=== PATIENT | male | born 1975 | race Caucasian/White ===

== ENCOUNTER 2024-09-27 09:32 | Outpatient (CLI) | payer OTHER, SELFPAY ==
--- NOTE | ~2024-09-27 | CT_ITS ---
EXAMINATION:CT diagnostic chest wo con DATE: 09/27/2024 10:06 INDICATION: Exposure to asbestos. TECHNIQUE: Computed tomography (CT) of the chest was performed without intravenous contrast. Automate d exposure control and iterative reconstruction technique were employed. The dose-length product (DLP ) was 219.64 mGy-cm. COMPARISON: None. FINDINGS: There is mild elevation of left hemidiaphragm. There is mild emphysema. There is minimal at electasis in right lower lobe. There are groundglass opacities in the inferior lingula and basilar le ft lower lobe, likely atelectasis. No bronchiectasis or honeycombing. No pleural effusion. The heart size is normal. There are coronary artery calcifications. No pericardial effusion. There is mild bila teral gynecomastia. There is mild chronic anterior wedging of multiple vertebral bodies. IMPRESSION: 1. Mild emphysema. Reviewed, dictated and finalized at location A. ENT RELATIONS REPRESENTATIVE IMPRESSION: 1. Mild emphysema.
--- OUTSIDE RECORDS SUMMARY | 2024-10-04 12:43 | XMS_ITS | Clinical Summary ---
Author Organization [facility] Address [address] [place] [address] Care Team Providers Care Human Service Worker Name Role Phone Carlos Pacheco MD Primary Care Provider [phone] Allergies No known active allergies Medications amLODIPine (NORVASC) 5 mg tablet Take 1 tablet (5 mg total) by mouth nightly Active metoprolol XL (TOPROL-XL) 100 mg 24 hr tablet Take 1 tablet (100 mg total) by mouth nightly Active fenofibrate (TRIGLIDE) 160 mg tablet Take 1 tablet (160 mg total) by mouth nightly Active atorvastatin (LIPITOR) 10 mg tablet Take 1 tablet (10 mg total) by mouth nightly Active zolpidem (AMBIEN) 10 mg tabletIndicatio ns:Sleep-Onset Insomnia Take 1 tablet (10 mg total) by mouth nightly Active famotidine (PEPCID) 40 mg tablet Take 1 tablet (40 mg total) by mouth daily 30 tablet 11 05/05/20 025 Active hydrocortisone (ANUSOL-HC) 25 mg suppository Insert 1 suppository (25 mg total) into the rectum daily Take prior to procedure as directed 20 suppository 08/26/20 24 025 Active Active Problems Problem Noted Date Diagnosed Date Personal history of colonic polyps 05/08/2024 Encounter for screening colonoscopy 05/08/2024 Diverticulitis 04/27/2024 Rectal bleeding 04/26/2024 Encounters Date Type Department Care Team Description 09/19/2024 1:12 PM LABELING ASSOCIATE Anesthesia Event [facility] Center [address] [place] [address] Luke Vivar MD 09/19/2024 12:00 PM LABELING ASSOCIATE - 09/19/2024 12:30 PM LABELING ASSOCIATE Surgery [facility] [address] [place] [address] Celestino Moctezuma MD SIGMOID REMOVAL SNARE 09/19/2024 10:26 AM LABELING ASSOCIATE - 09/19/2024 2:26 PM LABELING ASSOCIATE Hospital Encounter [facility] [address] [place] [address] Celestino Moctezuma MD Rectal bleeding Discharge Disposition: Discharge to home or self care 08/27/2024 Telephone [facility] Gastroenterology at [address] [address] Jeanne Lugo MA 08/26/2024 Orders Only [facility] Gastroenterology at [address] [place] [phone] Celestino Moctezuma MD 08/25/2024 Telephone [facility] Gastroenterology at [address], [place] [address] Jeanne Lugo MA 08/15/2024 Telephone [facility] Gastroenterology at [address], [place] [address] Lori Pruett Medical Records Request 08/04/2024 8:30 AM CDT Lab [facility] [address] [place] [address] Gastrointestinal hemorrhage, unspecified gastrointestinal hemorrhage type 08/04/2024 8:15 AM CDT Lab [facility] [address] [place] [address] from Last 3 Months Surgical History Surgery Date Site/Laterality Comments BRAIN SURGERY Medical History Medical History Date Comments Hypertension Social History Tobacco Use Types Packs/Day Years Used Date Smoking Tobacco: Every Day Cigarettes Tobacco Cessation:Ready to Q uit: Not Asked; Counseling Given: Not Answered [facility] Utilities Answer Date Recorded In the past 12 months has [employer], gas, oil, or water company threatened to shut off services in your home? No 04/30/2024 Social Connection and Isolation Panel [NHANES] A nswer Date Recorded In a typical week, how many times do you talk on the phone with family, friends, or neighbors? Twice a week 04/30/2024 How often do you get together with friends or re latives? Twice a week 04/30/2024 Attends Sabianism Services Not on file 04/30 Active Member of Clubs or Organizations Not on f ile 04/30/2024 Attends Club or Organization Meetings Not on gary e 04/30/2024 Are you , , di vorced, , never , or living with a partner? 04/30/2024 AUDIT-C Answer Date Recorded Q1: How often do you have a drink containing alcohol? Monthly or less 09/19/2024 Q2: How many drinks containi ng alcohol do you have on a typical day when you are drinking? 5 or 6 Q3: How often do you have si x or more drinks on one occasion? Daily or almost daily 09/19/2024 Overall Financial Resource Strain (CARDIA) Answe r Date Recorded How hard is it for you to pa y for the very basics like food, housing, medical care, and heating? Not hard at all 04/30/2024 Hunger Vital Sign Answer Date Recorded Within the past 12 months, y ou worried that your food would run out before you got the money to buy more. Never true 04/30/20 24 Within the past 12 months, t he food you bought just didn't last and you didn't have money to get more. Never true 04/30/2024 PRAPARE - Transportation Answer Date Re corded In the past 12 months, has l ack of transportation kept you from medical appointments or from getting medications? No 04/08 In the past 12 months, has l ack of transportation kept you from meetings, work, or from getting things needed for daily living? No 04/30/2024 Housing Stability Vital Sign Answer Mauricio e Recorded In the last 12 months, was t here a time when you were not able to pay the mortgage or rent on time? No 04/30/2024 In the past 12 months, how m any times have you moved where you were living? 0 04/30/2024 At any time in the past 12 m [place], were you homeless or living in a mcc (including now)? No 04/30/2024 Personal Safety Answer Date Recorded Have you ever been in or are you currently in a harmful physical or emotional relationship or is someone making you feel afraid or unsafe? 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 Not on file Not on file Not on fi le Obstetrics History Last Filed Vital Signs Vital Sign Reading Time Taken Comments Blood Pressure 152/82 09/19/2024 2:07 PM LABELING ASSOCIATE Pulse 55 09/19/2024 2:07 PM LABELING ASSOCIATE Temperature 36.9 ??C (98.5 ??F) 09/19/2024 2:07 PM CS T Respiratory Rate 18 09/19/2024 2:07 PM LABELING ASSOCIATE Oxygen Saturation 99% 09/19/2024 2:07 PM LABELING ASSOCIATE Inhaled Oxygen Concentration - - Weight 81.6 kg (180 lb) 09/19/2024 10:45 AM LABELING ASSOCIATE Height 180.3 cm (5' 11 ) 09/19/2024 10:45 AM LABELING ASSOCIATE Body Mass Index 25.1 09/19/2024 10:45 AM LABELING ASSOCIATE Plan of Treatment Upcoming Encounters Date Type Department Care Team (Late st Contact Info) Description 05/04/2025 8:00 AM CDT Hospital Encounter [address] [address] Celestino Moctezuma MD [address] [place] [address] 05/04/2025 8:00 AM CDT - 05/04/2025 8:30 AM CDT Surgery [address] [address] Celestino Moctezuma MD [address] [place] [address] COLONOSCOPY Scheduled Procedures Name Priority Associated Diagnoses Date/Ti me COLONOSCOPY Personal history of colonic polyps Encounter for screening colonoscopy 05/04/2025 8:00 AM CDT Health Maintenance Due Date Last Done Comments Depression Screening 1975 Hepatitis C Screening 1975 Pneumococcal vaccine <65 (1 of 2 - PCV) 1980 DTaP/Tdap/Td Vaccine (1 - Tdap) 1985 Hepatitis B Screening 1992 Regular Well Visit/Exam 18-64 1992 Zoster Vaccine (1 of 2) 2024 Influenza Vaccine (#1) 2024 Prostate Cancer Screening-PSA 08/04/2026 08/04/2024 Colon Cancer Screening-Colonoscopy 04/29/20342023, 04/28/2024 Procedures Procedure Name Priority Date/Time Associated Diagnosis Comments SURGICAL PATHOLOGY STAT 09/19/2024 2: 58 PM LABELING ASSOCIATE Rectal bleeding INFRARED COAGULATION OF HEMORRHOIDS 09/19/2024 1:08 PM LABELING ASSOCIATE Rectal bleeding SIGMOID REMOVAL SNARE 09/19/2024 1:08 PM LABELING ASSOCIATE Rectal bleeding FLEXIBLE SIGMOIDOSCOPY 09/19/2024 10:29 AM LABELING ASSOCIATE EGFR Routine 08/04/2024 8:21 AM CDT LIPID PANEL Routine 08/04/2024 8:21 AM CDT HEMOGLOBIN A1C Routine 08/04/2024 8:21 AM CDT TOTAL TESTOSTERONE Routine 08/04/2024 8: 21 AM CDT VITAMIN D 25 HYDROXY Routine 08/04/2024 8:21 AM CDT COMPREHENSIVE METABOLIC PANEL Routine 08/04/2024 8:21 AM CDT TSH Routine 08/04/2024 8:21 AM CDT PSA SCREEN Routine 08/04/2024 8:21 AM CDT DIFFERENTIAL AUTO Routine 08/04/2024 8:2 0 AM CDT Gastrointestinal hemorrhage, unspecified gastrointestinal hemorrhage type FOLATE Routine 08/04/2024 8:20 AM CDT Gastrointestinal hemorrhage, unspecified gastrointestinal hemorrhage type VITAMIN B12 Routine 08/04/2024 8:20 AM CDT Gastrointestinal hemorrhage, unspecified gastrointestinal hemorrhage type IRON PROFILE W/ IBC Routine 08/04/2024 8 :20 AM CDT Gastrointestinal hemorrhage, unspecified gastrointestinal hemorrhage type CBC WITH AUTO DIFFERENTIAL Routine 08/04/2024 8:20 AM CDT Gastrointestinal hemorrhage, unspecified gastrointestinal hemorrhage type COLONOSCOPY 04/29/2024 11:02 AM CDT from Last 3 Months or Most Recently Relevant to Health Maintenance Results * Surgical pathology (09/19/2024 2:58 PM LABELING ASSOCIATE) Tissue (Polyp(s), colon/colorectal, esophageal, gastric) 09/19/2024 1:43 PM LABELING ASSOCIATE Tissue (Polyp(s), colon/colorectal, esophageal, gastric) 09/19/2024 1:43 PM LABELING ASSOCIATE Narrative PATHOLOGY [facility] ([place]) - 09/23/2024 12:42 PM LABELING ASSOCIATE EPIC results best viewed via link to PDF [facility] Department of Pathology [address] [place] [address] Note to Patients: This report may contain a detailed description of human tissue sent by a health care provider to the laboratory for pathologic evaluation. The content of this report is essential for diagnosis and may provide important critical findings. This information may be unfamiliar to patients to review without a medical professional present. It is advised that the patient review this report in the presence of a health care provider who can answer questions and explain the details. Final Report Patient Name: ??ANGELIQUE LAW Address: ??[address] [place] [address], ??[place], [place] [address] Gender: ??M : ??1975 (Age: 49) Service: ??Gastro Location: ??[facility] Hospital #: ??[id number] Patient Type: ??[facility] Accession # ?[id number] Taken: ??09/19/2024 Received: ??09/19/2024 Accessioned: ??09/19/2024 Reported: ??09/23/2024 Physician(s):Dr. Celestino Moctezuma M.D. Diagnosis: A. ??Rectum, biopsy: ? - Tubular adenoma. ? - No evidence of high-grade dysplasia or malignancy. B. ??Colon, sigmoid, biopsies: ? - Hyperplastic polyps. ? - No evidence of dysplasia or malignancy. Jesse Noyola MD Report Electronically Reviewed and Signed Out By ??Jesse Noyola MD ??09/23/2024 12:42:06 Specimen(s) Received: A: Rectal polyp x 1 B: Sigmoid polyp x 2 Microscopic Description: A. Microscopic examination of the bisected specimen shows polypoid fragments of rectal mucosa with adenomatous mucosal changes consistent with a tubular adenoma. ??There is no evidence of high-grade dysplasia or malignancy. B. Microscopic examination shows fecal material and two polypoid fragments of cauterized colonic mucosa with hyperplastic glandular changes. ??There is no evidence of marked crypt dilation, lateral branching, or flattening of the crypt bases. ??The findings are consistent with hyperplastic polyps. ??There is no evidence of dysplasia or malignancy. Clinical History: Rectal bleeding. ??Sigmoid removal snare, infrared coagulation of hemorrhoids. ?? Gross Description: The specimen is submitted in two formalin containers labeled ANGELIQUE NULL . A. ??Received in the first container labeled rectal polyp x1 . ??It is 1 red- guo polypoid tissue fragment measuring 1 cm. ??Inked and bisected. ??All in A B. ?? Received in the second container labeled sigmoid polyp x2 . ??It is 2 pieces of guo tissue, 1 and 3 mm. ??All in B T.A. Yodit Cornejo, P.A./Angy Quiros M.D. REPORT IMAGES AND SCANNED DOCUMENTS, IF INCLUDED, ONLY VIEWABLE IN PDF VERSION OF REPORT The performance characteristics of some immunohistochemical stains, fluorescence in-situ hybridization tests and immunophenotyping by flow cytometry cited in this report (if any) were determined by the Surgical Pathology Department at [facility] as part of an ongoing quality director program and in compliance with federally mandated regulations drawn from the Clinical Laboratory Improvement Act of 1988 (CLIA '88). ??Some of these tests rely on the use of analyte specific reagents and are subject to specific labeling requirements by the US Food and Drug Administration. ??Such diagnostic tests may only be performed in a facility that is certified by the Department of Health and Human Services as a high complexity laboratory under CLIA '88. The FDA has determined that such clearance or approval is not necessary. ??This test is used for clinical purposes. ??It should not be regarded as investigational or for research. ??Nevertheless, federal rules concerning the medical use of analyte specific reagents require that the following disclaimer be attached to the report: This test was developed and its performance characteristics determined by the Surgical Pathology Department [facility]. ??It has not been cleared or approved by the U. S. Food and Drug Administration. Note for decalcified specimens: This assay has not been validated on decalcified tissues. Results should be interpreted with caution given the possibility of false negativity on decalcified specimens Celestino Moctezuma MD LAB PATHOLOGY ORDERABLES [place] [address] * Flexible Sigmoidoscopy (09/19/2024 10:29 AM LABELING ASSOCIATE) Anatomical Region Laterality Modality Other Narrative Procedure Note Celestino Moctezuma MD - 09/19/2024 10:29 AM CST [facility] Patient Name: Angelique Law Procedure Date: 09/19/2024 10:29AM Date of : 1975 Admit Type: Outpatient Age: 49 Gender: Male Attending MD: Celestino Moctezuma M.D. Room: [facility] ENDOSCOPY ROOM 1 Note Status: Finalized Patient Profile: This is a 49 year old male. 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 Noted extensive diverticulosis and sharp angulation with polyp formation in the distal sigmoid colonand colorectal angle. Procedure: Flexible Sigmoidoscopy Indications: Rectal hemorrhage Referring MD: Carlos Pacheco M.D. Providers: Celestino Moctezuma M.D. Impression: - Diverticulosis in the sigmoid colon. Sharp angulation and spasm in the distal sigmoid area and rectosigmoid areas - Two 8 to 14 mm polyps in the distal sigmoidcolon, removed with a hot snare. Resected and retrieved. - One 15 mm polyp in the proximal rectum, removedwith a hot snare. Resected and retrieved. Clip (MR conditional) was placed. Clip credit control clerk: Telekenex. - Internal hemorrhoids. Treated with thermaltherapy. Recommendation: - Await pathology results. - Fiber supplements daily - Colonoscopy in 1 year Medicines: Monitored Anesthesia Care Complications: No immediate complications. Estimated Blood Loss: Estimated blood loss: none. Procedure: Pre-Anesthesia Assessment: - Prior to the procedure, a History and Physicalwas performed, and patient medications and allergieswere reviewed. The patient's tolerance of previous anesthesia was also reviewed. The risks andbenefits of the procedure and the sedation options and risks were discussed with the patient. All questions were answered, and informed consent was obtained. Prior Anticoagulants: The patient has taken noanticoagulant or antiplatelet agents. ASA Grade Assessment: Per anesthesia note and evaluation. After reviewing the risks and benefits, the patient was deemed in satisfactory condition to undergo the procedure. The benefits, risks, and alternatives to theprocedure and sedation were discussed and informed consentwas obtained. The Endoscope [id number] was introduced through the anus and advanced to the the descending colon. The flexible sigmoidoscopy was accomplished without difficulty. The patienttolerated the procedure well. The quality of the bowel preparation was adequate. Findings: The perianal and digital rectal examinations were normal. Multiple small and large-mouthed diverticula were found in thesigmoid colon. Sharp angulation with the extensive spasm noted in the distal sigmoid colon and in the rectal sigmoid area with mucosal congestion. Overall visualization in this area is somewhat difficult. Two sessile polyps were found in the distal sigmoid colon with anareas of spasm close to the rectal sigmoid curve. The polyps were 8 to 14mm in size. These polyps were removed with a hot snare. Resection and retrieval were complete. A 15 mm polyp was found in the proximal rectum. The polyp wassessile. The polyp was removed with a hot snare. Resection and retrieval were complete. To prevent bleeding after the polypectomy, one hemostaticclip was successfully placed (MR conditional). Clip credit control clerk: Telekenex. There was no bleeding at the end of the procedure. Internal hemorrhoids were found during retroflexion. The hemorrhoids were medium-sized. Coagulation to prevent future bleeding of internal hemorrhoids using IRC (Infrared Coagulation) was successful. Electronically signed by Celestino Moctezuma M.D. Celestino Moctezuma M.D. 09/19/2024 2:12:13 PM Number of Addenda: 0 Note Initiated On: 09/19/2024 10:29 AM Procedure Code(s): --- Professional --- 61327, Destruction of internal hemorrhoid(s) by thermal energy (eg, infrared coagulation, cautery, radiofrequency) 44403, Sigmoidoscopy, flexible; with removal of tumor(s), polyp(s),or other lesion(s) by snare technique Diagnosis Code(s): --- Professional --- K64.8, Other hemorrhoids D12.5, Benign neoplasm of sigmoid colon D12.8, Benign neoplasm of rectum K62.5, Hemorrhage of anus and rectum K57.30, Diverticulosis of large intestine without perforation orabscess without bleeding CPT copyright 2020 [place] [employer]. All rights reserved. The codes documented in this report are preliminary and upon furniture refinisher reviewmay be revised to meet current compliance requirements. Recognized by the [place] [employer] for promoting quality in endoscopy Celestino Moctezuma MD ENDOSCOPY PROCEDURES Final Result * eGFR (08/04/2024 8:21 AM CDT) eGFR 88 >=60 mL/min/1. 73 m2 Comment: Interpretive Data Reference Interval Normal ?>/= 90 mL/min/1.73m2 Mildly decreased* ? 60 - 89 mL/min/1.73m2 Mildly to moderately decreased ?45 - 59 mL/min/1.73m2 Moderately to severely decreased ??30 - 44 mL/min/1.73m2 Severely decreased ?15 - 29 mL/min/1.73m2 Kidney Failure ?< 15 ??mL/min/1.73m2 *Relative to young adult level Estimated glomerular filtration rate is determined by the 2020 CKD-EPI equation recommended by the National Kidney Foundation (A Unifying Approach to GFR Estimation: Recommendations of the NKF-ASK Task Force on Reassessing the Inclusion of Race in Diagnosing Kidney Disease, JASN 2020). The CKD-EPI equation should not be used for patients with unstable renal function and has not been validated in children and those over 70. Current interpretive data was last reviewed 2021. Testing performed by: [facility], [address] [place] [address], [place]., [id number] Blood 08/04/2024 8:21 AM CDT 08/04/2024 1:17 PM CDT us Kaylyn Gorman CONCRETE PUDDLER LAB BLOOD ORDERABLES Final Result [facility] ([place]) 1 [facility] [place] [address] * PSA screen (08/04/2024 8:21 AM CDT) [facility] PSA-Total 0.72 <=3.90 ng/mL Comment: Interpretive Data ?AGE ? SEX ?REFERENCE INTERVAL 0 minutes-150 years ?Female ?None 0 minutes-49 years ? Male ?None ? 50-59 years ? Male ?0-3.90 ? 60-69 years ? Male ?0-5.40 ? 70-79 years ? Male ?0-6.20 ? 80-150 years ?Male ?0-6.20 The Genaro PSA Total assay procedure was used. Results from different manufacturers or methods may not be comparable. Serial testing should be performed using the same method. Current interpretive data last revised 22. Testing performed by: [facility], [address] [place] [address]., [id number] Blood 08/04/2024 8:21 AM CDT 08/04/2024 8:21 AM CDT Kaylyn Gorman CONCRETE PUDDLER LAB BLOOD ORDERABLES Final Result [facility] ([place]) 1 [facility] Department [place] [address] * Vitamin D 25 hydroxy (08/04/2024 8:21 AM CDT) Vitamin D 25-OH 35 30 - 80 ng/mL Comment:Testing performed by : [facility], [address] [place] [address]., [id number] Blood 08/04/2024 8:21 AM CDT 08/04/2024 8:22 AM CDT Kaylyn Gorman CONCRETE PUDDLER LAB BLOOD ORDERABLES Final Result [facility] ([place]) 1 [facility] [place] [address] * TSH (08/04/2024 8:21 AM CDT) Thyroid Stimulating Hormone 1.23 0.30 - 4.20 mcIUnit/mL Comment:Testing performed by : [facility], [address] [place] [address], [id number] Blood 08/04/2024 8:21 AM CDT 08/04/2024 8:21 AM CDT Kaylyn Gorman CONCRETE PUDDLER LAB BLOOD ORDERABLES Final Result Performing Organization Address City/[facility]/ZIP Co de Phone Number [facility] ([place]) 1 [facility] [place] [address] * Total testosterone (08/04/2024 8:21 AM CDT) Testosterone 557 193 - 740 ng/dL Comment:Testing performed by : [facility], [address] [place] [address]., [id number] Blood 08/04/2024 8:21 AM CDT 08/04/2024 8:21 AM CDT Kaylyn Gorman CONCRETE PUDDLER LAB BLOOD ORDERABLES Final Result [facility] ([place]) 1 [facility] [place] [address] * (ABNORMAL) Hemoglobin A1c (08/04/2024 8:21 AM CDT) [facility] Hgb A1C 5.9(H) 4.0 - 5.6 % Comment:Testing performed by : [facility], [address] [place] [address]., [id number] Estimated Average Glucose 123 mg/dL [facility] ([place]) Comment: The ADA recommends reporting an estimated Average Glucose (eAG) with all Hemoglobin A1c results using the equation derived from a study of 507 normal and diabetic adults. ??Minority populations were underrepresented and children were not included. ?? (Diabetes Care 31:1979-2575, 2008). ??The eAG is not equivalent to a fasting glucose. Testing performed by: [facility], [address] [place] [address]., [id number] Blood 08/04/2024 8:21 AM CDT 08/04/2024 8:23 AM CDT Kaylyn Gorman CONCRETE PUDDLER LAB BLOOD ORDERABLES Final Result [facility] ([place]) 1 [facility] Department [place] [address] * (ABNORMAL) Lipid panel (08/04/2024 8:21 AM CDT) [facility] Cholesterol 138 30 - 199 mg/dL Comment: Interpretive Data Ages < or = 19 years ??Acceptable: ? <170 mg/dL ??Borderline high: ??170-199 mg/dL ??High: ? >or= 200 mg/dL Ages > or = 20 years ??Desirable: ?<200 mg/dL ??Borderline high: ??200-239 mg/dL ??High: ? >or= 240 mg/dL Literature References: 1. Expert Panel on Integrated Guidelines for Cardiovascular Health and Risk Reduction in Children and Adolescents. Pediatrics 2011;128:S213 2. NCEP Expert Panel. Circulation 2004;110:227 Current Interpretive Data was last revised on 2018. Testing performed by: [facility], [address] [place] [address], [place]., [address] Triglycerides 104 <=149 mg/dL [facility] ([place]) Comment: Interpretive Data Ages < or = 9 years ??Acceptable: ? <75 mg/dL ??Borderline high: ??75-99 mg/dL ??High: ? >or= 100 mg/dL Ages 10 to 20 years ??Acceptable: ? <90 mg/dL ??Borderline high: ??90-129 mg/dL ??High: ? >or= 130 mg/dL Ages > or = 20 years ??Desirable: ?<150 mg/dL ??Borderline high: ??150-199 mg/dL ??High: ? 200-499 mg/dL ?Very high: ?? >or= 499 mg/dL Literature References: 1. Expert Panel on Integrated Guidelines for Cardiovascular Health and Risk Reduction in Children and Adolescents. Pediatrics 2011;128:S213 2. NCEP Expert Panel. Circulation 2004;110:227 Current Interpretive Data was last revised on 2018. Testing performed by: [facility], [address] [place] [address]., [id number] HDL 29(L) >=40 mg/dL [facility] ([place]) Comment: Interpretive Data Ages < or = 19 years ??Acceptable: ? >45 mg/dL ??Borderline low: ?? 40-45 mg/dL ??Low: ? <40 mg/dL Ages > or = 20 years ??Desirable: ?>or= 60 mg/dL ??Low: ? <40 mg/dL Literature References: 1. Expert Panel on Integrated Guidelines for Cardiovascular Health and Risk Reduction in Children and Adolescents. Pediatrics 2011;128:S213 2. NCEP Expert Panel. Circulation 2004;110:227 Current Interpretive Data was last revised on 2018. Testing performed by: [facility], [address] [place] [address]., [address] LDL, calculated 89 <=129 mg/dL [facility] ([place]) Comment: Interpretive Data Ages < or = 19 years ??Acceptable: ? <110 mg/dL ??Borderline high: ??110-129 mg/dL ??High: ?>or= 130 mg/dL Ages > or = 20 years ??Optimal: ? <100 mg/dL ??Near optimal: ?100-129 mg/dL ??Borderline high: ?? 130-159 mg/dL ??High: ?>160 mg/dL Calculated using the Hollis LDL-C estimating equation. This equation was implemented on 2024. Prior to this date LDL-C was estimated using the Friedewald equation. Literature References: 1. Expert Panel on Integrated Guidelines for Cardiovascular Health and Risk Reduction in Children and Adolescents. Pediatrics 2011;128:S213 2. NCEP Expert Panel. Circulation 2004;110:227 3. Hollis Mckeon et al. CARLOS Cardiol. 2020 February 05;5(5):540-548. doi: 10.1001/jamacardio.2020.0013 Current Interpretive Data was last revised on 2024. Testing performed by: [facility], [address] [place] [address]., [id number] Non-HDL Cholesterol 109 mg/dL [facility] ([place]) Comment: Interpretive Data Ages < or = 19 years ??Acceptable: ?<120 mg/dL ??Borderline high: ??120-144 mg/dL ??High: ?>145 mg/dL Ages > or = 20 years ??When triglycerides are >200 mg/dL, Non-HDL cholesterol is a secondary target of ? therapy with treatment goals that are 30 mg/dL greater than the LDL cholesterol target. ? Literature References: 1. Expert Panel on Integrated Guidelines for Cardiovascular Health and Risk Reduction in Children and Adolescents. Pediatrics 2011;128:S213 2. NCEP Expert Panel. Circulation 2004;110:227 Current Interpretive Data was last revised on 2018. Testing performed by: [facility], [address] [place] [address], [place]., [address] Chol/HDL ratio 5 [facility] ([place]) Comment:Testing performed by : [facility], [address] [place] [address]., [id number] Blood 08/04/2024 8:21 AM CDT 08/04/2024 8:21 AM CDT Kaylyn Gorman CONCRETE PUDDLER LAB BLOOD ORDERABLES Final Result [facility] ([place]) 1 [facility] Department [place] [address] * Comprehensive metabolic panel (08/04/2024 8:21 AM CDT) Sodium 140 135 - 145 mmol/L Comment:Testing performed by : [address], [address] Potassium, pl 4.2 3.3 - 4.9 mmol/L [facility] ([place]) Comment:Testing performed by : [address], [address] Chloride 104 97 - 110 mmol/L [facility] ([place]) Comment:Testing performed by : [address], [address] CO2 24 22 - 32 mmol/L [facility] ([place]) Comment:Testing performed by : [address], [address] Anion gap 12 2 - 15 mmol/L [facility] ([place]) Comment:Testing performed by : [address], [address] BUN 9 6 - 25 mg/dL [facility] ([place]) Comment:Testing performed by : [address], [address] Creatinine 1.03 0.80 - 1.30 mg/dL [facility] ([place]) Comment:Testing performed by : [address], [address] Glucose 94 70 - 199 mg/dL [facility] ([place]) Comment: Interpretive Data Fasting glucose >/= 126 mg/dl is diagnostic for diabetes. ?? Fasting is defined as no caloric intake for at least 8 hours. Fasting glucose between 100 mg/dl to 125 mg/dl is diagnostic of prediabetes. In a patient with classic symptoms of hyperglycemia or hyperglycemic crisis, a random glucose >/= 200 mg/dl is diagnostic for diabetes. In the absence of unequivocal hyperglycemia, results should be confirmed by repeat testing. The classification and Diagnosis of Diabetes Diabetes Care 2021; 46: S19-S40. Current interpretive data was last revised 2022. Testing performed by: [facility], [address] [place] [address]., [address] Calcium 9.6 8.5 - 10.3 mg/dL [facility] ([place]) Comment:Testing performed by : [address], [address] Bilirubin, total 0.2 0.1 - 1.2 mg/dL [facility] ([place]) Comment:Testing performed by : [address], [address] Protein, pl 6.9 6.5 - 8.5 g/dL [facility] ([place]) Comment:Testing performed by : [facility], [address] [place] [address], [address] Albumin 4.3 3.5 - 5.0 g/dL [facility] ([place]) Comment:Testing performed by : [address], [address] Alk phos 90 40 - 130 Units/L [facility] ([place]) Comment:Testing performed by : [address], [address] ALT 13 7 - 55 Units/L [facility] ([place]) Comment:Testing performed by : [address] [address] AST 30 10 - 50 Units/L [facility] ([place]) Comment:Testing performed by : [address], [address] Blood 08/04/2024 8:21 AM CDT 08/04/2024 8:21 AM CDT Kaylyn Gorman NP LAB BLOOD ORDERABLES Final Result [facility] ([place]) [address] Department [place] [address] * Differential, auto (08/04/2024 8:20 AM CDT) Neutrophil abs 4.0 1.5 - 6.5 K/cumm Comment:Testing performed by : [facility], [address] [place] [address]., [address] Imm gran abs 0.0 0.0 - 0.1 K/cumm [facility] ([place]) Comment:Testing performed by : [facility], [address] [place] [address]., [address] Lymphocyte abs 1.7 0.8 - 3.3 K/cumm [facility] ([place]) Comment:Testing performed by : [facility], [address] [place] [address]., [address] Monocyte abs 0.6 0.2 - 0.8 K/cumm [facility] ([place]) Comment:Testing performed by : [address] [address] Eosinophil abs 0.1 0.0 - 0.5 K/cumm [facility] ([place]) Comment:Testing performed by : [facility], [address] [place] [address]., [address] Basophil abs 0.1 0.0 - 0.1 K/cumm [facility] ([place]) Comment:Testing performed by : [address] [address] Neutrophil pct 61.3 % [facility] ([place]) Comment: Interpretive Data Percent cell count reference ranges are not reported, since discordance with absolute values may lead to misinterpretation of CBC data. Current Interpretive Data was last revised on 2018. Testing performed by: [facility], [address] [place] [address]., [address] Imm gran pct 0.3 % [facility] ([place]) Comment: Interpretive Data Percent cell count reference ranges are not reported, since discordance with absolute values may lead to misinterpretation of CBC data. Current Interpretive Data was last revised on 2018. Testing performed by: [address] [address] Lymphocyte pct 26.2 % [facility] ([place]) Comment: Interpretive Data Percent cell count reference ranges are not reported, since discordance with absolute values may lead to misinterpretation of CBC data. Current Interpretive Data was last revised on 2018. Testing performed by: [address] [address] Monocyte pct 9.7 % [facility] ([place]) Comment: Interpretive Data Percent cell count reference ranges are not reported, since discordance with absolute values may lead to misinterpretation of CBC data. Current Interpretive Data was last revised on 2018. Testing performed by: [facility], [address] [place] [address]., [address] Eosinophil pct 1.7 % [facility] ([place]) Comment: Interpretive Data Percent cell count reference ranges are not reported, since discordance with absolute values may lead to misinterpretation of CBC data. Current Interpretive Data was last revised on 2018. Testing performed by: [address], [address] Basophil pct 0.8 % [facility] ([place]) Comment: Interpretive Data Percent cell count reference ranges are not reported, since discordance with absolute values may lead to misinterpretation of CBC data. Current Interpretive Data was last revised on 2018. Testing performed by: [address], [address] Blood 08/04/2024 8:20 AM CDT 08/04/2024 1:00 PM CDT Celestino Moctezuma MD LAB BLOOD ORDERABLES Final Result [facility] ([place]) 1 [facility] Department [place] [address] * (ABNORMAL) Iron profile w/ IBC (08/04/2024 8:20 AM CDT) Iron 69 50 - 150 mcg/dl Comment:Testing performed by : [address], [address] TIBC 396 250 - 400 mcg/dL [facility] ([place]) Comment:Testing performed by : [facility], [address] Transferrin saturation 17(L) 20 - 50 % [facility] ([place]) Comment:Testing performed by : [address], [address] Blood 08/04/2024 8:20 AM CDT 08/04/2024 1:00 PM CDT Celestino Moctezuma MD LAB BLOOD ORDERABLES Final Result [facility] ([place]) 1 [facility] Department [place] [address] * (ABNORMAL) CBC with auto differential (08/04/2024 8:20 AM CDT) WBC 6.5 3.8 - 9.9 K/cumm Comment:Testing performed by : [address], [address] Hgb 15.3 13.0 - 17.5 g/dL [facility] ([place]) Comment:Testing performed by : [address], [address] Hct 48.6 38.9 - 50.3 % [facility] ([place]) Comment:Testing performed by : [address], [address] Plt 419(H) 150 - 400 K/cumm [facility] ([place]) Comment:Testing performed by : [address], [address] MPV 10.0 9.1 - 12.3 fL [facility] ([place]) Comment:Testing performed by : [address], [address] RBC 5.05 4.30 - 5.80 M/cumm [facility] ([place]) Comment:Testing performed by : [address], [address] MCV 96.2 81.3 - 96.4 fL [facility] ([place]) Comment:Testing performed by : [address], [address] MCH 30.3 27.1 - 33.3 pg [facility] ([place]) Comment:Testing performed by : [facility], [address] [place] [address], [address] MCHC 31.5(L) 32.3 - 35.7 g/dL [facility] ([place]) Comment:Testing performed by : [facility], [address] [place] [address], [address] RDW CV 13.2 11.1 - 14.9 % [facility] ([place]) Comment:Testing performed by : [facility], [address] [place] [address], [address] RDW SD 46.7 35.7 - 48.1 fL [facility] ([place]) Comment:Testing performed by : [facility], [address] [place] [address], [address] NRBC abs 0.00 0.00 - 0.01 K/cumm [facility] ([place]) Comment:Testing performed by : [facility], [address] [place] [address], [address] Blood 08/04/2024 8:20 AM CDT 08/04/2024 1:00 PM CDT us Celestino Moctezuma MD LAB BLOOD ORDERABLES Final Result [facility] ([place]) 1 [facility] [place] [address] * Folate (08/04/2024 8:20 AM CDT) Folic acid 10.3 >=5.0 ng/mL Comment:Testing performed by : [facility], [address] [place] [address], [address] Blood 08/04/2024 8:20 AM CDT 08/04/2024 1:00 PM CDT Celestino Moctezuma MD LAB BLOOD ORDERABLES Final Result [facility] ([place]) 1 [facility] [place] [address] * Vitamin B12 (08/04/2024 8:20 AM CDT) Vitamin B12 253 230 - 1,250 pg/mL Comment:Testing performed by : [facility], [address] [place] [address], [place]., [address] Blood 08/04/2024 8:20 AM CDT 08/04/2024 1:00 PM CDT Celestino Moctezuma MD LAB BLOOD ORDERABLES Final Result [facility] ([place]) 1 [facility] [place] [address] * Colonoscopy (04/29/2024 11:02 AM CDT) Anatomical Region Laterality Modality Other Narrative Procedure Note Celestino Moctezuma MD - 04/29/2024 11:02 AM CDT [facility] Patient Name: Angelique Law Procedure Date: 04/29/2024 11:02 AM Date of : 1975 Admit Type: Inpatient Age: 49 Gender: Male Attending MD: Celestino Moctezuma M.D. Room: [facility] ENDOSCOPY ROOM 1 Note Status: Finalized Patient Profile: This is a 49 year old male. Patient admitted with hematochezia. Patient has been persistent lower GI bleeding requiring blood transfusion. CT angiogram showed no active bleeding but the mild changes of diverticulitis. Colonoscopy yesterday showed blood throughout the colon. Because of the persistent bleeding repeat colonoscopy today. Procedure: Colonoscopy Indications: Last colonoscopy one week ago, Hematochezia, Acute post hemorrhagic anemia Referring MD: Carlos Pacheco MD Providers: Celestino Moctezuma M.D. Impression: - Two recently bleeding colonic angioectasias.Treated with argon plasma coagulation (APC). Clips (MR conditional) were placed. Clip credit control clerk: Telekenex. - Diverticulosis in the entire examined colon. - One 12 mm polyp at the recto-sigmoid colon,removed with a hot snare. Resected and retrieved. Clips (MR conditional) were placed. Clip credit control clerk: Telekenex. - Spasm and angulation at the rectal sigmoidarea. - Localized congested mucosa in the rectosigmoidarea, biopsied to rule out polyp formation - Internal hemorrhoids. Recommendation: - Await pathology results. - Repeat colonoscopy in 1 year for surveillance. - Advance diet - Discontinue IV antibiotics and maintain oralCipro and Flagyl for 7 days for resolvingdiverticulitis Medicines: Monitored Anesthesia Care Complications: No immediate complications. Estimated Blood Loss: Estimated blood loss: none. Procedure: Pre-Anesthesia Assessment: - Prior to the procedure, a History and Physicalwas performed, and patient medications and allergieswere reviewed. The patient's tolerance of previous anesthesia was also reviewed. The risks andbenefits of the procedure and the sedation options and risks were discussed with the patient. All questions were answered, and informed consent was obtained. Prior Anticoagulants: The patient has taken noanticoagulant or antiplatelet agents. ASA Grade Assessment: III -A patient with severe systemic disease. Afterreviewing the risks and benefits, the patient was deemed in satisfactory condition to undergo the procedure. The benefits, risks and alternatives of theprocedure and sedation were discussed and informed consentwas obtained. All questions were answered. Please referto the signed informed consent document in the medical record. The bowel preparation used was GoLYTELY via single dose instruction. The scope was passed under direct vision. The Pediatric Colonoscope PCF-H190L [id number] was introduced through the anus andadvanced to the the cecum, identified by appendiceal orifice and ileocecal valve. The quality of the bowel preparation was good. Bowel prep was administered using a split dose. Findings: The perianal and digital rectal examinations were normal. The cecum appeared normal. The terminal ileum was normal. There wasno blood in the colon at this time Two small localized angioectasias with stigmata of recent bleedingwere found in the proximal ascending colon. Coagulation for hemostasisusing argon plasma at 0.8 liters/minute and 20 silva was successful. To prevent bleeding post-intervention, two hemostatic clips were successfully placed (MR conditional). Clip credit control clerk: Telekenex. There was no bleeding at the end of the procedure. Multiple medium-mouthed diverticula were found in the entire colon. A 12 mm polyp was found in the recto-sigmoid colon. The polyp was pedunculated. The polyp was removed with a hot snare. Resection and retrieval were complete. To prevent bleeding after the polypectomy, three hemostatic clips were successfully placed (MR conditional).Clip credit control clerk: Telekenex. There was no bleeding at the end ofthe procedure. The rectum sigmoid area was noted with significant spasm. Small area noted with moderate congestion and biopsy performed to rule out associated polyp formation. Internal hemorrhoids were found during retroflexion. The hemorrhoids were medium-sized. Electronically signed by Celestino Moctezuma M.D. Celestino Moctezuma M.D. 04/29/2024 12:25:13 PM Number of Addenda: 0 Note Initiated On: 04/29/2024 11:02 AM Procedure Code(s): --- Professional --- 83767, 59, Colonoscopy, flexible; with control of bleeding, anymethod 63855, Colonoscopy, flexible; with removal of tumor(s), polyp(s), or other lesion(s) by snare technique 06814, 59, Colonoscopy, flexible; with biopsy, single or multiple Diagnosis Code(s): --- Professional --- K64.8, Other hemorrhoids K55.21, Angiodysplasia of colon with hemorrhage D12.7, Benign neoplasm of rectosigmoid junction K63.89, Other specified diseases of intestine K92.1, Melena (includes Hematochezia) D62, Acute posthemorrhagic anemia K57.30, Diverticulosis of large intestine without perforation orabscess without bleeding CPT copyright 2020 [employer] [employer]. All rights reserved. The codes documented in this report are preliminary and upon furniture refinisher reviewmay be revised to meet current compliance requirements. Recognized by the [place] [employer] for promoting quality in endoscopy Celestino Moctezuma MD ENDOSCOPY PROCEDURES Final Result from Last 3 Months or Most Recently Relevant to Health Maintenance Insurance [address] HMO/POS [facility] HMO Advance Directives For more information, please contact: [phone] * Full Code (Latest Code Status on File) Date Activated Date Inactivated Comments 09/19/2024 10:41 AM 09/19/2024 6:26 PM * Full Code Date Activated Date Inactivated Comments 09/19/2024 10:41 AM 09/19/2024 10:41 AM * Full Code Date Activated Date Inactivated Comments 04/29/2024 11:05 AM 04/30/2024 6:45 PM * Full Code Date Activated Date Inactivated Comments 04/28/2024 11:11 AM 04/29/2024 11:05 AM * Full Code Date Activated Date Inactivated Comments 04/26/2024 5:21 PM 04/28/2024 11:11 AM Care Teams Human Service Worker Relationship Specialty Start Date End Date Carlos Pacheco MD [address] [place] [id number] PCP - General Internal Medicine 04/26/24
--- OUTSIDE RECORDS SUMMARY | 2024-10-04 12:44 | XMS_ITS | Encounter Summary ---
Author Organization [facility] Healthcare Address [address] [place] [id number] Care Team Providers Care Stock Car Driver Name Role Phone Carlos Pacheco MD Primary Care Provider [phone] Reason for Visit * Auth/Cert (Routine) Specialty Diagnoses / Procedures Referred By Deirdre her Referred To Contact Diagnoses Rectal bleeding Rectal bleeding [K62.5] Procedures NE SIGMOIDOSCOPY FLX DX W/COLLJ SPEC BR/WA IF PFRMD SIGMOIDOSCOPY Referral ID Status Reason Start Date Expiration Date Visits Re quested Visits Authorized [id number] 1 1 Encounter Details Date Type Department Care Team (Late st Contact Info) Description 09/19/2024 1:12 PM SCIENCE ANALYST Anesthesia Event [facility] [address] [place] [address] Luke Vivar MD [address] [place], [place] [id number] Anesthesia Record Procedure Summary Procedure Name Responsible Anesthesiologist Anesthesia Start Time Anesthesia Stop Time SIGMOID REMOVAL SNARE Luke Vivar MD 09/19/24 1312 09/19/24 1340 Events Date Time Event Comment 09/19/2024 1253 1312 An Start 1312 An Start Data 1313 Start Supplemental O2 1313 In Room 1314 Patient Positioned Laterally 1315 An Induction The patient was reevaluated immediately before moderate or deep sedation use and before anesthesia induction. 1315 Anesthesia Ready 1316 Proc Start 1339 an stop data 1340 Handoff to RN I completed my handoff to the receiving nurse during which we: 1. Patient identified 2. Responsible provider identified 3. Pertinent medical history reviewed 4. Procedure type and surgical course discussed 5. Intraoperative anesthetic management and any significant issues discussed 6. Expectations and concerns for postop period discussed 7. Questions solicited from receiving nurse 8. Patient disposition at the time of handoff: PACU 1340 An Stop 1340 Proc Fin 1340 Out of Room Meds Name Total lidocaine (cardiac) syringe 2 % 60 mg propofol 340 mg NS 0.9% 80 mL * Agents Name O2 * Blood No blood administrations on file. Lines, Drains, and Airways Type Details Placement Removal Peripheral IV Placement Date: 09/07 12/29; Placement Time: 112; Catheter Size: 20 G; Orientation: Anterior, Right; Location: Wrist; Site Prep: Chlorhexidine; Technique: Anatomical landmarks; Inserted by: Amber Herman RN; Insertion Attempts: 1; Patient Tolerance: Tolerated well; Removal Date: 09/19/24; Removal Time: 1417; Removal Reason: Therapy completed 09/19/24 1120 by Keila Herman RN 09/19/24 1418 by Keila Herman RN documented in this encounter Social History Tobacco Use Types Packs/Day Years Used Date Smoking Tobacco: Every Day Cigarettes [facility] Utilities Answer Date Recorded In the past 12 months has e [place], gas, oil, or water [employer] threatened to shut off services in your home? No 04/30/2024 Social Connection and Isolation Panel [NHANES] A nswer Date Recorded In a typical week, how many times do you talk on the phone with family, friends, or neighbors? Twice a week 04/30/2024 How often do you get together with friends or re latives? Twice a week 04/30/2024 Attends Spiritism Services Not on file 04/30 Active Member [...] [facility] were you [facility] or living in a usp (including now)? No 04/30/2024 Personal Safety Answer Date Recorded Have you ever been in or are you currently in a harmful physical or emotional relationship or is someone making you feel afraid or unsafe? 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 Not on file Not on file Not on fi le documented as of this encounter OR Notes * Anesthesia Postprocedure Evaluation - Luke Vivar MD - 09/19/2024 1:41 PM CST Patient: Sedrick Law Procedure Summary Date: 09/19/24 Room / Location: [facility]COPY ROOM 1 / [facility] Anesthesia Start: 1312 Anesthesia Stop: 1340 Procedure: SIGMOIDOSCOPY Diagnosis: Rectal bleeding (Rectal bleeding [K62.5]) Providers: Celestino Mcotezuma MD Responsible Provider: Luke Vivar MD Anesthesia Type: general/TIVA ASA Status: 2 Anesthesia Type: general/TIVA Last vitals Pulse 60 Temp 36.8 ??C (98.2 ??F) (Temporal) Resp 16 SpO2 98% Anesthesia Post Evaluation Patient location during evaluation: PACU Patient participation: waiting for patient participation Level of consciousness: arouses consumer lender Pain score: 0 Pain management: adequate Airway patency: adequate Evidence of recall: no Cardiovascular status: acceptable Respiratory status: acceptable Hydration status: acceptable Pt is: normothermic Nausea/Vomiting status: none No notable events documented. NCE ANALYST * Anesthesia Preprocedure Evaluation - Lkue Vivar MD - 09/19/2024 10:38 AM CST Images from the original note were not included. Anesthesia Evaluation Sedrick Law is a 49 y.o. male SIGMOIDOSCOPY Pre-Op Diagnosis Codes: * Rectal bleeding [K62.5] HISTORY Past Medical History Information obtained from: patient and chart. Information obtained during: In Person Neurological Neuro/Psych system: negative Cardiovascular + Hypertension + Hyperlipidemia Respiratory + COPD + Current smoker - Counseled to abstain from smoking the day of surgery. Patient refrained from smoking on day of surgery. Hepatic / Heme + History of anemia Gastrointestinal GI system: negative Renal / Renal/ system: negative Musculoskeletal/Pain + Osteoarthritis Endocrine / Other Endocrine/Other system: negative Patient Active Problem List Diagnosis Date Noted Personal history of colonic polyps 05/08/2024 Encounter for screening colonoscopy 05/08/2024 Diverticulitis 04/27/2024 Rectal bleeding 04/26/2024 Past Medical History: Diagnosis Date Hypertension Past Surgical History: Procedure Laterality Date BRAIN SURGERY No Known Allergies Taking? Last Dose Start Date End Date Provider amLODIPine (NORVASC) 5 mg tablet -- -- -- ProviderAnh MD atorvastatin (LIPITOR) 10 mg tablet -- -- -- nAh Greer MD famotidine (PEPCID) 40 mg tablet -- 05/05/24 05/05/25 Celestino Moctezuma MD Take 1 tablet (40 mg total) by mouth daily fenofibrate (TRIGLIDE) 160 mg tablet -- -- -- Anh Greer MD hydrocortisone (ANUSOL-HC) 25 mg suppository -- 08/26/24 08/26/25 Celestino Moctezuma MD Insert 1 suppository (25 mg total) into the rectum daily Take prior to procedure as directed metoprolol XL (TOPROL-XL) 100 mg 24 hr tablet -- -- -- Anh Greer MD zolpidem (AMBIEN) 10 mg tablet -- -- -- Anh Greer MD No current facility-administered medications for this encounter. Social History Tobacco Use Smoking Status Every Day Current packs/day: 0.05 Types: Cigarettes Smokeless Tobacco Not on file Alcohol Use: Alcohol Misuse (04/26/2024) AUDIT-C Frequency of Alcohol Consumption: 4 or more times a week Average Number of Drinks: 5 or 6 Frequency of Binge Drinking: Daily or almost daily Substance and Sexual Activity Drug Use Not on file No family history on file. There were no vitals filed for this visit. PT: No results found for requested labs within last 30 days. INR: No results found for requested labs within last 30 days. APTT: No results found for requested labs within last 30 days. Hgb A1C: No results found for requested labs within last 30 days. CBC RBC: No results found for requested labs within last 30 days. RDW: No results found for requested labs within last 30 days. MCHC: No results found for requested labs within last 30 days. MCH: No results found for requested labs within last 30 days. MCV: No results found for requested labs within last 30 days. Hct: No results found for requested labs within last 30 days. Hgb: No results found for requested labs within last 30 days. WBC: No results found for requested labs within last 30 days. MPV: No results found for requested labs within last 30 days. Platelets: No results found for requested labs within last 30 days. RDW CV: No results found for requested labs within last 30 days. RDW Sd: No results found for requested labs within last 30 days. BMP Glucose: No results found for requested labs within last 30 days. Calcium: No results found for requested labs within last 30 days. Sodium: No results found for requested labs within last 30 days. Potassium: No results found for requested labs within last 30 days. CO2: No results found for requested labs within last 30 days. Chloride: No results found for requested labs within last 30 days. BUN: No results found for requested labs within last 30 days. Creatinine: No results found for requested labs within last 30 days. DOS Physical Exam Medical history, medications, and allergies reviewed. Attestation: I endorse the findings of the anesthesia pre-evaluation assessment dated: 09/19/2024. Airway Exam: Mallampati: II Cervical ROM: FROM TM distance: normal Cardiovascular Exam: Rate: regular Rhythm: regular Pulmonary Exam: LCTA, bilat Dental Exam: Appears intact Current state: Patient's current state is cooperative and interactive. Anesthesia Plan ASA 2 My patient is approved for the Anesthesia Controlled Medication protocol when under care of a SHAPE BRICK MOLDER Planned anesthesia: General/TIVA Induction: Induction: intravenous. Postoperative Plan: Patient's planned disposition post procedure is Outpatient. Informed Consent: Discussed plan with attending and SHAPE BRICK MOLDER. Anesthesia plan and risks discussed with patient. Consent and Attending signature: I and/or my designee have discussed the anesthesia plan, benefits, possible alternatives, parental presence at time of induction (if indicated), and clinically relevant risks that may include dental injury, unintentional awareness, and/or other complications. The patient and/or parent/legal guardian understand, and agree to proceed. All questions answered. NCE ANALYST NCE ANALYST documented in this encounter Plan of Treatment Upcoming Encounters Date Type Department Care Team (Late st Contact Info) Description 05/04/2025 8:00 AM CDT Hospital Encounter [address] [id number] Celestino Moctezuma MD [address] [place] [address] 05/04/2025 8:00 AM CDT - 05/04/2025 8:30 AM CDT Surgery [address] [address] Celestino Moctezuma MD [address] [place] [address] COLONOSCOPY Scheduled Procedures Name Priority Associated Diagnoses Date/Ti me COLONOSCOPY Personal history of colonic polyps Encounter for screening colonoscopy 05/04/2025 8:00 AM CDT documented as of this encounter Visit Diagnoses Not on filedocumented in this encounter Administered Medications Inactive Administered Medications - up to 3 most recent administrations Medication Order MAR Action Action Date Dose Rate Site lidocaine (PF) (XYLOCAINE) 20 mg/mL (2 %) preservative free injection intravenous, As needed, Starting on Sun09/19/24 at 1315, Anesthesia Intra-op Given 09/19/2024 1:15 PM SCIENCE ANALYST 60 mg propofoL (DIPRIVAN) 10 mg/mL IV intravenous, As needed, Starting on Sun09/19/24 at 1315, Anesthesia Intra-op Given 09/19/2024 1:35 PM SCIENCE ANALYST 40 mg Given 09/19/2024 1:32 PM SCIENCE ANALYST 40 mg Given 09/19/2024 1:28 PM SCIENCE ANALYST 60 mg sodium chloride 0.9% infusion intravenous, Continuous PRN, Starting on Sun09/19/24 at 1312, Anesthesia Intra-op New Bag 09/19/2024 1:12 PM SCIENCE ANALYST documented in this encounter Care Teams Stock Car Driver Relationship Specialty Start Date End Date Carlos Pacheco MD [address] [place] [id number] PCP - General Internal Medicine 04/26/24 documented as of this encounter
--- OUTSIDE RECORDS SUMMARY | 2024-10-04 12:44 | XMS_ITS | Encounter Summary ---
Author Organization [facility] Healthcare Address [address] [place] [address] Care Team Providers Care Information Technology Account Manager Name Role Phone Carlos Pacheco MD Primary Care Provider [phone] Reason for Visit * Reason Comments Black or Bloody Stool * Auth/Cert Specialty Diagnoses / Procedures Referred By Contac t Referred To Contact Diagnoses Rectal bleeding Procedures na Referral ID Status Reason Start Date Expiration Date Visits Re quested Visits Authorized [id number] 1 1 Encounter Details Date Type Department Care Team (Latest Contact Info) Description 04/26/2024 12:32 PM CDT - 04/30/2024 2:35 PM CDT Hospital Encounter [facility] ICU [address] [place] [address] Willis Leslie MD [address] [place] [address] Meghan Wiggins MD [address] [place] [address] Collin Sutton MD [address] [facility] [address] [place] [address] Celestino Moctezuma MD [address] [facility] [address] [address] Rectal bleeding (Primary Dx); Diverticulitis Discharge Disposition: Discharge to home or self care Social History Tobacco Use Types Packs/Day Years Used Date Smoking Tobacco: Every Day Cigarettes Tobacco Cessation:Ready to Q uit: Not Asked; Counseling Given: Not Answered [facility] Utilities Answer Date Recorded In the past 12 months has th e electric, gas, oil, or water company threatened to shut off services in your home? No 04/30/2024 Social Connection and Isolation Panel [NHANES] A nswer Date Recorded In a typical week, how many times do you talk on the phone with family, friends, or neighbors? Twice a week 04/30/2024 How often do you get together with friends or re latives? Twice a week 04/30/2024 Attends Cheondo[employer] Services Not on file 04/30 Active Member of Clubs or Organizations Not on f ile 04/30/2024 Attends Club or Organization Meetings Not on gary e 04/30/2024 Are you , , di vorced, , never , or living with a partner? 04/30/2024 AUDIT-C Answer Date Recorded Q1: How often do you have a drink containing alcohol? 4 or more times a week 04/26/2024 Q2: How many drinks containi ng alcohol do you have on a typical day when you are drinking? 5 or 6 Q3: How often do you have si x or more drinks on one occasion? Daily or almost daily 04/26/2024 Overall Financial Resource Strain (CARDIA) Answe r [...] money to buy more. Never true 04/30/20 Within the past 12 months, t he [...] any time in the past 12 m [facility], were you homeless or living in a alf (including now)? No 04/30/2024 Personal Safety Answer Date Recorded Have you ever been in or are you currently in a harmful physical or emotional relationship or is someone making you feel afraid or unsafe? 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 Not on file Not on fi le documented as of this encounter Last Filed Vital Signs Vital Sign Reading Time Taken Comments Blood Pressure 112/66 04/30/2024 2:00 PM CDT Pulse 77 04/30/2024 2:00 PM CDT Temperature 37.3 ??C (99.1 ??F) 04/30/2024 12:00 PM C DT Respiratory Rate 19 04/30/2024 2:00 PM CDT Oxygen Saturation 97% 04/30/2024 2:00 PM CDT Inhaled Oxygen Concentration - - Weight 81.8 kg (180 lb 4.8 oz) 04/26/2024 4:09 P M CDT Height 180.3 cm (5' 11 ) 04/26/2024 4:09 PM CDT Body Mass Index 25.15 04/26/2024 4:09 PM CDT documented in this encounter Discharge Summaries * Collin Sutton MD - 04/30/2024 1:51 PM CDT Inpatient Discharge Summary BRIEF OVERVIEW Admitting Provider: Celestino Moctezuma MD Discharge Provider: Collin Sutton MD Primary Care Physician at Discharge: Carlos Pacheco MD [phone] Admission Date: 04/26/2024 Discharge Date: 04/30/2024 Admission Location: [facility] Problems/Diagnoses: Principal Problem: Rectal bleeding Active Problems: Diverticulitis Resolved Problems: No resolved hospital problems. Angioectasias Hypertension DETAILS OF HOSPITAL STAY Presenting Problem/History of Present Illness: Patient presented with rectal bleeding Hospital Course: The patient presented with hematochezia. He underwent upper endoscopy which showed mild gastritis and sigmoidoscopy which showed significant blood in the colon with diverticulosis. Previous CT scan of the abdomen show evidence of mild diverticulitis. Patient has been on antibiotics. Because of persistent bleeding he underwent a 2nd sigmoidoscopy which revealed areas of angioectasia which were clipped x2 as well as id with argon. After that his bleeding stopped and his blood pressure stabilized.Patient received total of 3 units of packed RBCs during this admission and his hemoglobin on discharge was 7.6. Patient was also on antibiotics for acute diverticulitis Active Issues Requiring Follow-up: Continue and finish antibiotics for diverticulitis. Return to the emergency room is recurrent bleeding Test Results Pending at Discharge: Pending Labs Order Current Status Crossmatch In process Surgical pathology In process Operative Procedures Performed: Procedure(s): COLON CONTROL BLEEDING ENDO ADD ON COLON REMOVAL SNARE ENDO ADD ON COLON BIOPSY Other Procedures: Pertinent Test Results: Last hemoglobin 7.6 Discharge Details Physical Exam at Discharge: Discharge Condition: good Pulse: 63 Resp: 17 BP: (!) 89/56 Temp: 37.3 ??C (99.1 ??F) Weight: 81.8 kg (180 lb 4.8 oz) Pertinent Exam Findings at Discharge: Awake and following commands Most recent blood pressure was 111/73 with an MA P of 82 Patient was awake and interactive ambulating without any difficulty Discharge Disposition: Code Status at Discharge: Full Discharge Instructions: Follow-up with GI as prescribed Discharge Medications: Current Medications TAKE these medications amLODIPine 5 mg tablet Take 1 tablet (5 mg total) by mouth nightly Commonly known as: NORVASC atorvastatin 10 mg tablet Take 1 tablet (10 mg total) by mouth nightly Commonly known as: LIPITOR fenofibrate 160 mg tablet Take 1 tablet (160 mg total) by mouth nightly Commonly known as: TRIGLIDE metoprolol XL 100 mg 24 hr tablet Take 1 tablet (100 mg total) by mouth nightly Commonly known as: TOPROL-XL pancrelipase 40,000-126,000- 168,000 unit per capsule Take 1 capsule by mouth 3 (three) times a day with meals For: exocrine pancreatic insufficiency Commonly known as: ZENPEP zolpidem 10 mg tablet Take 1 tablet (10 mg total) by mouth nightly For: difficulty falling asleep Commonly known as: AMBIEN Ciprofloxacin 500 mg p.o. b.i.d. for 4 days Flagyl 500 mg t.i.d. for 4 days Outpatient Follow-Up: GI service and primary care physician documented in this encounter Discharge Instructions * Attachments The following attachments cannot be sent through Care Everywhere. * Gastrointestinal Bleeding (AfterCare(R) Instructions(ER/ED)) (Botswanan) documented in this encounter Medications at Time of Discharge amLODIPine (NORVASC) 5 mg tablet Take 1 tablet (5 mg total) by mouth nightly atorvastatin (LIPITOR) 10 mg tablet Take 1 tablet (10 mg total) by mouth nightly fenofibrate (TRIGLIDE) 160 mg tablet Take 1 tablet (160 mg total) by mouth nightly metoprolol XL (TOPROL-XL) 100 mg 24 hr tablet Take 1 tablet (100 mg total) by mouth nightly zolpidem (AMBIEN) 10 mg tabletIndications :Sleep-Onset Insomnia Take 1 tablet (10 mg total) by mouth nightly ciprofloxacin (CIPRO) 500 mg tabletIndications :Diverticulitis Take 1 tablet (500 mg total) by mouth 2 (two) times a day for 4 days 8 tablet 04/30/2024 05/04/2024 metroNIDAZOLE (FLAGYL) 500 mg tabletIndications :Abdominal/Pelvic Infection Take 1 tablet (500 mg total) by mouth 3 (three) times a day for 12 doses 12 tablet 04/30/2024 05/04/[address] (PROTONIX) 40 mg EC tabletIndications :GI Bleed Take 1 tablet (40 mg total) by mouth 2 (two) times a day 60 tablet 11 04/30/2024 05/05/2024 documented as of this encounter Ordered Prescriptions Prescription Sig Dispense Quantity Refills Last Filled Start Date End Date pantoprazole DR (PROTONIX) 40 mg EC tabletIndications: GI Bleed Take 1 tablet (40 mg total) by mouth 2 (two) times a day 60 tablet 11 04/30/2024 05/05/2024 metroNIDAZOLE (FLAGYL) 500 mg tabletIndications: Abdominal/Pelvic Infection Take 1 tablet (500 mg total) by mouth 3 (three) times a day for 12 doses 12 tablet 04/30/2024 05/04/2024 ciprofloxacin (CIPRO) 500 mg tabletIndications: Diverticulitis Take 1 tablet (500 mg total) by mouth 2 (two) times a day for 4 days 8 tablet 04/30/2024 05/04/2024 documented in this encounter Discharge Disposition Disposition Code Departure Means Destination Comment s Discharge to home or self care documented in this encounter Progress Notes * Celestino Moctezuma MD - 04/30/2024 12:38 PM CDT GI Daily Progress Note Date of visit: 04/30/2024 Subjective: Last 24 hours records reviewed. Patient is doing well overall. He feels well. He has no abdominal pain. Blood pressure is good. No bowel movements since yesterday which is a good sign. Yesterday colonoscopy showed no blood in the colon. Polyp removed. Small arteriovenous malformationss cauterized. His hemoglobin level this morning most of the low side at 7.1. ROS: GENERAL: no fever, appetite is good. RESPIRATORY: no shortness of breath, no cough. SKIN: no itching, no rash. EYES: no redness, no itching, no visual changes. Objective: Vital signs in last 24 hours: Temp: [36.4 ??C (97.5 ??F)-37.3 ??C (99.2 ??F)] 37.3 ??C (99.1 ??F) Pulse: [54-117] 63 Resp: [14-35] 17 BP: (89-154)/(53-92) 89/56 Intake/Output last 3 shifts: I/O last 3 completed shifts: In: 3402.9 [P.O.:150; I.V.:2060.4; Blood:1142.5; IV Piggyback:50] Out: 2900 [Urine:1475; Stool:1425] Physical Exam: Patient is alert and oriented to time and place and self. Patient appears comfortable. Eyes: no jaundice. Lungs: CTA anteriorly. ENT: no mouth ulcers. GI: abdomen is soft, no distention, no tenderness, bowel sounds positive. Musculoskeletal: no joint swelling, no edema. Skin: no rash. Psych: mood seems normal. No confusion. Labs and Imaging: Labs and X rays reviewed. Recent Results (from the past 24 hour(s)) Hemoglobin and hematocrit Collection Time: 04/29/24 4:45 PM Result Value Ref Range Hgb 7.0 (L) 13.0 - 17.5 g/dL Hct 19.5 (L) 38.9 - 50.3 % Calcium level Collection Time: 04/29/24 9:34 PM Result Value Ref Range Calcium 7.9 (L) 8.5 - 10.3 mg/dL Hemoglobin and hematocrit Collection Time: 04/29/24 9:34 PM Result Value Ref Range Hgb 6.9 (L) 13.0 - 17.5 g/dL Hct 19.9 (L) 38.9 - 50.3 % Prepare RBC: 1 Units Collection Time: 04/29/24 10:00 PM Result Value Ref Range Units requested 1 Units requested Ready Basic metabolic panel Collection Time: 04/30/24 2:47 AM Result Value Ref Range Sodium 136 135 - 145 mmol/L Potassium, pl 3.4 3.3 - 4.9 mmol/L Chloride 107 97 - 110 mmol/L CO2 24 22 - 32 mmol/L Anion gap 6 2 - 15 mmol/L BUN 9 6 - 25 mg/dL Creatinine 1.04 0.80 - 1.30 mg/dL Glucose 100 70 - 199 mg/dL Calcium 8.0 (L) 8.5 - 10.3 mg/dL Magnesium Collection Time: 04/30/24 2:47 AM Result Value Ref Range Magnesium 2.0 1.4 - 2.5 mg/dL Phosphorus Collection Time: 04/30/24 2:47 AM Result Value Ref Range Phosphorus, pl 2.3 2.3 - 4.5 mg/dL CBC with auto differential Collection Time: 04/30/24 2:47 AM Result Value Ref Range WBC 8.1 3.8 - 9.9 K/cumm Hgb 7.1 (L) 13.0 - 17.5 g/dL Hct 20.6 (L) 38.9 - 50.3 % Plt 240 150 - 400 K/cumm MPV 9.6 9.1 - 12.3 fL RBC 2.29 (L) 4.30 - 5.80 M/cumm MCV 90.0 81.3 - 96.4 fL MCH 31.0 27.1 - 33.3 pg MCHC 34.5 32.3 - 35.7 g/dL RDW CV 15.1 (H) 11.1 - 14.9 % RDW SD 48.9 (H) 35.7 - 48.1 fL NRBC abs 0.00 0.00 - 0.01 K/cumm ABO/Rh Collection Time: 04/30/24 2:47 AM Result Value Ref Range ABO/Rh O Positive Antibody screen Collection Time: 04/30/24 2:47 AM Result Value Ref Range Izzy, indirect, Gel Interpretation Negative ABSC Differential, auto Collection Time: 04/30/24 2:47 AM Result Value Ref Range Neutrophil abs 5.2 1.5 - 6.5 K/cumm Imm gran abs 0.1 0.0 - 0.1 K/cumm Lymphocyte abs 2.0 0.8 - 3.3 K/cumm Monocyte abs 0.8 0.2 - 0.8 K/cumm Eosinophil abs 0.1 0.0 - 0.5 K/cumm Basophil abs 0.0 0.0 - 0.1 K/cumm Neutrophil pct 64.1 % Imm gran pct 0.7 % Lymphocyte pct 24.1 % Monocyte pct 9.3 % Eosinophil pct 1.4 % Basophil pct 0.4 % eGFR Collection Time: 04/30/24 2:47 AM Result Value Ref Range eGFR 87 >=60 mL/min/1.73 m2 Hemoglobin and hematocrit Collection Time: 04/30/24 12:33 PM Result Value Ref Range Hgb 7.5 (L) 13.0 - 17.5 g/dL Hct 21.5 (L) 38.9 - 50.3 % GI IMPRESSION: Acute episode lower GI bleeding. Clinically resolved. Mild diverticulitis. Clinically resolved Anemia secondary to GI blood loss. 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 Treated endoscopically yesterday Colon polyp removed with snare polypectomy yesterday GI PLAN/RECOMMENDATIONS: Continue low-fat diet Increase activity May transferred to the medical floor Check hemoglobin level in the afternoon and if increase then patient may be discharged home. Follow up in the GI office in 6 weeks after discharge to repeat blood counts Voice recognition software [employer] Fluency Direct was used dictate and transcribe this document. Call Center Receptionist variances may occur. Despite proofreading, typographical errors may occur. Celestino Moctezuma MD * Connie Raya, [facility] - 04/29/2024 10:17 PM CDT Pharmacy Consult -Electrolyte Replacement Protocol (in patients not receiving parenteral nutrition) Pharmacist managed electrolyte replacement protocol has been ordered. Exclusion criteria to the pharmacist managed electrolyte protocol (If any present, then please contact the provider to notify them of the applicable exclusion criteria) No Monitoring Guidelines: Electrolyte levels will be ordered by providers as needed. Pertinent Lab Results: Lab Results Component Value Date SODIUM 138 04/29/2024 POTASSIUM 3.7 04/29/2024 MAGNESIUM 1.8 04/29/2024 PHOS 3.2 04/29/2024 CALCIUM 7.9 (L) 04/29/2024 ALBUMIN 4.2 04/26/2024 Corrected Calcium: 7.9 Serum creatinine: 1.03 mg/dL 04/29/24 0457 Estimated creatinine clearance: 91.4 mL/min Lab Results Component Value Date CREATININE 1.03 04/29/2024 CREATININE 0.98 04/28/2024 CREATININE 1.20 04/26/2024 IV or PO repletion will be ordered by the pharmacist when levels fall below the desired range basedon the diet ordered. The following electrolyte replacement orders were placed: Calcium gluconate 1gm X 1 dose has been ordered per pharmacy electrolyte replacement protocol. Table 1. Serum Potassium (mmol/L) Creatinine Clearance (mL/min) Potassium Replacement 3.3 to 3.5 CrCl > 30 Potassium chloride 20 mEq IV, PO, or per tube for 1 dose CrCl < 30 No replacement 3.0 to 3.2 CrCl > 30 Potassium chloride 40 mEq IV, PO, or per tube for 1 dose CrCl < 30 Potassium chloride 20 mEq IV, PO, or per tube for 1 dose 2.6 to 2.9 CrCl > 30 Potassium chloride 60 mEq IV, PO, or per tube for 1 dose CrCl < 30 Potassium chloride 40 mEq IV, PO, or per tube for 1 dose < 2.6 CrCl > 30 Potassium chloride 60 mEq IV for 1 dose, Repeat level 2 hours after infusion complete, and contact provider CrCl < 30 Potassium chloride 40 mEq IV for 1 dose, Repeat level 2 hours after infusion complete, and contact provider *Normal S. Potassium range 3.3 - 5.1 mmol/L a. Limit potassium chloride to 40 mEq in a single IVPB. Table 2. Ionized calcium (mg/dL) Corrected Serum Calcium (mg/dL) Calcium Replacement 3.01 to 4.49 7.6 to 8.4 Calcium carbonate (OS-PARUL) 500 mg (elemental calcium) PO or per tube TID for 3 doses Or Calcium gluconate 1 g IV for 1 dose < 3 < 7.5 Calcium gluconate 2 g IV for 1 dose Repeat level 4 hours after infusion complete and contact provider *Normal S. Calcium range 8.6 - 10.3 mg/dL a. Serum calcium must be corrected for hypoalbuminemia based on the following equation: Corrected serum calcium = 0.8(4 - Albumin) + Calcium b. Ionized calcium is preferred over serum calcium if both are available c. Calcium carbonate may be administered as a tablet or as the suspension Table 3. Serum Magnesium (mg/dL) Creatinine Clearance (mL/min) Magnesium Replacement 1.0 to 1.5 CrCl > 30 Magnesium oxide 400 mg PO TID x 3 doses Or Magnesium sulfate 2g IV for 1 dose CrCl < 30 Magnesium oxide 400 mg PO TID x 3 doses Or Magnesium sulfate 1g IV for 1 dose <1.0 CrCl > 30 Magnesium sulfate 4g IV for 1 dose Repeat level 2 hours after infusion complete and contact provider CrCl < 30 Magnesium sulfate 2g IV for 1 dose Repeat level 2 hours after infusion complete and contact provider *Normal S. Magnesium range 1.6-2.6 mg/dL Table 4. Serum Phosphorus (mg/dL) Serum Potassium (mmol/L) Oral or per tube Phosphate Replacement 2 to 2.5 > 3.5 K-Phos Neutral 1 tablet (8 mmol) PO or per tube TID x 3 doses < 3.5 Phos NaK 1 packet (8 mmol) PO or per tube TID x 3 doses 1.6 to 1.9 > 3.5 K-Phos Neutral 2 tablets (16 mmol) PO or per tube TID x 3 doses < 3.5 Phos NaK 2 packets (16 mmol) PO or per tube TID x 3 doses < 1.6 Go to the intravenous phosphate replacement table (Table 5) *Normal S. Phosphorus range 2.5 - 4.5 mg/dL a. If potassium is provided as part of the above phosphorus replacement, then count this as part ofthe potassium replacement in Table 1. b. Each K-Phos Neutral tablet contains elemental phosphorus 250 mg (8 mmol), potassium 45 mg (1.1 mEq), and sodium 298 mg (13 mEq). c. Each Phos-NaK packet contains elemental phosphorus 250 mg (8 mmol), potassium 280 mg (7.1 mEq), and sodium 160 mg (6.9 mEq). Table 5. Serum Phosphorus (mg/dL) Intravenous Phosphate Replacement 2 to 2.5 Phosphate 0.16 mmol/kgb IV for 1 dose 1.6 to 1.9 Phosphate 0.32 mmol/kgb IV for 1 dose < 1.6 Phosphate 0.64 mmol/kgb IV for 1 dose Repeat level 4 hours after infusion complete and contact provider *Normal S. Phosphorus range 2.5 - 4.5 mg/dL a. Formulation (sodium or potassium salt) will be determined by potassium requirements as determined in Table 1. b. If potassium is provided as part of the above phosphorus replacement, then count this as part ofthe potassium replacement in Table 1. Each mmol of IV potassium phosphate contains 1.5 mEq of potassium. b. Round to the nearest 5 mmol phosphate. Limit phosphate repletion to 30 mmoles in a single IVPB. c. Use adjusted body weight for patients with a BMI > 30 Thank you, Connie Raya [facility] Pharmacy department Electronically signed by Connie Raya [facility] at 04/29/2024 10:17 PM CDT * Collin Sutton MD - 04/29/2024 4:49 PM CDT Critical Care Medicine Daily Progress Subjective: This patient is been followed by critical care because of Lower GI bleed, acute blood loss anemia Interval history: Patient continued to have significant hematochezia so he was taken back to the GI lab where he was found to have colonic angioectasias which were treated with coagulation and clips. He also had 1 polyp removal. He has had any further bleeding after that. Scheduled Medications: amLODIPine, 5 mg, oral, Nightly atorvastatin, 10 mg, oral, Nightly [Held by Provider] fenofibrate nanocrystallized, 145 mg, oral, Daily metoclopramide, 10 mg, intravenous, Q6H SANDRA metoprolol tartrate, 25 mg, oral, BID metoprolol XL, 100 mg, oral, Nightly metroNIDAZOLE, 500 mg, oral, TID pantoprazole DR, 40 mg, oral, BID zolpidem, 5 mg, oral, Nightly Continuous Medications: PRN Medications: acetaminophen ondansetron ODT OR ondansetron ondansetron Objective: Vitals: Most Recent: Vitals: 04/29/24 1220 04/29/24 1235 04/29/24 1300 04/29/24 1400 BP: 143/90 154/93 151/92 149/88 BP Location: Patient Position: Pulse: 81 83 91 79 Resp: 16 18 19 16 Temp: 36.6 ??C (97.8 ??F) TempSrc: Temporal SpO2: 100% 100% 98% 100% Weight: Height: 24hr Min/Max: Temp Min: 36.1 ??C (96.9 ??F) Max: 37.4 ??C (99.4 ??F) Pulse Min: 66 Max: 149 BP Min: 118/82 Max: 174/124 Resp Min: 13 Max: 21 SpO2 Min: 95 % Max: 100 % Vent settings: Hemodynamic parameters for last 24 hours: I/O: I/O last 2 completed shifts: In: 1842.9 [P.O.:120; I.V.:1210.4; Blood:512.5] Out: 3425 [Urine:200; Stool:3225] Physical Exam: Awake and following commands no complaints Blood pressure was 149/88 heart rate was 79 respiratory rate was 16 oxygen saturation was 100% temperature was 97.8 degrees. HEENT no discharge per ears nose Neck no jugular distention Lungs clear Cardiovascular was regular non tachycardic no murmurs Abdomen soft bowel sounds were increased not distended or tender Extremities showed no significant erythema Neurologically the patient is awake and following commands Skin shows no rash Musculoskeletal evidence of joint inflammation Lab/Radiology/Diagnostic Review: Reviewed. Recent Results (from the past 24 hour(s)) Hemoglobin and hematocrit Collection Time: 04/28/24 11:58 PM Result Value Ref Range Hgb 7.7 (L) 13.0 - 17.5 g/dL Hct 22.1 (L) 38.9 - 50.3 % Basic metabolic panel Collection Time: 04/29/24 4:57 AM Result Value Ref Range Sodium 138 135 - 145 mmol/L Potassium, pl 3.7 3.3 - 4.9 mmol/L Chloride 107 97 - 110 mmol/L CO2 21 (L) 22 - 32 mmol/L Anion gap 10 2 - 15 mmol/L BUN 12 6 - 25 mg/dL Creatinine 1.03 0.80 - 1.30 mg/dL Glucose 100 70 - 199 mg/dL Calcium 7.6 (L) 8.5 - 10.3 mg/dL Magnesium Collection Time: 04/29/24 4:57 AM Result Value Ref Range Magnesium 1.8 1.4 - 2.5 mg/dL Phosphorus Collection Time: 04/29/24 4:57 AM Result Value Ref Range Phosphorus, pl 3.2 2.3 - 4.5 mg/dL CBC with auto differential Collection Time: 04/29/24 4:57 AM Result Value Ref Range WBC 10.3 (H) 3.8 - 9.9 K/cumm Hgb 6.8 (L) 13.0 - 17.5 g/dL Hct 19.8 (L) 38.9 - 50.3 % Plt 260 150 - 400 K/cumm MPV 9.8 9.1 - 12.3 fL RBC 2.16 (L) 4.30 - 5.80 M/cumm MCV 91.7 81.3 - 96.4 fL MCH 31.5 27.1 - 33.3 pg MCHC 34.3 32.3 - 35.7 g/dL RDW CV 14.0 11.1 - 14.9 % RDW SD 47.2 35.7 - 48.1 fL NRBC abs 0.00 0.00 - 0.01 K/cumm Differential, auto Collection Time: 04/29/24 4:57 AM Result Value Ref Range Neutrophil abs 7.5 (H) 1.5 - 6.5 K/cumm Imm gran abs 0.1 0.0 - 0.1 K/cumm Lymphocyte abs 2.0 0.8 - 3.3 K/cumm Monocyte abs 0.7 0.2 - 0.8 K/cumm Eosinophil abs 0.0 0.0 - 0.5 K/cumm Basophil abs 0.0 0.0 - 0.1 K/cumm Neutrophil pct 72.6 % Imm gran pct 0.6 % Lymphocyte pct 19.6 % Monocyte pct 6.6 % Eosinophil pct 0.4 % Basophil pct 0.2 % eGFR Collection Time: 04/29/24 4:57 AM Result Value Ref Range eGFR 88 >=60 mL/min/1.73 m2 Prepare RBC: 3 Units Collection Time: 04/29/24 8:52 AM Result Value Ref Range Units requested 3 Units requested Ready Unit Number [id number] Product code [id number] Blood Expiration Date Product Blood Type (for scanning) 9500 Product Blood Type ONEG Dispense Status DISPENSED Hemoglobin and hematocrit Collection Time: 04/29/24 10:57 AM Result Value Ref Range Hgb 7.6 (L) 13.0 - 17.5 g/dL Hct 21.9 (L) 38.9 - 50.3 % Assessment and Plan: 1. Neurologically: Awake and following commands. Nonfocal 2. Cardiovascular: Sinus rhythm. Blood pressure is elevated. Restart metoprolol 3. Respiratory: On room air. No symptoms 4. GI: Hopefully the GI bleed has subsided with the most recent intervention. Will check another hemoglobin now. He did get 1 unit of packed RBCs is more 5. and Renal: BUN and creatinine overall stable 6. Endocrine: No history of diabetes or thyroid disease 7. Hematologically: Repeat hemoglobin now 8. DVT prophylaxis: Sequential 9. Id: We will switch antibiotics to p.o. for his diverticulitis Collin Mancia MD Critical Care 04/29/2024 4:50 PM Voice recognition software was used to dictate and transcribe this document. Despite proofreading, boss dyer variances and/or typographical errors might have occurred. * Tonio Perez, [facility] - 04/29/2024 7:25 AM CDT Pharmacy Consult -Electrolyte Replacement Protocol (in patients not receiving parenteral nutrition) Pharmacist managed electrolyte replacement protocol has been ordered. Exclusion criteria to the pharmacist managed electrolyte protocol (If any present, then please contact the provider to notify them of the applicable exclusion criteria) No Monitoring Guidelines: Electrolyte levels will be ordered by providers as needed. Pertinent Lab Results: Lab Results Component Value Date SODIUM 138 04/29/2024 POTASSIUM 3.7 04/29/2024 MAGNESIUM 1.8 04/29/2024 PHOS 3.2 04/29/2024 CALCIUM 7.6 (L) 04/29/2024 ALBUMIN 4.2 04/26/2024 Corrected Calcium: 7.4 mg/dl Calculated from: Serum Albumin: 4.2 g/dL at 04/26/2024 12:40 PM Calcium (Uncorrected): 9.3 mg/dL at 04/26/2024 12:40 PM Serum creatinine: 1.03 mg/dL 04/29/24 0457 Estimated creatinine clearance: 91.4 mL/min Lab Results Component Value Date CREATININE 1.03 04/29/2024 CREATININE 0.98 04/28/2024 CREATININE 1.20 04/26/2024 IV or PO repletion will be ordered by the pharmacist when levels fall below the desired range basedon the diet ordered. The following electrolyte replacement orders were placed: Per electrolyte replacement protocol Calcium Gluconate 2 gm ivpb run X 1 dose per pharmacy electrolyte replacement protocol for corrected calcium +=7.4 mg/dl on 04/29/24 Table 1. Serum Potassium (mmol/L) Creatinine Clearance (mL/min) Potassium Replacement 3.3 to 3.5 CrCl > 30 Potassium chloride 20 mEq IV, PO, or per tube for 1 dose CrCl < 30 No replacement 3.0 to 3.2 CrCl > 30 Potassium chloride 40 mEq IV, PO, or per tube for 1 dose CrCl < 30 Potassium chloride 20 mEq IV, PO, or per tube for 1 dose 2.6 to 2.9 CrCl > 30 Potassium chloride 60 mEq IV, PO, or per tube for 1 dose CrCl < 30 Potassium chloride 40 mEq IV, PO, or per tube for 1 dose < 2.6 CrCl > 30 Potassium chloride 60 mEq IV for 1 dose, Repeat level 2 hours after infusion complete, and contact provider CrCl < 30 Potassium chloride 40 mEq IV for 1 dose, Repeat level 2 hours after infusion complete, and contact provider *Normal S. Potassium range 3.3 - 5.1 mmol/L a. Limit potassium chloride to 40 mEq in a single IVPB. Table 2. Ionized calcium (mg/dL) Corrected Serum Calcium (mg/dL) Calcium Replacement 3.01 to 4.49 7.6 to 8.4 Calcium carbonate (OS-PARUL) 500 mg (elemental calcium) PO or per tube TID for 3 doses Or Calcium gluconate 1 g IV for 1 dose < 3 < 7.5 Calcium gluconate 2 g IV for 1 dose Repeat level 4 hours after infusion complete and contact provider *Normal S. Calcium range 8.6 - 10.3 mg/dL a. Serum calcium must be corrected for hypoalbuminemia based on the following equation: Corrected serum calcium = 0.8(4 - Albumin) + Calcium b. Ionized calcium is preferred over serum calcium if both are available c. Calcium carbonate may be administered as a tablet or as the suspension Table 3. Serum Magnesium (mg/dL) Creatinine Clearance (mL/min) Magnesium Replacement 1.0 to 1.5 CrCl > 30 Magnesium oxide 400 mg PO TID x 3 doses Or Magnesium sulfate 2g IV for 1 dose CrCl < 30 Magnesium oxide 400 mg PO TID x 3 doses Or Magnesium sulfate 1g IV for 1 dose <1.0 CrCl > 30 Magnesium sulfate 4g IV for 1 dose Repeat level 2 hours after infusion complete and contact provider CrCl < 30 Magnesium sulfate 2g IV for 1 dose Repeat level 2 hours after infusion complete and contact provider *Normal S. Magnesium range 1.6-2.6 mg/dL Table 4. Serum Phosphorus (mg/dL) Serum Potassium (mmol/L) Oral or per tube Phosphate Replacement 2 to 2.5 > 3.5 K-Phos Neutral 1 tablet (8 mmol) PO or per tube TID x 3 doses < 3.5 Phos NaK 1 packet (8 mmol) PO or per tube TID x 3 doses 1.6 to 1.9 > 3.5 K-Phos Neutral 2 tablets (16 mmol) PO or per tube TID x 3 doses < 3.5 Phos NaK 2 packets (16 mmol) PO or per tube TID x 3 doses < 1.6 Go to the intravenous phosphate replacement table (Table 5) *Normal S. Phosphorus range 2.5 - 4.5 mg/dL a. If potassium is provided as part of the above phosphorus replacement, then count this as part ofthe potassium replacement in Table 1. b. Each K-Phos Neutral tablet contains elemental phosphorus 250 mg (8 mmol), potassium 45 mg (1.1 mEq), and sodium 298 mg (13 mEq). c. Each Phos-NaK packet contains elemental phosphorus 250 mg (8 mmol), potassium 280 mg (7.1 mEq), and sodium 160 mg (6.9 mEq). Table 5. Serum Phosphorus (mg/dL) Intravenous Phosphate Replacement 2 to 2.5 Phosphate 0.16 mmol/kgb IV for 1 dose 1.6 to 1.9 Phosphate 0.32 mmol/kgb IV for 1 dose < 1.6 Phosphate 0.64 mmol/kgb IV for 1 dose Repeat level 4 hours after infusion complete and contact provider *Normal S. Phosphorus range 2.5 - 4.5 mg/dL a. Formulation (sodium or potassium salt) will be determined by potassium requirements as determined in Table 1. b. If potassium is provided as part of the above phosphorus replacement, then count this as part ofthe potassium replacement in Table 1. Each mmol of IV potassium phosphate contains 1.5 mEq of potassium. b. Round to the nearest 5 mmol phosphate. Limit phosphate repletion to 30 mmoles in a single IVPB. c. Use adjusted body weight for patients with a BMI > 30 Thank you, Tonio Perez [facility] department Electronically signed by Tonio Perez [facility] at 04/29/2024 7:25 AM CDT * Jose Nance [facility] - 04/28/2024 4:03 PM CDT Pharmacy Consult -Electrolyte Replacement Protocol (in patients not receiving parenteral nutrition) Pharmacist managed electrolyte replacement protocol has been ordered. Exclusion criteria to the pharmacist managed electrolyte protocol (If any present, then please contact the provider to notify them of the applicable exclusion criteria) No Monitoring Guidelines: Electrolyte levels will be ordered by providers as needed. Pertinent Lab Results: Lab Results Component Value Date SODIUM 139 04/28/2024 POTASSIUM 3.8 04/28/2024 MAGNESIUM 1.9 04/28/2024 PHOS 2.6 04/28/2024 CALCIUM 8.3 (L) 04/28/2024 ALBUMIN 4.2 04/26/2024 BJCWU ONCBCN Corrected Calcium: 9.14 at 04/26/2024 12:40 PM Calculated from: Serum Albumin: 4.2 g/dL at 04/26/2024 12:40 PM Calcium (Uncorrected): 9.3 mg/dL at 04/26/2024 12:40 PM Serum creatinine: 0.98 mg/dL 04/28/24 0408 Estimated creatinine clearance: 96 mL/min Lab Results Component Value Date CREATININE 0.98 04/28/2024 CREATININE 1.20 04/26/2024 CREATININE 0.82 12/18/2014 IV or PO repletion will be ordered by the pharmacist when levels fall below the desired range basedon the diet ordered. The following electrolyte replacement orders were placed: Patient did not meet criteria for electrolyte replacement Table 1. Serum Potassium (mmol/L) Creatinine Clearance (mL/min) Potassium Replacement 3.3 to 3.5 CrCl > 30 Potassium chloride 20 mEq IV, PO, or per tube for 1 dose CrCl < 30 No replacement 3.0 to 3.2 CrCl > 30 Potassium chloride 40 mEq IV, PO, or per tube for 1 dose CrCl < 30 Potassium chloride 20 mEq IV, PO, or per tube for 1 dose 2.6 to 2.9 CrCl > 30 Potassium chloride 60 mEq IV, PO, or per tube for 1 dose CrCl < 30 Potassium chloride 40 mEq IV, PO, or per tube for 1 dose < 2.6 CrCl > 30 Potassium chloride 60 mEq IV for 1 dose, Repeat level 2 hours after infusion complete, and contact provider CrCl < 30 Potassium chloride 40 mEq IV for 1 dose, Repeat level 2 hours after infusion complete, and contact provider *Normal S. Potassium range 3.3 - 5.1 mmol/L a. Limit potassium chloride to 40 mEq in a single IVPB. Table 2. Ionized calcium (mg/dL) Corrected Serum Calcium (mg/dL) Calcium Replacement 3.01 to 4.49 7.6 to 8.4 Calcium carbonate (OS-PARUL) 500 mg (elemental calcium) PO or per tube TID for 3 doses Or Calcium gluconate 1 g IV for 1 dose < 3 < 7.5 Calcium gluconate 2 g IV for 1 dose Repeat level 4 hours after infusion complete and contact provider *Normal S. Calcium range 8.6 - 10.3 mg/dL a. Serum calcium must be corrected for hypoalbuminemia based on the following equation: Corrected serum calcium = 0.8(4 - Albumin) + Calcium b. Ionized calcium is preferred over serum calcium if both are available c. Calcium carbonate may be administered as a tablet or as the suspension Table 3. Serum Magnesium (mg/dL) Creatinine Clearance (mL/min) Magnesium Replacement 1.0 to 1.5 CrCl > 30 Magnesium oxide 400 mg PO TID x 3 doses Or Magnesium sulfate 2g IV for 1 dose CrCl < 30 Magnesium oxide 400 mg PO TID x 3 doses Or Magnesium sulfate 1g IV for 1 dose <1.0 CrCl > 30 Magnesium sulfate 4g IV for 1 dose Repeat level 2 hours after infusion complete and contact provider CrCl < 30 Magnesium sulfate 2g IV for 1 dose Repeat level 2 hours after infusion complete and contact provider *Normal S. Magnesium range 1.6-2.6 mg/dL Table 4. Serum Phosphorus (mg/dL) Serum Potassium (mmol/L) Oral or per tube Phosphate Replacement 2 to 2.5 > 3.5 K-Phos Neutral 1 tablet (8 mmol) PO or per tube TID x 3 doses < 3.5 Phos NaK 1 packet (8 mmol) PO or per tube TID x 3 doses 1.6 to 1.9 > 3.5 K-Phos Neutral 2 tablets (16 mmol) PO or per tube TID x 3 doses < 3.5 Phos NaK 2 packets (16 mmol) PO or per tube TID x 3 doses < 1.6 Go to the intravenous phosphate replacement table (Table 5) *Normal S. Phosphorus range 2.5 - 4.5 mg/dL a. If potassium is provided as part of the above phosphorus replacement, then count this as part ofthe potassium replacement in Table 1. b. Each K-Phos Neutral tablet contains elemental phosphorus 250 mg (8 mmol), potassium 45 mg (1.1 mEq), and sodium 298 mg (13 mEq). c. Each Phos-NaK packet contains elemental phosphorus 250 mg (8 mmol), potassium 280 mg (7.1 mEq), and sodium 160 mg (6.9 mEq). Table 5. Serum Phosphorus (mg/dL) Intravenous Phosphate Replacement 2 to 2.5 Phosphate 0.16 mmol/kgb IV for 1 dose 1.6 to 1.9 Phosphate 0.32 mmol/kgb IV for 1 dose < 1.6 Phosphate 0.64 mmol/kgb IV for 1 dose Repeat level 4 hours after infusion complete and contact provider *Normal S. Phosphorus range 2.5 - 4.5 mg/dL a. Formulation (sodium or potassium salt) will be determined by potassium requirements as determined in Table 1. b. If potassium is provided as part of the above phosphorus replacement, then count this as part ofthe potassium replacement in Table 1. Each mmol of IV potassium phosphate contains 1.5 mEq of potassium. b. Round to the nearest 5 mmol phosphate. Limit phosphate repletion to 30 mmoles in a single IVPB. c. Use adjusted body weight for patients with a BMI > 30 Thank you, Jose Nance [facility] department Electronically signed by Jose Nance [facility] at 04/28/2024 4:03 PM CDT * Meghan Wiggins MD - 04/27/2024 11:26 AM CDT [facility] Hospitalist Service Progress Note Patient Name: Angelique Law Patient : 1975 Age/Sex: 49 y.o. male Room/Bed: [id number] Admission Date/Time: 04/26/2024 12:32 PM Date: 04/27/2024 Time: 11:36 AM Chief Complaint: Bloody bowel movements Subjective: Today the patient states he feels well today. His last bloody bowel movement was around 8 pm, whichwas not not as bloody as the ones prior. Then had a bowel movement this morning which was brown. Remains hemodynamically stable. Hgb has been stable since midnight: 10.8 > 10.2 > 10.3 Allergies: No Known Allergies Current Medication List: Scheduled Meds:amLODIPine, 5 mg, oral, Nightly atorvastatin, 10 mg, oral, Nightly cefTRIAXone, 2,000 mg, intravenous, Q24H SANDRA fenofibrate nanocrystallized, 145 mg, oral, Daily metoprolol XL, 100 mg, oral, Nightly metroNIDAZOLE, 500 mg, intravenous, Q12H SANDRA pancrelipase, 6,000 units of lipase, oral, TID with meals zolpidem, 5 mg, oral, Nightly Continuous Infusions: PRN Meds: acetaminophen ondansetron ODT OR ondansetron oxyCODONE Objective: Vitals: Vitals: 04/27/24 0305 04/27/24 0810 04/27/24 1000 04/27/24 1125 BP: 159/92 159/89 139/98 BP Location: Left arm Left arm Left arm Patient Position: Lying;HOB 30 degrees Sitting Pulse: 85 79 84 104 Resp: 18 16 18 Temp: 36.7 ??C (98.1 ??F) 36.3 ??C (97.4 ??F) 37 ??C (98.6 ??F) TempSrc: Temporal Temporal Temporal SpO2: 97% 99% 97% Weight: Height: Physical Exam: Gen: awake, no acute distress, cooperative Neuro: no focal deficits, CN II-XII grossly intact Eyes: extraocular movement intact, sclerae anicteric HENT: supple, no JVD CV: regular rate and rhythm; no murmurs, rubs, or gallops; no peripheral edema; 2+ pulses in all extremities Pulm: clear to auscultation bilaterally; no wheezes, rales, or rhonchi GI: soft, non-tender, non-distended MSK: no cyanosis, clubbing Skin: no visible erythema, acute bruising, or open wounds Psych: normal mood and affect Labs: Lab Results Component Value Date GLUCOSE 136 04/26/2024 CALCIUM 9.3 04/26/2024 SODIUM 137 04/26/2024 POTASSIUM 4.3 04/26/2024 CO2 25 04/26/2024 CHLORIDE 103 04/26/2024 BUNSER 7 04/26/2024 CREATININE 1.20 04/26/2024 Lab Results Component Value Date WBC 9.4 04/26/2024 HGB 10.3 (L) 04/27/2024 HCT 30.4 (L) 04/27/2024 MCV 96.5 (H) 04/26/2024 LABPLAT 485 (H) 04/26/2024 Pertinent Labs: I have reviewed the pertinent labs. Radiology: CT Abdomen Pelvis W Contrast Result Date: 04/26/2024 Narrative: EXAM DESCRIPTION: CT ABDOMEN PELVIS W CONTRAST REASON FOR STUDY: GI bleed Blood in stools since this morning, bright red and some clots TECHNIQUE: CT scan of the abdomen and pelvis performed with intravenous and without oral contrast using helical scanning technique with dynamic intravenous contrast injection. Reconstructed coronal and sagittal MPR images reviewed. All images stored onPACS. Automated exposure control was used as a dose optimization technique for this examination. CONTRAST TYPE/DOSE: 75mL of IOVERSOL 350 MG IODINE/ML INTRAVENOUS SYRINGE injected COMPARISON: 12/20/2023 FINDINGS: LOWER CHEST: Mild scattered subsegmental atelectasis. No pleural effusion. Imaged portions of the heart are normal. LIVER: Normal size. No identified cystic or solid masses. Slight hepatic steatosis. The hepatic and portal veins are patent. GALLBLADDER: Normal. BILE DUCTS: No intrahepatic or extrahepatic ductal dilatation. SPLEEN: Normal size. No focal lesions. PANCREAS: No identified cystic or solid masses. No significant calcifications. No adjacent inflammation or peripancreatic fluid collections. Pancreatic duct not dilated. ADRENALS: Normal. KIDNEYS/URINARY TRACT: No identified significant cystic or solid masses. No visualized stones. No hydronephrosis or hydroureter. Symmetric enhancement. Urinary bladder is unremarkable. GI: The stomach is normal. The small bowel is normal in course and caliber with no evidence of obstruction or inflammation. The appendix is normal. There is colonic diverticulosis with superimposed acute uncomplicated diverticulitis of an approximately 2 cm segment of the proximal sigmoid colon. No colonic perforation or obstruction. No organized fluid collections. PERITONEUM: No ascites or free air. Lymphadenopathy. RETROPERITONEUM: No mass or adenopathy. REPRODUCTIVE: Prostate gland calcifications are present which is normal in size. VASCULATURE: No abdominal aortic aneurysm. The abdominal aorta and its branches are patent. MUSCULOSKELETAL: No acute fractures or aggressive osseous lesions. 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 IMPRESSION: 1. Colonic diverticulosis with superimposed acute uncomplicated diverticulitis of an approximately 2 cm segment of the proximal sigmoid colon. No colonic perforation or obstruction. No organizedfluid collections THIS IS AN ELECTRONICALLY VERIFIED FINAL REPORT 04/26/2024 1:47 PM - Electronically signed by Jayla Finley M.D. AT: AT Report ID: [id number] Reading Location: [id number] Microbiology: None ASSESSMENT AND PLAN: Principal Problem: Rectal bleeding Bright red blood per rectum Suspect diverticular bleed Acute uncomplicated diverticulitis Multiple episodes of BRBPR on day of admission Colonoscopy August 2023 showed some polyps and diverticulitis , and was asked to return for a colonoscopy in 5 years. Hgb 14.3 > 12.9 > 12.2 on admission, and has been stable around 10 since midnight. Had a brown BM today, with no blood in it. H/H monitoring frequency lowered to Q12H If Hgb<8 will transfuse 1 unit PRBC in the setting of ongoing active bleeding Continue Rocephin and Flagyl for diverticulitis GI consulted, recs to start a clear liquid diet. Will observe H/H for another day, possible discharge tomorrow. No scopes planned for now HTN Home meds Toprol XL and Norvasc resumed Monitor blood pressures HLD Continue statin DVT PPx SCDs only due to GI bleed MDM: Moderate complexity Meghan Coats MD Internal Medicine - Hospitalist [facility] - Adult Hospitalist Service 04/27/2024 11:36 AM documented in this encounter H&P Notes * Meghan iWggins MD - 04/26/2024 5:21 PM CDT [facility] Adult Hospitalist Service History and Physical Patient Name: Angelique Law Patient : 1975 Age/Sex: 49 y.o. male Room/Bed: [place] [id number] Admission Date/Time: 04/26/2024 12:32 PM Date: 04/26/2024 Time: 5:21 PM Primary Care Physician: Carlos Pacheco MD PCP Office Location: [address] [place] [address] PCP Chief Complaint: Bloody bowel movements HPI: Angelique Law is a 49 y.o. y/o male with PMH of HTN and HLD who presented to the ED with c/o bloody bowel movements. Patient reports that he has had multiple episodes of bright red bowel movements with blood clots that started earlier today. He denies having any abdominal pain, no nausea or vomiting. States he had a colonoscopy in August 2023 that showed some polyps and diverticulitis , and was asked to return for a colonoscopy in 5 years. In the ER patient was hemodynamically stable. Labs were notable for Hgb 14.[address] abdomen pelvis was noted with acute uncomplicated diverticulitis. Patient was started on iv fluids, iv PPI, Rocephin, Flagyl, GI was consulted, and patient was admitted for further care. On the floor patient continues to have bloody bowel movements, and was notably lightheaded and feltfaint after a BM due to which rapid response was called. Remained hemodynamically stable. EKG negative for acute ischemic ST/T changes. Stat Hgb checked, and was stable at 12.2. Discussed with Dr. Westbrook GI, who feels diverticular bleed should resolve spontaneously by tomorrow, but recommends to keep him NPO after midnight in case we need to scope him. Review of Systems Constitutional: Negative for chills and fever. HENT: Negative for nosebleeds. Eyes: Negative for blurred vision and double vision. Respiratory: Negative for cough and shortness of breath. Cardiovascular: Negative for chest pain and leg swelling. Gastrointestinal: Positive for blood in stool. Negative for abdominal pain, heartburn, nausea and vomiting. Genitourinary: Negative for dysuria and urgency. Musculoskeletal: Negative for falls and joint pain. Neurological: Negative for speech change, focal weakness, seizures and weakness. Psychiatric/Behavioral: Negative for hallucinations. The patient is nervous/anxious. The patient does not have insomnia. Past Medical History: Diagnosis Date Hypertension Past Surgical History: Procedure Laterality Date BRAIN SURGERY No family history on file. Social History Tobacco Use Smoking status: Every Day Current packs/day: 0.05 Types: Cigarettes Smokeless tobacco: Not on file Substance and Sexual Activity Drug use: Not on file Sexual activity: Not on file Alcohol Use: Alcohol Misuse (04/26/2024) AUDIT-C Frequency of Alcohol Consumption: 4 or more times a week Average Number of Drinks: 5 or 6 Frequency of Binge Drinking: Daily or almost daily No Known Allergies Medications Prior to Admission Medication Sig Dispense Refill Last Dose amLODIPine (NORVASC) 5 mg tablet Take 1 tablet (5 mg total) by mouth nightly atorvastatin (LIPITOR) 10 mg tablet Take 1 tablet (10 mg total) by mouth nightly fenofibrate (TRIGLIDE) 160 mg tablet Take 1 tablet (160 mg total) by mouth nightly metoprolol XL (TOPROL-XL) 100 mg 24 hr tablet Take 1 tablet (100 mg total) by mouth nightly pancrelipase (ZENPEP) 40,000-126,000- 168,000 unit per capsule Take 1 capsule by mouth 3 (three) times a day with meals zolpidem (AMBIEN) 10 mg tablet Take 1 tablet (10 mg total) by mouth nightly Objective: Patient Vitals for the past 24 hrs: BP Temp Temp src Pulse Resp SpO2 Height Weight 04/26/24 1609 151/94 36.1 ??C (97 ??F) Temporal 68 18 97 % 180.3 cm (5' 11 ) 81.8 kg (180 lb 4.8 oz) 04/26/24 1400 144/100 -- -- 72 -- 99 % -- -- 04/26/24 1217 121/97 36.6 ??C (97.8 ??F) Temporal 84 16 100 % 180.3 cm (5' 11 ) 85.7 kg (189 lb) Physical Exam: Gen: awake, no acute distress, cooperative Neuro: no focal deficits, CN II-XII grossly intact Eyes: extraocular movement intact, sclerae anicteric HENT: supple, no JVD CV: regular rate and rhythm; no murmurs, rubs, or gallops; no peripheral edema; 2+ pulses in all extremities Pulm: clear to auscultation bilaterally; no wheezes, rales, or rhonchi GI: soft, non-tender, non-distended MSK: no cyanosis, clubbing Skin: no visible erythema, acute bruising, or open wounds Psych: normal mood and affect Laboratory Results: I have reviewed the pertinent labs Radiology: CT Abdomen Pelvis W Contrast Result Date: 04/26/2024 Narrative: EXAM DESCRIPTION: CT ABDOMEN PELVIS W CONTRAST REASON FOR STUDY: GI bleed Blood in stools since this morning, bright red and some clots TECHNIQUE: CT scan of the abdomen and pelvis performed with intravenous and without oral contrast using helical scanning technique with dynamic intravenous contrast injection. Reconstructed coronal and sagittal MPR images reviewed. All images stored on PACS. Automated exposure control was used as a dose optimization technique for this examination. CONTRAST TYPE/DOSE: 75mL of IOVERSOL 350 MG IODINE/ML INTRAVENOUS SYRINGE injected COMPARISON: 12/20/2023 FINDINGS: LOWER CHEST: Mild scattered subsegmental atelectasis. No pleural effusion. Imaged port ions of the heart are normal. LIVER: Normal size. No identified cystic or solid masses. Slight hepatic steatosis. The hepatic and portal veins are patent. GALLBLADDER: Normal. BILE DUCTS: No intrahepatic or extrahepatic ductal dilatation. SPLEEN: Normal size. No focal lesions. PANCREAS: No identified cystic or solid masses. No significant calcifications. No adjacent inflammation or peripancreaticfluid collections. Pancreatic duct not dilated. ADRENALS: Normal. KIDNEYS/URINARY TRACT: No identified significant cystic or solid masses. No visualized stones. No hydronephrosis or hydroureter. Symmetric enhancement. Urinary bladder is unremarkable. GI: The stomach is normal. The small bowel is normal in course and caliber with no evidence of obstruction or inflammation. The appendix is normal.There is colonic diverticulosis with superimposed acute uncomplicated diverticulitis of an approximately 2 cm segment of the proximal sigmoid colon. No colonic perforation or obstruction. No organized fluid collections. PERITONEUM: No ascites or free air. Lymphadenopathy. RETROPERITONEUM: No mass or adenopathy. REPRODUCTIVE: Prostate gland calcifications are present which is normal in size. VASCULATURE: No abdominal aortic aneurysm. The abdominal aorta and its branches are patent. MUSCULOSKELETAL: No acute fractures or aggressive osseous lesions. 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 IMPRESSION: 1. Colonic diverticulosis with superimposed acute uncomplicated diverticulitis of an approximately 2 cm segment of the proximal sigmoid colon. No colonic perforation or obstruction. No organized fluid collections THIS IS AN ELECTRONICALLY VERIFIED FINAL REPORT 04/26/2024 1:47 PM - Electronically signed by Jayla Finley M.D. AT: AT Report ID: [id number] Reading Location: [place] [id number] ASSESSMENT AND PLAN: Bright red blood per rectum Suspect diverticular bleed Acute uncomplicated diverticulitis Multiple episodes of BRBPR since earlier today Colonoscopy August 2023 showed some polyps and diverticulitis , and was asked to return for a colonoscopy in 5 years. Hgb 14.3 > 12.9 > 12.2 Monitor H/H Q4H If Hgb<8 will transfuse 1 unit PRBC in the setting of ongoing active bleeding Continue Rocephin and Flagyl for diverticulitis GI consulted Continue CLD for now, NPO after midnight Continue iv fluids, telemetry monitoring HTN Holding home meds Toprol XL and Norvasc at this time due to ongoing GI bleed and concern for impending hypotension Monitor blood pressures HLD Continue statin These fluid and electrolyte abnormalities are being treated, evaluated or monitored: Dehydration-- IVF's DVT PPx SCDs due to GI bleed Expected LOS: Greater than 2 midnights MDM: High complexity Meghan Wiggins MD Internal Medicine - Hospitalist [facility] - Adult Hospitalist Service CC: Carlos Pacheco MD documented in this encounter Procedure Notes * Celestino Moctezuma MD - 04/29/2024 11:02 AM CDTAssociated Order(s): COLONOSCOPY [facility] Patient Name: Angelique Law Procedure Date: 04/29/2024 11:02 AM Date of : 1975 Admit Type: Inpatient Age: 49 Gender: Male Attending MD: Celestino Moctezuma M.D. Room: [facility] 1 Note Status: Finalized [...] M.D. Impression: - Two recently bleeding colonic angioectasias. Treated with argon plasma coagulation (APC). Clips (MR conditional) were placed. 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 - Diverticulosis in the entire examined colon. - One 12 mm polyp at the recto-sigmoid colon, removed with a hot snare. Resected and retrieved. Clips (MR conditional) were placed. 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 - Spasm and angulation at the rectal sigmoid area. - Localized congested mucosa in the rectosigmoid area, biopsied to rule out polyp formation - Internal hemorrhoids. Recommendation: - Await pathology results. - Repeat colonoscopy in 1 year for surveillance. - Advance diet - Discontinue IV antibiotics and maintain oral Cipro and Flagyl for 7 days for resolving diverticulitis Medicines: Monitored Anesthesia Care Complications: No immediate complications. Estimated Blood Loss: Estimated blood loss: none. Procedure: Pre-Anesthesia Assessment: - Prior to the procedure, a History and Physical was performed, and patient medications and allergies were reviewed. The patient's tolerance of previous anesthesia was also reviewed. The risks and benefits of the procedure and the sedation options and risks were discussed with the patient. All questions were answered, and informed consent was obtained. Prior Anticoagulants: The patient has taken no anticoagulant or antiplatelet agents. ASA Grade Assessment: III - A patient with severe systemic disease. After reviewing the risks and benefits, the patient was deemed in satisfactory condition to undergo the procedure. The benefits, risks and alternatives of the procedure and sedation were discussed and informed consent was obtained. All questions were answered. Please refer to the signed informed consent document in the medical record. The bowel preparation used was GoLYTELY via single dose instruction. The scope was passed under direct vision. The Pediatric Colonoscope [id number] was introduced through the anus and advanced to the the cecum, identified by appendiceal orifice and ileocecal valve. The quality of the bowel preparation was good. Bowel prep was administered using a split dose. Findings: The perianal and digital rectal examinations were normal. The cecum appeared normal. The terminal ileum was normal. There was no blood in the colon at this time Two small localized angioectasias with stigmata of recent bleeding were found in the proximal ascending colon. Coagulation for hemostasis using argon plasma at 0.8 liters/minute and 20 silva was successful. To prevent bleeding post-intervention, two hemostatic clips were successfully placed (MR conditional). 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 There was no bleeding at the end of the procedure. Multiple medium-mouthed diverticula were found in the entire colon. A 12 mm polyp was found in the recto-sigmoid colon. The polyp was pedunculated. The polyp was removed with a hot snare. Resection and retrieval were complete. To prevent bleeding after the polypectomy, three hemostatic clips were successfully placed (MR conditional). 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 There was no bleeding at the end of the procedure. The rectum sigmoid area was noted with significant spasm. Small area noted with moderate congestion and biopsy performed to rule out associated polyp formation. Internal hemorrhoids were found during retroflexion. The hemorrhoids were medium-sized. Electronically signed by Celestino Moctezuma M.D. Celestino Moctezuma M.D. 04/29/2024 12:25:13 PM Number of Addenda: 0 Note Initiated On: 04/29/2024 11:02 AM Procedure Code(s): --- Professional --- 84491, 59, Colonoscopy, flexible; with control of bleeding, any method 02343, Colonoscopy, flexible; with removal of tumor(s), polyp(s), or other lesion(s) by snare technique 53903, 59, Colonoscopy, flexible; with biopsy, single or multiple Diagnosis Code(s): --- Professional --- K64.8, Other hemorrhoids K55.21, Angiodysplasia of colon with hemorrhage D12.7, Benign neoplasm of rectosigmoid junction K63.89, Other specified diseases of intestine K92.1, Melena (includes Hematochezia) D62, Acute posthemorrhagic anemia K57.30, Diverticulosis of large intestine without perforation or abscess without bleeding CPT copyright 2020 [employer]. All rights reserved. The codes documented in this report are preliminary and upon processing mgr review may be revised to meet current compliance requirements. Recognized by the [employer] for promoting quality in endoscopy * Celestino Moctezuma MD - 04/28/2024 11:19 AM CDTAssociated Order(s): COLONOSCOPY [facility] Patient Name: Angelique Law Procedure Date: 04/28/2024 11:19 AM Date of : 1975 Admit Type: Inpatient Age: 49 Gender: Male Attending MD: Celestino Moctezuma M.D. Room: [facility] 1 Note Status: Finalized Patient Profile: This is a 49 year old male. Patient admitted with hematochezia. CT showed diverticulosis and mild diverticulitis. Patient has anemia and hemoglobin decline. Procedure: Colonoscopy Indications: Hematochezia Referring MD: Carlos Pacheco MD Providers: Celestino Moctezuma M.D. Impression: - Blood in the entire examined colon. - Diverticulosis in the entire examined colon. Likely source of bleeding. - One 15 mm polyp in the distal sigmoid colon. - Internal hemorrhoids. - No specimens collected. Recommendation: - Repeat colonoscopy within 3 months for surveillance for polypectomy. - Clear liquid diet only today. Medicines: Monitored Anesthesia Care Complications: No immediate complications. Estimated Blood Loss: Estimated blood loss: none. Procedure: Pre-Anesthesia Assessment: - Prior to the procedure, a History and Physical was performed, and patient medications and allergies were reviewed. The patient's tolerance of previous anesthesia was also reviewed. The risks and benefits of the procedure and the sedation options and risks were discussed with the patient. All questions were answered, and informed consent was obtained. Prior Anticoagulants: The patient has taken no anticoagulant or antiplatelet agents. ASA Grade Assessment: III - A patient with severe systemic disease. After reviewing the risks and benefits, the patient was deemed in satisfactory condition to undergo the procedure. The benefits, risks and alternatives of the procedure and sedation were discussed and informed consent was obtained. All questions were answered. Please refer to the signed informed consent document in the medical record. The Colonoscope [id number] was introduced through the anus and advanced to the the cecum, identified by appendiceal orifice and ileocecal valve. The benefits, risks and alternatives of the procedure and sedation were discussed and informed consent was obtained. All questions were answered. Please refer to the signed informed consent document in the medical record. The colonoscopy was performed without difficulty. The patient tolerated the procedure well. The quality of the bowel preparation was adequate. The bowel preparation used was tap water enema. Findings: The perianal and digital rectal examinations were normal. The ileum appeared normal. Red blood was found in the entire colon. No point of active bleeding noted. Extensive wash was applied. Multiple medium-mouthed diverticula were found in the entire colon. Likely source of bleeding A 15 mm polyp was found in the distal sigmoid colon. The polyp was pedunculated. No bleeding from the polyps noted. No polypectomy at this time. Internal hemorrhoids were found during retroflexion. The hemorrhoids were medium-sized. Electronically signed by Celestino Moctezuma M.D. Celestino Moctezuma M.D. 04/28/2024 1:51:43 PM Number of Addenda: 0 Note Initiated On: 04/28/2024 11:19 AM Procedure Code(s): --- Professional --- 65891, Colonoscopy, flexible; diagnostic, including collection of specimen(s) by brushing or washing, when performed (separate procedure) Diagnosis Code(s): --- Professional --- K64.8, Other hemorrhoids K92.2, Gastrointestinal hemorrhage, unspecified D12.5, Benign neoplasm of sigmoid colon K92.1, Melena (includes Hematochezia) K57.30, Diverticulosis of large intestine without perforation or abscess without bleeding CPT copyright 2020 [employer]. All rights reserved. The codes documented in this report are preliminary and upon processing mgr review may be revised to meet current compliance requirements. Recognized by the [employer] for promoting quality in endoscopy * Celestino Moctezuma MD - 04/28/2024 11:19 AM CDTAssociated Order(s): EGD [facility] Patient Name: Angelique Law Procedure Date: 04/28/2024 11:19 AM Date of : 1975 Admit Type: Inpatient Age: 49 Gender: Male Attending MD: Celestino Moctezuma M.D. Room: [facility] 1 Note Status: Finalized Patient Profile: This is a 49 year old male. Patient admitted with a hematochezia and post hemorrhagic anemia. EGD to rule out upper GI source of bleeding. CT scan showed diverticulosis and mild diverticulitis Procedure: Upper GI endoscopy Indications: Hematochezia Referring MD: Carlos Pacheco MD Providers: Celestino Moctezuma M.D. Impression: - Mild gastritis - No bleeding the upper GI system - No specimens collected. Recommendation: - Use Protonix (pantoprazole) 40 mg PO daily. - Colonoscopy today Medicines: Monitored Anesthesia Care Complications: No immediate complications. Estimated Blood Loss: Estimated blood loss: none. Procedure: Pre-Anesthesia Assessment: - Prior to the procedure, a History and Physical was performed, and patient medications and allergies were reviewed. The patient's tolerance of previous anesthesia was also reviewed. The risks and benefits of the procedure and the sedation options and risks were discussed with the patient. All questions were answered, and informed consent was obtained. Prior Anticoagulants: The patient has taken no anticoagulant or antiplatelet agents. ASA Grade Assessment: III - A patient with severe systemic disease. After reviewing the risks and benefits, the patient was deemed in satisfactory condition to undergo the procedure. The benefits, risks, and alternatives to the procedure and sedation were discussed and informed consent was obtained. The scope was passed under direct vision. The Wide Endoscope [id number] was introduced through the mouth, and advanced to the third part of duodenum. The upper GI endoscopy was accomplished without difficulty. The patient tolerated the procedure well. Findings: The examined duodenum was normal. Scattered minimal inflammation characterized by congestion (edema) and erythema was found in the gastric antrum. The examined esophagus was normal. Electronically signed by Celestino Moctezuma M.D. Celestino Moctezuma M.D. 04/28/2024 1:46:23 PM Number of Addenda: 0 Note Initiated On: 04/28/2024 11:19 AM Procedure Code(s): --- Professional --- 29964, Esophagogastroduodenoscopy, flexible, transoral; diagnostic, including collection of specimen(s) by brushing or washing, when performed (separate procedure) Diagnosis Code(s): --- Professional --- K29.70, Gastritis, unspecified, without bleeding K92.1, Melena (includes Hematochezia) CPT copyright 2020 [employer]. All rights reserved. The codes documented in this report are preliminary and upon processing mgr review may be revised to meet current compliance requirements. Recognized by the [employer] for promoting quality in endoscopy * Michael Silva MD - 04/27/2024 8:04 PM CDTAssociated Order(s): Critical Care Post-Procedure Diagnose(s): Diverticulitis; Rectal bleeding Critical Care Performed by: Michael Silva MD Authorized by: Michael Silva MD CRITICAL CARE: Team: EICU Shift: PM Level of Billing: Critical Care My time spent with this patient was 75 minutes: Critical Provider Statement: I have seen and examined the patient on this day of service. I have reviewed and confirmed the history, physical exam, laboratory and radiologic data as documented in thesigned ICU note. I have reviewed and discussed my treatment plan with the ICU team and other medical/vendor management consultant staff, making frequent assessments and decisions regarding this patient's complex medical care. Critical Care time was exclusive of time spent performing separately billed procedures, treating other patients, and teaching. This time was in addition to and separate from critical care provided by other practitioners in my group on this day of service. Critical Care was necessary to treat or prevent imminent or life-threatening deterioration of the following conditions: Acute gastrointestinal bleed (GIB) Acute blood loss anemia This time was spent by me doing the following: Obtaining peripheral venous access or blood draws, Resuscitation with fluids and Serial laboratory checks Active and frequent monitoring of intake/output and volumen status and Management of gastrointestinal bleed I spent time reviewing and interpreting data from bedside monitors, laboratory results, and imaging, I spent time discussing the management of this critically ill patient with consultants and the medical staff and I spent time documenting in the medical record documented in this encounter Consult Notes * Collin Sutton MD - 04/28/2024 3:35 PM CDT Critical Care Medicine History and Physical CC: Mr. Angelique Lyle Null 49 y.o. with history of diverticulosis who came to the hospital yesterday complaining of bright red blood per rectum. Reason for transfer to the icu: Persistent hematochezia HPI: This gentleman has a history of diverticulosis and a couple of days ago, he developed hematochezia.The patient was originally admitted to the floor and his symptoms improved. Last night he had several episode of hematochezia so he was transferred to the ICU for close monitoring. CT scan on admission show evidence of possible acute diverticulitis. Patient's original hemoglobin was 14.3 and decreased to 8.6 today. He underwent upper endoscopy which showed mild gastritis without bleeding. His sigmoidoscopy show significant amount of blood in the colon with diverticulosis throughout the lower colon and a small polyp. His last hemoglobin was 8.6 earlier today. Patient denies any abdominal pain or any other symptoms. Past Medical History: Diagnosis Date Hypertension Past Surgical History: Procedure Laterality Date BRAIN SURGERY Medications Prior to Admission Medication Sig Dispense Refill Last Dose amLODIPine (NORVASC) 5 mg tablet Take 1 tablet (5 mg total) by mouth nightly atorvastatin (LIPITOR) 10 mg tablet Take 1 tablet (10 mg total) by mouth nightly fenofibrate (TRIGLIDE) 160 mg tablet Take 1 tablet (160 mg total) by mouth nightly metoprolol XL (TOPROL-XL) 100 mg 24 hr tablet Take 1 tablet (100 mg total) by mouth nightly pancrelipase (ZENPEP) 40,000-126,000- 168,000 unit per capsule Take 1 capsule by mouth 3 (three) times a day with meals zolpidem (AMBIEN) 10 mg tablet Take 1 tablet (10 mg total) by mouth nightly Current Facility-Administered Medications Medication Dose Route Frequency Provider Last Rate Last Admin acetaminophen (TYLENOL) tablet 650 mg 650 mg oral Q4H PRN Meghan Wiggins MD 650 mg at 04/27/24 0905 amLODIPine (NORVASC) tablet 5 mg 5 mg oral Nightly Michael Silva MD 5 mg at 04/27/24 2231 [Held by Provider] atorvastatin (LIPITOR) tablet 10 mg 10 mg oral Nightly Meghan Wiggins MD 10 mg at 04/27/24 2158 cefTRIAXone (ROCEPHIN) 2,000 mg/20 mL in sterile water (premix) 2,000 mg 2,000 mg intravenous Q24H [facility] Meghan Wiggins MD 2,000 mg at 04/28/24 1430 [Held by Provider] fenofibrate nanocrystallized (TRICOR) tablet 145 mg 145 mg oral Daily Meghan Wiggins MD 145 mg at 04/27/24 0752 metoclopramide (REGLAN) 5 mg/mL injection 10 mg 10 mg intravenous Q6H [facility] Celestino Moctezuma MD 10 mg at 04/28/24 0920 [Held by Provider] metoprolol XL (TOPROL-XL) extended release tablet 100 mg 100 mg oral Nightly Meghan Wiggins MD metroNIDAZOLE (FLAGYL) 500 mg/100 mL in sodium chloride (premix) 500 mg 500 mg intravenous Q12H Meghan Whaley MD Stopped at 04/28/24 1430 ondansetron ODT (ZOFRAN-ODT) disintegrating tablet 4 mg 4 mg oral Q6H PRN Meghan Wiggins MD Or ondansetron (ZOFRAN) injection 4 mg 4 mg intravenous Q6H PRN Meghan Wiggins MD pantoprazole (PROTONIX) 40 mg in sodium chloride 0.9% 10 mL IV Syringe 40 mg intravenous BID Collin Sutton MD sodium chloride 0.9% infusion 100 mL/hr intravenous Continuous Celestino Moctezuma MD 100 mL/hr at04/28/24 0920 100 mL/hr at 04/28/24 0920 sodium chloride 0.9% infusion 30 mL/hr intravenous Continuous Celestino Moctezuma MD 30 mL/hr at 04/28/24 1111 New Bag at 04/28/24 1327 zolpidem (AMBIEN) tablet 5 mg 5 mg oral Nightly Meghan Wiggins MD 5 mg at 04/27/24 2778 No Known Allergies Social History Tobacco Use Smoking status: Every Day Current packs/day: 0.05 Types: Cigarettes Smokeless tobacco: None Substance and Sexual Activity Drug use: None Sexual activity: None Alcohol Use: Alcohol Misuse (04/26/2024) AUDIT-C Frequency of Alcohol Consumption: 4 or more times a week Average Number of Drinks: 5 or 6 Frequency of Binge Drinking: Daily or almost daily No family history on file. Review of Systems: 14 point review is essentially negative. No weight loss or chest pain. He has some difficulty taking a deep breath last night but not today Objective Vitals: Vitals: 04/28/24 1340 04/28/24 1350 04/28/24 1401 04/28/24 1500 BP: (!) 171/113 (!) 182/110 (!) 157/108 (!) 162/105 BP Location: Patient Position: Pulse: 78 74 83 91 Resp: 18 17 18 13 Temp: 36.3 ??C (97.3 ??F) TempSrc: Temporal SpO2: 100% 100% 99% 97% Weight: Height: LDA: Physical Exam: Awake and following commands Blood pressure was 162/100 heart rate was 81 respiratory rate was 13 oxygen saturation was 97% HEENT no discharge per ears nose Neck no jugular distention Lungs were clear Cardiovascular was regular non tachycardic no murmurs Abdomen soft nontender distended bowel sounds were present Extremities showed no significant erythema or edema Neurologically the patient is awake and following commands Skin shows no rash Musculoskeletal evidence of joint inflammation Lab/Radiology/Diagnostic Review: Reviewed. Recent Results (from the past 24 hour(s)) Hemoglobin and hematocrit Collection Time: 04/27/24 3:58 PM Result Value Ref Range Hgb 8.5 (L) 13.0 - 17.5 g/dL Hct 25.2 (L) 38.9 - 50.3 % Hemoglobin and hematocrit Collection Time: 04/27/24 5:37 PM Result Value Ref Range Hgb 8.9 (L) 13.0 - 17.5 g/dL Hct 26.3 (L) 38.9 - 50.3 % Prepare RBC: 1 Units Collection Time: 04/27/24 7:23 PM Result Value Ref Range Units requested 1 Units requested Ready Unit Number [id number] Product code [id number] Blood Expiration Date [id number] Product Blood Type (for scanning) 5100 Product Blood Type OPOS Dispense Status DISPENSED Troponin T high-sensitivity Collection Time: 04/27/24 7:35 PM Result Value Ref Range Trop T hs 16 <=22 ng/L POCT glucose Collection Time: 04/27/24 7:54 PM Result Value Ref Range Glucose, POC 166 70 - 199 mg/dL Infection Prevention MRSA Only (Staphylococcus aureus) PCR Nasal Collection Time: 04/27/24 8:12 PM Specimen: Nasal Result Value Ref Range PCR Scrn, Methicillin resistant Staphylococcus aureus (MRSA) Not Detected Not Detected Hemoglobin and hematocrit Collection Time: 04/27/24 11:40 PM Result Value Ref Range Hgb 9.5 (L) 13.0 - 17.5 g/dL Hct 27.4 (L) 38.9 - 50.3 % Basic metabolic panel Collection Time: 04/28/24 4:08 AM Result Value Ref Range Sodium 139 135 - 145 mmol/L Potassium, pl 3.8 3.3 - 4.9 mmol/L Chloride 110 97 - 110 mmol/L CO2 22 22 - 32 mmol/L Anion gap 7 2 - 15 mmol/L BUN 11 6 - 25 mg/dL Creatinine 0.98 0.80 - 1.30 mg/dL Glucose 104 70 - 199 mg/dL Calcium 8.3 (L) 8.5 - 10.3 mg/dL Magnesium Collection Time: 04/28/24 4:08 AM Result Value Ref Range Magnesium 1.9 1.4 - 2.5 mg/dL Phosphorus Collection Time: 04/28/24 4:08 AM Result Value Ref Range Phosphorus, pl 2.6 2.3 - 4.5 mg/dL CBC with auto differential Collection Time: 04/28/24 4:08 AM Result Value Ref Range WBC 7.8 3.8 - 9.9 K/cumm Hgb 8.7 (L) 13.0 - 17.5 g/dL Hct 24.9 (L) 38.9 - 50.3 % Plt 334 150 - 400 K/cumm MPV 9.6 9.1 - 12.3 fL RBC 2.68 (L) 4.30 - 5.80 M/cumm MCV 92.9 81.3 - 96.4 fL MCH 32.5 27.1 - 33.3 pg MCHC 34.9 32.3 - 35.7 g/dL RDW CV 13.3 11.1 - 14.9 % RDW SD 45.2 35.7 - 48.1 fL NRBC abs 0.00 0.00 - 0.01 K/cumm Differential, auto Collection Time: 04/28/24 4:08 AM Result Value Ref Range Neutrophil abs 5.2 1.5 - 6.5 K/cumm Imm gran abs 0.1 0.0 - 0.1 K/cumm Lymphocyte abs 1.8 0.8 - 3.3 K/cumm Monocyte abs 0.6 0.2 - 0.8 K/cumm Eosinophil abs 0.1 0.0 - 0.5 K/cumm Basophil abs 0.0 0.0 - 0.1 K/cumm Neutrophil pct 66.6 % Imm gran pct 0.6 % Lymphocyte pct 23.4 % Monocyte pct 8.1 % Eosinophil pct 0.8 % Basophil pct 0.5 % eGFR Collection Time: 04/28/24 4:08 AM Result Value Ref Range eGFR >90 >=60 mL/min/1.73 m2 Prepare RBC: 1 Units Collection Time: 04/28/24 5:23 AM Result Value Ref Range Units requested 1 Units requested Ready Hemoglobin and hematocrit Collection Time: 04/28/24 8:26 AM Result Value Ref Range Hgb 8.6 (L) 13.0 - 17.5 g/dL Hct 24.3 (L) 38.9 - 50.3 % Imaging: CT scan and CTA have been reviewed Assessment and Plan: 1. Neurologically: Awake and following command history of brain trauma as a child 2. Cardiovascular: History of hypertension. Will restart Norvasc since his well pressure is fairly elevated he is also on metoprolol which will be restarted as well but on a lower dose. 3. Respiratory: He smokes but has no symptoms at present time 4. GI: Lower GI bleed associated with diverticulosis and possible diverticulitis. He is on antibiotics and will continue monitor in his H&H. White blood cell count is normal as well as platelet. Liquid diet 5. and Renal: BUN and creatinine as well as electrolytes are balanced 6. Endocrine: No history of diabetes or thyroid disease 7. Hematologically: Will continue monitoring H&H until the bleeding stops 8. DVT prophylaxis: Sequential compression devices on 9. Id: Continue antibiotics for diverticulitis Pain assessment: Ongoing Advance directive/code status: Full Collin Mancia MD Critical Care 04/28/2024 3:38 PM Voice recognition software was used to dictate and transcribe this document. Despite proofreading, boss dyer variances and/or typographical errors might have occurred. * Kieran Westbrook MD - 04/27/2024 12:32 PM CDTAssociated Order(s): IP CONSULT TO GASTROENTEROLOGY GASTROENTEROLOGY CONSULT Angelique Law Age: 49 y.o. Date of : 1975 Date of Admission: 04/26/2024 Reason for Consult: hematochezia Requesting Provider Dr. Wiggins Subjective: History of Present Illness: Angelique Law is a 49 y.o. male with a PMH of HTN, HLD, recurrent diverticulitis presented to the hospital with hematochezia. Initial hemoglobin on admission was 14.3 that trended down to 10.3 over the last day. INR normal. CT abdomen pelvis with contrast showed diverticulosis with acute uncomplicated diverticula colitis in the proximal sigmoid colon. Hematochezia has already resolved at the time of my evaluation this morning. Last bloody BM was overnight. Patient overall feels fine and wants to advance diet and go home. Per patient and family at bedside he has had a colonoscopy about 8 or 9 months ago that showed diverticulosis and benign polyps. Supposedly also has had multiple episodes of diverticulitis in the past but no bleeding. Past Medical History: Patient Active Problem List Diagnosis ??? Rectal bleeding Past Medical History: Diagnosis Date ??? Hypertension Past Surgical History: Past Surgical History: Procedure Laterality Date ??? BRAIN SURGERY Medications: Medications Prior to Admission Medication Sig Dispense Refill Last Dose ??? amLODIPine (NORVASC) 5 mg tablet Take 1 tablet (5 mg total) by mouth nightly ??? atorvastatin (LIPITOR) 10 mg tablet Take 1 tablet (10 mg total) by mouth nightly ??? fenofibrate (TRIGLIDE) 160 mg tablet Take 1 tablet (160 mg total) by mouth nightly ??? metoprolol XL (TOPROL-XL) 100 mg 24 hr tablet Take 1 tablet (100 mg total) by mouth nightly ??? pancrelipase (ZENPEP) 40,000-126,000- 168,000 unit per capsule Take 1 capsule by mouth 3 (three) times a day with meals ??? zolpidem (AMBIEN) 10 mg tablet Take 1 tablet (10 mg total) by mouth nightly Current Facility-Administered Medications: ??? acetaminophen (TYLENOL) tablet 650 mg, 650 mg, oral, Q4H PRN, Meghan Wiggins MD, 650 mg at 04/27/24 0905 ??? amLODIPine (NORVASC) tablet 5 mg, 5 mg, oral, Nightly, Meghan Wiggins MD ??? atorvastatin (LIPITOR) tablet 10 mg, 10 mg, oral, Nightly, Meghan Wiggins MD, 10 mg at 04/26/242041 ??? cefTRIAXone (ROCEPHIN) 2,000 mg/20 mL in sterile water (premix) 2,000 mg, 2,000 mg, intravenous, Q24H [facility], Meghan Wiggins MD, 2,000 mg at 04/27/24 1123 ??? fenofibrate nanocrystallized (TRICOR) tablet 145 mg, 145 mg, oral, Daily, Meghan Wiggins MD, 145 mg at 04/27/24 0752 ??? metoprolol XL (TOPROL-XL) extended release tablet 100 mg, 100 mg, oral, Nightly, Meghan Wiggins MD ??? metroNIDAZOLE (FLAGYL) 500 mg/100 mL in sodium chloride (premix) 500 mg, 500 mg, intravenous, Q12H [facility], Meghan Wiggins MD, Last Rate: 200 mL/hr at 04/27/24 1123, 500 mg at 04/27/24 1123 ??? ondansetron ODT (ZOFRAN-ODT) disintegrating tablet 4 mg, 4 mg, oral, Q6H PRN OR ondansetron(ZOFRAN) injection 4 mg, 4 mg, intravenous, Q6H PRN, Meghan Wiggins MD ??? oxyCODONE (ROXICODONE) tablet 5 mg, 5 mg, oral, Q4H PRN, Meghan Wiggins MD ??? pancrelipase (CREON) 6,000 units of lipase per capsule 6,000 units of lipase, 6,000 units of lipase, oral, TID with meals, Meghan Wiggins MD ??? zolpidem (AMBIEN) tablet 5 mg, 5 mg, oral, Nightly, Meghan Wiggins MD, 5 mg at 04/26/242041 Allergies: No Known Allergies Social History: reports that he has been smoking cigarettes. He does not have any smokeless tobacco history on file. Family History: family history is not on file. Objective: Physical Exam: BP 139/98 (BP Location: Left arm, Patient Position: Sitting) Pulse 104 Temp 37 ??C (98.6 ??F) (Temporal) Resp 18 Ht 180.3 cm (5' 11 ) Wt 81.8 kg (180 lb 4.8 oz) SpO2 97% BMI 25.15 kg/m?? Wt Readings from Last 5 Encounters: 04/26/24 81.8 kg (180 lb 4.8 oz) Labs: Recent Labs Lab Units 04/27/24 0848 04/27/24 0405 04/27/24 0004 04/26/24 1624 04/26/24 1240 WBC K/cumm -- -- -- -- 9.4 HEMOGLOBIN g/dL 10.3* 10.2* 10.8* < > 14.3 HEMATOCRIT % 30.4* 30.1* 31.8* < > 41.7 PLATELETS K/cumm -- -- -- -- 485* < > = values in this interval not displayed. Recent Labs Lab Units 04/26/24 1751 04/26/24 1240 SODIUM mmol/L -- 137 POTASSIUM PLASMA mmol/L -- 4.3 CHLORIDE mmol/L -- 103 CO2 mmol/L -- 25 ANIONGAP mmol/L -- 10 GLUCOSE mg/dL -- 102 POC GLUCOSE MONITOR mg/dL 136 -- BUN SERUM mg/dL -- 7 CREATININE mg/dL -- 1.20 CALCIUM mg/dL -- 9.3 ALBUMIN g/dL -- 4.2 ALK PHOS Units/L -- 70 ALT Units/L -- 23 AST Units/L -- 21 BILIRUBIN TOTAL mg/dL -- 0.3 Recent Labs Lab Units 04/26/24 1240 INR 1.00 Recent Labs Lab Units 04/27/24 0405 MAGNESIUM mg/dL 1.8 Assessment: # hematochezia mostly likely 2/2 diverticulosis, self resolved, Hgb has been stable now since earlier this morning, tolerating CLD # acute uncomplicated sigmoid diverticulitis on IV rocephin and flagyl Recommendations: Okay to advance to GI soft diet Repeat Hgb later this afternoon, if stable with no recurrent bleeding and tolerating diet then can discharge tomorrow Continue IV Rocephin and Flagyl for now, once ready for discharge can switch to oral Cipro and Flagyl for total of 10 days Since last colonoscopy was within the past year likely won't need to repeat another one just yet, will defer that decision to his outside GI. Thank you for allowing us to participate in the care of this patient. We will continue to follow this patient with you. Please do not hesitate to contact us with further questions. Kieran Westbrook MD Gastroenterology documented in this encounter Nursing Notes * Aubree Finnegan RN - 04/28/2024 2:40 PM CDT Patient returned to ICU 5 from GI lab following EGD and sigmoidoscopy. Alert and oriented. Tolerating clear liquids well. No complaints at this time. * Aubree Finnegan RN - 04/28/2024 11:07 AM CDT Patient transferred to GI lab via hospital bed. Report given to Connie WYATT. Consents signed and placed in chart. Handoff given to Pauly WYATT. * Summer Earl RN - 04/27/2024 7:50 PM CDT Patient transferred to icu bed 5 with all belongings and in waiting room. Patient's blood started and report given to Iris. * Summer Earl RN - 04/27/2024 7:11 PM CDT Patient will be transferred to ICU bed 5. At start of shift, patient having multiple bloody stools,tachycardic with HR up to 150. Patient feeling not right , chest tightness, and is now nauseous and vomiting. Patient pale and diaphoretic. Transfuse order put in. ICU will call when nurse is ready for report. [address] * Priya Mancia RN - 04/27/2024 6:40 PM CDT Patient up to commode, became lightheaded, nauseous and vomiting, diaphoretic, and tachycardiac with heart rate at 140-150's. States he does not feel right and having chest tightness. Blood pressure 137/95. Informed Dr. Westbrook and Dr. Wiggins at this time of patient condition. Patient to be transferred to ICU at this time and 1 unit of blood ordered. * Priya Mancia RN - 04/27/2024 11:44 AM CDT Received order from Dr. Westbrook to advance diet to GI soft at this time * Priya Mancia RN - 04/27/2024 8:[address] Westbrook ok to advance diet to clear liquids at this time documented in this encounter ED Notes * Jeannette Cartagena PA - 04/26/2024 2:18 PM CDT CHIEF COMPLAINT: Chief Complaint Patient presents with Black or Bloody Stool HPI 2:24 PM Angelique Law is a 49 y.o. male presenting to the ED c/o rectal bleeding. Patient presented to the emergency department for bright red rectal bleeding. 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 Patient had to pull his pants downand have a bowel movement outside. Patient reports a large amount of blood. He had several more bloody bowel movements and side. Patient had a pick pulling machine tender on the way to the hospital and have another large bowel movement that contained bright red blood and blood clots. He is not on any anticoagulationor anti-platelet. He is a daily drinker drinking approximately 6-8 beers daily. He denies any abdominal pain, fever, nausea, or vomiting. History provided by patient PCP: Carlos Pacheco MD PAST MEDICAL HISTORY No past medical history on file. PAST SURGICAL HISTORY No past surgical history on file. FAMILY HISTORY No family history on file. MEDICATIONS GIVEN IN THE ED Medications metroNIDAZOLE (FLAGYL) 500 mg/100 mL in sodium chloride (premix) 500 mg (500 mg intravenous New Bag04/26/24 1414) cefTRIAXone (ROCEPHIN) 2,000 mg/20 mL in sterile water (premix) 2,000 mg (2,000 mg intravenous Given 04/26/24 1415) acetaminophen (TYLENOL) tablet 650 mg (has no administration in time range) oxyCODONE (ROXICODONE) tablet 5 mg (has no administration in time range) ondansetron ODT (ZOFRAN-ODT) disintegrating tablet 4 mg (has no administration in time range) Or ondansetron (ZOFRAN) injection 4 mg (has no administration in time range) pantoprazole (PROTONIX) 40 mg in sodium chloride 0.9% 10 mL IV Syringe (40 mg intravenous Given 04/26/24 1327) ioversoL (OPTIRAY 350) syringe 75 mL (75 mL intravenous Contrast Given 04/26/24 1338) CURRENT HOME MEDICATIONS Current Facility-Administered Medications: acetaminophen (TYLENOL) tablet 650 mg, 650 mg, oral, Q4H PRN, Jeannette Cartagena PA cefTRIAXone (ROCEPHIN) 2,000 mg/20 mL in sterile water (premix) 2,000 mg, 2,000 mg, intravenous, Q24H [facility], Jeannette Cartagena PA, 2,000 mg at 04/26/24 1415 metroNIDAZOLE (FLAGYL) 500 mg/100 mL in sodium chloride (premix) 500 mg, 500 mg, intravenous, Q12H [facility], Jeannette Cartagena PA, Last Rate: 200 mL/hr at 04/26/24 1414, 500 mg at 04/26/24 1414 ondansetron ODT (ZOFRAN-ODT) disintegrating tablet 4 mg, 4 mg, oral, Q6H PRN OR ondansetron (ZOFRAN) injection 4 mg, 4 mg, intravenous, Q6H PRN, Jeannette Cartagena PA oxyCODONE (ROXICODONE) tablet 5 mg, 5 mg, oral, Q4H PRN, Jeannette Cartagena PA No current outpatient medications on file. ALLERGIES No Known Allergies SOCIAL HISTORY Social History Tobacco Use Smoking status: Not on file Smokeless tobacco: Not on file Substance and Sexual Activity Drug use: Not on file Sexual activity: Not on file Alcohol Use: Not on file PHYSICAL EXAM TRIAGE VITAL SIGNS: ED Triage Vitals [04/26/24 1217] Temp Pulse Resp BP SpO2 36.6 ??C (97.8 ??F) 84 16 121/97 100 % Temp src Heart Rate Source Patient Position BP Location FiO2 (%) Temporal -- -- -- -- Height Height Method Weight Weight Method 1.803 m (5' 11 ) Stated 85.7 kg (189 lb) Stated Physical Exam Vitals and nursing note reviewed. Exam conducted with a fox raiser present (Summer PCT). Constitutional: General: He is not in acute distress. HENT: Head: Normocephalic. Right Ear: External ear normal. Left Ear: External ear normal. Nose: Nose normal. Mouth/Throat: Mouth: Mucous membranes are moist. Eyes: Conjunctiva/sclera: Conjunctivae normal. Cardiovascular: Rate and Rhythm: Normal rate and regular rhythm. Pulmonary: Effort: Pulmonary effort is normal. No respiratory distress. Breath sounds: Normal breath sounds. Abdominal: Palpations: Abdomen is soft. Tenderness: There is no abdominal tenderness. There is no guarding or rebound. Genitourinary: Rectum: External hemorrhoid present. Comments: Bright red blood on SAMEERA Musculoskeletal: General: Normal range of motion. Cervical back: Neck supple. Skin: General: Skin is warm and dry. Neurological: General: No focal deficit present. Mental Status: He is alert. Psychiatric: Mood and Affect: Mood normal. Behavior: Behavior normal. LABS Labs Reviewed CBC WITH AUTO DIFFERENTIAL - Abnormal Result Value WBC 9.4 Hgb 14.3 Hct 41.7 Plt 485 (*) MPV 9.3 RBC 4.32 MCV 96.5 (*) MCH 33.1 MCHC 34.3 RDW CV 13.0 RDW SD 46.8 NRBC abs 0.00 COMPREHENSIVE METABOLIC PANEL - Abnormal Sodium 137 Potassium, pl 4.3 Chloride 103 CO2 25 Anion gap 10 BUN 7 Creatinine 1.20 Glucose 102 Calcium 9.3 Bilirubin, total 0.3 Protein, pl 6.4 (*) Albumin 4.2 Alk phos 70 ALT 23 AST 21 DIFFERENTIAL AUTO - Abnormal Neutrophil abs 5.7 Imm gran abs 0.1 Lymphocyte abs 2.4 Monocyte abs 1.0 (*) Eosinophil abs 0.1 Basophil abs 0.0 Neutrophil pct 60.9 Imm gran pct 0.5 Lymphocyte pct 25.9 Monocyte pct 11.0 Eosinophil pct 1.3 Basophil pct 0.4 TYPE AND SCREEN PROTIME-INR PT 10.8 INR 1.00 ABO/RH ABO/Rh O Positive Narrative: Has the patient had Daratumumab or Isatuximab in the past 6 months?->Unknown ANTIBODY SCREEN Izzy, indirect, Gel Interpretation Negative ABSC Narrative: Has the patient had Daratumumab or Isatuximab in the past 6 months?->Unknown EGFR eGFR 74 B ABO / RH CONFIRMATION TESTING HEMOGLOBIN AND HEMATOCRIT HEMOGLOBIN AND HEMATOCRIT HEMOGLOBIN AND HEMATOCRIT RADIOLOGY CT Abdomen Pelvis W Contrast Result Date: 04/26/2024 Narrative: EXAM DESCRIPTION: CT ABDOMEN PELVIS W CONTRAST REASON FOR STUDY: GI bleed Blood in stools since this morning, bright red and some clots TECHNIQUE: CT scan of the abdomen and pelvis performed with intravenous and without oral contrast using helical scanning technique with dynamic intravenous contrast injection. Reconstructed coronal and sagittal MPR images reviewed. All images stored onPACS. Automated exposure control was used as a dose optimization technique for this examination. CONTRAST TYPE/DOSE: 75mL of IOVERSOL 350 MG IODINE/ML INTRAVENOUS SYRINGE injected COMPARISON: 12/20/2023 FINDINGS: LOWER CHEST: Mild scattered subsegmental atelectasis. No pleural effusion. Imaged portions of the heart are normal. LIVER: Normal size. No identified cystic or solid masses. Slight hepatic steatosis. The hepatic and portal veins are patent. GALLBLADDER: Normal. BILE DUCTS: No intrahepatic or extrahepatic ductal dilatation. SPLEEN: Normal size. No focal lesions. PANCREAS: No identified cystic or solid masses. No significant calcifications. No adjacent inflammation or peripancreatic fluid collections. Pancreatic duct not dilated. ADRENALS: Normal. KIDNEYS/URINARY TRACT: No identified significant cystic or solid masses. No visualized stones. No hydronephrosis or hydroureter. Symmetric enhancement. Urinary bladder is unremarkable. GI: The stomach is normal. The small bowel is normal in course and caliber with no evidence of obstruction or inflammation. The appendix is normal. There is colonic diverticulosis with superimposed acute uncomplicated diverticulitis of an approximately 2 cm segment of the proximal sigmoid colon. No colonic perforation or obstruction. No organized fluid collections. PERITONEUM: No ascites or free air. Lymphadenopathy. RETROPERITONEUM: No mass or adenopathy. REPRODUCTIVE: Prostate gland calcifications are present which is normal in size. VASCULATURE: No abdominal aortic aneurysm. The abdominal aorta and its branches are patent. MUSCULOSKELETAL: No acute fractures or aggressive osseous lesions. 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 IMPRESSION: 1. Colonic diverticulosis with superimposed acute uncomplicated diverticulitis of an approximately 2 cm segment of the proximal sigmoid colon. No colonic perforation or obstruction. No organized fluid collections THIS IS AN ELECTRONICALLY VERIFIED FINAL REPORT 04/26/2024 1:47 PM - Electronicallysigned by Jayla Finley M.D. AT: AT 1 :47 PM Report ID: [id number] Reading Location: [place] [address] ED COURSE/MEDICAL DECISION MAKING Differential diagnosis included but not limited to upper/lower GI bleed, diverticulitis, colitis, mass Patient is agreeable with plan for admission. I discussed all diagnostic test results and the need for admission with patient. All questions answered. Patient's medical records were reviewed. ED Course as of 04/26/24 1424 Time: 04/26 1302 Value: Hgb: 14.3 Comment: (Reviewed) By: Jeannette Cartagena PA Time: 04/26 1352 Value: CT Abdomen Pelvis W Contrast Comment: IMPRESSION: 1. Colonic diverticulosis with superimposed acute uncomplicated diverticulitis of an approximately 2 cm segment of the proximal sigmoid colon. No colonic perforation or obstruction. No organized fluid collections By: Jeannette Cartagena PA Time: 04/26 1353 Comment: Case was discussed with Gastroenterology Dr. Westbrook who will see the patient on consult By: Jeannette Cartagena PA Time: 04/26 1416 Comment: Discussed case with hospitalist Dr. Leslie who accepted patient for admission By: Jeannette Cartagena PA Procedures FINAL IMPRESSION Rectal bleeding Diverticulitis DISPOSITION: Admit This examination was transcribed using the [employer] voice recognition system without human wing commander. In an effort to expedite patient care, this report has not been adjusted for typographical, grammatical, and syntax by a trained medical lead. Jeannette Cartagena PA 04/26/244 Cosigned by Ilia Hoffman MD at 04/27/2024 6:09 AM CDT * Arlene Arias RN - 04/26/2024 12:16 PM CDT Pt to the ED with c/o bloody stools that started this AM. Pt started while at work this AM. Pt stated that he thought that it was his hemorrhoids but he has 6-7 episode and is only pass bright red blood and clots at this time. documented in this encounter Miscellaneous Notes * Plan of Care - Anibal Barksdale RN - 04/30/2024 2:39 PM CDT Problem: Discharge Planning Goal: Understanding discharge needs will improve Outcome: Adequate for Discharge Flowsheets (Taken 04/30/2024 08) Understanding of discharge needs will improve: Identify discharge learning needs (meds, wound care,etc.) Problem: Coping Goal: Able to verbalize concerns and demonstrate effective coping strategies Outcome: Adequate for Discharge Flowsheets (Taken 04/30/2024 0800) Able to verbalize concerns and demonstrates effective coping strategies: Reduce environmental stimuli, as able Problem: General Patient Education Goal: Knowledge of disease process, condition or treatment will be improved Outcome: Adequate for Discharge Flowsheets (Taken 04/30/2024 08) Complications related to the disease process, condition or treatment will be avoided or minimized: Explain self-care Problem: Safety Goal: Free from injury or harm Outcome: Adequate for Discharge Flowsheets (Taken 04/30/2024 08) Free from injury or harm: Discuss fall prevention measures and assess risk factors for falls Problem: Gastrointestinal Goal: Minimal or absence of nausea and vomiting Outcome: Adequate for Discharge Flowsheets (Taken 04/30/2024799) Minimal or absence of nausea and vomiting: Assess gastrointestinal status Goal: Maintains or returns to baseline bowel function Outcome: Adequate for Discharge Flowsheets (Taken 04/30/2024799) Maintains or returns to baseline bowel function: Assess bowel function, evaluate bowel sounds and signs of abdominal distention Goal: Maintains adequate nutritional intake Outcome: Adequate for Discharge Flowsheets (Taken 04/30/2024799) Maintains adequate nutritional intake: Monitor I&O, weight and lab values Goal: Will show no signs and symptoms of gastrointestinal bleeding Outcome: Adequate for Discharge Flowsheets (Taken 04/30/2024799) Will show no signs and symptoms of gastrointestinal bleeding: Assess amount, characteristics and/orfrequency of stool Goals: Clinical Goals for the Shift: vss, remain hemodynamically stablke, monitor intake and output, monitor hemoglobin [facility] Goal for Treatment: Return to previous state of health for discharge to home. Summary: Patient was discharged at 1435, IV removed, instructions given, patient was placed in vehicle in stable condition upon discharge. * Initial Assessments - Ashley Paniagua RN - 04/30/2024 11:39 AM CDT CM Initial Assessment Interview Note Information Obtained From: Patient (04/30/241138) Admission Source: ED Impression: bloody stools Plan Includes: Assessment and DC planning Primary Source of Transportation: Does the patient need discharge transport arranged?: No (04/30/24 113) [facility] Pres[facility] Coverage: yes Pharmacy: [id number] - [place], [place] - [address] [facility] [address] [facility] [id number] Primary Care Provider: Carlos Pacheco MD Prior to Admission: Functional Status: Independent with ADLs Primary Caregiver: Self Support System: Spouse/Significant Other Home Care Services: No Outpatient Services: No Durable Medical Equipment: None Living Arrangements: Spouse/significant other Type of Residence: Private residence Steps in home?: No steps inside or outside Medication management: Independent (04/30/241138) SDOH: Transportation: In the past 12 months, has lack of transportation kept you from medical appointments or from getting medications?: No In the past 12 months, has lack of transportation kept you from meetings, work, or from getting things needed for daily living?: No (04/30/24 123) Financial Resource: How hard is it for you to pay for the very basics like food, housing, medical care, and heating?: Not hard at all (04/30/24 123) Housing: In the last 12 months, was there a time when you were not able to pay the mortgage or rent on time?: No In the past 12 months, how many times have you moved where you were living?: 0 At any time in the past 12 months, were you homeless or living in a alf (including now)?: No (04/30/24 1240) Utilities: No, (04/30/24 123) Social Connections: In a typical week, how many times do you talk on the phone with family, friends, or neighbors?: Twice a week How often do you get together with friends or relatives?: Twice a week Are you , , , , never , or living with a partner?: (04/30/241238) Food Insecurity: Within the past 12 months, you worried that your food would run out before you got the money to buymore.: Never true Within the past 12 months, the food you bought just didn't last and you didn't have money to get more.: Never true (04/30/24 1240) Alcohol Use: PHQ Screening Potential discharge needs include: Home Health: None (04/30/241138) OP Services: Dialysis: Behavioral Health Services: Behavioral Health Services: No (04/30/241138) Anticipated Level of Care: Anticipated discharge level of care: Private residence Pt/Family agrees with Anticipated Level of Care: Yes (04/30/241138) Patient expects to be Discharged to: Private residence, (04/30/241138) Additional Information: DC plan discussed with patient and his in his ICU room. 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 He does not use any services, nor does he own any DME. Barrier to DC will be non- resolution of bleeding. No new home needs are anticipated, CM will follow. Patient's Identified Problem/Goal Problem: Ensure acute medical needs are met and that patient has a safe discharge plan. Goal: Secure a discharge plan that patient/family are agreeable with and ensure patient has continuum of care. Case management will follow for discharge planning and send referrals as needed. Ashley Paniagua RN, BSN, CM * Plan of Care - Aubree Finnegan RN - 04/29/2024 6:35 PM CDT No bloody stools noted post colonoscopy. Tolerating GI soft diet. No c/o pain. 1 unit PRBC transfused this morning. Last Hgb 7.0; Dr. Villa did not want to transfuse at this time. Next H/H due at Midnight. VSS. Free from falls or injury. Problem: Discharge Planning Goal: Understanding discharge needs will improve Outcome: Progressing Problem: Coping Goal: Able to verbalize concerns and demonstrate effective coping strategies Outcome: Progressing Problem: General Patient Education Goal: Knowledge of disease process, condition or treatment will be improved Outcome: Progressing Problem: Safety Goal: Free from injury or harm Outcome: Progressing Problem: Gastrointestinal Goal: Minimal or absence of nausea and vomiting Outcome: Progressing Goal: Maintains or returns to baseline bowel function Outcome: Progressing Goal: Maintains adequate nutritional intake Outcome: Progressing Goal: Will show no signs and symptoms of gastrointestinal bleeding Outcome: Progressing * Plan of Care - Ashley Paniagua RN - 04/29/2024 3:34 PM CDT I was again unable to perform CM assessment with this patient today. I went to his ICU room at 1052and he was sleeping with his pillow on his head. I then went in at 1135 and he was in GI lab again.I went to the ICU at 1530 and he was sleeping post colonoscopy. Will attempt again tomorrow. * Perioperative Nursing Note - Diana Holbrook RN - 04/29/2024 1:00 PM CDT 1249 at bedside to discuss results to pt. Pt to f/u in 1 year for next colonoscopy. Ptto be started on low fat, soft diet. If pt has no further rectal bleeding may possibly be discharged home tomorrow. * Plan of Care - Nely Dotson RN - 04/29/2024 5:20 AM CDT Goals: Clinical Goals for the Shift: VS to remain stable. Monitor labs and treat as necessary. Monitor rectal bleeding for change in color, consistancy, and amount. Provide a safe and comfortable environment free from falls and or injuries. [facility] Goal for Treatment: Return to previous state of health for discharge to home. Summary: VS have been stable this shift. Will continue to monitor labs and treat as necessary. Rectal bleeding continued through midnight with 3 large bloody stools with clots. Pt became diaphoretic,dizzy, and pale with the last bowel movement, but recovered quickly. Pt remains in a safe and comfortable environment free from falls and or injuries. Problem: Gastrointestinal Goal: Maintains or returns to baseline bowel function Outcome: Not Progressing Flowsheets (Taken 04/28/20241999) Maintains or returns to baseline bowel function: Assess bowel function, evaluate bowel sounds and signs of abdominal distention Goal: Maintains adequate nutritional intake Outcome: Not Progressing Flowsheets (Taken 04/28/20241999) Maintains adequate nutritional intake: Monitor I&O, weight and lab values Goal: Will show no signs and symptoms of gastrointestinal bleeding Outcome: Not Progressing Flowsheets (Taken 04/28/20241999) Will show no signs and symptoms of gastrointestinal bleeding: Assess amount, characteristics and/orfrequency of stool Problem: Discharge Planning Goal: Understanding discharge needs will improve Outcome: Progressing Flowsheets (Taken 04/28/20241999) Understanding of discharge needs will improve: Identify discharge learning needs (meds, wound care,etc.) Problem: Coping Goal: Able to verbalize concerns and demonstrate effective coping strategies Outcome: Progressing Flowsheets (Taken 04/28/20241999) Able to verbalize concerns and demonstrates effective coping strategies: Provide emotional support,including active listening and acknowledgement of concerns of patient and caregivers Problem: General Patient Education Goal: Knowledge of disease process, condition or treatment will be improved Outcome: Progressing Flowsheets (Taken 04/28/20241999) Complications related to the disease process, condition or treatment will be avoided or minimized: Explain self-care Problem: Safety Goal: Free from injury or harm Outcome: Progressing Flowsheets (Taken 04/28/20241999) Free from injury or harm: Discuss fall prevention measures and assess risk factors for falls Problem: Gastrointestinal Goal: Minimal or absence of nausea and vomiting Outcome: Progressing Flowsheets (Taken 04/28/20241999) Minimal or absence of nausea and vomiting: Assess gastrointestinal status Provide a clean room free from unpleasant odors Problem: Safety Goal: Ability to maintain safety and efficiency with swallowing without signs of aspiration will improve Recent Flowsheet Documentation Taken 04/28/20241999 by Nely Dotson RN Ability to maintain safety and efficiency of swallowing without signs of aspiration will improve: Monitor signs and symptoms of aspiration * Plan of Care - Aubree Finnegan RN - 04/28/2024 6:25 PM CDT Goals: Clinical Goals for the Shift: Decrease rectal bleeding, maintain stable VS, monitor H/H; transfuse blood per MD, remain free from falls/injury. [employer] Specialist Patient Centered Goal for Treatment: Return to previous state of health for discharge to home. Summary: EGD/Sigmoidoscopy performed today. Continues to have bloody stools. Hgb dropped to 7.0; transfusing 1 unit PRBC. VSS. No injuries. Problem: Gastrointestinal Goal: Maintains or returns to baseline bowel function 04/28/2024 182 by Aubree Finnegan RN Outcome: Not Progressing Flowsheets (Taken 04/28/2024 0830) Maintains or returns to baseline bowel function: Assess bowel function, evaluate bowel sounds and signs of abdominal distention Monitor amount, characteristics and/or frequency of stool Note: Continues to have rectal bleeding 04/28/20241819 by Aubree Finnegan RN Outcome: Not Progressing Flowsheets (Taken 04/28/2024829) Maintains or returns to baseline bowel function: Assess bowel function, evaluate bowel sounds and signs of abdominal distention Monitor amount, characteristics and/or frequency of stool Note: Rectal bleeding still noted. Goal: Maintains adequate nutritional intake 04/28/20241822 by Aubree Finnegan RN Outcome: Not Progressing Flowsheets (Taken 04/28/2024829) Maintains adequate nutritional intake: Monitor I&O, weight and lab values Note: Poor appetite 04/28/20241819 by Aubree Finnegan RN Flowsheets (Taken 04/28/2024829) Maintains adequate nutritional intake: Monitor I&O, weight and lab values Note: Poor appetite Goal: Will show no signs and symptoms of gastrointestinal bleeding 04/28/20241822 by Aubree Finnegan RN Outcome: Not Progressing Flowsheets (Taken 04/28/2024829) Will show no signs and symptoms of gastrointestinal bleeding: Assess amount, characteristics and/or frequency of stool Monitor bowel sounds Note: Bloody stools still noted 04/28/20241819 by Aubree Finnegan RN Outcome: Not Progressing Flowsheets (Taken 04/28/2024829) Will show no signs and symptoms of gastrointestinal bleeding: Assess amount, characteristics and/or frequency of stool Monitor bowel sounds Problem: Discharge Planning Goal: Understanding discharge needs will improve 04/28/20241822 by Aubree Finnegan RN Outcome: Progressing Flowsheets (Taken 04/28/2024829) Understanding of discharge needs will improve: Identify discharge barriers 04/28/20241819 by Aubree Finnegan RN Outcome: Progressing Flowsheets (Taken 04/28/2024829) Understanding of discharge needs will improve: Identify discharge barriers Problem: Coping Goal: Able to verbalize concerns and demonstrate effective coping strategies 04/28/20241822 by Aubree Finnegan RN Outcome: Progressing Flowsheets (Taken 04/28/2024829) Able to verbalize concerns and demonstrates effective coping strategies: Provide emotional support, including active listening and acknowledgement of concerns of patient and caregivers Reduce environmental stimuli, as able 04/28/20241819 by Aubree Finnegan RN Outcome: Progressing Flowsheets (Taken 04/28/2024829) Able to verbalize concerns and demonstrates effective coping strategies: Provide emotional support, including active listening and acknowledgement of concerns of patient and caregivers Reduce environmental stimuli, as able Problem: General Patient Education Goal: Knowledge of disease process, condition or treatment will be improved 04/28/20241822 by Aubree Finnegan RN Outcome: Progressing Flowsheets (Taken 04/28/20241819) Complications related to the disease process, condition or treatment will be avoided or minimized: Explain self-care 04/28/20241819 by Aubree Finnegan RN Outcome: Progressing Flowsheets (Taken 04/28/20241819) Complications related to the disease process, condition or treatment will be avoided or minimized: Explain self-care Problem: Safety Goal: Free from injury or harm 04/28/20241822 by Aubree Finnegan RN Outcome: Progressing Flowsheets (Taken 04/28/2024829) Free from injury or harm: Discuss fall prevention measures and assess risk factors for falls Provide safe environment, modify environment to reduce risk of injury Instruct patient to call for assistance with activity based on assessment 04/28/20241819 by Aubree Finnegan RN Outcome: Progressing Flowsheets (Taken 04/28/2024829) Free from injury or harm: Discuss fall prevention measures and assess risk factors for falls Provide safe environment, modify environment to reduce risk of injury Instruct patient to call for assistance with activity based on assessment Problem: Gastrointestinal Goal: Minimal or absence of nausea and vomiting 04/28/20241822 by Aubree Finnegan RN Outcome: Progressing Flowsheets (Taken 04/28/202430) Minimal or absence of nausea and vomiting: Assess gastrointestinal status Monitor intake and output Monitor diagnostic test results 04/28/20241819 by Aubree Finnegan RN Outcome: Progressing Flowsheets (Taken 04/28/2024829) Minimal or absence of nausea and vomiting: Assess gastrointestinal status Monitor intake and output Monitor diagnostic test results * Plan of Care - Ashley Paniagua RN - 04/28/2024 2:27 PM CDT I went to patient's ICU room at 11:30 and at 14:25. He was in GI lab both times. Will attempt initial CM assessment tomorrow. * Perioperative Nursing Note - Pauly Li RN - 04/28/2024 1:[address] Vivar from anesthesia made aware of pt blood pressure no new orders given this time. * Plan of Care - Nely Dotson RN - 04/28/2024 3:04 AM CDT Goals: Clinical Goals for the Shift: VS to remain stable. Monitor labs and treat as necessary. Signs and symptoms of GI bleeding to decrease. Provide a safea and comfortable environment free from falls and or injuries. [facility] Patient Centered Goal for Treatment: Return to previous state of health for discharge to home. Summary: VS have remained stable this shift with diastolic blood pressure running high at times. Will continue to monitor labs and treat as necessary. Pt has shown no signs or symptoms of bleeding sofar this shift. Pt remains in a safe and comfortable environment free from falls and or injuries. Problem: Gastrointestinal Goal: Maintains adequate nutritional intake Outcome: Not Progressing Flowsheets (Taken 04/27/20241945) Maintains adequate nutritional intake: Monitor I&O, weight and lab values Note: Pt remains NPO at this time Problem: Discharge Planning Goal: Understanding discharge needs will improve Outcome: Progressing Flowsheets (Taken 04/27/20241945) Understanding of discharge needs will improve: Identify discharge barriers Problem: Coping Goal: Able to verbalize concerns and demonstrate effective coping strategies Outcome: Progressing Flowsheets (Taken 04/27/20241945) Able to verbalize concerns and demonstrates effective coping strategies: Provide emotional support,including active listening and acknowledgement of concerns of patient and caregivers Problem: General Patient Education Goal: Knowledge of disease process, condition or treatment will be improved Outcome: Progressing Flowsheets (Taken 04/27/20241945) Complications related to the disease process, condition or treatment will be avoided or minimized: Teach medications Problem: Safety Goal: Free from injury or harm Outcome: Progressing Flowsheets (Taken 04/27/20241945) Free from injury or harm: Educate patient/family on patient safety, including physical limitations Provide safe environment, modify environment to reduce risk of injury Instruct patient to call for assistance with activity based on assessment Problem: Gastrointestinal Goal: Minimal or absence of nausea and vomiting Outcome: Progressing Flowsheets (Taken 04/27/20241945) Minimal or absence of nausea and vomiting: Assess gastrointestinal status Monitor diagnostic test results Goal: Maintains or returns to baseline bowel function Outcome: Progressing Flowsheets (Taken 04/27/20241945) Maintains or returns to baseline bowel function: Assess bowel function, evaluate bowel sounds and signs of abdominal distention Goal: Will show no signs and symptoms of gastrointestinal bleeding Outcome: Progressing Problem: Safety Goal: Ability to maintain safety and efficiency with swallowing without signs of aspiration will improve Outcome: Completed Flowsheets (Taken 04/27/20241945) Ability to maintain safety and efficiency of swallowing without signs of aspiration will improve: Monitor signs and symptoms of aspiration Problem: Gastrointestinal Goal: Establish and maintain optimal ostomy function Outcome: Completed Note: Pt does not have an ostomy * Teleconsult - Michael Silva MD - 04/27/2024 7:12 PM CDT Tele-Critical Care Consult Note HPI: Angelique Law is a 49 y.o. male admitted to the ICU for tachycardia in the setting of LGIB. Patient was admitted 04/26 with concerns of multiple episodes of BRBPR. Hx of polyps and diverticulitis on colonscopy performed in 08/2023. He was HDS on admission though had a mild drop in his Hgb from 14.3 to 12.9. He was seen by GI who had recommended observation as his hematochezia had resolved by the time of consult. This afternoon, he again developed hematochezia with an associated drop in Hgb from 12->8.9. He reported feeling light-headed and became tachycardic with some chest discomfort. 1U PRBC has been ordered. On arrival to the ICU, he reports that his dyspnea and chest discomfort have resolved. Camera exam: Awake and alert resting in bed. HDS. Breathing comfortably on RA.Moves all extremities. No skin lesions appreciated during wound check. Assessment / Recommendations: Neurologic: no acute issues. Cardiovascular:Check EKG and troponin given chest discomfort. Will trend if there are dynamic EKG changes or trop elevations. Hold antihypertensive medications. GI:GI contacted regarding change in status, not planning on emergent intervention at this time. Follow up CTA read. Maintain 2 large bore IVs for access. Pulmonary:no acute concerns Renal:I&Os, serial BMP Hematology:Getting 1u PRBC now, will prepare a second unit. Serial H&Hs. ID:Continue ceftriaxone/metronidazole given diverticulitis and clinical instability. Endocrine:monitor BG Musculoskeletal:no acute concerns ICU Best practice: Head of Bed >30deg: Yes DVT prophylaxis: SCDs, chemical pppx contraindicated given active bleeding Stress ulcer prophylaxis: not currently indicated (GIB is lower) Nutrition: NPO, sips and chips okay Glycemic control: monitor BG, SSI as needed Goals of care: Full Dispo: ICU, pending I have reviewed the patient's available chart history, labs, radiographic images, medications, and other pertinent items in the EMR while monitoring the patient remotely. I will discuss/have discussed my tele-critical care consult recommendations with the hospitalist/MERCED managing this patient. ROS: Review of Systems - Negative except as documented in the HPI Past Medical History: Diagnosis Date Hypertension Past Surgical History: Procedure Laterality Date BRAIN SURGERY HOME MEDICATIONS : amLODIPine (NORVASC) 5 mg tablet atorvastatin (LIPITOR) 10 mg tablet fenofibrate (TRIGLIDE) 160 mg tablet metoprolol XL (TOPROL-XL) 100 mg 24 hr tablet pancrelipase (ZENPEP) 40,000-126,000- 168,000 unit per capsule zolpidem (AMBIEN) 10 mg tablet No Known Allergies No family history on file. Social History Tobacco Use Smoking status: Every Day Current packs/day: 0.05 Types: Cigarettes Smokeless tobacco: Not on file Substance and Sexual Activity Drug use: Not on file Sexual activity: Not on file Alcohol Use: Alcohol Misuse (04/26/2024) AUDIT-C Frequency of Alcohol Consumption: 4 or more times a week Average Number of Drinks: 5 or 6 Frequency of Binge Drinking: Daily or almost daily I have personally reviewed the following lab values: Lab Results Component Value Date GLUCOSE 136 04/26/2024 CALCIUM 9.3 04/26/2024 SODIUM 137 04/26/2024 POTASSIUM 4.3 04/26/2024 CO2 25 04/26/2024 CHLORIDE 103 04/26/2024 BUNSER 7 04/26/2024 CREATININE 1.20 04/26/2024 MAGNESIUM 1.8 04/27/2024 WBC 9.4 04/26/2024 HGB 8.9 (L) 04/27/2024 HCT 26.3 (L) 04/27/2024 LABPLAT 485 (H) 04/26/2024 I have personally reviewed and interpreted the following radiology studies: CTA obtained this afternoon was negative for active extravasation of contrast in the intestines. Vitals Flowsheet: BP Min: 117/71 Max: 159/89 Temp Av.6 ??C (97.8 ??F) Min: 35.8 ??C (96.5 ??F) Max: 37.3 ??C (99.1 ??F) Pulse Av.5 Min: 78 Max: 147 Resp Av Min: 16 Max: 20 SpO2 Av.3 % Min: 96 % Max: 99 % Ins/Outs: Intake/Output Summary (Last 24 hours) at 04/27/2024 1939 Last data filed at 04/27/2024 1305 Gross per 24 hour Intake 1471.67 ml Output -- Net 1471.67 ml Current Infusions: Current Facility-Administered Medications Medication Dose Route Frequency Last Admin sodium chloride 0.9% 0-250 mL intravenous Once Current Medications: Current Facility-Administered Medications: acetaminophen (TYLENOL) tablet 650 mg, 650 mg, oral, Q4H PRN, 650 mg at 04/27/24 09 [Held by Provider] amLODIPine (NORVASC) tablet 5 mg, 5 mg, oral, Nightly atorvastatin (LIPITOR) tablet 10 mg, 10 mg, oral, Nightly, 10 mg at 04/26/242041 cefTRIAXone (ROCEPHIN) 2,000 mg/20 mL in sterile water (premix) 2,000 mg, 2,000 mg, intravenous, Q24H SANDRA, 2,000 mg at 04/27/24 1123 fenofibrate nanocrystallized (TRICOR) tablet 145 mg, 145 mg, oral, Daily, 145 mg at 04/27/24 0752 [Held by Provider] metoprolol XL (TOPROL-XL) extended release tablet 100 mg, 100 mg, oral, Nightly metroNIDAZOLE (FLAGYL) 500 mg/100 mL in sodium chloride (premix) 500 mg, 500 mg, intravenous, Q12H SANDRA, Last Rate: 200 mL/hr at 04/27/24 1123, 500 mg at 04/27/24 1123 ondansetron ODT (ZOFRAN-ODT) disintegrating tablet 4 mg, 4 mg, oral, Q6H PRN OR ondansetron (ZOFRAN) injection 4 mg, 4 mg, intravenous, Q6H PRN oxyCODONE (ROXICODONE) tablet 5 mg, 5 mg, oral, Q4H PRN pancrelipase (CREON) 6,000 units of lipase per capsule 6,000 units of lipase, 6,000 units of lipase, oral, TID with meals sodium chloride 0.9% IVPB 0-250 mL, 0-250 mL, intravenous, Once zolpidem (AMBIEN) tablet 5 mg, 5 mg, oral, Nightly, 5 mg at 04/26/242041 * Plan of Care - Priya Mancia RN - 04/27/2024 4:03 PM CDT Problem: Discharge Planning Goal: Understanding discharge needs will improve Outcome: Progressing Flowsheets (Taken 04/27/2024 1602) Understanding of discharge needs will improve: Identify discharge barriers Problem: Coping Goal: Able to verbalize concerns and demonstrate effective coping strategies Outcome: Progressing Flowsheets (Taken 04/27/2024 1602) Able to verbalize concerns and demonstrates effective coping strategies: Provide emotional support,including active listening and acknowledgement of concerns of patient and caregivers Problem: General Patient Education Goal: Knowledge of disease process, condition or treatment will be improved Outcome: Progressing Flowsheets (Taken 04/27/2024 1602) Complications related to the disease process, condition or treatment will be avoided or minimized: Teach medications Problem: Safety Goal: Free from injury or harm Outcome: Progressing Flowsheets (Taken 04/27/2024 1602) Free from injury or harm: Educate patient/family on patient safety, including physical limitations Goal: Ability to maintain safety and efficiency with swallowing without signs of aspiration will improve Outcome: Progressing Problem: Gastrointestinal Goal: Minimal or absence of nausea and vomiting Outcome: Progressing Flowsheets (Taken 04/27/2024 1602) Minimal or absence of nausea and vomiting: Assess gastrointestinal status Goal: Maintains or returns to baseline bowel function Outcome: Progressing Flowsheets (Taken 04/27/2024 1602) Maintains or returns to baseline bowel function: Assess bowel function, evaluate bowel sounds and signs of abdominal distention Goal: Maintains adequate nutritional intake Outcome: Progressing Flowsheets (Taken 04/27/2024 1602) Maintains adequate nutritional intake: Monitor I&O, weight and lab values Goal: Establish and maintain optimal ostomy function Outcome: Progressing Goal: Will show no signs and symptoms of gastrointestinal bleeding Outcome: Progressing Goals: Clinical Goals for the Shift: vss, no bloody stools, remain hemodynamically stable Summary: vitals remain stable, prn tylenol given for pain this shift. * Plan of Care - Summer Earl RN - 04/27/2024 6:21 AM CDT Goals: Clinical Goals for the Shift: decreased bloody bowel movements, stable vital signs and labs, maintain comfort/safety Summary: Patient had one bright red stool this shift, around 1999. Patient states the pressure to have a bm has greatly lessened. IV fluids continue to run. Blood pressure and other vital signs stable. Next hemoglobin draw will be at 0800. No feelings of dizziness or near syncope. Problem: Discharge Planning Goal: Understanding discharge needs will improve Outcome: Ongoing Flowsheets (Taken 04/26/20241700 by Priya Mancia, RN) Understanding of discharge needs will improve: Identify discharge barriers Problem: Coping Goal: Able to verbalize concerns and demonstrate effective coping strategies Outcome: Ongoing Flowsheets (Taken 04/26/20241700 by Priya Mancia RN) Able to verbalize concerns and demonstrates effective coping strategies: Provide emotional support,including active listening and acknowledgement of concerns of patient and caregivers Problem: General Patient Education Goal: Knowledge of disease process, condition or treatment will be improved Outcome: Ongoing Flowsheets (Taken 04/26/20241700 by Priya Mancia, RN) Complications related to the disease process, condition or treatment will be avoided or minimized: Teach medications Problem: Safety Goal: Free from injury or harm Outcome: Ongoing Flowsheets (Taken 04/26/20241700 by Priya Mancia, RN) Free from injury or harm: Educate patient/family on patient safety, including physical limitations Goal: Ability to maintain safety and efficiency with swallowing without signs of aspiration will improve Outcome: Ongoing Problem: Gastrointestinal Goal: Minimal or absence of nausea and vomiting Outcome: Ongoing Flowsheets (Taken 04/26/20241700 by Priya Mancia, RN) Minimal or absence of nausea and vomiting: Assess gastrointestinal status Goal: Maintains or returns to baseline bowel function Outcome: Ongoing Flowsheets (Taken 04/27/2024 06) Maintains or returns to baseline bowel function: Assess bowel function, evaluate bowel sounds and signs of abdominal distention Monitor amount, characteristics and/or frequency of stool Goal: Maintains adequate nutritional intake Outcome: Ongoing Goal: Establish and maintain optimal ostomy function Outcome: Ongoing Goal: Will show no signs and symptoms of gastrointestinal bleeding Outcome: Ongoing * Plan of Care - Priya Mancia RN - 04/26/2024 5:02 PM CDT Problem: Discharge Planning Goal: Understanding discharge needs will improve Outcome: Progressing Flowsheets (Taken 04/26/20241700) Understanding of discharge needs will improve: Identify discharge barriers Problem: Coping Goal: Able to verbalize concerns and demonstrate effective coping strategies Outcome: Progressing Flowsheets (Taken 04/26/20241700) Able to verbalize concerns and demonstrates effective coping strategies: Provide emotional support,including active listening and acknowledgement of concerns of patient and caregivers Problem: General Patient Education Goal: Knowledge of disease process, condition or treatment will be improved Outcome: Progressing Flowsheets (Taken 04/26/20241700) Complications related to the disease process, condition or treatment will be avoided or minimized: Teach medications Problem: Safety Goal: Free from injury or harm Outcome: Progressing Flowsheets (Taken 04/26/20241700) Free from injury or harm: Educate patient/family on patient safety, including physical limitations Goal: Ability to maintain safety and efficiency with swallowing without signs of aspiration will improve Outcome: Progressing Problem: Gastrointestinal Goal: Minimal or absence of nausea and vomiting Outcome: Progressing Flowsheets (Taken 04/26/20241700) Minimal or absence of nausea and vomiting: Assess gastrointestinal status Goal: Maintains or returns to baseline bowel function Outcome: Progressing Flowsheets (Taken 04/26/20241700) Maintains or returns to baseline bowel function: Assess bowel function, evaluate bowel sounds and signs of abdominal distention Goal: Maintains adequate nutritional intake Outcome: Progressing Flowsheets (Taken 04/26/20241700) Maintains adequate nutritional intake: Monitor I&O, weight and lab values Goal: Establish and maintain optimal ostomy function Outcome: Progressing Goal: Will show no signs and symptoms of gastrointestinal bleeding Outcome: Progressing Goals: Summary: patient admitted to IMU, orientated to room, call light within reach. documented in this encounter Plan of Treatment Upcoming Encounters Date Type Department Care Team (Late st Contact Info) Description 05/04/2025 8:00 AM CDT Hospital Encounter [address] [address] Celestino Moctezuma MD [address] [place] [address] DR YOON [address] [place] [id number] 05/04/2025 8:00 AM CDT - 05/04/2025 8:30 AM CDT Surgery [address] [address] Celestino Moctezuma MD [address] [place] [address] DR YOON [address] [place] [id number] COLONOSCOPY Pending Results Name Type Priority Associated Diagnoses Date /Time Crossmatch Lab STAT 04/26/2024 12: 40 PM CDT Scheduled Orders Name Type Priority Associated Diagnoses Orde r Schedule Crossmatch Lab STAT Once for 1 Occ urrences starting 04/26/2024 until 04/26/2024 Scheduled Procedures Name Priority Associated Diagnoses Date/Ti me COLONOSCOPY Personal history of colonic polyps Encounter for screening colonoscopy 05/04/2025 8:00 AM CDT documented as of this encounter Procedures Procedure Name Priority Date/Time Associated Diagnosis Comments HEMOGLOBIN AND HEMATOCRIT Timed 2023 12:33 PM CDT EGFR Routine 04/30/2024 2:47 AM CDT DIFFERENTIAL AUTO Routine 04/30/2024 2:47 AM CDT CBC WITH AUTO DIFFERENTIAL Routine 04/30 2:47 AM CDT ABO/RH Timed 04/30/2024 2:47 AM CDT ANTIBODY SCREEN Timed 04/30/2024 2:47 AM CDT TYPE AND SCREEN Timed 04/30/2024 2:47 AM CDT PHOSPHORUS Routine 04/30/2024 2:47 AM CDT MAGNESIUM Routine 04/30/2024 2:47 AM CDT BASIC METABOLIC PANEL Routine 04/30/2024 2:47 AM CDT TRANSFUSE RED BLOOD CELLS Timed 2023 11:00 PM CDT PREPARE RBC Timed 04/29/2024 10:00 PM CDT HEMOGLOBIN AND HEMATOCRIT STAT 2023 9:34 PM CDT CALCIUM LEVEL Timed 04/29/2024 9:34 PM CDT HEMOGLOBIN AND HEMATOCRIT Timed 2023 4:45 PM CDT ENDO ADD ON COLON BIOPSY 024 11:20 AM CDT Rectal bleeding ENDO ADD ON COLON REMOVAL SNARE 04/29/2024 11:20 AM CDT Rectal bleeding COLON CONTROL BLEEDING 11:20 AM CDT Rectal bleeding SURGICAL PATHOLOGY STAT 04/29/2024 11:09 AM CDT Rectal bleeding COLONOSCOPY 04/29/2024 11:02 AM CDT HEMOGLOBIN AND HEMATOCRIT Routine 2023 10:57 AM CDT TRANSFUSE RED BLOOD CELLS Timed 2023 9:15 AM CDT PREPARE RBC Timed 04/29/2024 8:52 AM CDT EGFR Routine 04/29/2024 4:57 AM CDT DIFFERENTIAL AUTO Routine 04/29/2024 4:57 AM CDT CBC WITH AUTO DIFFERENTIAL Routine 04/29 4:57 AM CDT PHOSPHORUS Routine 04/29/2024 4:57 AM CDT MAGNESIUM Routine 04/29/2024 4:57 AM CDT BASIC METABOLIC PANEL Routine 04/29/2024 4:57 AM CDT HEMOGLOBIN AND HEMATOCRIT Timed 2023 11:58 PM CDT TRANSFUSE RED BLOOD CELLS Timed 2023 5:50 PM CDT HEMOGLOBIN AND HEMATOCRIT Timed 2023 4:14 PM CDT COLONOSCOPY 04/28/2024 1:02 PM CDT Rectal bleeding ESOPHAGOGASTRODUODENOSCOPY 04/28 1:02 PM CDT Rectal bleeding COLONOSCOPY 04/28/2024 11:19 AM CDT EGD 04/28/2024 11:19 AM CDT HEMOGLOBIN AND HEMATOCRIT Timed 2023 8:26 AM CDT PREPARE RBC Timed 04/28/2024 5:23 AM CDT EGFR Routine 04/28/2024 4:08 AM CDT DIFFERENTIAL AUTO Routine 04/28/2024 4:08 AM CDT CBC WITH AUTO DIFFERENTIAL Routine 04/28 4:08 AM CDT PHOSPHORUS Routine 04/28/2024 4:08 AM CDT MAGNESIUM Routine 04/28/2024 4:08 AM CDT BASIC METABOLIC PANEL Routine 04/28/2024 4:08 AM CDT HEMOGLOBIN AND HEMATOCRIT Timed 2023 11:40 PM CDT INFECTION PREVENTION MRSA ON LY (STAPHYLOCOCCUS AUREUS) PCR Routine 04/27/2024 8:12 PM CDT ECG 12-LEAD STAT 04/27/2024 8:08 PM CDT CRITICAL CARE Routine 04/27/2024 8:04 PM CDT Rectal bleeding Diverticulitis POCT GLUCOSE DEVICE Routine 04/27/2024 7:54 PM CDT TROPONIN T HIGH-SENSITIVITY STAT 04/08 7:35 PM CDT TRANSFUSE RED BLOOD CELLS Timed 2023 7:35 PM CDT PREPARE RBC Timed 04/27/2024 7:23 PM CDT CTA ABDOMEN PELVIS W WO CONTRAST ED Urgent/IP Urgent 04/27/2024 6:13 PM CDT HEMOGLOBIN AND HEMATOCRIT STAT 2023 5:37 PM CDT HEMOGLOBIN AND HEMATOCRIT Timed 2023 3:58 PM CDT HEMOGLOBIN AND HEMATOCRIT Timed 2023 8:48 AM CDT HEMOGLOBIN AND HEMATOCRIT Timed 2023 4:05 AM CDT PHOSPHORUS Routine 04/27/2024 4:05 AM CDT MAGNESIUM Routine 04/27/2024 4:05 AM CDT HEMOGLOBIN AND HEMATOCRIT Timed 2023 12:04 AM CDT HEMOGLOBIN AND HEMATOCRIT Timed 2023 7:53 PM CDT HEMOGLOBIN AND HEMATOCRIT STAT 2023 6:01 PM CDT POCT GLUCOSE DEVICE Routine 04/26/2024 5:51 PM CDT B ABO / RH CONFIRMATION TESTING STAT 04/26/2024 4:24 PM CDT HEMOGLOBIN AND HEMATOCRIT Timed 2023 4:[address] ABDOMEN PELVIS W CONTRAST ED 1:38 PM CDT EGFR STAT 04/26/2024 12:40 PM CDT DIFFERENTIAL AUTO STAT 04/26/2024 12:40 PM CDT CBC WITH AUTO DIFFERENTIAL STAT 04/26 12:40 PM CDT ABO/RH STAT 04/26/2024 12:40 PM CDT PROTIME-INR STAT 04/26/2024 12:40 PM CDT CROSSMATCH STAT 04/26/2024 12:40 PM CDT ANTIBODY SCREEN STAT 04/26/2024 12:40 PM CDT TYPE AND SCREEN STAT 04/26/2024 12:40 PM CDT COMPREHENSIVE METABOLIC PANEL STAT 12:40 PM CDT documented in this encounter Results * (ABNORMAL) Hemoglobin and hematocrit (04/30/2024 12:33 PM CDT) Hgb 7.5(L) 13.0 - 17.5 g/dL Hct 21.5(L) 38.9 - 50.3 % [facility] ([place]) Blood 04/30/2024 12:3 3 PM CDT 04/30/2024 12:36 PM CDT Collin Mancia MD LAB BLOOD ORDERABLES Final Result [facility] ([place]) 1 [facility] Department [place] [address] * eGFR (04/30/2024 2:47 AM CDT) eGFR 87 >=60 mL/min/1. 73 m2 Comment: Interpretive Data [...] Current interpretive data was last reviewed 2021. Blood 04/30/2024 2:47 AM CDT 04/30/2024 2:51 AM CDT us Celestino Moctezuma MD LAB BLOOD ORDERABLES Final Result [facility] 1 [facility] Department [place] [address] * Differential, auto (04/30/2024 2:47 AM CDT) Neutrophil abs 5.2 1.5 - 6.5 K/cumm Imm gran abs 0.1 0.0 - 0.1 K/cumm [facility] ([place]) Lymphocyte abs 2.0 0.8 - 3.3 K/cumm [facility] ([place]) Monocyte abs 0.8 0.2 - 0.8 K/cumm [facility] ([place]) Eosinophil abs 0.1 0.0 - 0.5 K/cumm [facility] ([place]) Basophil abs 0.0 0.0 - 0.1 K/cumm [facility] ([place]) Neutrophil pct 64.1 % [facility] ([place]) Comment: Interpretive Data Percent cell count reference ranges are not reported, since discordance with absolute values may lead to misinterpretation of CBC data. Current Interpretive Data was last revised on 2018. Imm gran pct 0.7 % [facility] ([place]) Comment: Interpretive Data Percent cell count reference ranges are not reported, since discordance with absolute values may lead to misinterpretation of CBC data. Current Interpretive Data was last revised on 2018. Lymphocyte pct 24.1 % [facility] ([place]) Comment: Interpretive Data Percent cell count reference ranges are not reported, since discordance with absolute values may lead to misinterpretation of CBC data. Current Interpretive Data was last revised on 2018. Monocyte pct 9.3 % [facility] ([place]) Comment: Interpretive Data Percent cell count reference ranges are not reported, since discordance with absolute values may lead to misinterpretation of CBC data. Current Interpretive Data was last revised on 2018. Eosinophil pct 1.4 % [facility] ([place]) Comment: Interpretive Data Percent cell count reference ranges are not reported, since discordance with absolute values may lead to misinterpretation of CBC data. Current Interpretive Data was last revised on 2018. Basophil pct 0.4 % [facility] ([place]) Comment: Interpretive Data Percent cell count reference ranges are not reported, since discordance with absolute values may lead to misinterpretation of CBC data. Current Interpretive Data was last revised on 2018. Blood 04/30/2024 2:47 AM CDT 04/30/2024 2:51 AM CDT Celestino Moctezuma MD LAB BLOOD ORDERABLES Final Result [facility] ([place]) 1 [facility] [email or web address] [address] * Antibody screen (04/30/2024 2:47 AM CDT) Izzy, indirect, Gel Interpretation Negative ABSC Blood 04/30/2024 2:47 AM CDT 04/30/2024 2:51 AM CDT Narrative [facility] ([place]) - 04/30/2024 3:28 AM CDT Has the patient had Daratumumab or Isatuximab in the past 6 months?->Unknown Celestino Moctezuma MD LAB BLOOD BANK TEST ORDERA BLES Final Result [facility] ([place]) 1 [facility] [place] [address] * ABO/Rh (04/30/2024 2:47 AM CDT) ABO/Rh O Positive Blood 04/30/2024 2:4 7 AM CDT 04/30/2024 2:51 AM CDT Narrative [facility] ([place]) - 04/30/2024 3:28 AM CDT Has the patient had Daratumumab or Isatuximab in the past 6 months?->Unknown Celestino Moctezuma MD LAB BLOOD BANK TEST ORDERA BLES Final Result [facility] ([place] 1 [facility] Department [place] [address] * (ABNORMAL) CBC with auto differential (04/30/2024 2:47 AM CDT) WBC 8.1 3.8 - 9.9 K/cumm Hgb 7.1(L) 13.0 - 17.5 g/dL [facility] ([place]) Hct 20.6(L) 38.9 - 50.3 % [facility] ([place]) Plt 240 150 - 400 K/cumm [facility] ([place]) MPV 9.6 9.1 - 12.3 fL [facility] ([place]) RBC 2.29(L) 4.30 - 5.80 M/cumm [facility] ([place]) MCV 90.0 81.3 - 96.4 fL [facility] ([place]) MCH 31.0 27.1 - 33.3 pg [facility] ([place]) MCHC 34.5 32.3 - 35.7 g/dL [facility] ([place]) RDW CV 15.1(H) 11.1 - 14.9 % [facility] ([place]) RDW SD 48.9(H) 35.7 - 48.1 fL [facility] ([place]) NRBC abs 0.00 0.00 - 0.01 K/cumm [facility] ([place]) Blood 04/30/2024 2:47 AM CDT 04/30/2024 2:51 AM CDT Celestino Moctezuma MD LAB BLOOD ORDERABLES Final Result [facility] ([place]) 1 [place] [address] * Phosphorus (04/30/2024 2:47 AM CDT) Pathologist [facility] Phosphorus, pl 2.3 2.3 - 4.5 mg/dL Blood 04/30/2024 2:47 AM CDT 04/30/2024 2:51 AM CDT Celestino Moctezuma MD LAB BLOOD ORDERABLES Final Result Performing Organization Address City/[facility]/ZIP Co de Phone Number [facility] ([place]) 1 [place] [address] * Magnesium (04/30/2024 2:47 AM CDT) [facility] Magnesium 2.0 1.4 - 2.5 mg/dL Blood 04/30/2024 2:47 AM CDT 04/30/2024 2:51 AM CDT Celestino Moctezuma MD LAB BLOOD ORDERABLES Final Result Performing Organization Address City/[facility]/ZIP Co de Phone Number [facility] ([place]) 1 [place] [address] * (ABNORMAL) Basic metabolic panel (04/30/2024 2:47 AM CDT) [facility] Sodium 136 135 - 145 mmol/L Potassium, pl 3.4 3.3 - 4.9 mmol/L [facility] ([place]) Chloride 107 97 - 110 mmol/L [facility] ([place]) CO2 24 22 - 32 mmol/L [facility] ([place]) Anion gap 6 2 - 15 mmol/L [facility] ([place] BUN 9 6 - 25 mg/dL [facility] ([place]) Creatinine 1.04 0.80 - 1.30 mg/dL [facility] ([place]) Glucose 100 70 - 199 mg/dL [facility] ([place]) Comment: Interpretive Data Fasting glucose [...] Current interpretive data was last revised 2022. Calcium 8.0(L) 8.5 - 10.3 mg/dL [facility] ([place]) Blood 04/30/2024 2:47 AM CDT 04/30/2024 2:51 AM CDT Celestino Moctezuma MD LAB BLOOD ORDERABLES Final Result Performing Organization Address City/[facility]/ZIP Co de Phone Number [facility] ([place]) 1 [facility] [email or web address] [address] * Transfuse RBC (04/30/2024 1:47 AM CDT) Blood Michael Silva MD BLOOD TRANSFUSION ORDERABL ES Final Result Performing Organization Address [facility]/ZIP Co de Phone Number [facility] ([place]) 1 [facility] [place] [address] * Transfuse RBC: 1 Units (04/30/2024 1:47 AM CDT) Blood Michael Silva MD BLOOD TRANSFUSION ORDERABL ES Final Result * Prepare RBC: 1 Units (04/29/2024 10:00 PM CDT) Units requested 1 Units requested Ready [facility] ([place]) Blood 04/29/2024 10:0 0 PM CDT 04/30/2024 7:41 AM CDT Narrative [facility] ([place]) - 04/30/2024 7:42 AM CDT Are special requirements needed? (All products are leukoreduced and CMV- safe)->No us Michael Silva MD BLOOD BANK PRODUCT ORDERAB LES Final Result Performing Organization Address [facility]/ZIP Co de Phone Number [facility] ([place]) [address] [facility] [place] [address] * (ABNORMAL) Hemoglobin and hematocrit (04/29/2024 9:34 PM CDT) Hgb 6.9(L) 13.0 - 17.5 g/dL Hct 19.9(L) 38.9 - 50.3 % [facility] ([place]) Blood 04/29/2024 9:34 PM CDT 04/29/2024 9:36 PM CDT us Collin Mancia MD LAB BLOOD ORDERABLES Final Result Performing Organization Address [facility]/ZIP Co de Phone Number [facility] ([place]) 1 [facility] [place] [address] * (ABNORMAL) Calcium level (04/29/2024 9:34 PM CDT) Calcium 7.9(L) 8.5 - 10.3 mg/dL Blood 04/29/2024 9:34 PM CDT 04/29/2024 9:36 PM CDT us Celestino Moctezuma MD LAB BLOOD ORDERABLES Final Result Performing Organization Address City/[facility]/ZIP Co de Phone Number [facility] ([place]) 1 [facility] [place] [address] * (ABNORMAL) Hemoglobin and hematocrit (04/29/2024 4:45 PM CDT) Hgb 7.0(L) 13.0 - 17.5 g/dL Hct 19.5(L) 38.9 - 50.3 % [facility] ([place]) Blood 04/29/2024 4:45 PM CDT 04/29/2024 4:49 PM CDT Celestino Moctezuma MD LAB BLOOD ORDERABLES Final Result [facility] ([place]) [address] [place] [address] Department [place] [address] * Surgical pathology (04/29/2024 11:09 AM CDT) Tissue (Polyp(s), colon/colorectal, esophageal, gastric) 04/29/2024 11:52 AM CDT Tissue (Colon, Biopsy) 04/29/2024 12:[address] PATHOLOGY [facility] ([place]) - 05/01/2024 2:30 PM CDT EPIC results best viewed via link to PDF [facility] Department of Pathology [address] [place] [id number] Note to Patients: This report may contain [...] explain the details. Final Report Patient Name: ??RUFINA, ANGELIQUE LyleBerna Address: ??[address] [place] [address], ??[place], [place] [address] Gender: ??M : ??1975 (Age: 49) Service: ??Medical Location: ??[facility] ICU Hospital #: ??[id number] Patient Type: ??[facility] Accession # ?[id number] Taken: ??04/29/2024 Received: ??04/30/2024 Accessioned: ??04/30/2024 Reported: ??05/01/2024 Physician(s):Dr. Celestino Moctezuma M.D. Diagnosis: A. ??Sigmoid colon polyp, biopsy: ? - Hyperplastic polyp. B. ??Rectal polyp, biopsy: ? - Hyperplastic polyp. Angelique Stanley M.D. Report Electronically Reviewed and Signed Out By ??Angelique Stanley M.D. ??05/01/2024 14:30:17 Specimen(s) Received: A: Sigmoid polyp x 1 B: Rectal polyp biopsy Microscopic Description: A. Sections show a hyperplastic polyp. ??No features of a sessile serrated adenoma are seen. ??There is no evidence of dysplasia or malignancy. B. Sections show a hyperplastic polyp. ??No features of a sessile serrated adenoma are seen. ??There is no evidence of dysplasia or malignancy. Clinical History: Rectal bleeding. ??Colonoscopy. Gross Description: The specimen is submitted in two formalin containers labeled ANGELIQUE NULL . A. ??The first container is labeled sigmoid polyp . It is 1 red-guo polypoid tissue fragment measuring 1.3 cm. ??Inked and bisected. All in A. B. ??The second container is labeled rectal polyp . It is 1 fragment of guo tissue measuring 3 mm and an approximate 0.5 cc aggregate of fecal matter. All in B. T.A. Dian Cornejo., P.A./Dawna Almazan M.D. REPORT IMAGES AND SCANNED DOCUMENTS, IF INCLUDED, ONLY VIEWABLE IN PDF VERSION OF REPORT The performance characteristics of some immunohistochemical stains, fluorescence in-situ hybridization tests and immunophenotyping by flow cytometry cited in this report (if any) were determined by the Surgical Pathology Department at [facility] as part of an ongoing quality assurance consultant program and in compliance with federally mandated [...] characteristics determined by the Surgical Pathology Department [facility]. ??It has not been cleared or approved by the U. S. Food and Drug Administration. Note for decalcified specimens: This assay has not been validated on decalcified tissues. Results should be interpreted with caution given the possibility of false negativity on decalcified specimens us Celestino Moctezuma MD LAB PATHOLOGY ORDERABLES F inal Result PATHOLOGY [facility] ([place]) 1 [place] [address] * Colonoscopy (04/29/2024 11:02 AM CDT) Anatomical Region Laterality Modality Other Narrative Procedure Note Celestino Moctezuma MD - 04/29/2024 11:02 AM CDT [facility] Patient Name: Angelique Law Procedure Date: 04/29/2024 11:02 AM Date of : 1975 Admit Type: Inpatient Age: 49 Gender: Male Attending MD: Celestino Moctezuma M.D. Room: [facility] ENDOSCOPY ROOM 1 Note Status: Finalized [...] (APC). Clips (MR conditional) were placed. 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 - Diverticulosis in the entire examined colon. - One 12 mm polyp at the recto-sigmoid colon,removed with a hot snare. Resected and retrieved. Clips (MR conditional) were placed. 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 - Spasm and angulation at the rectal [...] under direct vision. The Pediatric Colonoscope [id number]-[id number] was introduced through the anus andadvanced to [...] clips were successfully placed (MR conditional). 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 There was no bleeding at the end of the procedure. Multiple medium-mouthed diverticula were found in the entire colon. A 12 mm polyp was found in the recto-sigmoid colon. The polyp was pedunculated. The polyp was removed with a hot snare. Resection and retrieval were complete. To prevent bleeding after the polypectomy, three hemostatic clips were successfully placed (MR conditional).Clip ethanol operations manager: [employer]. There was no bleeding at the end [...] 11:02 AM Procedure Code(s): --- Professional --- 52864, 59, Colonoscopy, flexible; with control of bleeding, anymethod 86809, Colonoscopy, flexible; with removal of tumor(s), polyp(s), or other lesion(s) by snare technique 04389, 59, Colonoscopy, flexible; with biopsy, single or multiple Diagnosis Code(s): --- Professional --- K64.8, Other hemorrhoids K55.21, Angiodysplasia of colon with hemorrhage D12.7, Benign neoplasm of rectosigmoid junction K63.89, Other specified diseases of intestine K92.1, Melena (includes Hematochezia) D62, Acute posthemorrhagic anemia K57.30, Diverticulosis of large intestine without perforation orabscess without bleeding CPT copyright 2020 [employer]. All rights reserved. The codes documented in this report are preliminary and upon processing mgr reviewmay be revised to meet current compliance requirements. Recognized by the [employer] for promoting quality in endoscopy Celestino Moctezuma MD ENDOSCOPY PROCEDURES Final Result * (ABNORMAL) Hemoglobin and hematocrit (04/29/2024 10:57 AM CDT) Hgb 7.6(L) 13.0 - 17.5 g/dL Hct 21.9(L) 38.9 - 50.3 % [facility] ([place]) Blood 04/29/2024 10:5 7 AM CDT 04/29/2024 11:00 AM CDT Narrative [facility] ([place]) - 04/29/2024 11:03 AM CDT 1 hour post transfusion Collin Mancia MD LAB BLOOD ORDERABLES Final Result [facility] ([place]) 1 [facility] [email or web address] [address] * Transfuse RBC (04/29/2024 9:38 AM CDT) Blood Collin Mancia MD BLOOD TRANSFUSION ORDERABL ES Final Result [facility] ([place]) 1 [facility] [email or web address] [address] * Transfuse RBC: 1 Units (04/29/2024 9:38 AM CDT) Blood us Collin Mancia MD BLOOD TRANSFUSION ORDERABL ES Final Result * Prepare RBC: 3 Units (04/29/2024 8:52 AM CDT) Pathologist [facility] Units requested 3 Units requested Ready [facility] ([place]) Unit Number [id number] Product code [id number] [facility] ([place]) Blood Expiration Date [facility] ([place] Product Blood Type (for scanning) 9500 [facility] ([place]) Product Blood Type ONEG [facility] ([place]) Dispense Status DISPENSED [facility] ([place]) Unit Number [id number] Product code [id number] [facility] ([place]) Blood Expiration Date [facility] ([place] Product Blood Type (for scanning) 5100 [facility] ([place]) Product Blood Type OPOS [facility] ([place]) Dispense Status DISPENSED [facility] ([place]) Blood 04/29/2024 8:52 AM CDT 04/29/2024 8:52 AM CDT Celestino Moctezuma MD BLOOD BANK PRODUCT ORDERAB LES Final Result [facility] ([place]) 1 [facility] Department of Laboratories [place], [place] [id number] * eGFR (04/29/2024 4:57 AM CDT) Pathologist [facility] eGFR 88 >=60 mL/min/1. 73 m2 Comment: [...] Current interpretive data was last reviewed 2021. Blood 04/29/2024 4:57 AM CDT 04/29/2024 5:11 AM CDT us Meghan Wiggins MD LAB BLOOD ORDERABLES Final Resu lt [facility] ([place]) 1 [facility] Department [place] [address] * (ABNORMAL) Differential, auto (04/29/2024 4:57 AM CDT) Neutrophil abs 7.5(H) 1.5 - 6.5 K/cumm Imm gran abs 0.1 0.0 - 0.1 K/cumm [facility] ([place]) Lymphocyte abs 2.0 0.8 - 3.3 K/cumm [facility] ([place]) Monocyte abs 0.7 0.2 - 0.8 K/cumm [facility] ([place]) Eosinophil abs 0.0 0.0 - 0.5 K/cumm [facility] ([place]) Basophil abs 0.0 0.0 - 0.1 K/cumm [facility] ([place]) Neutrophil pct 72.6 % [facility] ([place]) Comment: Interpretive Data Percent cell count reference ranges are not reported, since discordance with absolute values may lead to misinterpretation of CBC data. Current Interpretive Data was last revised on 2018. Imm gran pct 0.6 % [facility] ([place]) Comment: Interpretive Data Percent cell count reference ranges are not reported, since discordance with absolute values may lead to misinterpretation of CBC data. Current Interpretive Data was last revised on 2018. Lymphocyte pct 19.6 % [facility] ([place]) Comment: Interpretive Data Percent cell count reference ranges are not reported, since discordance with absolute values may lead to misinterpretation of CBC data. Current Interpretive Data was last revised on 2018. Monocyte pct 6.6 % [facility] ([place]) Comment: Interpretive Data Percent cell count reference ranges are not reported, since discordance with absolute values may lead to misinterpretation of CBC data. Current Interpretive Data was last revised on 2018. Eosinophil pct 0.4 % [facility] ([place]) Comment: Interpretive Data Percent cell count reference ranges are not reported, since discordance with absolute values may lead to misinterpretation of CBC data. Current Interpretive Data was last revised on 2018. Basophil pct 0.2 % [facility] ([place]) Comment: Interpretive Data Percent cell count reference ranges are not reported, since discordance with absolute values may lead to misinterpretation of CBC data. Current Interpretive Data was last revised on 2018. Blood 04/29/2024 4:57 AM CDT 04/29/2024 5:11 AM CDT us Meghan Wiggins MD LAB BLOOD ORDERABLES Final Resu lt [facility] ([place]) 1 [facility] Department [place] [address] * (ABNORMAL) CBC with auto differential (04/29/2024 4:57 AM CDT) WBC 10.3(H) 3.8 - 9.9 K/cumm Hgb 6.8(L) 13.0 - 17.5 g/dL [facility] ([place]) Hct 19.8(L) 38.9 - 50.3 % [facility] ([place]) Plt 260 150 - 400 K/cumm [facility] ([place]) MPV 9.8 9.1 - 12.3 fL [facility] ([place]) RBC 2.16(L) 4.30 - 5.80 M/cumm [facility] ([place]) MCV 91.7 81.3 - 96.[address] [facility] ([place]) MCH 31.5 27.1 - 33.[address] [facility] ([place]) MCHC 34.3 32.3 - 35.7 g/dL [facility] ([place]) RDW CV 14.0 11.1 - 14.9 % [facility] ([place]) RDW SD 47.2 35.7 - 48.1 fL [facility] ([place]) NRBC abs 0.00 0.00 - 0.01 K/cumm [facility] ([place]) Blood 04/29/2024 4:57 AM CDT 04/29/2024 5:11 AM CDT Celestino Moctezuma MD LAB BLOOD ORDERABLES Final Result [facility] ([place]) 1 [facility] [employer] [place] [address] * Phosphorus (04/29/2024 4:57 AM CDT) Phosphorus, pl 3.2 2.3 - 4.5 mg/dL Blood 04/29/2024 4:57 AM CDT 04/29/2024 5:11 AM CDT Celestino Moctezuma MD LAB BLOOD ORDERABLES Final Result [facility] ([place]) 1 [facility] [place] [address] * Magnesium (04/29/2024 4:57 AM CDT) Magnesium 1.8 1.4 - 2.5 mg/dL Blood 04/29/2024 4:57 AM CDT 04/29/2024 5:11 AM CDT Celestino Moctezuma MD LAB BLOOD ORDERABLES Final Result [facility] ([place]) 1 [facility] Department [place] [address] * (ABNORMAL) Basic metabolic panel (04/29/2024 4:57 AM CDT) [facility] Sodium 138 135 - 145 mmol/L Potassium, pl 3.7 3.3 - 4.9 mmol/L [facility] ([place]) Chloride 107 97 - 110 mmol/L [facility] ([place]) CO2 21(L) 22 - 32 mmol/[facility] Anion gap 10 2 - 15 mmol/[facility] BUN 12 6 - 25 mg/[facility] Creatinine 1.03 0.80 - 1.30 mg/dL [facility] ([place]) Glucose 100 70 - 199 mg/dL [facility] ([place]) Comment: Interpretive Data Fasting glucose [...] classification and Diagnosis of Diabetes Diabetes Care 202; 46: S19-S40. Current interpretive data was last revised 2022. Calcium 7.6(L) 8.5 - 10.3 mg/dL [facility] ([place]) Blood 04/29/2024 4:57 AM CDT 04/29/2024 5:11 AM CDT Celestino Moctezuma MD LAB BLOOD ORDERABLES Final Result [facility] ([place]) 1 [facility] Department [place] [address] * (ABNORMAL) Hemoglobin and hematocrit (04/28/2024 11:58 PM CDT) Hgb 7.7(L) 13.0 - 17.5 g/dL Hct 22.1(L) 38.9 - 50.3 % [facility] Blood 04/28/2024 11:5 8 PM CDT 04/29/2024 12:02 AM CDT Celestino Moctezuma MD LAB BLOOD ORDERABLES Final Result [facility] ([place]) 1 [facility] [place] [address] * Transfuse RBC (04/28/2024 9:54 PM CDT) Blood Collin Mancia MD BLOOD TRANSFUSION ORDERABL ES Final Result Performing Organization Address [facility] Co de Phone Number [facility] ([place]) [address] [place] [address] [place] [address] * Transfuse RBC: 1 Units (04/28/2024 9:54 PM CDT) Blood Collin Mancia MD BLOOD TRANSFUSION ORDERABL ES Final Result * (ABNORMAL) Hemoglobin and hematocrit (04/28/2024 4:14 PM CDT) Hgb 7.0(L) 13.0 - 17.5 g/dL Hct 20.2(L) 38.9 - 50.3 % [facility] ([place]) Blood 04/28/2024 4:14 PM CDT 04/28/2024 4:20 PM CDT Celestino Moctezuma MD LAB BLOOD ORDERABLES Final Result Performing Organization Address City/[facility]/ZIP Co de Phone Number [facility] ([place]) 1 [facility] [place] [address] * Colonoscopy (04/28/2024 11:19 AM CDT) Anatomical Region Laterality Modality Other Narrative Procedure Note Celestino Moctezuma MD - 04/28/2024 11:[address] [facility] Patient Name: Angelique Law Procedure Date: 04/28/2024 11:19 AM Date of : 1975 Admit Type: Inpatient Age: 49 Gender: Male Attending MD: Celestino Moctezuma M.D. Room: [facility] ENDOSCOPY [facility] 1 Note Status: Finalized Patient Profile: This is a 49 year old male. Patient admitted with hematochezia. CT showed diverticulosis and mild diverticulitis. Patient has anemia and hemoglobin decline. Procedure: Colonoscopy Indications: Hematochezia Referring MD: Carlos Pacheco MD Providers: Celestino Moctezuma M.D. Impression: - Blood in the entire examined colon. - Diverticulosis in the entire examined colon.Likely source of bleeding. - One 15 mm polyp in the distal sigmoid colon. - Internal hemorrhoids. - No specimens collected. Recommendation: - Repeat colonoscopy within 3 months forsurveillance for polypectomy. - Clear liquid diet only today. Medicines: Monitored Anesthesia Care Complications: No immediate [...] consent document in the medical record. The Colonoscope [id number] was introduced through the anus and advanced to the the cecum, identified by appendiceal orifice andileocecal valve. The benefits, risks and alternatives of the procedure and sedation were discussed and informed consent was obtained. All questions were answered. Please refer to the signed informed consentdocument in the medical record. The colonoscopy wasperformed without difficulty. The patient tolerated the procedure well. The quality of the bowelpreparation was adequate. The bowel preparation used was tapwater enema. Findings: The perianal and digital rectal examinations were normal. The ileum appeared normal. Red blood was found in the entire colon. No point of active bleeding noted. Extensive wash was applied. Multiple medium-mouthed diverticula were found in the entire colon. Likely source of bleeding A 15 mm polyp was found in the distal sigmoid colon. The polyp was pedunculated. No bleeding from the polyps noted. No polypectomy atthis time. Internal hemorrhoids were found during retroflexion. The hemorrhoids were medium-sized. Electronically signed by Celestino Moctezuma M.D. Celestino Moctezuma M.D. 04/28/2024 1:51:43 PM Number of Addenda: 0 Note Initiated On: 04/28/2024 11:19 AM Procedure Code(s): --- Professional --- 98863, Colonoscopy, flexible; diagnostic, including collection of specimen(s) by brushing or washing, when performed (separateprocedure) Diagnosis Code(s): --- Professional --- K64.8, Other hemorrhoids K92.2, Gastrointestinal hemorrhage, unspecified D12.5, Benign neoplasm of sigmoid colon K92.1, Melena (includes Hematochezia) K57.30, Diverticulosis of large intestine without perforation orabscess without bleeding CPT copyright 2020 [employer]. All rights reserved. The codes documented in this report are preliminary and upon processing mgr reviewmay be revised to meet current compliance requirements. Recognized by the [employer] for promoting quality in endoscopy Celestino Moctezuma MD ENDOSCOPY PROCEDURES Final Result * EGD (04/28/2024 11:19 AM CDT) Anatomical Region Laterality Modality Other Narrative Procedure Note Celestino Moctezuma MD - 04/28/2024 11:19 AM CDT [facility] Patient Name: nAgelique Law Procedure Date: 04/28/2024 11:19 AM Date of : 1975 Admit Type: Inpatient Age: 49 Gender: Male Attending MD: Celestino Moctezuma M.D. Room: [facility] END[facility]COPY [facility] 1 Note Status: Finalized Patient Profile: This is a 49 year old male. Patient admitted with a hematochezia and post hemorrhagic anemia. EGD torule out upper GI source of bleeding. CT scan showed diverticulosis and mild diverticulitis Procedure: Upper GI endoscopy Indications: Hematochezia Referring MD: Carlos Pacheco MD Providers: Celestino Moctezuma M.D. Impression: - Mild gastritis - No bleeding the upper GI system - No specimens collected. Recommendation: - Use Protonix (pantoprazole) 40 mg PO daily. - Colonoscopy today Medicines: Monitored Anesthesia Care Complications: No immediate [...] were discussed and informed consentwas obtained. The scope was passed under direct vision. The Wide Endoscope [id number] wasintroduced through the mouth, and advanced to the third partof duodenum. The upper GI endoscopy was accomplished without difficulty. The patient tolerated the procedure well. Findings: The examined duodenum was normal. Scattered minimal inflammation characterized by congestion (edema)and erythema was found in the gastric antrum. The examined esophagus was normal. Electronically signed by Celestino Moctezuma M.D. Celestino Moctezuma M.D. 04/28/2024 1:46:23 PM Number of Addenda: 0 Note Initiated On: 04/28/2024 11:19 AM Procedure Code(s): --- Professional --- 73620, Esophagogastroduodenoscopy, flexible, transoral; diagnostic, including collection of specimen(s) by brushing or washing, when performed (separate procedure) Diagnosis Code(s): --- Professional --- K29.70, Gastritis, unspecified, without bleeding K92.1, Melena (includes Hematochezia) CPT copyright 2020 [employer]. All rights reserved. The codes documented in this report are preliminary and upon processing mgr reviewmay be revised to meet current compliance requirements. Recognized by the [employer] for promoting quality in endoscopy us Celestino Moctezuma MD ENDOSCOPY PROCEDURES Final Result * (ABNORMAL) Hemoglobin and hematocrit (04/28/2024 8:26 AM CDT) Hgb 8.6(L) 13.0 - 17.5 g/dL Hct 24.3(L) 38.9 - 50.3 % [facility]) Blood 04/28/2024 8:26 AM CDT 04/28/2024 8:29 AM CDT us Meghan Wiggins MD LAB BLOOD ORDERABLES Final Resu lt [facility] ([place]) 1 [facility] Department [place] [address] * Prepare RBC: 1 Units (04/28/2024 5:23 AM CDT) Units requested 1 Units requested Ready [facility] ([place]) Unit Number [id number] Product code [id number] [facility] ([place]) Blood Expiration Date [id number] [facility] ([place]) Product Blood Type (for scanning) 5100 [facility] ([place]) Product Blood Type OPOS [facility] ([place]) Dispense Status DISPENSED [facility] ([place]) Blood 04/28/2024 5:23 AM CDT 04/28/2024 5:23 AM CDT us Michael Silva MD BLOOD BANK PRODUCT ORDERAB LES Final Result [facility] ([place]) 1 [facility] Department [place] [address] * eGFR (04/28/2024 4:08 AM CDT) eGFR >90 >=60 mL/min/1. 73 m2 Comment: Interpretive Data [...] Current interpretive data was last reviewed 2021. Blood 04/28/2024 4:08 AM CDT 04/28/2024 4:21 AM CDT us Meghan Wiggins MD LAB BLOOD ORDERABLES Final Resu lt [facility] ([place]) 1 [facility] Department [place] [address] * Differential, auto (04/28/2024 4:08 AM CDT) Neutrophil abs 5.2 1.5 - 6.5 K/cumm Imm gran abs 0.1 0.0 - 0.1 K/cumm [facility] ([place]) Lymphocyte abs 1.8 0.8 - 3.3 K/cumm [facility] ([place]) Monocyte abs 0.6 0.2 - 0.8 K/cumm [facility] ([place]) Eosinophil abs 0.1 0.0 - 0.5 K/cumm [facility] ([place]) Basophil abs 0.0 0.0 - 0.1 K/cumm [facility] ([place]) Neutrophil pct 66.6 % [facility] ([place]) Comment: Interpretive Data Percent cell count reference ranges are not reported, since discordance with absolute values may lead to misinterpretation of CBC data. Current Interpretive Data was last revised on 2018. Imm gran pct 0.6 % [facility] ([place]) Comment: Interpretive Data Percent cell count reference ranges are not reported, since discordance with absolute values may lead to misinterpretation of CBC data. Current Interpretive Data was last revised on 2018. Lymphocyte pct 23.4 % [facility] ([place]) Comment: Interpretive Data Percent cell count reference ranges are not reported, since discordance with absolute values may lead to misinterpretation of CBC data. Current Interpretive Data was last revised on 2018. Monocyte pct 8.1 % [facility] ([place]) Comment: Interpretive Data Percent cell count reference ranges are not reported, since discordance with absolute values may lead to misinterpretation of CBC data. Current Interpretive Data was last revised on 2018. Eosinophil pct 0.8 % [facility] ([place]) Comment: Interpretive Data Percent cell count reference ranges are not reported, since discordance with absolute values may lead to misinterpretation of CBC data. Current Interpretive Data was last revised on 2018. Basophil pct 0.5 % [facility] ([place]) Comment: Interpretive Data Percent cell count reference ranges are not reported, since discordance with absolute values may lead to misinterpretation of CBC data. Current Interpretive Data was last revised on 2018. Blood 04/28/2024 4:08 AM CDT 04/28/2024 4:21 AM CDT us Meghan Wiggins MD LAB BLOOD ORDERABLES Final Resu lt [facility] ([place]) 1 [facility] Department [place] [address] * (ABNORMAL) CBC with auto differential (04/28/2024 4:08 AM CDT) WBC 7.8 3.8 - 9.9 K/cumm Hgb 8.7(L) 13.0 - 17.5 g/dL [facility] ([place]) Hct 24.9(L) 38.9 - 50.3 % [facility] ([place]) Plt 334 150 - 400 K/cumm [facility] ([place]) MPV 9.6 9.1 - 12.3 fL [facility] ([place]) RBC 2.68(L) 4.30 - 5.80 M/cumm [facility] ([place]) MCV 92.9 81.3 - 96.4 fL [facility] ([place]) MCH 32.5 27.1 - 33.3 pg [facility] ([place]) MCHC 34.9 32.3 - 35.7 g/dL [facility] ([place]) RDW CV 13.3 11.1 - 14.9 % [facility] ([place]) RDW SD 45.2 35.7 - 48.1 fL [facility] ([place]) NRBC abs 0.00 0.00 - 0.01 K/cumm [facility] ([place]) Blood 04/28/2024 4:08 AM CDT 04/28/2024 4:21 AM CDT us Celestino Moctezuma MD LAB BLOOD ORDERABLES Final Result [facility] ([place]) 1 [place] [address] * Phosphorus (04/28/2024 4:08 AM CDT) Phosphorus, pl 2.6 2.3 - 4.5 mg/dL Blood 04/28/2024 4:08 AM CDT 04/28/2024 4:21 AM CDT Celestino Moctezuma MD LAB BLOOD ORDERABLES Final Result Performing Organization Address City/[facility]/ZIP Co de Phone Number [facility] ([place]) [address] [place] [address] * Magnesium (04/28/2024 4:08 AM CDT) Pathologist [facility] Magnesium 1.9 1.4 - 2.5 mg/dL Blood 04/28/2024 4:08 AM CDT 04/28/2024 4:21 AM CDT Celestino Moctezuma MD LAB BLOOD ORDERABLES Final Result Performing Organization Address City/[facility]/ZIP Co de Phone Number [facility] ([place]) [address] [facility] [place] [address] * (ABNORMAL) Basic metabolic panel (04/28/2024 4:08 AM CDT) Sodium 139 135 - 145 mmol/L Potassium, pl 3.8 3.3 - 4.9 mmol/L [facility] ([place]) Chloride 110 97 - 110 mmol/L [facility] ([place]) CO2 22 22 - 32 mmol/L [facility] ([place]) Anion gap 7 2 - 15 mmol/L [facility] ([place]) BUN 11 6 - 25 mg/dL [facility] ([place]) Creatinine 0.98 0.80 - 1.30 mg/dL [facility] ([place]) Glucose 104 70 - 199 mg/dL [facility] ([place]) Comment: Interpretive Data Fasting glucose >/= 126 [...] Current interpretive data was last revised 2022. Calcium 8.3(L) 8.5 - 10.3 mg/dL [facility] ([place]) Blood 04/28/2024 4:08 AM CDT 04/28/2024 4:21 AM CDT Celestino Moctezuma MD LAB BLOOD ORDERABLES Final Result Performing Organization Address City/[facility]/ZIP Co de Phone Number [facility] ([place]) 1 [facility] [employer] [place] [address] * (ABNORMAL) Hemoglobin and hematocrit (04/27/2024 11:40 PM CDT) [facility] Signature Hgb 9.5(L) 13.0 - 17.5 g/dL Hct 27.4(L) 38.9 - 50.3 % [facility] ([place]) Blood 04/27/2024 11:4 0 PM CDT 04/27/2024 11:47 PM CDT Meghan Wiggins MD LAB BLOOD ORDERABLES Final Resu lt [facility] ([place]) 1 [facility] [employer] [place] [address] * Transfuse RBC (04/27/2024 10:25 PM CDT) Blood Meghan Wiggins MD BLOOD TRANSFUSION ORDERABLES Fi nal Result [facility] [place]) 1 [facility] Department [place] [address] * Transfuse RBC: 1 Units (04/27/2024 10:25 PM CDT) Blood Meghan Wiggins MD BLOOD TRANSFUSION ORDERABLES Fi nal Result * Infection Prevention MRSA Only (Staphylococcus aureus) PCR Nasal (04/27/2024 8:12 PM CDT) PCR Scrn, Methicillin resistant Staphylococcus aureus (MRSA) Not Detected Not Detected Comment: Interpretive Data Testing performed using Nucleic Acid Amplification with the goCatch Xpert MRSA NxG Assay. This assay detects target DNA from mecA, mecC and the SCCmec insertion site of Staphylococcus aureus using Real-Time PCR and has been cleared by the FDA. Performance characteristics have been verified by the [facility]. Current Interpretive Data was last revised on 2023 Nasal 04/27/2024 8:12 PM CDT 04/27/2024 8:16 PM CDT Collin Mancia MD LAB MICROBIOLOGY - GENERAL ORDERABLES Final Result Performing Organization Address [facility] Co de Phone Number [facility] [place]) 1 [facility] Department [place] [address] * ECG 12 lead (04/27/2024 8:08 PM CDT) 04/27/2024 8:[address] [facility] - 04/28/2024 8:57 AM CDT Vent Rate: 97 bpm RR Interval: 618 msec WV Interval: 118 msec QRS Duration: 89 msec QT Interval: 337 msec QTC Interval: 391 msec P-R-T [place]: 17 - -4 - -7 degrees IMPRESSION: SINUS RHYTHM WITH SHORT WV INTERVAL ST DEVIATION AND MODERATE T-WAVE ABNORMALITY, CONSIDER LATERAL ISCHEMIA ??[-0.1+ mV T-WAVE IN I/aVL/V5/V6] ABNORMAL ECG Electronically Signed By: Santy Han MD us Michael Silva MD ECG ORDERABLES Final Resu lt [facility] * Critical Care (04/27/2024 8:04 PM CDT) Narrative Michael Silva MD - 04/27/2024 8:04 PM CDT Michael Silva MD ? 04/27/2024 ??8:05 PM Critical Care Performed by: Michael Silva MD Authorized by: Michael Silva MD ?? CRITICAL CARE: ??Team: ??EICU ??Shift: ??PM ??Level of Billing: ??Critical Care ??My time spent with this patient was 75 minutes: Critical Provider Statement: I have seen and examined the patient on this day of service. I have reviewed and confirmed the history, physical exam, laboratory and radiologic data as documented in the signed ICU note. I have reviewed and discussed my treatment plan with the ICU team and other medical/vendor management consultant staff, making frequent assessments and decisions regarding this patient's complex medical care. Critical Care time was exclusive of time spent performing separately billed procedures, treating other patients, and teaching. This time was in addition to and separate from critical care provided by other practitioners in my group on this day of service. Critical Care was necessary to treat or prevent imminent or life-threatening deterioration of the following conditions: ? Acute gastrointestinal bleed (GIB) ?? Acute blood loss anemia ??This time was spent by me doing the following: ? Obtaining peripheral venous access or blood draws, Resuscitation with fluids and Serial laboratory checks ?? Active and frequent monitoring of intake/output and volumen status and Management of gastrointestinal bleed ?? I spent time reviewing and interpreting data from bedside monitors, laboratory results, and imaging, I spent time discussing the management of this critically ill patient with consultants and the medical staff and I spent time documenting in the medical record us Michael Silva MD IN CLINIC/BEDSIDE ORDERABL ES Final Result * POCT glucose (04/27/2024 7:54 PM CDT) Glucose, POC 166 70 - 199 mg/dL Blood 04/27/2024 7:54 PM CDT 04/27/2024 7:54 PM CDT us Collin Mancia MD LAB POCT ORDERABLES - DIANA CE Final Result Performing Organization Address City/[facility]/ZIP Co de Phone Number [facility] ([place]) [address] [place] [address] [place] [address] * Troponin T high-sensitivity (04/27/2024 7:35 PM CDT) Trop T hs 16 <=22 ng/L Comment: Interpretive Data For further hscTnT resources including the diagnostic algorithm and an aid in interpretation, copy and paste this link: [email or web address] Current Interpretive Data last revised 2020. Blood 04/27/2024 7:35 PM CDT 04/27/2024 7:37 PM CDT us Michael Silva MD LAB BLOOD ORDERABLES Final Result Performing Organization Address [facility] Co de Phone Number [facility] ([place]) [address] [place] [address] [place] [address] * Prepare RBC: 1 Units (04/27/2024 7:23 PM CDT) Units requested 1 Units requested Ready [facility] ([place]) Unit Number [id number] Product code [id number] [facility] ([place]) Blood Expiration Date [id number] [facility] ([place]) Product Blood Type (for scanning) 5100 [facility] ([place]) Product Blood Type OPOS [facility] ([place]) Dispense Status DISPENSED [facility] ([place]) Blood 04/27/2024 7:23 PM CDT 04/27/2024 7:23 PM CDT us Meghan Wiggins MD BLOOD BANK PRODUCT ORDERABLES F inal Result [facility] ([place]) 1 [facility] Department [place] [address] * CTA Abdomen Pelvis (04/27/2024 6:13 PM CDT) Anatomical Region Laterality Modality Body N/A Computed Tomogra phy 04/27/2024 7:08 PM CDT Narrative 04/27/2024 7:26 PM CDT EXAM DESCRIPTION: ?? CTA ABDOMEN PELVIS REASON FOR STUDY: ?? GI bleed ?? Rectal/GI bleed ??Black and bloody stools ?? TECHNIQUE: CTA scan of the abdomen and pelvis performed ??without and with ?? intravenous and ??without ??oral contrast using helical scanning technique with dynamic intravenous contrast injection. ??Precontrast, arterial, and portal venous phase images of the abdomen and pelvis were acquired. ?Images reviewed with lung, soft tissue and bone windows. Reconstructed coronal and sagittal MPR images reviewed. All images stored on PACS. ??3D MIP images rendered on scanning unit and reviewed at time of interpretation. ??Automated exposure control was used as a dose optimization technique for this examination. CONTRAST TYPE/DOSE: ?? 100mL of IOVERSOL 350 MG IODINE/ML INTRAVENOUS SYRINGE ?? injected via ?? intravenous COMPARISON: ?? 04/26/2024. FINDINGS: VASCULATURE: ?No dissection, aneurysm, intramural hematoma, rupture, or penetrating atherosclerotic ulcer. ?? No large vessel occlusion. CELIAC TRUNK: ?? No flow limiting stenosis, dissection, or aneurysm. SUPERIOR MESENTERIC ARTERY: ?? No flow limiting stenosis, dissection, or aneurysm. RIGHT RENAL ARTERY: ?? No flow limiting stenosis, dissection, or aneurysm. LEFT RENAL ARTERY: ?? No flow limiting stenosis, dissection, or aneurysm. INFERIOR MESENTERIC ARTERY: ?? No flow limiting stenosis, dissection, or aneurysm. AORTA: ?? No flow limiting stenosis, dissection, or aneurysm. ILIAC ARTERIES: ?? There is moderate stenosis with the common iliac and external iliac vessels. ??There also moderate areas of stenosis in the internal iliac vessels. LOWER CHEST: ?? No significant pulmonary abnormalities. No effusion. LIVER: ?? Normal size. ??No identified cystic or solid masses. GALLBLADDER: ?? Unremarkable. BILE DUCTS: ?? No intrahepatic or extrahepatic ductal dilatation. SPLEEN: ?? Normal size. ??No focal lesions. PANCREAS: ?? No identified cystic or solid masses. No significant calcifications. No adjacent inflammation or peripancreatic fluid collections. Pancreatic duct not dilated. ?? ADRENALS: ?? Normal. KIDNEYS/URINARY TRACT: ?? No identified significant cystic or solid masses. No stones. No hydronephrosis or hydroureter. Symmetric enhancement. ?Normal bladder. GI: ?? There multiple diverticula within the large bowel. ??There appears to be wall thickening and edema of a short to moderate segment sigmoid colon in a similar location as prior exam. ??There is fluid within the distal large bowel and rectum. ??Appendix is normal in appearance. ??Small bowel appears within limits. PERITONEUM: ?? No ascites or free air. RETROPERITONEUM: ?? No mass or adenopathy. REPRODUCTIVE: ?? No significant abnormality. MUSCULOSKELETAL: ?? No acute abnormality. OTHER: ?? No other abnormality. IMPRESSION: No evidence of acute gastrointestinal hemorrhage. There is wall thickening and edema of a short segment of sigmoid colon in a similar location to the prior exam. This is likely recurrent diverticulitis. ?? There is fluid within the distal large bowel and rectum. This may be infectious or inflammatory in nature. Follow-up colonoscopy could be performed to exclude underlying neoplasm. Moderate stenosis of the common iliac and external iliac vessels as well as the internal iliac vessels. THIS IS AN ELECTRONICALLY VERIFIED FINAL REPORT 04/27/2024 7:26 PM - Electronically signed by ??Angelique Macias M.D., D.O. Angelique Macias M.D., D.O. MW: LORETTA D: ??04/27/2024 7:26 PM T: ??04/27/2024 7:26 PM Report ID: [id number] Reading Location: ??[id number] Procedure Note Angelique Macias MD - 04/27/2024 EXAM DESCRIPTION: CTA ABDOMEN PELVIS REASON FOR STUDY: GI bleed Rectal/GI bleed Black and bloody stools TECHNIQUE: CTA scan of the abdomen and pelvis performed without and with intravenous and without oral contrast using helical scanning techniquewith dynamic intravenous contrast injection. Precontrast, arterial, and portal venous phase images of the abdomen and pelvis were acquired. Images reviewed with lung, soft tissue and bone windows. Reconstructed coronaland sagittal MPR images reviewed. All images stored on PACS. 3D MIP images rendered on scanning unit and reviewed at time of interpretation.Automated exposure control was used as a dose optimization technique for this examination. CONTRAST TYPE/DOSE: 100mL of IOVERSOL 350 MG IODINE/ML INTRAVENOUSSYRINGE injected via intravenous COMPARISON: 04/26/2024. FINDINGS: VASCULATURE: No dissection, aneurysm, intramural hematoma, rupture, or penetrating atherosclerotic ulcer. No large vessel occlusion. CELIAC TRUNK: No flow limiting stenosis, dissection, or aneurysm. SUPERIOR MESENTERIC ARTERY: No flow limiting stenosis, dissection, or aneurysm. RIGHT RENAL ARTERY: No flow limiting stenosis, dissection, or aneurysm. LEFT RENAL ARTERY: No flow limiting stenosis, dissection, or aneurysm. INFERIOR MESENTERIC ARTERY: No flow limiting stenosis, dissection, or aneurysm. AORTA: No flow limiting stenosis, dissection, or aneurysm. ILIAC ARTERIES: There is moderate stenosis with the common iliac and external iliac vessels. There also moderate areas of stenosis in theinternal iliac vessels. LOWER CHEST: No significant pulmonary abnormalities. No effusion. LIVER: Normal size. No identified cystic or solid masses. GALLBLADDER: Unremarkable. BILE DUCTS: No intrahepatic or extrahepatic ductal dilatation. SPLEEN: Normal size. No focal lesions. PANCREAS: No identified cystic or solid masses. No significant calcifications. No adjacent inflammation or peripancreatic fluidcollections. Pancreatic duct not dilated. ADRENALS: Normal. KIDNEYS/URINARY TRACT: No identified significant cystic or solid masses.No stones. No hydronephrosis or hydroureter. Symmetric enhancement. Normal bladder. GI: There multiple diverticula within the large bowel. There appears leanne wall thickening and edema of a short to moderate segment sigmoid colon scott similar location as prior exam. There is fluid within the distal largebowel and rectum. Appendix is normal in appearance. Small bowel appears within limits. PERITONEUM: No ascites or free air. RETROPERITONEUM: No mass or adenopathy. REPRODUCTIVE: No significant abnormality. MUSCULOSKELETAL: No acute abnormality. OTHER: No other abnormality. IMPRESSION: No evidence of acute gastrointestinal hemorrhage. There is wall thickening and edema of a short segment of sigmoid colon scott similar location to the prior exam. This is likely recurrentdiverticulitis. There is fluid within the distal large bowel and rectum. This may be infectious or inflammatory in nature. Follow-up colonoscopy could beperformed to exclude underlying neoplasm. Moderate stenosis of the common iliac and external iliac vessels as wellas the internal iliac vessels. THIS IS AN ELECTRONICALLY VERIFIED FINAL REPORT 04/27/2024 7:26 PM - Electronically signed by Seema Balbuena M.D..O. Angelique Macias M.D., Seema.O. MW: LORETTA Report ID: [id number] Reading Location: [place] [address] Kieran Westbrook MD IMG CT PROCEDURES Final Result * (ABNORMAL) Hemoglobin and hematocrit (04/27/2024 5:37 PM CDT) Hgb 8.9(L) 13.0 - 17.5 g/dL Hct 26.3(L) 38.9 - 50.3 % [facility] ([place]) Blood 04/27/2024 5:37 PM CDT 04/27/2024 5:40 PM CDT Meghan Wiggins MD LAB BLOOD ORDERABLES Final Resu lt Performing Organization Address City/[facility]/ZIP Co de Phone Number [facility] ([place]) 1 [facility] [place] [address] * (ABNORMAL) Hemoglobin and hematocrit (04/27/2024 3:58 PM CDT) Hgb 8.5(L) 13.0 - 17.5 g/dL Hct 25.2(L) 38.9 - 50.3 % [facility] ([place]) Blood 04/27/2024 3:58 PM CDT 04/27/2024 4:10 PM CDT iKeran Westbrook MD LAB BLOOD ORDERABLES Final Resul t [facility] ([place]) 1 [facility] [place] [address] * (ABNORMAL) Hemoglobin and hematocrit (04/27/2024 8:48 AM CDT) Hgb 10.3(L) 13.0 - 17.5 g/dL Hct 30.4(L) 38.9 - 50.3 % [facility] ([place]) Blood 04/27/2024 8:48 AM CDT 04/27/2024 9:15 AM CDT Meghan Wiggins MD LAB BLOOD ORDERABLES Final Resu lt Performing Organization Address City/[facility]/ZIP Co de Phone Number MINOR RomanoCLYDE) 1 [facility] [place] [address] * (ABNORMAL) Hemoglobin and hematocrit (04/27/2024 4:05 AM CDT) Hgb 10.2(L) 13.0 - 17.5 g/dL Hct 30.1(L) 38.9 - 50.3 % [facility] ([place]) Blood 04/27/2024 4:05 AM CDT 04/27/2024 4:47 AM CDT Meghan Wiggins MD LAB BLOOD ORDERABLES Final Resu lt Performing Organization Address [facility] Co de Phone Number [facility] ([place]) 1 [facility] [place] [address] * Phosphorus (04/27/2024 4:05 AM CDT) Phosphorus, pl 3.0 2.3 - 4.5 mg/dL Blood 04/27/2024 4:05 AM CDT 04/27/2024 4:47 AM CDT Celestino Moctezuma MD LAB BLOOD ORDERABLES Final Result Performing Organization Address City/[facility] Co de Phone Number MINOR RomanoCLYDE) 1 [facility] [place] [address] * Magnesium (04/27/2024 4:05 AM CDT) Magnesium 1.8 1.4 - 2.5 mg/dL Blood 04/27/2024 4:05 AM CDT 04/27/2024 4:47 AM CDT Celestino Moctezuma MD LAB BLOOD ORDERABLES Final Result [facility] ([place]) 1 [facility] [place] [address] * (ABNORMAL) Hemoglobin and hematocrit (04/27/2024 12:04 AM CDT) Hgb 10.8(L) 13.0 - 17.5 g/dL Hct 31.8(L) 38.9 - 50.3 % [facility]AKULWANT RAYM[facility] ([place]) Blood 04/27/2024 12:0 4 AM CDT 04/27/2024 12:15 AM CDT us Meghan Wiggins MD LAB BLOOD ORDERABLES Final Resu lt Performing Organization Address [facility] Co de Phone Number [facility] ([place]) 1 [facility] [place] [address] * (ABNORMAL) Hemoglobin and hematocrit (04/26/2024 7:53 PM CDT) Hgb 11.6(L) 13.0 - 17.5 g/dL Hct 34.4(L) 38.9 - 50.3 % SIMAKULWANT RAYMUNDO ([place]) Blood 04/26/2024 7:53 PM CDT 04/26/2024 7:54 PM CDT us Meghan Wiggins MD LAB BLOOD ORDERABLES Final Resu lt Performing Organization Address City/[facility]/ZIP Co de Phone Number [facility] RAYM[facility] ([place]) 1 [facility] [place] [address] * (ABNORMAL) Hemoglobin and hematocrit (04/26/2024 6:01 PM CDT) Hgb 12.2(L) 13.0 - 17.5 g/dL Hct 36.2(L) 38.9 - 50.3 % [facility] ([place]) Blood 04/26/2024 6:01 PM CDT 04/26/2024 6:03 PM CDT Meghan Wiggins MD LAB BLOOD ORDERABLES Final Resu lt [facility] ([place]) 1 [facility] [place] [address] * POCT glucose (04/26/2024 5:51 PM CDT) [facility] Glucose, POC 136 70 - 199 mg/dL Blood 04/26/2024 5:51 PM CDT 04/26/2024 5:51 PM CDT Meghan Wiggins MD LAB POCT ORDERABLES - DEVICE Fi nal Result Performing Organization Address [facility] Co de Phone Number [facility] ([place]) 1 [facility] [place] [address] * (ABNORMAL) Hemoglobin and hematocrit (04/26/2024 4:24 PM CDT) [facility] Hgb 12.9(L) 13.0 - 17.5 g/dL Hct 37.9(L) 38.9 - 50.3 % [facility] ([place]) Blood 04/26/2024 4:24 PM CDT 04/26/2024 4:33 PM CDT Jeannette BUCIO LAB BLOOD ORDERABLES Nicole l Result [facility] ([place]) 1 [facility] [email or web address] [address] * ABO / Rh Confirmation Testing (04/26/2024 4:24 PM CDT) Pathologist [facility] ABO/Rh Confirmation O Positive [facility] Blood 04/26/2024 4:24 PM CDT 04/26/2024 4:33 PM CDT Narrative [facility] ([place]) - 04/26/2024 5:11 PM CDT Called Aliya in ED to ask for a Confirmatory Type to be collected us Ilia Hoffman MD LAB BLOOD ORDERABLES Final Res ult [facility] ([place]) 1 [facility] Department [place] [address] [facility] * CT Abdomen Pelvis W Contrast (04/26/2024 1:38 PM CDT) Anatomical Region Laterality Modality Body N/A Computed Tomogra phy 04/26/2024 1:40 PM CDT Narrative 04/26/2024 1:47 PM CDT EXAM DESCRIPTION: ?? CT ABDOMEN PELVIS W CONTRAST REASON FOR STUDY: ?? GI bleed ?? Blood in stools since this morning, bright red and some clots ?? TECHNIQUE: CT scan of the abdomen and pelvis performed with intravenous and ?? without ??oral contrast using helical scanning technique with dynamic intravenous contrast injection. Reconstructed coronal and sagittal MPR images reviewed. All images stored on PACS. Automated exposure control was used as a dose optimization technique for this examination. CONTRAST TYPE/DOSE: ?? 75mL of IOVERSOL 350 MG IODINE/ML INTRAVENOUS SYRINGE ?? injected COMPARISON: ?? 12/20/2023 FINDINGS: LOWER CHEST: ?? Mild scattered subsegmental atelectasis. ??No pleural effusion. ?? Imaged portions of the heart are normal. LIVER: ?? Normal size. ??No identified cystic or solid masses. ?? Slight hepatic steatosis. ??The hepatic and portal veins are patent. GALLBLADDER: ?? Normal. BILE DUCTS: ?? No intrahepatic or extrahepatic ductal dilatation. SPLEEN: ?? Normal size. ??No focal lesions. PANCREAS: ?? No identified cystic or solid masses. No significant calcifications. No adjacent inflammation or peripancreatic fluid collections. Pancreatic duct not dilated. ?? ADRENALS: ?? Normal. KIDNEYS/URINARY TRACT: ?? No identified significant cystic or solid masses. No visualized stones. No hydronephrosis or hydroureter. Symmetric enhancement. ? Urinary bladder is unremarkable. GI: ?? The stomach is normal. ??The small bowel is normal in course and caliber with no evidence of obstruction or inflammation. ??The appendix is normal. ?? There is colonic diverticulosis with superimposed acute uncomplicated diverticulitis of an approximately 2 cm segment of the proximal sigmoid colon. No colonic perforation or obstruction. ??No organized fluid collections. PERITONEUM: ?? No ascites or free air. ?? Lymphadenopathy. RETROPERITONEUM: ?? No mass or adenopathy. REPRODUCTIVE: ?? Prostate gland calcifications are present which is normal in size. VASCULATURE: ?? No abdominal aortic aneurysm. ?? The abdominal aorta and its branches are patent. MUSCULOSKELETAL: ?? No acute fractures or aggressive osseous lesions. 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 IMPRESSION: 1. Colonic diverticulosis with superimposed acute uncomplicated diverticulitis of an approximately 2 cm segment of the proximal sigmoid colon. ??No colonic perforation or obstruction. ??No organized fluid collections THIS IS AN ELECTRONICALLY VERIFIED FINAL REPORT 04/26/2024 1:47 PM - Electronically signed by ??Jayla Finley M.D. AT: AT D: ??04/26/2024 1:47 PM T: ??04/26/2024 1:47 PM Report ID: [id number] Reading Location: ??[id number] Procedure Note Jayla Finley MD - 04/26/2024 EXAM DESCRIPTION: CT ABDOMEN PELVIS W CONTRAST REASON FOR STUDY: GI bleed Blood in stools since this morning, bright red and some clots TECHNIQUE: CT scan of the abdomen and pelvis performed with intravenousand without oral contrast using helical scanning technique with dynamic intravenous contrast injection. Reconstructed coronal and sagittal MPRimages reviewed. All images stored on PACS. Automated exposure control was usedas a dose optimization technique for this examination. CONTRAST TYPE/DOSE: 75mL of IOVERSOL 350 MG IODINE/ML INTRAVENOUSSYRINGE injected COMPARISON: 12/20/2023 FINDINGS: LOWER CHEST: Mild scattered subsegmental atelectasis. No pleuraleffusion. Imaged portions of the heart are normal. LIVER: Normal size. No identified cystic or solid masses. Slighthepatic steatosis. The hepatic and portal veins are patent. GALLBLADDER: Normal. BILE DUCTS: No intrahepatic or extrahepatic ductal dilatation. SPLEEN: Normal size. No focal lesions. PANCREAS: No identified cystic or solid masses. No significant calcifications. No adjacent inflammation or peripancreatic fluidcollections. Pancreatic duct not dilated. ADRENALS: Normal. KIDNEYS/URINARY TRACT: No identified significant cystic or solid masses.No visualized stones. No hydronephrosis or hydroureter. Symmetricenhancement. Urinary bladder is unremarkable. GI: The stomach is normal. The small bowel is normal in course andcaliber with no evidence of obstruction or inflammation. The appendix is normal. There is colonic diverticulosis with superimposed acute uncomplicated diverticulitis of an approximately 2 cm segment of the proximal sigmoidcolon. No colonic perforation or obstruction. No organized fluid collections. PERITONEUM: No ascites or free air. Lymphadenopathy. RETROPERITONEUM: No mass or adenopathy. REPRODUCTIVE: Prostate gland calcifications are present which is normalin size. VASCULATURE: No abdominal aortic aneurysm. The abdominal aorta and its branches are patent. 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 IMPRESSION: 1. Colonic diverticulosis with superimposed acute uncomplicateddiverticulitis of an approximately 2 cm segment of the proximal sigmoid colon. Nocolonic perforation or obstruction. No organized fluid collections THIS IS AN ELECTRONICALLY VERIFIED FINAL REPORT 04/26/2024 1:47 PM - Electronically signed by Jayla Finley M.D. AT: AT Report ID: [id number] Reading Location: [id number] Jeannette BUCIO [facility] [place] CT PROCEDURES Final R esult * Crossmatch (04/26/2024 12:40 PM CDT) Crossmatch Compatible [facility] Hammonds ([place]) Unit number for crossmatch [id number] [facility] ([place]) Crossmatch Compatible [facility] ([place]) Unit number for crossmatch [id number] [facility] ([place]) Crossmatch Compatible [facility] ([place]) Unit number for crossmatch [id number] [facility] ([place]) Crossmatch Compatible [facility] ([place]) Unit number for crossmatch [id number] [facility] ([place]) Crossmatch Compatible [facility]ER A ([place]) Unit number for crossmatch [id number] [facility] ([place]) Blood 04/26/2024 12:4 0 PM CDT 04/26/2024 12:44 PM CDT Meghan Wiggins MD LAB BLOOD BANK TEST ORDERABLES Edited Result - Final [facility] RAYMUNDO ([place]) 1 [facility] Department [place] [address] * eGFR (04/26/2024 12:40 PM CDT) eGFR 74 >=60 mL/min/1. 73 m2 Comment: Interpretive Data [...] Inclusion of Race in Diagnosing Kidney Disease, CRISTOPHERSN 2020). The CKD-EPI equation should not be used for patients with unstable renal function and has not been validated in children and those over 70. Current interpretive data was last reviewed 2021. Blood 04/26/2024 12:4 0 PM CDT 04/26/2024 12:44 PM CDT us Willis Leslie MD LAB BLOOD ORDERABLES Final Resul t [facility] ([place]) 1 [facility] Department [place] [address] * (ABNORMAL) Differential, auto (04/26/2024 12:40 PM CDT) Neutrophil abs 5.7 1.5 - 6.5 K/cumm Imm gran abs 0.1 0.0 - 0.1 K/cumm [facility] ([place]) Lymphocyte abs 2.4 0.8 - 3.3 K/cumm [facility] ([place]) Monocyte abs 1.0(H) 0.2 - 0.8 K/cumm [facility] ([place]) Eosinophil abs 0.1 0.0 - 0.5 K/cumm [facility] ([place]) Basophil abs 0.0 0.0 - 0.1 K/cumm [facility] ([place]) Neutrophil pct 60.9 % [facility] ([place]) Comment: Interpretive Data Percent cell count reference ranges are not reported, since discordance with absolute values may lead to misinterpretation of CBC data. Current Interpretive Data was last revised on 2018. Imm gran pct 0.5 % [facility] ([place]) Comment: Interpretive Data Percent cell count reference ranges are not reported, since discordance with absolute values may lead to misinterpretation of CBC data. Current Interpretive Data was last revised on 2018. Lymphocyte pct 25.9 % [facility] ([place]) Comment: Interpretive Data Percent cell count reference ranges are not reported, since discordance with absolute values may lead to misinterpretation of CBC data. Current Interpretive Data was last revised on 2018. Monocyte pct 11.0 % [facility] ([place]) Comment: Interpretive Data Percent cell count reference ranges are not reported, since discordance with absolute values may lead to misinterpretation of CBC data. Current Interpretive Data was last revised on 2018. Eosinophil pct 1.3 % [facility] ([place]) Comment: Interpretive Data Percent cell count reference ranges are not reported, since discordance with absolute values may lead to misinterpretation of CBC data. Current Interpretive Data was last revised on 2018. Basophil pct 0.4 % [facility] ([place]) Comment: Interpretive Data Percent cell count reference ranges are not reported, since discordance with absolute values may lead to misinterpretation of CBC data. Current Interpretive Data was last revised on 2018. Blood 04/26/2024 12:4 0 PM CDT 04/26/2024 12:44 PM CDT Willis Leslie MD LAB BLOOD ORDERABLES Final Resul t Performing Organization Address [facility] Co de Phone Number MINOR [facility] ([place]) 1 [facility] [email or web address] [address] * Antibody screen (04/26/2024 12:40 PM CDT) Izzy, indirect, Gel Interpretation Negative ABSC Blood 04/26/2024 12:4 0 PM CDT 04/26/2024 12:44 PM CDT Narrative [facility] ([place]) - 04/26/2024 1:38 PM CDT Has the patient had Daratumumab or Isatuximab in the past 6 months?->Unknown Willis Leslie MD LAB BLOOD BANK TEST ORDERABLES F inal Result Performing Organization Address City/[facility]/ZIP Co de Phone Number MINOR [facility] ([place]) 1 [facility] [place] [address] * ABO/Rh (04/26/2024 12:40 PM CDT) ABO/Rh O Positive Blood 04/26/2024 12:4 0 PM CDT 04/26/2024 12:44 PM CDT Narrative [facility] ([place]) - 04/26/2024 1:38 PM CDT Has the patient had Daratumumab or Isatuximab in the past 6 months?->Unknown Willis Leslie MD LAB BLOOD BANK TEST ORDERABLES F inal Result Performing Organization Address City/[facility]/ZIP Co de Phone Number [facility] ([place]) 1 [facility] [place] [address] * Protime-INR (04/26/2024 12:40 PM CDT) PT 10.8 9.7 - 13.0 sec INR 1.00 0.90 - 1.20 [facility] ([place]) Comment: Interpretive data Oral anticoagulant therapeutic ranges: Venous thromboembolism prophylaxis or treatment: 2.0-3.0 CARDIOLOGY Standard range: 2.0-3.0 High-intensity range: 2.5-3.5 Refer to indication-specific guidelines for appropriate target ranges for prosthetic heart valve replacement. Current interpretive data was last revised on 2019. Blood 04/26/2024 12:4 0 PM CDT 04/26/2024 12:44 PM CDT Jeannette BUCIO LAB BLOOD ORDERABLES Nicole l Result Performing Organization Address City/[facility]/ZIP Co de Phone Number [facility] ([place]) [address] [facility] [place] [address] * (ABNORMAL) Comprehensive metabolic panel (04/26/2024 12:40 PM CDT) Sodium 137 135 - 145 mmol/L Potassium, pl 4.3 3.3 - 4.9 mmol/L [facility] ([place]) Chloride 103 97 - 110 mmol/L [facility] ([place]) CO2 25 22 - 32 mmol/L [facility] ([place]) Anion gap 10 2 - 15 mmol/L [facility] ([place]) BUN 7 6 - 25 mg/dL [facility] ([place]) Creatinine 1.20 0.80 - 1.30 mg/dL [facility] ([place]) Glucose 102 70 - 199 mg/dL [facility] ([place]) Comment: Interpretive Data Fasting glucose [...] Current interpretive data was last revised 2022. Calcium 9.3 8.5 - 10.3 mg/dL [facility] ([place]) Bilirubin, total 0.3 0.1 - 1.2 mg/dL [facility] ([place]) Protein, pl 6.4(L) 6.5 - 8.5 g/dL [facility] ([place]) Albumin 4.2 3.5 - 5.0 g/dL [facility] ([place]) Alk phos 70 40 - 130 Units/L [facility] ([place]) ALT 23 7 - 55 Units/L [facility] ([place]) AST 21 10 - 50 Units/L [facility] ([place]) Blood 04/26/2024 12:4 0 PM CDT 04/26/2024 12:44 PM CDT us Willis Leslie MD LAB BLOOD ORDERABLES Final Resul t [facility] ([place]) 1 [facility] Department [place] [address] * (ABNORMAL) CBC with auto differential (04/26/2024 12:40 PM CDT) WBC 9.4 3.8 - 9.9 K/cumm Hgb 14.3 13.0 - 17.5 g/dL [facility] ([place]) Hct 41.7 38.9 - 50.3 % [facility] ([place]) Plt 485(H) 150 - 400 K/cumm [facility] ([place]) MPV 9.3 9.1 - 12.3 fL [facility] ([place]) RBC 4.32 4.30 - 5.80 M/cumm [facility] ([place]) MCV 96.5(H) 81.3 - 96.4 fL [facility] ([place]) MCH 33.1 27.1 - 33.3 pg [facility] ([place]) MCHC 34.3 32.3 - 35.7 g/dL [facility] ([place]) RDW CV 13.0 11.1 - 14.9 % [facility] ([place]) RDW SD 46.8 35.7 - 48.1 fL [facility] ([place]) NRBC abs 0.00 0.00 - 0.01 K/cumm [facility] ([place]) Blood 04/26/2024 12:4 0 PM CDT 04/26/2024 12:44 PM CDT Willis Leslie MD LAB BLOOD ORDERABLES Final Resul t [facility] ([place]) 1 [facility] Department [place] [address] documented in this encounter Visit Diagnoses Diagnosis Rectal bleeding- Primary Hemorrhage of rectum and anus Rectal bleeding Hemorrhage of rectum and anus Diverticulitis Diverticulitis of colon (without mention of hemorrhage) Diverticulitis Diverticulitis of colon (without mention of hemorrhage) Personal history of colonic polyps Encounter for screening colonoscopy documented in this encounter Admitting Diagnoses Diagnosis Rectal bleeding Hemorrhage of rectum and anus Diverticulitis Diverticulitis of colon (without mention of hemorrhage) documented in this encounter Administered Medications Inactive Administered Medications - up to 3 most recent administrations Medication Order MAR Action Action Date Dose Rate Site acetaminophen (TYLENOL) tablet 650 mg 650 mg, oral, Every 4 hours PRN, 1st line for pain, Starting on 04/26/24 at 1422, Indications: PainIndications:Pain Given 04/27/2024 9:05 AM CDT 650 mg amLODIPine (NORVASC) tablet 5 mg 5 mg, oral, Nightly, First dose on 04/26/24 at 2100 Given 04/29/2024 9:35 PM CDT 5 mg Given 04/28/2024 9:50 PM CDT 5 mg Given 04/27/2024 10:31 PM CDT 5 mg atorvastatin (LIPITOR) tablet 10 mg 10 mg, oral, Nightly, First dose on Sun04/26/24 at 2100, On hold since Sun04/28/2024 at 0901 until manually unheld Given 04/27/2024 9:58 PM CDT 10 mg Given 04/26/2024 8:42 PM CDT 10 mg atorvastatin (LIPITOR) tablet 10 mg 10 mg, oral, Nightly, First dose (after last modification) on Sun04/29/24 at 2100 Given 04/29/2024 9:36 PM CDT 10 mg calcium gluconate 1 g/50 mL in sodium chloride (premix) solution 1 g 1 g, intravenous, Administer over 60 Minutes, Once, On Sun04/29/24 at 2300, For 1 dose, X 1 dose per pharmacy electrolyte replacement protocol for Ca+=7.9 on 04/29 Room temperature only, Indications: hypocalcemiaIndications:hypocalc emia New Bag 04/29/2024 10:27 PM CDT 1 g calcium gluconate 2 g/100 mL in sodium chloride (premix) solution 2 g 2 g, intravenous, Administer over 60 Minutes, Once, On Sun04/29/24 at 0800, For 1 dose, Per electrolyte replacement protocol Calcium Gluconate 2 gm ivpb run X 1 dose per pharmacy electrolyte replacement protocol for corrected calcium +=7.4 mg/dl on 04/29/24 Room temperature only, Indications: hypocalcemiaIndications:hypocalc emia New Bag 04/29/2024 8:43 AM CDT 2 g cefTRIAXone (ROCEPHIN) 2,000 mg/20 mL in sterile water (premix) 2,000 mg 2,000 mg, intravenous, at 240 mL/hr, Administer over 5 Minutes, Every 24 hours scheduled, First dose on Sun04/26/24 at 1407, Indications: Abdominal/Pelvic InfectionIndications:Abdominal/P elvic Infection Given 04/28/2024 2:30 PM CDT 2,000 mg 240 mL/hr Given 04/27/2024 11:23 AM CDT 2,000 mg 240 mL/hr Given 04/26/2024 2:15 PM CDT 2,000 mg 240 mL/hr ciprofloxacin (CIPRO) tablet 500 mg 500 mg, oral, 2 times daily (for quinolones,etc), First dose on Sun04/29/24 at 1800, Indications: DiverticulitisIndications:Diverticulitis Given 04/30/2024 6:58 AM CDT 500 mg Given 04/29/2024 6:32 PM CDT 500 mg erythromycin (ERYTHROCIN) 250 mg in sodium chloride 0.9% 100 mL IVPB 250 mg, intravenous, at 105 mL/hr, Administer over 60 Minutes, Once, On Sun04/28/24 at 1000, For 1 dose, Indications: GI bleeding before EGDIndications:GI bleeding before EGD New Bag 04/28/2024 10:15 AM CDT 250 mg 105 mL/hr fenofibrate nanocrystallized (TRICOR) tablet 145 mg 145 mg, oral, Daily, First dose on Sun04/26/24 at 1800, On hold since Sun04/28/2024 at 0901 until manually unheld Given 04/27/2024 7:52 AM CDT 145 mg ioversoL (OPTIRAY 350) syringe 100 mL 100 mL, intravenous, Once in imaging, contrast, Starting on Sun04/27/24 at 1806, For 1 dose Contrast Given 04/27/2024 6:06 PM CDT 100 mL ioversoL (OPTIRAY 350) syringe 75 mL 75 mL, intravenous, Once in imaging, contrast, Starting on Sun04/26/24 at 1337, For 1 dose Contrast Given 04/26/2024 1:38 PM CDT 75 mL metoclopramide (REGLAN) 5 mg/mL injection 10 mg 10 mg, intravenous, Every 6 hours scheduled, First dose on Sun04/28/24 at 1000, For 2 doses Given 04/28/2024 9:20 AM CDT 10 mg metoclopramide (REGLAN) 5 mg/mL injection 10 mg 10 mg, intravenous, Every 6 hours scheduled, First dose on Sun04/29/24 at 1200, For 2 doses Given 04/29/2024 10:56 AM CDT 10 mg metoprolol tartrate (LOPRESSOR) immediate release tablet 25 mg 25 mg, oral, 2 times daily, First dose on Sun04/28/24 at 1630 Given 04/29/2024 8:43 AM CDT 25 mg Given 04/28/2024 4:16 PM CDT 25 mg metoprolol XL (TOPROL-XL) extended release tablet 100 mg 100 mg, oral, Nightly, First dose on Sun04/26/24 at 2100, Tablets that are scored may be split, but do not crush, chew, dissolve, open or otherwise manipulate tablet/capsule. Given 04/29/2024 9:36 PM CDT 100 mg metroNIDAZOLE (FLAGYL) 500 mg/100 mL in sodium chloride (premix) 500 mg 500 mg, intravenous, at 200 mL/hr, Administer over 30 Minutes, Every 12 hours scheduled, First dose (after last modification) on 04/26/24 at 1408, Room temperature only, Indications: Abdominal/Pelvic InfectionIndications:Abdominal/Pel geovanni Infection New Bag 04/28/2024 11:39 PM CDT 500 mg 200 mL/hr New Bag 04/27/2024 11:33 PM CDT 500 mg 200 mL/hr New Bag 04/27/2024 11:23 AM CDT 500 mg 200 mL/hr metroNIDAZOLE (FLAGYL) tablet 500 mg 500 mg, oral, 3 times daily, First dose on Sun04/29/24 at 1600, For 7 days, Indications: Abdominal/Pelvic InfectionIndications:Abdominal/Pelvic Infection Given 04/30/2024 2:20 PM CDT 500 mg Given 04/30/2024 10:05 AM CDT 500 mg Given 04/29/2024 9:36 PM CDT 500 mg ondansetron (ZOFRAN) injection 4 mg 4 mg, intravenous, Administer over 2 Minutes, Every 6 hours PRN, nausea, vomiting, if not tolerating PO, Starting on Sun04/26/24 at 1422, Indications: Nausea and VomitingIndications:Nausea and Vomiting Given 04/29/2024 9:29 AM CDT 4 mg pantoprazole (PROTONIX) 40 mg in sodium chloride 0.9% 10 mL IV Syringe 40 mg, intravenous, at 300 mL/hr, Administer over 2 Minutes, Once, On Sun04/26/24 at 1305, For 1 dose, For IV administration, reconstitute 40 mg vial with 10 mL sodium chloride 0.9% for injection for a final concentration of 4 mg/mL, Indications: GI BleedIndications:GI Bleed Given 04/26/2024 1:27 PM CDT 40 mg 300 mL/hr pantoprazole (PROTONIX) 40 mg in sodium chloride 0.9% 10 mL IV Syringe 40 mg, intravenous, at 300 mL/hr, Administer over 2 Minutes, 2 times daily, First dose on Sun04/28/24 at 1130, For IV administration, reconstitute 40 mg vial with 10 mL sodium chloride 0.9% for injection for a final concentration of 4 mg/mL, Indications: GI BleedIndications:GI Bleed Given 04/28/2024 3:00 PM CDT 40 mg 300 mL/hr pantoprazole DR (PROTONIX) extended release tablet 40 mg 40 mg, oral, 2 times daily, First dose on Sun04/28/24 at 2100, Do not crush, chew, cut, dissolve, open or otherwise manipulate tablet/capsule., Indications: GI BleedIndications:GI Bleed Given 04/30/2024 10:05 AM CDT 40 mg Given 04/29/2024 9:36 PM CDT 40 mg Given 04/29/2024 8:43 AM CDT 40 mg polyethylene glycol (GoLYTELY) solution 2,000 mL 2,000 mL, oral, Once, On Sun04/29/24 at 0815, For 1 dose, Pre-Op/Floor (GI), Starting now before the procedure have patient rapidly drink 8 ounces of solution every 10 minutes until 2 liters is empty. Do not sip. This should take 2 hours. If patient becomes nauseated, decrease frequency of drinking to every 20 minutes. Using the container provided, add lukewarm water (may use tap water) up to the 4 L water malinda; shake vigorously several times to ensure dissolution of the powder., Indications: Bowel EvacuationIndications:Bowel Evacuation Given 04/29/2024 8:30 AM CDT 2,000 mL potassium, sodium phosphates (PHOS-NAK) 280-160-250 mg packet 1 packet 1 packet, oral, 3 times daily before meals, First dose on Sun04/30/24 at 0800, For 3 doses, Each packet contains 250 mg elemental phosphorus. Per electrolyte replacement protocol Each packet contains elemental phosphorus 250 mg (8 mmol), potassium 280 mg (7.1 mEq), and sodium 160 mg (6.9 mEq). Given 04/30/2024 10:05 AM CDT 1 packet sodium chloride 0.9% flush 0.5-20 mL 0.5-20 mL, intra-catheter, Every 8 hours scheduled, First dose on Sun04/28/24 at 1400, Pre-Procedure (GI), Flush volume based on line type and size. Given 04/28/2024 9:51 PM CDT 10 mL sodium chloride 0.9% infusion 100 mL/hr, intravenous, Continuous, Starting on Sun04/26/24 at 1900 New Bag 04/27/2024 4:00 AM CDT 100 mL/hr 100 mL/hr New Bag 04/26/2024 6:41 PM CDT 100 mL/hr 100 mL/hr sodium chloride 0.9% infusion 100 mL/hr, intravenous, Continuous, Starting on Sun04/28/24 at 1000 New Bag 04/28/2024 9:20 AM CDT 100 mL/hr 100 mL/hr sodium chloride 0.9% infusion 30 mL/hr, intravenous, Continuous, Starting on Sun04/28/24 at 1145, Pre-Procedure (GI) New Bag 04/28/2024 1:27 PM CDT Restarted 04/28/2024 1:07 PM CDT New Bag 04/28/2024 11:11 AM CDT 30 mL/hr 30 mL/hr sodium chloride 0.9% infusion 30 mL/hr, intravenous, Continuous, Starting on Sun04/29/24 at 1145 Restarted 04/29/2024 11:34 AM CDT Rate/Dose Verify 04/29/2024 11:32 AM CDT 30 mL/ hr New Bag 04/29/2024 11:07 AM CDT 30 mL/hr 30 mL/hr sodium chloride 0.9% IVPB 0-250 mL 0-250 mL, intravenous, Once, On Sun04/27/24 at 1930, For 1 dose, Prime blood tubing and administer amount needed to clear line (usually 50-100 mL) after transfusion complete. New Bag 04/27/2024 8:23 PM CDT 250 mL sodium chloride 0.9% IVPB 0-250 mL 0-250 mL, intravenous, Once, On Sun04/28/24 at 1715, For 1 dose, Prime blood tubing and administer amount needed to clear line (usually 50-100 mL) after transfusion complete. New Bag 04/28/2024 6:19 PM CDT 30 mL sodium chloride 0.9% IVPB 0-250 mL 0-250 mL, intravenous, Once, On Sun04/29/24 at 0900, For 1 dose, Prime blood tubing and administer amount needed to clear line (usually 50-100 mL) after transfusion complete. New Bag 04/29/2024 9:29 AM CDT 30 mL sodium chloride 0.9% IVPB 0-250 mL 0-250 mL, intravenous, Once, On Sun04/29/24 at 2230, For 1 dose, Prime blood tubing and administer amount needed to clear line (usually 50-100 mL) after transfusion complete. New Bag 04/29/2024 10:26 PM CDT 250 mL zolpidem (AMBIEN) tablet 5 mg 5 mg, oral, Nightly, First dose on Sun04/26/24 at 2100, Indications: Sleep-Onset InsomniaIndications:Sleep-Onset Insomnia Given 04/29/2024 10:00 PM CDT 5 mg Given 04/28/2024 9:51 PM CDT 5 mg Given 04/27/2024 9:58 PM CDT 5 mg documented in this encounter Discontinued Medications Medication Sig Discontinue Reason Start Date End Da te pancrelipase (ZENPEP) 40,000-126,000- 168,000 unit per capsuleIndications:exocr ine pancreatic insufficiency Take 1 capsule by mouth 3 (three) times a day with meals Stop Taking at Discharge 04/30/2024 documented as of this encounter Historical Medications * This list may reflect changes made after this encounter. zolpidem (AMBIEN) 10 mg tabletIndications:S leep-Onset Insomnia Take 1 tablet (10 mg total) by mouth nightly atorvastatin (LIPITOR) 10 mg tablet Take 1 tablet (10 mg total) by mouth nightly fenofibrate (TRIGLIDE) 160 mg tablet Take 1 tablet (160 mg total) by mouth nightly metoprolol XL (TOPROL-XL) 100 mg 24 hr tablet Take 1 tablet (100 mg total) by mouth nightly amLODIPine (NORVASC) 5 mg tablet Take 1 tablet (5 mg total) by mouth nightly pancrelipase (ZENPEP) 40,000-126,000- 168,000 unit per capsuleIndications: exocrine pancreatic insufficiency Take 1 capsule by mouth 3 (three) times a day with meals added in this encounter Active and Recently Administered Medications Times are shown in CDT. Scheduled Medication Order 04/28/2024 04/29/2024 04/30/2024 amLODIPine (NORVASC) tablet 5 mg 5 mg, oral, Nightly, First dose on Sun04/26/24 at 2100 1109 (MAR Hold - Provider: Automatic Transfer Provider - Reason: Patient not available)1428 (MAR Unhold - Provider: Automatic Transfer Provider)2150 (Given - Provider: Nely Dotson, EDMUNDO) 1104 (MAR Hold - Provider: Automatic Transfer Provider - Reason: Patient not available)1258 (MAR Unhold - Provider: Automatic Transfer Provider)2135 (Given - Provider: Tonio Simpson RN) 1224 (Held by Provider - Provider: Collin Mancia MD - Reason: Change in Patient Status)1357 (Unheld by Provider - Provider: Collin Mancia MD) atorvastatin (LIPITOR) tablet 10 mg 10 mg, oral, Nightly, First dose (after last modification) on Sun04/29/24 at 2100 1308 (Held by Provider - Provider: Celestino Moctezuma MD - Reason: Hold for Procedure)1649 (Unheld by Provider - Provider: Collin Mancia MD)2136 (Given - Provider: Tonio Simpson RN) calcium gluconate 1 g/50 mL in sodium chloride (premix) solution 1 g (COMPLETED) 1 g, intravenous, Administer over 60 Minutes, Once, On Sun04/29/24 at 2300, For 1 dose, X 1 dose per pharmacy electrolyte replacement protocol for Ca+=7.9 on 04/29 Room temperature only, Indications: hypocalcemia 2226 (New Bag - Provider: Tonio Simpson, EDMUNDO) calcium gluconate 2 g/100 mL in sodium chloride (premix) solution 2 g (COMPLETED) 2 g, intravenous, Administer over 60 Minutes, Once, On Sun04/29/24 at 0800, For 1 dose, Per electrolyte replacement protocol Calcium Gluconate 2 gm ivpb run X 1 dose per pharmacy electrolyte replacement protocol for corrected calcium +=7.4 mg/dl on 04/29/24 Room temperature only, Indications: hypocalcemia 0843 (New Bag - Provider: Aubree Finnegan RN) cefTRIAXone (ROCEPHIN) 2,000 mg/20 mL in sterile water (premix) 2,000 mg (CANCELED) 2,000 mg, intravenous, at 240 mL/hr, Administer over 5 Minutes, Every 24 hours scheduled, First dose on Sun04/26/24 at 1407, Indications: Abdominal/Pelvic Infection 1109 (DEC Hold - Provider: Automatic Transfer Provider - Reason: Patient not available)1200 (Dose Auto Held - Provider: Automatic Transfer Provider)1428 (DEC Unhold - Provider: Automatic Transfer Provider)1430 (Given - Provider: Aubree Finnegan RN) 1104 (DEC Hold - Provider: Automatic Transfer Provider - Reason: Patient not available)1200 (Dose Auto Held - Provider: Automatic Transfer Provider)1258 (MAR Unhold - Provider: Automatic Transfer Provider) ciprofloxacin (CIPRO) tablet 500 mg 500 mg, oral, 2 times daily (for quinolones,etc), First dose on Sun04/29/24 at 1800, Indications: Diverticulitis 1832 (Given - Provider: Aubree Finnegan RN) 0658 (Given - Provider: Tonio Simpson RN) erythromycin (ERYTHROCIN) 250 mg in sodium chloride 0.9% 100 mL IVPB (COMPLETED) 250 mg, intravenous, at 105 mL/hr, Administer over 60 Minutes, Once, On Sun04/28/24 at 1000, For 1 dose, Indications: GI bleeding before EGD 1015 (New Bag - Provider: Aubree Finnegan RN) fenofibrate nanocrystallized (TRICOR) tablet 145 mg 145 mg, oral, Daily, First dose (after last modification) on Sun04/30/24 at 0900 1308 (Held by Provider - Provider: Celestino Moctezuma MD - Reason: Hold for Procedure) 0900 (Dose Auto Held)1357 (Unheld by Provider - Provider: Collin Mancia MD) metoclopramide (REGLAN) 5 mg/mL injection 10 mg (CANCELED) 10 mg, intravenous, Every 6 hours scheduled, First dose on Sun04/28/24 at 1000, For 2 doses 0920 (Given - Provider: Aubree Finnegan RN)1109 ([facility] Hold - Provider: Automatic Transfer Provider - Reason: Patient not available)1428 ([facility] Unhold - Provider: Automatic Transfer Provider) metoclopramide (REGLAN) 5 mg/mL injection 10 mg (CANCELED) 10 mg, intravenous, Every 6 hours scheduled, First dose on Sun04/29/24 at 1200, For 2 doses 1056 (Given - Provider: Aubree Finnegan RN)1104 ([facility] Hold - Provider: Automatic Transfer Provider - Reason: Patient not available)1258 ([facility] Unhold - Provider: Automatic Transfer Provider) metoprolol tartrate (LOPRESSOR) immediate release tablet 25 mg (CANCELED) 25 mg, oral, 2 times daily, First dose on Sun04/28/24 at 1630 1616 (Given - Provider: Aubree Finnegan RN) 0843 (Given - Provider: Aubree Finnegan RN)1104 ([facility] Hold - Provider: Automatic Transfer Provider - Reason: Patient not available)1258 ([facility] Unhold - Provider: Automatic Transfer Provider) metoprolol XL (TOPROL-XL) extended release tablet 100 mg 100 mg, oral, Nightly, First dose on 04/26/24 at 2100, Tablets that are scored may be split, but do not crush, chew, dissolve, open or otherwise manipulate tablet/capsule. 2100 (Dose Auto Held - Provider: Michael Silva MD) 1649 (Unheld by Provider - Provider: Collni Mancia MD)2136 (Given - Provider: Tonio Simpson RN) metroNIDAZOLE (FLAGYL) 500 mg/100 mL in sodium chloride (premix) 500 mg (CANCELED) 500 mg, intravenous, at 200 mL/hr, Administer over 30 Minutes, Every 12 hours scheduled, First dose (after last modification) on 04/26/24 at 1408, Room temperature only, Indications: Abdominal/Pelvic Infection 1109 ([facility] Hold - Provider: Automatic Transfer Provider - Reason: Patient not available)1200 (Dose Auto Held - Provider: Automatic Transfer Provider)1428 ([facility] Unhold - Provider: Automatic Transfer Provider)1430 (Stopped - Provider: Aubreejaylin Finnegan RN)2339 (New Bag - Provider: Nely Dotson, EDMUNDO) 1104 (MAR Hold - Provider: Automatic Transfer Provider - Reason: Patient not available)1200 (Dose Auto Held - Provider: Automatic Transfer Provider)1258 (MAR Unhold - Provider: Automatic Transfer Provider) metroNIDAZOLE (FLAGYL) tablet 500 mg 500 mg, oral, 3 times daily, First dose on Sun04/29/24 at 1600, For 7 days, Indications: Abdominal/Pelvic Infection 1552 (Given - Provider: Aubree Finnegan RN)2136 (Given - Provider: Tonio Simpson, RN) 1005 (Given - Provider: Anibal Barksdale, EDMUNDO)1420 (Given - Provider: Anibal Barksdale, EDMUNDO) pantoprazole (PROTONIX) 40 mg in sodium chloride 0.9% 10 mL IV Syringe (CANCELED) 40 mg, intravenous, at 300 mL/hr, Administer over 2 Minutes, 2 times daily, First dose on Sun04/28/24 at 1130, For IV administration, reconstitute 40 mg vial with 10 mL sodium chloride 0.9% for injection for a final concentration of 4 mg/mL, Indications: GI Bleed 1109 (MAR Hold - Provider: Automatic Transfer Provider - Reason: Patient not available)1428 (MAR Unhold - Provider: Automatic Transfer Provider)1500 (Given - Provider: Aubree Finnegan RN) pantoprazole DR (PROTONIX) extended release tablet 40 mg 40 mg, oral, 2 times daily, First dose on Sun04/28/24 at 2100, Do not crush, chew, cut, dissolve, open or otherwise manipulate tablet/capsule., Indications: GI Bleed 2150 (Given - Provider: Nely Dotson, EDMUNDO) 0843 (Given - Provider: Aubree Finnegan RN)1104 (MAR Hold - Provider: Automatic Transfer Provider - Reason: Patient not available)1258 (MAR Unhold - Provider: Automatic Transfer Provider)2136 (Given - Provider: Tonio Simpson, EDMUNDO) 1005 (Given - Provider: Anibal Barksdale, EDMUNDO) polyethylene glycol (GoLYTELY) solution 2,000 mL (COMPLETED) 2,000 mL, oral, Once, On Sun04/29/24 at 0815, For 1 dose, Pre-Op/Floor (GI), Starting now before the procedure have patient rapidly drink 8 ounces of solution every 10 minutes until 2 liters is empty. Do not sip. This should take 2 hours. If patient becomes nauseated, decrease frequency of drinking to every 20 minutes. Using the container provided, add lukewarm water (may use tap water) up to the 4 L water malinda; shake vigorously several times to ensure dissolution of the powder., Indications: Bowel Evacuation 08 (Given - Provider: Aubree Finnegan, EDMUNDO) potassium, sodium phosphates (PHOS-NAK) 280-160-250 mg packet 1 packet 1 packet, oral, 3 times daily before meals, First dose on Sun04/30/24 at 0800, For 3 doses, Each packet contains 250 mg elemental phosphorus. Per electrolyte replacement protocol Each packet contains elemental phosphorus 250 mg (8 mmol), potassium 280 mg (7.1 mEq), and sodium 160 mg (6.9 mEq). 1005 (Given - Provider: Anibal Barksdale RN)1029 (Not Given - Provider: Anibal Barksdale RN - Reason: Other) sodium chloride 0.9% flush 0.5-20 mL (CANCELED) 0.5-20 mL, intra-catheter, Every 8 hours scheduled, First dose on Sun04/28/24 at 1400, Pre-Procedure (GI), Flush volume based on line type and size. 2150 (Given - Provider: Nely Dotson RN - Comment: IV flushed post blood) sodium chloride 0.9% IVPB 0-250 mL (COMPLETED) 0-250 mL, intravenous, Once, On Sun04/28/24 at 1715, For 1 dose, Prime blood tubing and administer amount needed to clear line (usually 50-100 mL) after transfusion complete. 1818 (New Bag - Provider: Aubree Finnegan RN) sodium chloride 0.9% IVPB 0-250 mL (COMPLETED) 0-250 mL, intravenous, Once, On Sun04/29/24 at 0900, For 1 dose, Prime blood tubing and administer amount needed to clear line (usually 50-100 mL) after transfusion complete. 928 (New Bag - Provider: Aubree Finnegan RN) sodium chloride 0.9% IVPB 0-250 mL (COMPLETED) 0-250 mL, intravenous, Once, On Sun04/29/24 at 2230, For 1 dose, Prime blood tubing and administer amount needed to clear line (usually 50-100 mL) after transfusion complete. 2226 (New Bag - Provider: Tonio Simpson, EDMUNDO) zolpidem (AMBIEN) tablet 5 mg 5 mg, oral, Nightly, First dose on Sun04/26/24 at 2100, Indications: Sleep-Onset Insomnia 1109 (DEC Hold - Provider: Automatic Transfer Provider - Reason: Patient not available)1428 (DEC Unhold - Provider: Automatic Transfer Provider)2151 (Given - Provider: Nely Dotson RN) 1104 ([facility] Hold - Provider: Automatic Transfer Provider - Reason: Patient not available)1258 ([facility] Unhold - Provider: Automatic Transfer Provider)2200 (Given - Provider: Tonio Simpson RN) Continuous Medication Order 04/28/2024 04/29/2024 04/30/2024 sodium chloride 0.9% infusion (CANCELED) 100 mL/hr, intravenous, Continuous, Starting on Sun04/28/24 at 1000 0920 (New Bag - Provider: Aubree Finnegan RN)1500 (Stopped - Provider: Aubree Finnegan RN) sodium chloride 0.9% infusion (CANCELED) 30 mL/hr, intravenous, Continuous, Starting on Sun04/28/24 at 1145, Pre-Procedure (GI) 1111 (New Bag - Provider: Pauly Li RN)1306 (Paused - Provider: Marlena Ott CRNA - Comment: Switch to gravity)1307 (Restarted - Provider: Marlena Ott CRNA)1327 (New Bag - Provider: Marlena Ott CRNA)1500 (Stopped - Provider: Aubree Finnegan RN) sodium chloride 0.9% infusion (CANCELED) 30 mL/hr, intravenous, Continuous, Starting on Sun04/29/24 at 1145 1107 (New Bag - Provider: Mariela Oliver RN)1132 (Rate/Dose Verify - Provider: Manuelito Mendoza MD)1133 (Paused - Provider: Manuelito Mendoza MD - Comment: Switch to gravity)1134 (Restarted - Provider: Manuelito Mendoza MD)1153 (Anesthesia Volume Adjustment - Provider: Manuelito Mendoza MD)1649 (Due: Stopped - Provider: Collin Mancia MD) PRN Medication Order 04/28/2024 04/29/2024 04/30/2024 ondansetron (ZOFRAN) injection 4 mg(Linked Group 1) 4 mg, intravenous, Administer over 2 Minutes, Every 6 hours PRN, nausea, vomiting, if not tolerating PO, Starting on 04/26/24 at 1422, Indications: Nausea and Vomiting 1109 (DEC Hold - Provider: Automatic Transfer Provider - Reason: Patient not available)1428 (DEC Unhold - Provider: Automatic Transfer Provider) 0929 (Given - Provider: Aubree Finnegan RN)1104 (DEC Hold - Provider: Automatic Transfer Provider - Reason: Patient not available)1258 (DEC Unhold - Provider: Automatic Transfer Provider) Linked Groups Order Group 1: ondansetron ODT (ZOFRAN-ODT) disintegrating tablet 4 mg (CANCELED) 4 mg, oral, Every 6 hours PRN, nausea, vomiting, Starting on 04/26/24 at 1422, Indications: Nausea and Vomiting Or ondansetron (ZOFRAN) injection 4 mgJump to med 4 mg, intravenous, Administer over 2 Minutes, Every 6 hours PRN, nausea, vomiting, if not tolerating PO, Starting on 04/26/24 at 1422, Indications: Nausea and Vomiting documented in this encounter Orders Medications Ordered That Vadim ht Not Have Been Administered Count Last Ordered Date First Ordered Date fenofibrate nanocrystallized (TRICOR) tablet 145 mg 1 04/29/2024 ondansetron (ZOFRAN) injection 4 mg 1 04/29 polyethylene glycol (MIRALAX) packet 68 g 1 04/28/2024 sodium chloride 0.9% flush 0.5-20 mL 1 04/08 ciprofloxacin (CIPRO) 400 mg /200 mL in dextrose 5% (premix) 400 mg 1 04/26/2024 metroNIDAZOLE (FLAGYL) 500 m g/100 mL in sodium chloride (premix) 500 mg 1 04/26/2024 ondansetron ODT (ZOFRAN-ODT) disintegrating tablet 4 mg 1 04/26/2024 oxyCODONE (ROXICODONE) tablet 5 mg 1 2023 pancrelipase (CREON) 6,000 u nits of lipase per capsule 6,000 units of lipase 1 04/26/2024 EKG Orders Without Results Count Last Ordered D ate First Ordered Date ECG 12-LEAD 1 04/26/2024 Nursing Count Last Ordered Date First Orde red Date NURSING COMMUNICATION 3 04/29/20242023 OBTAIN BLOOD ADMINISTRATION CONSENT 1 04/27 Consult Count Last Ordered Date First Orde red Date IP CONSULT TO GASTROENTEROLOGY 1 04/26/2024 Admission Count Last Ordered Date First Orde red Date ADMIT TO INPATIENT 1 04/26/2024 Discharge Count Last Ordered Date First Orde red Date DISCHARGE PATIENT 1 04/30/2024 CORE MEASURES Count Last Ordered Date First Ord ered Date REASON FOR NO VTE PROPHYLAXI S - HOSPITAL ADMISSION - MEDICATIONS 2 04/26/2024 Case Request Count Last Ordered Date First Orde red Date CASE REQUEST GI 2 04/29/2024 04/28/2024 documented in this encounter Care Teams Information Technology Account Manager Relationship Specialty Start Date End Date Carlos Pacheco MD [address] [place] [id number] PCP - General Internal Medicine 04/26/24 documented as of this encounter
--- OUTSIDE RECORDS SUMMARY | 2024-10-04 12:44 | XMS_ITS | Encounter Summary ---
Author Organization [facility] Healthcare Address [address] [place] [address] Care Team Providers Care Professor Of Biology Name Role Phone Carlos Pacheco MD Primary Care Provider [phone] Encounter Details Date Type Department Care Team (Latest Contact Info) Description 06/26/2024 Orders Only [facility] Medical Group Gastroenterology at [address] [place] [phone] Celestino Moctezuma MD [address] [place] [address] [address] [place] [address] Gastrointestinal hemorrhage, unspecified gastrointestinal hemorrhage type (Primary Dx) Social History Tobacco Use Types Packs/Day Years Used Date Smoking Tobacco: Every Day Cigarettes [facility] Utilities Answer Date Recorded In the [...] re latives? Twice a week 04/30/2024 Attends [employer] Services Not on file 04/30 Active Member [...] time in the past 12 m [facility], were you homeless or living in a half-way (including now)? No 04/30/2024 Personal Safety Answer Date Recorded Have you ever been in or are you currently in a harmful physical or emotional relationship or is someone making you feel afraid or unsafe? 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 Not on file Not on fi le documented as of this encounter Plan of Treatment Upcoming Encounters Date Type Department Care Team (Late st Contact Info) Description 05/04/2025 8:00 AM CDT Hospital Encounter [address] [address] Celestino Moctezuma MD [address] [facility] [address] [place] [address] 05/04/2025 8:00 AM CDT - 05/04/2025 8:30 AM CDT Surgery [address] [address] Celestino Moctezuma MD [address] [facility] [address] [place] [address] COLONOSCOPY Scheduled Procedures Name Priority Associated Diagnoses Date/Ti me COLONOSCOPY Personal history of colonic polyps Encounter for screening colonoscopy 05/04/2025 8:00 AM CDT documented as of this encounter Results * Folate (08/04/2024 8:20 AM CDT) Folic acid 10.3 >=5.0 ng/mL Comment:Testing performed by : [facility], [address] [place] [address]., [id number] Blood 08/04/2024 8:20 AM CDT 08/04/2024 1:00 PM CDT us Celestino Moctezuma MD LAB BLOOD ORDERABLES Final Result Performing Organization Address City/[facility] [address]/ZIP Co de Phone Number [facility] ([place]) [address] [place] [address] Department [place] [address] * Vitamin B12 (08/04/2024 8:20 AM CDT) Vitamin B12 253 230 - 1,250 pg/mL Comment:Testing performed by : [address] [id number] Blood 08/04/2024 8:20 AM CDT 08/04/2024 1:00 PM CDT Celestino Moctezuma MD LAB BLOOD ORDERABLES Final Result [facility] ([place]) [address] [facility] Department [place] [address] * (ABNORMAL) Iron profile w/ IBC (08/04/2024 8:20 AM CDT) [facility] Iron 69 50 - 150 mcg/dl Comment:Testing performed by : [facility], [address] [place] [address]., [id number] TIBC 396 250 - 400 mcg/dL [facility] ([place]) Comment:Testing performed by : [facility], [address] [place] [address], [id number] Transferrin saturation 17(L) 20 - 50 % [facility] ([place]) Comment:Testing performed by : [address], [address] Blood 08/04/2024 8:20 AM CDT 08/04/2024 1:00 PM CDT Celestino Moctezuma MD LAB BLOOD ORDERABLES Final Result [facility] ([place]) 1 [facility] Department [place] [address] * (ABNORMAL) CBC with auto differential (08/04/2024 8:20 AM CDT) [facility] WBC 6.5 3.8 - 9.9 K/cumm Comment:Testing performed by : [address], [address] Hgb 15.3 13.0 - 17.5 g/dL [facility] ([place]) Comment:Testing performed by : [facility], [address] [place] [address]., [address] Hct 48.6 38.9 - 50.3 % [facility] ([place]) Comment:Testing performed by : [address] [address] Plt 419(H) 150 - 400 K/cumm [facility] ([place]) Comment:Testing performed by : [address], [address] MPV 10.0 9.1 - 12.3 fL [facility] ([place]) Comment:Testing performed by : [facility], [address] [place] [address], [address] RBC 5.05 4.30 - 5.80 M/cumm [facility] ([place]) Comment:Testing performed by : [facility], [address] [place] [address], [address] MCV 96.2 81.3 - 96.4 fL [facility] ([place]) Comment:Testing performed by : [facility], [address] [place] [address], [address] MCH 30.3 27.1 - 33.3 pg [facility] ([place]) Comment:Testing performed by : [facility], [address] [place] [address], [address] MCHC 31.5(L) 32.3 - 35.7 g/dL [facility] ([place]) Comment:Testing performed by : [address], [address] RDW CV 13.2 11.1 - 14.9 % [facility] ([place]) Comment:Testing performed by : [address], [address] RDW SD 46.7 35.7 - 48.1 fL [facility] ([place]) Comment:Testing performed by : [address], [address] NRBC abs 0.00 0.00 - 0.01 K/cumm [facility] ([place]) Comment:Testing performed by : [address], [address] Blood 08/04/2024 8:20 AM CDT 08/04/2024 1:00 PM CDT Celestino Moctezuma MD LAB BLOOD ORDERABLES Final Result [facility] ([place]) 1 [facility] Department [place] [place] [address] documented in this encounter Visit Diagnoses Diagnosis Personal history of colonic polyps Encounter for screening colonoscopy Gastrointestinal hemorrhage, unspecified gastrointestinal hemorrhage type- Primary Personal history of colonic polyps Encounter for screening colonoscopy documented in this encounter Care Teams Professor Of Biology Relationship Specialty Start Date End Date Carlos Pacheco MD [address] [place] [address] PCP - General Internal Medicine 04/26/24 documented as of this encounter
--- OUTSIDE RECORDS SUMMARY | 2024-10-04 12:44 | XMS_ITS | Encounter Summary ---
Author Organization [facility] Healthcare Address [address] [place] [address] Care Team Providers Care Physical Therapy Asst Name Role Phone Carlos Pacheco MD Primary Care Provider [phone] Encounter Details Date Type Department Care Team (Late st Contact Info) Description 05/08/2024 Telephone [facility] Medical Group Gastroenterology at [address] [place] [phone] Celestino Moctezuma MD [address] [place] [address] [address] [place] [address] Social History Tobacco Use Types Packs/Day Years Used Date Smoking Tobacco: Every Day Cigarettes [facility] Utilities Answer Date Recorded In the past 12 months has e electric, gas, oil, or water company [...] re latives? Twice a week 04/30/2024 Attends Yaz[employer] Services Not on file 04/30 Active Member [...] when you are drinking? 5 or 6 4 Q3: How often do you have si [...] any time in the past 12 m [facility], were you homeless or living in a half-way (including now)? No 04/30/2024 Personal Safety Answer Date Recorded Have you ever been in or are you currently in a harmful physical or emotional relationship or is someone making you feel afraid or unsafe? 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 Law scheduled for colonoscopy 05-04-2024 @ 8:00 am Last colonoscopy: 04-29-2024 Family history colon cancer (if yes, relationship to pt): no Personal history colon polyps or colon cancer: polyps Pt on blood thinner (if yes, list medication and reason for taking): no Has pt had recent stent placement within the last year: no Pt have pacemaker/defibrillator: no Pt diabetic (if yes, insulin or oral meds): no Pt takes injections for weight loss: no Pt have kidney disease or on dialysis: no Pt on iron: no Hx of Constipation: no Mechanical Heart valve: no Instructed pt to call with any medical changes and/or medications/insurance. documented in this encounter Plan of Treatment Upcoming Encounters Date Type Department Care Team (Late st Contact Info) Description 05/04/2025 8:00 AM CDT Hospital Encounter [address] [address] Celestino Moctezuma MD [address] [place] [address] [address] [place] [address] 05/04/2025 8:00 AM CDT - 05/04/2025 8:30 AM CDT Surgery [address] [address] Celestino Moctezuma MD [address] [place] [address] [address] [place] [id number] COLONOSCOPY Scheduled Procedures Name Priority Associated Diagnoses Date/Ti me COLONOSCOPY Personal history of colonic polyps Encounter for screening colonoscopy 05/04/2025 8:00 AM CDT documented as of this encounter Visit Diagnoses Diagnosis Personal history of colonic polyps- Primary Encounter for screening colonoscopy Personal history of colonic polyps Encounter for screening colonoscopy Personal history of colonic polyps Encounter for screening colonoscopy documented in this encounter Orders Case Request Count Last Ordered Date First Orde red Date CASE REQUEST GI 1 05/08/2024 documented in this encounter Care Teams Physical Therapy Asst Relationship Specialty Start Date End Date Carlos Pacheco MD [address] [place] [id number] PCP - General Internal Medicine 04/26/24 documented as of this encounter
--- OUTSIDE RECORDS SUMMARY | 2024-10-04 12:44 | XMS_ITS | Encounter Summary ---
Author Organization [facility] Healthcare Address [address] [place] [address] Care Team Providers Care Fruit Shipper Name Role Phone Carlos Pacheco MD Primary Care Provider [phone] Reason for Visit * Reason Onset Date Comments Medical Records Request 08/15/2024 Encounter Details Date Type Department Care Team (Late st Contact Info) Description 08/15/2024 Telephone [facility] Medical Group Gastroenterology at [address] [place] [address] Lori Pruett Medical Records Request Social History Tobacco Use Types Packs/Day Years Used Date Smoking Tobacco: Every Day Cigarettes [facility] Utilities Answer Date Recorded In [...] re latives? Twice a week 04/30/2024 Attends Religion Services Not on file 04/30 Active Member [...] in the past 12 m [facility], were you homeless or living in a jail (including now)? No 04/30/2024 Personal Safety Answer Date Recorded Have you ever been in or are you currently in a harmful physical or emotional relationship or is someone making you feel afraid or unsafe? 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 Record were faxed as requested to [phone]. PRINT BLOCKER documented in this encounter Plan of Treatment Upcoming Encounters Date Type Department Care Team (Late st Contact Info) Description 05/04/2025 8:00 AM CDT Hospital Encounter [address] [address] Celestino Moctezuma MD 4 [facility] [address] [place] [address] 05/04/2025 8:00 AM CDT - 05/04/2025 8:30 AM CDT Surgery [address] [address] Celestino Moctezuma MD 4 [facility] [address] [place] [address] COLONOSCOPY Scheduled Procedures Name Priority Associated Diagnoses Date/Ti me COLONOSCOPY Personal history of colonic polyps Encounter for screening colonoscopy 05/04/2025 8:00 AM CDT documented as of this encounter Visit Diagnoses Not on filedocumented in this encounter Care Teams Fruit Shipper Relationship Specialty Start Date End Date Carlos Pacheco MD [address] [place] [id number] PCP - General Internal Medicine 04/26/24 documented as of this encounter
--- OUTSIDE RECORDS SUMMARY | 2024-10-04 12:44 | XMS_ITS | Encounter Summary ---
Author Organization [facility] Healthcare Address [address] [place] [id number] Care Team Providers Care Serology Technician Name Role Phone Carlos Pacheco MD Primary Care Provider [phone] Reason for Visit * Auth/Cert (Routine) Specialty Diagnoses / Procedures Referred By Deirdre t Referred To Contact Diagnoses Rectal bleeding Rectal bleeding [K62.5] Procedures CO SIGMOIDOSCOPY FLX DX W/COLLJ SPEC BR/WA IF PFRMD SIGMOIDOSCOPY Referral ID Status Reason Start Date Expiration Date Visits Re quested Visits Authorized [id number] 1 1 Encounter Details Date Type Department Care Team (Latest Contact Info) Description 09/19/2024 10:26 AM TEACHING SUPERVISOR - 09/19/2024 2:26 PM [facility] Hospital Encounter [facility] [address] [place] [address] Celestino Moctezuma MD [address] [place] [id number] Rectal bleeding Discharge Disposition: Discharge to home or self care Social History Tobacco Use Types Packs/Day Years Used Date Smoking Tobacco: Every Day Cigarettes [facility] Utilities Answer Date Recorded In the past 12 months has th [employer] electric, gas, oil, or water company threatened [...] re latives? Twice a week 04/30/2024 Attends [employer] [facility] Not on file 04/30 Active Member [...] in the past 12 m [facility], were you homeless or living in a assisted (including now)? No 04/30/2024 Personal Safety Answer Date Recorded Have you ever been in or are you currently in a harmful physical or emotional relationship or is someone making you feel afraid or unsafe? 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 Not on file Not on fi le documented as of this encounter Last Filed Vital Signs Vital Sign Reading Time Taken Comments Blood Pressure 152/82 09/19/2024 2:07 PM TEACHING SUPERVISOR Pulse 55 09/19/2024 2:07 PM TEACHING SUPERVISOR Temperature 36.9 ??C (98.5 ??F) 09/19/2024 2:07 PM CS T Respiratory Rate 18 09/19/2024 2:07 PM TEACHING SUPERVISOR Oxygen Saturation 99% 09/19/2024 2:07 PM TEACHING SUPERVISOR Inhaled Oxygen Concentration - - Weight 81.6 kg (180 lb) 09/19/2024 10:45 AM TEACHING SUPERVISOR Height 180.3 cm (5' 11 ) 09/19/2024 10:45 AM TEACHING SUPERVISOR Body Mass Index 25.1 09/19/2024 10:45 AM TEACHING SUPERVISOR documented in this encounter Medications at Time of Discharge amLODIPine (NORVASC) 5 mg tablet Take 1 tablet (5 mg total) by mouth nightly atorvastatin (LIPITOR) 10 mg tablet Take 1 tablet (10 mg total) by mouth nightly famotidine (PEPCID) 40 mg tablet Take 1 tablet (40 mg total) by mouth daily 30 tablet 11 05/05/2024 05/05/20 25 fenofibrate (TRIGLIDE) 160 mg tablet Take 1 tablet (160 mg total) by mouth nightly hydrocortisone (ANUSOL-HC) 25 mg suppository Insert 1 suppository (25 mg total) into the rectum daily Take prior to procedure as directed 20 suppository 08/26/2024 08/26/20 25 metoprolol XL (TOPROL-XL) 100 mg 24 hr tablet Take 1 tablet (100 mg total) by mouth nightly zolpidem (AMBIEN) 10 mg tabletIndication s:Sleep-Onset Insomnia Take 1 tablet (10 mg total) by mouth nightly documented as of this encounter Discharge Disposition Disposition Code Departure Means Destination Comment s Discharge to home or self care documented in this encounter H&P Notes * Celestino Moctezuma MD - 09/19/2024 1:55 PM CST History and Physical Date of visit: 09/19/2024 Subjective: Patient is a 49 y.o. male presented for evaluation for bleeding per rectum and recent history of GIbleeding. Past Medical History: Diagnosis Date Hypertension Past Surgical History: Procedure Laterality Date BRAIN SURGERY Medications Prior to Admission Medication Sig Dispense Refill Last Dose/Taking amLODIPine (NORVASC) 5 mg tablet Take 1 tablet (5 mg total) by mouth nightly atorvastatin (LIPITOR) 10 mg tablet Take 1 tablet (10 mg total) by mouth nightly famotidine (PEPCID) 40 mg tablet Take 1 tablet (40 mg total) by mouth daily 30 tablet 11 fenofibrate (TRIGLIDE) 160 mg tablet Take 1 tablet (160 mg total) by mouth nightly hydrocortisone (ANUSOL-HC) 25 mg suppository Insert 1 suppository (25 mg total) into the rectum daily Take prior to procedure as directed 20 suppository 0 metoprolol XL (TOPROL-XL) 100 mg 24 hr tablet Take 1 tablet (100 mg total) by mouth nightly zolpidem (AMBIEN) 10 mg tablet Take 1 tablet (10 mg total) by mouth nightly No Known Allergies Social History Tobacco Use Smoking status: Every Day Current packs/day: 0.05 Types: Cigarettes Smokeless tobacco: None Substance and Sexual Activity Drug use: None Sexual activity: None Alcohol Use: Alcohol Misuse (09/19/2024) AUDIT-C Frequency of Alcohol Consumption: Monthly or less Average Number of Drinks: 5 or 6 Frequency of Binge Drinking: Daily or almost daily No family history on file. Physical Exam: Patient is awake and answers well. Eyes: no jaundice. Lungs: CTA anteriorly. ENT: no mouth ulcers. Abdomen: soft, no distention, no tenderness, bowel sounds positive. Extremities: no edema. Skin: no rash. GI IMPRESSION: Bleeding per rectum GI PLAN/RECOMMENDATIONS: Sigmoidoscopy Celestino Moctezuma MD HING SUPERVISOR documented in this encounter Procedure Notes * Celestino Moctezuma MD - 09/19/2024 10:29 AM CSTAssociated Order(s): FLEXIBLE SIGMOIDOSCOPY [facility] Patient Name: Sedrick Law Procedure Date: 09/19/2024 10:29 AM Date of : 1975 Admit Type: Outpatient Age: 49 Gender: Male Attending MD: Celestino Moctezuma M.D. Room: [facility] END[facility]COPY ROOM 1 Note Status: Finalized Patient Profile: This is a 49 year old male. 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 Noted extensive diverticulosis and sharp angulation with polyp formation in the distal sigmoid colon and colorectal angle. Procedure: Flexible Sigmoidoscopy Indications: Rectal hemorrhage Referring MD: Carlos Pacheco M.D. Providers: Celestino Moctezuma M.D. Impression: - Diverticulosis in the sigmoid colon. Sharp angulation and spasm in the distal sigmoid area and rectosigmoid areas - Two 8 to 14 mm polyps in the distal sigmoid colon, removed with a hot snare. Resected and retrieved. - One 15 mm polyp in the proximal rectum, removed with a hot snare. Resected and retrieved. Clip (MR conditional) was placed. Clip window glass installer: [employer]. - Internal hemorrhoids. Treated with thermal therapy. Recommendation: - Await pathology results. - Fiber [...] anticoagulant or antiplatelet agents. ASA Grade Assessment: Per anesthesia note and evaluation. After reviewing the risks and benefits, the patient was deemed in satisfactory condition to undergo the procedure. The benefits, risks, and alternatives to the procedure and sedation were discussed and informed consent was obtained. The Endoscope GIF-H190 [id number] was introduced through the anus and advanced to the the descending colon. The flexible sigmoidoscopy was accomplished without difficulty. The patient tolerated the procedure well. The quality of the bowel preparation was adequate. Findings: The perianal and digital rectal examinations were normal. Multiple small and large-mouthed diverticula were found in the sigmoid colon. Sharp angulation with the extensive spasm noted in the distal sigmoid colon and in the rectal sigmoid area with mucosal congestion. Overall visualization in this area is somewhat difficult. Two sessile polyps were found in the distal sigmoid colon with an areas of spasm close to the rectal sigmoid curve. The polyps were 8 to 14 mm in size. These polyps were removed with a hot snare. Resection and retrieval were complete. A 15 mm polyp was found in the proximal rectum. The polyp was sessile. The polyp was removed with a hot snare. Resection and retrieval were complete. To prevent bleeding after the polypectomy, one hemostatic clip was successfully placed (MR conditional). Clip window glass installer: [employer]. There was no bleeding at the end of the procedure. Internal hemorrhoids were found during retroflexion. The hemorrhoids were medium-sized. Coagulation to prevent future bleeding of internal hemorrhoids using IRC (Infrared Coagulation) was successful. Electronically signed by Celestino Moctezuma M.D. Celestino Moctezuma M.D. 09/19/2024 2:12:13 PM Number of Addenda: 0 Note Initiated On: 09/19/2024 10:29 AM Procedure Code(s): --- Professional --- 80106, Destruction of internal hemorrhoid(s) by thermal energy (eg, infrared coagulation, cautery, radiofrequency) 91387, Sigmoidoscopy, flexible; with removal of tumor(s), polyp(s), or other lesion(s) by snare technique Diagnosis Code(s): --- Professional --- K64.8, Other hemorrhoids D12.5, Benign neoplasm of sigmoid colon D12.8, Benign neoplasm of rectum K62.5, Hemorrhage of anus and rectum K57.30, Diverticulosis of large intestine without perforation or abscess without bleeding CPT copyright 2020 [employer]. All rights reserved. The codes documented in this report are preliminary and upon front desk associate review may be revised to meet current compliance requirements. Recognized by the [place] [employer] for promoting quality in endoscopy HING SUPERVISOR documented in this encounter Miscellaneous Notes * Perioperative Nursing Note - Diana Holbrook RN - 09/19/2024 2:16 PM TEACHING SUPERVISOR 1415 at bedside to discuss results to pt and spouse. Pt to f/u in 1 yr for next colonoscopy. Pt was instructed to take fiber supplements. Pt to cont.diet and meds at home. HING SUPERVISOR documented in this encounter Plan of Treatment Upcoming Encounters Date Type Department Care Team (Late st Contact Info) Description 05/04/2025 8:00 AM CDT Hospital Encounter [address] [address] Celestino Moctezuma MD [address] [place] [address] [address] [place] [address] 05/04/2025 8:00 AM CDT - 05/04/2025 8:30 AM CDT Surgery [address] [address] Celestino Moctezuma MD [address] [place] [address] [place] [address] COLONOSCOPY Scheduled Procedures Name Priority Associated Diagnoses Date/Ti me COLONOSCOPY Personal history of colonic polyps Encounter for screening colonoscopy 05/04/2025 8:00 AM CDT documented as of this encounter Procedures Procedure Name Priority Date/Time Associated Diagnosis Comments SURGICAL PATHOLOGY STAT 09/19/2024 2: 58 PM TEACHING SUPERVISOR Rectal bleeding INFRARED COAGULATION OF HEMORRHOIDS 09/19/2024 1:08 PM TEACHING SUPERVISOR Rectal bleeding SIGMOID REMOVAL SNARE 09/19/2024 1:08 PM TEACHING SUPERVISOR Rectal bleeding FLEXIBLE SIGMOIDOSCOPY 10:29 AM TEACHING SUPERVISOR documented in this encounter Results * Surgical pathology (09/19/2024 2:58 PM TEACHING SUPERVISOR) Tissue (Polyp(s), colon/colorectal, esophageal, gastric) 09/19/2024 1:43 PM TEACHING SUPERVISOR Tissue (Polyp(s), colon/colorectal, esophageal, gastric) 09/19/2024 1:43 PM TEACHING SUPERVISOR Narrative PATHOLOGY [facility] - 09/23/2024 12:42 PM TEACHING SUPERVISOR EPIC results best viewed via link to PDF [facility] Department of Pathology [address] [place] [id number] Note to Patients: This report may contain [...] the details. Final Report Patient Name: ??RUFINA, SEDRICK Parris Address: ??[address] [place] [address], ??[place], [place] [address] Gender: ??M : ??1975 (Age: 49) Service: ??Gastro Location: ??[facility] Hospital #: ??[id number] Patient Type: ??[facility] Accession # ?[id number] Taken: ??09/19/2024 Received: ??09/19/2024 Accessioned: ??09/19/2024 Reported: [...] is submitted in two formalin containers labeled SEDRICK NULL . A. ??Received in the first container labeled rectal polyp x1 . ??It is 1 red- guo polypoid tissue fragment measuring 1 cm. ??Inked and bisected. ??All in A B. ?? Received in the second container labeled sigmoid polyp x2 . ??It is 2 pieces of guo tissue, 1 and 3 mm. ??All in B T.A. Dian Cornejo., P.A./Angy Quiros M.D. REPORT IMAGES AND SCANNED DOCUMENTS, IF INCLUDED, ONLY VIEWABLE IN PDF VERSION OF REPORT The performance characteristics of some immunohistochemical stains, fluorescence in-situ hybridization tests and immunophenotyping by flow cytometry cited in this report (if any) were determined by the Surgical Pathology Department at [facility] as part of an ongoing quality supervisor program and in compliance with federally mandated [...] characteristics determined by the Surgical Pathology Department [facility]. ??It has not been cleared or approved by the U. S. Food and Drug Administration. Note for decalcified specimens: This assay has not been validated on decalcified tissues. Results should be interpreted with caution given the possibility of false negativity on decalcified specimens Celestino Moctezuma MD LAB PATHOLOGY ORDERABLES F inal Result Performing Organization Address City/State/[facility] Co de [place] [address] * Flexible Sigmoidoscopy (09/19/2024 10:29 AM TEACHING SUPERVISOR) Anatomical Region Laterality Modality Other Narrative Procedure Note Celestino Moctezuma MD - 09/19/2024 10:29 AM CST [facility] Patient Name: Sedrick Law Procedure Date: 09/19/2024 10:29AM Date of : 1975 Admit Type: Outpatient Age: 49 Gender: Male Attending MD: Celestino Moctezuma M.D. Room: [facility] RO[facility] 1 Note Status: Finalized Patient [...] retrieved. Clip (MR conditional) was placed. Clip window glass installer: [employer]. - Internal hemorrhoids. Treated with thermaltherapy. Recommendation: [...] and informed consentwas obtained. The Endoscope GIF-H190 [id number] was introduced through the anus and advanced [...] hemostaticclip was successfully placed (MR conditional). Clip window glass installer: [employer]. There was no bleeding at the end of the procedure. Internal hemorrhoids were found during retroflexion. The hemorrhoids were medium-sized. Coagulation to prevent future bleeding of internal hemorrhoids using IRC (Infrared Coagulation) was successful. Electronically signed by Celestino Moctezuma M.D. Celestino Moctezuma M.D. 09/19/2024 2:12:13 PM Number of Addenda: 0 Note Initiated On: 09/19/2024 10:29 AM Procedure Code(s): --- Professional --- 30531, Destruction of internal hemorrhoid(s) by thermal energy (eg, infrared coagulation, cautery, radiofrequency) 69168, Sigmoidoscopy, flexible; with removal of tumor(s), polyp(s),or other lesion(s) by snare technique Diagnosis Code(s): --- Professional --- K64.8, Other hemorrhoids D12.5, Benign neoplasm of sigmoid colon D12.8, Benign neoplasm of rectum K62.5, Hemorrhage of anus and rectum K57.30, Diverticulosis of large intestine without perforation orabscess without bleeding CPT copyright 2020 [employer]. All rights reserved. The codes documented in this report are preliminary and upon front desk associate reviewmay be revised to meet current compliance requirements. Recognized by the [place] [employer] for promoting quality in endoscopy Celestino Moctezuma MD ENDOSCOPY PROCEDURES Final Result documented in this encounter Visit Diagnoses Diagnosis Personal history of colonic polyps Encounter for screening colonoscopy Rectal bleeding- Primary Hemorrhage of rectum and anus Personal history of colonic polyps Encounter for screening colonoscopy documented in this encounter Admitting Diagnoses Diagnosis Rectal bleeding Hemorrhage of rectum and anus documented in this encounter Administered Medications Inactive Administered Medications - up to 3 most recent administrations Medication Order MAR Action Action Date Dose Rate Site ondansetron (ZOFRAN) injection 4 mg 4 mg, intravenous, Administer over 2 Minutes, Every 30 min PRN, nausea, vomiting, Starting on Sun09/19/24 at 1040, For 2 doses, Recovery (GI), Indications: Nausea and VomitingIndications:Nausea and Vomiting Given 09/19/2024 1:47 PM TEACHING SUPERVISOR 4 mg sodium chloride 0.9% flush 0.5-20 mL 0.5-20 mL, intra-catheter, As needed, line care, Starting on Sun09/19/24 at 1041, Pre-Procedure (GI), Flush volume based on line type and size. Flush before and after each use. sodium chloride 0.9% infusion 30 mL/hr, intravenous, Continuous, Starting on Sun09/19/24 at 1115, Pre-Procedure (GI) sodium chloride 0.9% infusion 125 mL/hr, intravenous, Continuous, Starting on Sun09/19/24 at 1115, Recovery (GI) documented in this encounter Active and Recently Administered Medications Times are shown in TEACHING SUPERVISOR. Continuous Medication Order 09/17/2024 09/18/2024 09/19/2024 sodium chloride 0.9% infusion 30 mL/hr, intravenous, Continuous, Starting on Sun09/19/24 at 1115, Pre-Procedure (GI) 1115 (Due) sodium chloride 0.9% infusion 125 mL/hr, intravenous, Continuous, Starting on Sun09/19/24 at 1115, Recovery (GI) 1115 (Due) PRN Medication Order 09/17/2024 09/18/2024 09/19/2024 ondansetron (ZOFRAN) injection 4 mg 4 mg, intravenous, Administer over 2 Minutes, Every 30 min PRN, nausea, vomiting, Starting on Sun09/19/24 at 1040, For 2 doses, Recovery (GI), Indications: Nausea and Vomiting 1347 (Given - Provid er: Liliya Grvaes RN) sodium chloride 0.9% flush 0.5-20 mL 0.5-20 mL, intra-catheter, As needed, line care, Starting on Sun09/19/24 at 1041, Pre-Procedure (GI), Flush volume based on line type and size. Flush before and after each use. documented in this encounter Orders Medications Ordered That Vadim ht Not Have Been Administered Count Last Ordered Date First Ordered Date sodium chloride 0.9% flush 0.5-20 mL 1 09/07 sodium chloride 0.9% infusion 2 09/19/2024 Discharge Count Last Ordered Date First Orde red Date DISCHARGE PATIENT 1 09/19/2024 documented in this encounter Care Teams Serology Technician Relationship Specialty Start Date End Date Carlos Pacheco MD [address] [place] [address] PCP - General Internal Medicine 04/26/24 documented as of this encounter
--- OUTSIDE RECORDS SUMMARY | 2024-10-04 12:44 | XMS_ITS | Referral Summary ---
Author Organization [facility] Address [address] [place] [address] Care Team Providers Care Traffic Engineering Technician Name Role Phone Carlos Pacheco MD Primary Care Provider Encounters Date Type Department Care Team Description 09/19/2024 1:12 PM JUNIOR SYSTEMS ADMINISTRATOR Anesthesia Event [address] [address] Luke Vivar MD 09/19/2024 12:00 PM JUNIOR SYSTEMS ADMINISTRATOR - 09/19/2024 12:30 PM JUNIOR SYSTEMS ADMINISTRATOR Surgery [address] [address] Celestino Moctezuma MD SIGMOID REMOVAL SNARE 09/19/2024 10:26 AM JUNIOR SYSTEMS ADMINISTRATOR - 09/19/2024 2:26 PM JUNIOR SYSTEMS ADMINISTRATOR Hospital Encounter [address] [address] Celestino Moctezuma MD Rectal bleeding Discharge Disposition: Discharge to home or self care 08/27/2024 Telephone [facility] Gastroenterology at [address] [place] [address] Jeanne Lugo MA 08/26/2024 Orders Only [facility] Gastroenterology at [address] [place] [address] Celestino Moctezuma MD 08/25/2024 Telephone [facility] Gastroenterology at [address] [place] [address] Jeanne Lugo MA 08/15/2024 Telephone [facility] Gastroenterology at [address] [place] [address] Lori Pruett Medical Records Request 08/04/2024 8:30 AM CDT Lab [facility] Laboratory [address] [address] Gastrointestinal hemorrhage, unspecified gastrointestinal hemorrhage type 08/04/2024 8:15 AM CDT Lab [facility] [address] [place] [address] from Last 3 Months Allergies No known active allergies Medications amLODIPine [...] colonoscopy 05/08/2024 Diverticulitis 04/27/2024 Rectal bleeding 04/26/2024 Social History Tobacco Use Types Packs/Day Years Used Date Smoking Tobacco: Every Day Cigarettes Tobacco Cessation:Ready to Q uit: Not Asked; Counseling Given: Not Answered [facility] Utilities Answer Date Recorded In the past 12 months has e [employer], gas, oil, or water [employer] threatened to shut off services in your home? No 04/30/2024 Social Connection and Isolation Panel [NHANES] A nswer Date Recorded In a typical week, how many times do you talk on the phone with family, friends, or neighbors? Twice a week 04/30/2024 How often do you get together with friends or re latives? Twice a week 04/30/2024 Attends [employer] Not on file 04/30 Active Member [...] any time in the past 12 m [facility], were you homeless or living in a halfway (including now)? No 04/30/2024 Personal Safety Answer Date Recorded Have you ever been in or are you currently in a harmful physical or emotional relationship or is someone making you feel afraid or unsafe? 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 file Not on file Not on fi le Last Filed Vital Signs Vital Sign Reading Time Taken Comments Blood Pressure 152/82 09/19/2024 2:07 PM JUNIOR SYSTEMS ADMINISTRATOR Pulse 55 09/19/2024 2:07 PM JUNIOR SYSTEMS ADMINISTRATOR Temperature 36.9 ??C (98.5 ??F) 09/19/2024 2:07 PM CS T Respiratory Rate 18 09/19/2024 2:07 PM JUNIOR SYSTEMS ADMINISTRATOR Oxygen Saturation 99% 09/19/2024 2:07 PM JUNIOR SYSTEMS ADMINISTRATOR Inhaled Oxygen Concentration - - Weight 81.6 kg (180 lb) 09/19/2024 10:45 AM JUNIOR SYSTEMS ADMINISTRATOR Height 180.3 cm (5' 11 ) 09/19/2024 10:45 AM JUNIOR SYSTEMS ADMINISTRATOR Body Mass Index 25.1 09/19/2024 10:45 AM JUNIOR SYSTEMS ADMINISTRATOR Plan of Treatment Upcoming Encounters Date Type Department Care Team (Late st Contact Info) Description 05/04/2025 8:00 AM CDT Hospital Encounter [address] [address] Celestino Moctezuma MD [address] [place] [address] [place] [address] 05/04/2025 8:00 AM CDT - 05/04/2025 8:30 AM CDT Surgery [address] [address] Celestino Moctezuma MD [address] [facility] [place] [address] COLONOSCOPY Scheduled Procedures Name Priority Associated Diagnoses Date/Ti me COLONOSCOPY Personal history of colonic polyps Encounter for screening colonoscopy 05/04/2025 8:00 AM CDT Procedures Procedure Name Priority Date/Time Associated Diagnosis Comments SURGICAL PATHOLOGY STAT 09/19/2024 2: 58 PM JUNIOR SYSTEMS ADMINISTRATOR Rectal bleeding INFRARED COAGULATION OF HEMORRHOIDS 09/19/2024 1:08 PM JUNIOR SYSTEMS ADMINISTRATOR Rectal bleeding SIGMOID REMOVAL SNARE 09/19/2024 1:08 PM JUNIOR SYSTEMS ADMINISTRATOR Rectal bleeding FLEXIBLE SIGMOIDOSCOPY 09/19/2024 10:29 AM JUNIOR SYSTEMS ADMINISTRATOR EGFR Routine 08/04/2024 8:21 AM CDT LIPID [...] Results * Surgical pathology (09/19/2024 2:58 PM JUNIOR SYSTEMS ADMINISTRATOR) Tissue (Polyp(s), colon/colorectal, esophageal, gastric) 09/19/2024 1:43 PM JUNIOR SYSTEMS ADMINISTRATOR Tissue (Polyp(s), colon/colorectal, esophageal, gastric) 09/19/2024 1:43 PM JUNIOR SYSTEMS ADMINISTRATOR Narrative [facility]Y [facility] - 09/23/2024 12:42 PM JUNIOR SYSTEMS ADMINISTRATOR EPIC results best viewed via link to PDF [facility] Department of Pathology [address] [place] [address] Note to Patients: This report may contain [...] the details. Final Report Patient Name: ??ANGELIQUE LAWBerna Address: ??[address] [place] [address], ??[place], [place] [address] Gender: ??M : ??1975 (Age: 49) Service: ??Gastro Location: ??[facility] Hospital #: ??[id number] Patient Type: ??[facility] Accession # ?[id number] Taken: ??09/19/2024 Received: ??09/19/2024 Accessioned: ??09/19/2024 Reported: [...] determined by the Surgical Pathology Department at [facility] as part of an ongoing food quality tester program and in compliance with federally mandated [...] characteristics determined by the Surgical Pathology Department [facility]. ??It has not been cleared or approved by the U. S. Food and Drug Administration. Note for decalcified specimens: This assay has not been validated on decalcified tissues. Results should be interpreted with caution given the possibility of false negativity on decalcified specimens us Celestino Moctezuma MD LAB PATHOLOGY ORDERABLES F inal Result PATHOLOGY [facility]) [address] [place], [place] [id number] * Flexible Sigmoidoscopy (09/19/2024 10:29 AM JUNIOR SYSTEMS ADMINISTRATOR) Anatomical Region Laterality Modality Other Narrative Procedure Note Celestino Moctezuma MD - 09/19/2024 10:29 AM CST [facility] Patient Name: Angelique Law Procedure Date: 09/19/2024 10:29AM Date of : 1975 Admit Type: Outpatient Age: 49 Gender: Male Attending MD: Celestino Moctezuma M.D. Room: [facility] ENDOSCOPY ROOM 1 Note Status: Finalized [...] retrieved. Clip (MR conditional) was placed. Clip counter hop: [employer]. - Internal hemorrhoids. Treated with thermaltherapy. Recommendation: [...] and informed consentwas obtained. The Endoscope GIF-H190 [id number] was introduced through the anus and advanced [...] hemostaticclip was successfully placed (MR conditional). Clip counter hop: [employer]. There was no bleeding at the end of the procedure. Internal hemorrhoids were found during retroflexion. The hemorrhoids were medium-sized. Coagulation to prevent future bleeding of internal hemorrhoids using IRC (Infrared Coagulation) was successful. Electronically signed by Celestino Moctezuma M.D. Celestino Moctezuma M.D. 09/19/2024 2:12:13 PM Number of Addenda: 0 Note Initiated On: 09/19/2024 10:29 AM Procedure Code(s): --- Professional --- 56921, Destruction of internal hemorrhoid(s) by thermal energy (eg, infrared coagulation, cautery, radiofrequency) [address]13, Sigmoidoscopy, flexible; with removal of tumor(s), polyp(s),or other lesion(s) by snare technique Diagnosis Code(s): --- Professional --- K64.8, Other hemorrhoids D12.5, Benign neoplasm of sigmoid colon D12.8, Benign neoplasm of rectum K62.5, Hemorrhage of anus and rectum K57.30, Diverticulosis of large intestine without perforation orabscess without bleeding CPT copyright 2020 [employer]. All rights reserved. The codes documented in this report are preliminary and upon web operations specialist reviewmay be revised to meet current compliance requirements. Recognized by the [employer] for promoting quality [...] was last reviewed 2021. Testing performed by: [facility], [address] [place] [address], [place]., [address] Blood 08/04/2024 8:21 AM CDT 08/04/2024 1:17 PM CDT us Kaylyn Gorman SOCIOLOGY PROFESSOR LAB BLOOD ORDERABLES Final Result Performing Organization Address City/State/[facility] Co de Phone Number [id number] 1 [facility] Department [place] [address] * PSA screen (08/04/2024 8:21 AM CDT) PSA-Total 0.72 <=3.90 ng/mL Comment: Interpretive Data [...] data last revised 22. Testing performed by: [facility], [address] [place] [address], [address] Blood 08/04/2024 8:21 AM CDT 08/04/2024 8:21 AM CDT Kaylyn Gorman SOCIOLOGY PROFESSOR LAB BLOOD ORDERABLES Final Result Performing Organization Address [facility] Co de Phone Number [facility] ([place]) [address] [place] [address] [place] [address] * Vitamin D 25 hydroxy (08/04/2024 8:21 AM CDT) Vitamin D 25-OH 35 30 - 80 ng/mL Comment:Testing performed by : [facility], [address] [place] [address]., [address] Blood 08/04/2024 8:21 AM CDT 08/04/2024 8:22 AM CDT Kaylyn Gorman SOCIOLOGY PROFESSOR LAB BLOOD ORDERABLES Final Result Performing Organization Address City/[facility] Co de Phone Number [facility] ([place]) 1 [facility] [place] [address] * TSH (08/04/2024 8:21 AM CDT) Thyroid Stimulating Hormone 1.23 0.30 - 4.20 mcIUnit/mL Comment:Testing performed by : [facility], [address] [place] [address]., [address] Blood 08/04/2024 8:21 AM CDT 08/04/2024 8:21 AM CDT Kaylyn Gorman SOCIOLOGY PROFESSOR LAB BLOOD ORDERABLES Final Result Performing Organization Address City/[facility]/ZIP Co de Phone Number [facility] ([place]) 1 [facility] [place] [address] * Total testosterone (08/04/2024 8:21 AM CDT) [facility] Testosterone 557 193 - 740 ng/dL Comment:Testing performed by : [facility], [address] [place] [address], [address] Blood 08/04/2024 8:21 AM CDT 08/04/2024 8:21 AM CDT Kaylyn Gorman SOCIOLOGY PROFESSOR LAB BLOOD ORDERABLES Final Result Performing Organization Address [facility] de Phone Number [facility] ([place]) 1 [facility] [place] [place] [address] * (ABNORMAL) Hemoglobin A1c (08/04/2024 8:21 AM CDT) [facility] Hgb A1C 5.9(H) 4.0 - 5.6 % Comment:Testing performed by : [facility], [address] [place] [address]., [address] Estimated Average Glucose 123 mg/dL [facility] Comment: The ADA recommends reporting an estimated Average Glucose (eAG) with all Hemoglobin A1c results using the equation derived from a study of 507 normal and diabetic adults. ??Minority populations were underrepresented and children were not included. ?? (Diabetes Care 31:4976-4697, 2008). ??The eAG is not equivalent to a fasting glucose. Testing performed by: [facility], [address] [place] [address], [address] Blood 08/04/2024 8:21 AM CDT 08/04/2024 8:23 AM CDT us Kaylyn Gorman SOCIOLOGY PROFESSOR LAB BLOOD ORDERABLES Final Result [facility] ([place]) 1 [facility] Department [place] [address] * (ABNORMAL) Lipid panel (08/04/2024 8:21 AM CDT) Cholesterol 138 30 - 199 mg/dL Comment: [...] last revised on 2018. Testing performed by: [facility], [address] [place] [address]., [address] Triglycerides 104 <=149 mg/dL [facility] ([place]) [...] last revised on 2018. Testing performed by: [facility], [address] [place] [address]., [address] HDL 29(L) >=40 mg/dL [facility] ([place]) Comment: Interpretive Data Ages < [...] last revised on 2018. Testing performed by: [facility], [address] [place] [address]., [address] LDL, calculated 89 <=129 mg/dL [facility] ([place]) Comment: Interpretive Data Ages < or = 19 years ??Acceptable: ? <110 mg/dL ??Borderline high: ??110-129 mg/dL ??High: ?>or= 130 mg/dL Ages > or = 20 years ??Optimal: ? <100 mg/dL ??Near optimal: ?100-129 mg/dL ??Borderline high: ?? 130-159 mg/dL ??High: ?>160 mg/dL Calculated using the Shafer LDL-C estimating equation. This equation was implemented on 2024. Prior to this date LDL-C was estimated using the Friedewald equation. Literature References: 1. Expert Panel on Integrated Guidelines for Cardiovascular Health and Risk Reduction in Children and Adolescents. Pediatrics 2011;128:S213 2. NCEP Expert Panel. Circulation 2004;110:227 3. Hollis Mckeon et al. CARLOS Cardiol. 2019February 05;5(5):540-548. doi: 10.1001/jamacardio.2020.0013 Current Interpretive Data was last revised on 2024. Testing performed by: [address] [address] Non-HDL Cholesterol 109 mg/dL [facility] ([place]) [...] last revised on 2018. Testing performed by: [address] [address] Chol/HDL ratio 5 [facility] ([place]) Comment:Testing performed by : [address] [address] Blood 08/04/2024 8:21 AM CDT 08/04/2024 8:21 AM CDT Kaylyn Gorman NP LAB BLOOD ORDERABLES Final Result [facility] ([place] 1 [facility] Department [place] [address] * Comprehensive metabolic panel (08/04/2024 8:21 AM CDT) Sodium 140 135 - 145 mmol/L Comment:Testing performed by : [facility], [address] [place] [address]., [address] Potassium, pl 4.2 3.3 - 4.9 mmol/L [facility] ([place]) Comment:Testing performed by : [facility], [address] [place] [address]., [address] Chloride 104 97 - 110 mmol/L [facility] ([place]) Comment:Testing performed by : [facility], [address] [place] [address]., [address] CO2 24 22 - 32 mmol/L [facility] ([place]) Comment:Testing performed by : [address] [address] Anion gap 12 2 - 15 mmol/L [facility] ([place]) Comment:Testing performed by : [facility], [address] [place] [address]., [address] BUN 9 6 - 25 mg/dL [facility] ([place]) Comment:Testing performed by : [address], [address] Creatinine 1.03 0.80 - 1.30 mg/dL [facility] ([place]) Comment:Testing performed by : [address] [address] Glucose 94 70 - 199 mg/dL [facility] ([place]) [...] was last revised 2022. Testing performed by: [facility], [address] [place] [address]., [address] Calcium 9.6 8.5 - 10.3 mg/dL [facility] ([place]) Comment:Testing performed by : [address] [address] Bilirubin, total 0.2 0.1 - 1.2 mg/dL [facility] ([place]) Comment:Testing performed by : [facility], [address] [place] [address]., [address] Protein, pl 6.9 6.5 - 8.5 g/dL [facility] ([place]) Comment:Testing performed by : [facility], [address] [place] [address], [address] Albumin 4.3 3.5 - 5.0 g/dL [facility] ([place]) Comment:Testing performed by : [facility], [address] [place] [address], [address] Alk phos 90 40 - 130 Units/L [facility] ([place]) Comment:Testing performed by : [facility], [address] [place] [address], [address] ALT 13 7 - 55 Units/L [facility] ([place]) Comment:Testing performed by : [facility], [address] [place] [address], [address] AST 30 10 - 50 Units/L [facility] ([place]) Comment:Testing performed by : [facility], [address] [place] [address], [address] Blood 08/04/2024 8:21 AM CDT 08/04/2024 8:21 AM CDT Kaylyn Gorman SOCIOLOGY PROFESSOR LAB BLOOD ORDERABLES Final Result [facility] ([place]) 1 [facility] Department [place] [address] * Differential, auto (08/04/2024 8:20 AM CDT) Neutrophil abs 4.0 1.5 - 6.5 K/cumm Comment:Testing performed by : [facility], [address] [place] [address], [address] Imm gran abs 0.0 0.0 - 0.1 K/cumm [facility] ([place]) Comment:Testing performed by : [address], [address] Lymphocyte abs 1.7 0.8 - 3.3 K/cumm [facility] ([place]) Comment:Testing performed by : [facility], [address] [place] [address]., [address] Monocyte abs 0.6 0.2 - 0.8 K/cumm [facility] ([place]) Comment:Testing performed by : [facility], [address] [place] [address]., [address] Eosinophil abs 0.1 0.0 - 0.5 K/cumm [facility] ([place]) Comment:Testing performed by : [facility], [address] [place] [address]., [address] Basophil abs 0.1 0.0 - 0.1 K/cumm [facility] ([place]) Comment:Testing performed by : [facility], [address] [place] [address]., [address] Neutrophil pct 61.3 % [facility] ([place]) Comment: Interpretive Data Percent cell count reference ranges are not reported, since discordance with absolute values may lead to misinterpretation of CBC data. Current Interpretive Data was last revised on 2018. Testing performed by: [facility], [address] [place] [address]., [address] Imm gran pct 0.3 % [facility] ([place]) Comment: Interpretive Data Percent cell count reference ranges are not reported, since discordance with absolute values may lead to misinterpretation of CBC data. Current Interpretive Data was last revised on 2018. Testing performed by: [facility], [address] [place] [address]., [address] Lymphocyte pct 26.2 % [facility] ([place]) Comment: Interpretive Data Percent cell count reference ranges are not reported, since discordance with absolute values may lead to misinterpretation of CBC data. Current Interpretive Data was last revised on 2018. Testing performed by: [address] [address] Monocyte pct 9.7 % [facility] ([place]) Comment: Interpretive Data Percent cell count reference ranges are not reported, since discordance with absolute values may lead to misinterpretation of CBC data. Current Interpretive Data was last revised on 2018. Testing performed by: [facility], [address] [place] [address]., [address] Eosinophil pct 1.7 % [facility] ([place]) Comment: Interpretive Data Percent cell count reference ranges are not reported, since discordance with absolute values may lead to misinterpretation of CBC data. Current Interpretive Data was last revised on 2018. Testing performed by: [address] [address] Basophil pct 0.8 % [facility] ([place]) Comment: Interpretive Data Percent cell count reference ranges are not reported, since discordance with absolute values may lead to misinterpretation of CBC data. Current Interpretive Data was last revised on 2018. Testing performed by: [address], [address] Blood 08/04/2024 8:20 AM CDT 08/04/2024 1:00 PM CDT Celestino Moctezuma MD LAB BLOOD ORDERABLES Final Result Performing Organization Address [facility] de Phone Number [facility] ([place]) 1 [facility] [place] [place] [address] * (ABNORMAL) Iron profile w/ IBC (08/04/2024 8:20 AM CDT) Iron 69 50 - 150 mcg/dl Comment:Testing performed by : [address], [address] TIBC 396 250 - 400 mcg/dL [facility] ([place]) Comment:Testing performed by : [address], [address] Transferrin saturation 17(L) 20 - 50 % [facility] ([place]) Comment:Testing performed by : [address], [address] Blood 08/04/2024 8:20 AM CDT 08/04/2024 1:00 PM CDT Celestino Moctezuma MD LAB BLOOD ORDERABLES Final Result Performing Organization Address [facility] Co de Phone Number [facility] ([place]) 1 [facility] [place] [address] * (ABNORMAL) CBC with auto differential (08/04/2024 8:20 AM CDT) [facility] Signature WBC 6.5 3.8 - 9.9 K/cumm Comment:Testing performed by : [address], [address] Hgb 15.3 13.0 - 17.5 g/dL [facility] ([place]) Comment:Testing performed by : [address], [address] Hct 48.6 38.9 - 50.3 % [facility] ([place]) Comment:Testing performed by : [address], [address] Plt 419(H) 150 - 400 K/cumm [facility] ([place]) Comment:Testing performed by : [address], [address] MPV 10.0 9.1 - 12.3 fL [facility] ([place]) Comment:Testing performed by : [address], [address] RBC 5.05 4.30 - 5.80 M/cumm [facility] ([place]) Comment:Testing performed by : [address], [address] MCV 96.2 81.3 - 96.4 fL [facility] ([place]) Comment:Testing performed by : [address], [address] MCH 30.3 27.1 - 33.3 pg [facility] ([place]) Comment:Testing performed by : [address], [address] MCHC 31.5(L) 32.3 - 35.7 g/dL [facility] ([place]) Comment:Testing performed by : [address], [address] RDW CV 13.2 11.1 - 14.9 % [facility] ([place]) Comment:Testing performed by : [address], [address] RDW SD 46.7 35.7 - 48.1 fL [facility] ([place]) Comment:Testing performed by : [address], [place]., [address] NRBC abs 0.00 0.00 - 0.01 K/cumm [facility] ([place]) Comment:Testing performed by : [facility], [address] [place] [address], [address] Blood 08/04/2024 8:20 AM CDT 08/04/2024 1:00 PM CDT us Celestino Moctezuma MD LAB BLOOD ORDERABLES Final Result [facility] ([place] 1 [facility] [place] [address] * Folate (08/04/2024 8:20 AM CDT) Folic acid 10.3 >=5.0 ng/mL Comment:Testing performed by : [facility], [address] [place] [address], [address] Blood 08/04/2024 8:20 AM CDT 08/04/2024 1:00 PM CDT us Celestino Moctezuma MD LAB BLOOD ORDERABLES Final Result Performing Organization Address City/[facility]/ZIP Co de Phone Number [facility] ([place]) 1 [facility] [place] [address] * Vitamin B12 (08/04/2024 8:20 AM CDT) Vitamin B12 253 230 - 1,250 pg/mL Comment:Testing performed by : [facility], [address] [place] [address]., [address] Blood 08/04/2024 8:20 AM CDT 08/04/2024 1:00 PM CDT us Celestino Moctzeuma MD LAB BLOOD ORDERABLES Final Result [facility] ([place] 1 [facility] [place] [address] * Colonoscopy (04/29/2024 11:02 AM CDT) Anatomical Region Laterality Modality Other Narrative Procedure Note Celestino Moctezuma MD - 04/29/2024 11:02 AM CDT [facility] Patient Name: Angelique Law Procedure Date: 04/29/2024 11:02 AM Date of : 1975 Admit Type: Inpatient Age: 49 Gender: Male Attending MD: Celestino Moctezuma M.D. Room: [facility] 1 Note Status: Finalized [...] (APC). Clips (MR conditional) were placed. Clip counter hop: [employer]. - Diverticulosis in the entire examined colon. - One 12 mm polyp at the recto-sigmoid colon,removed with a hot snare. Resected and retrieved. Clips (MR conditional) were placed. Clip counter hop: [employer]. - Spasm and angulation at the rectal [...] under direct vision. The Pediatric Colonoscope [id number]-[id number] was introduced through the anus andadvanced to [...] clips were successfully placed (MR conditional). Clip counter hop: [employer]. There was no bleeding at the end of the procedure. Multiple medium-mouthed diverticula were found in the entire colon. A 12 mm polyp was found in the recto-sigmoid colon. The polyp was pedunculated. The polyp was removed with a hot snare. Resection and retrieval were complete. To prevent bleeding after the polypectomy, three hemostatic clips were successfully placed (MR conditional).Clip counter hop: [employer]. There was no bleeding at the end [...] 11:02 AM Procedure Code(s): --- Professional --- 27838, 59, Colonoscopy, flexible; with control of bleeding, anymethod 41222, Colonoscopy, flexible; with removal of tumor(s), polyp(s), or other lesion(s) by snare technique 77818, 59, Colonoscopy, flexible; with biopsy, single or multiple Diagnosis Code(s): --- Professional --- K64.8, Other hemorrhoids K55.21, Angiodysplasia of colon with hemorrhage D12.7, Benign neoplasm of rectosigmoid junction K63.89, Other specified diseases of intestine K92.1, Melena (includes Hematochezia) D62, Acute posthemorrhagic anemia K57.30, Diverticulosis of large intestine without perforation orabscess without bleeding CPT copyright 2020 [employer]. All rights reserved. The codes documented in this report are preliminary and upon web operations specialist reviewmay be revised to meet current compliance requirements. Recognized by the [employer] for promoting quality in endoscopy Celestino Moctezuma MD ENDOSCOPY PROCEDURES Final Result from Last 3 Months or Most Recently Relevant to Health Maintenance Insurance AET COVENTRY HMO/POS [id number] HMO Advance Directives For more information, please contact: [phone] * Full Code (Latest Code Status on [...] 5:21 PM 04/28/2024 11:11 AM Care Teams Traffic Engineering Technician Relationship Specialty Start Date End Date Carlos Pacheco MD [address] [place] [id number] PCP - General Internal Medicine 04/26/24
--- OUTSIDE RECORDS SUMMARY | 2024-10-04 12:44 | XMS_ITS | Encounter Summary ---
Author Organization [facility] Healthcare Address [address] [place] [address] Care Team Providers Care Gallery Or Museum Guide Name Role Phone Carlos Pacheco MD Primary Care Provider [phone] Reason for Visit * Reason Onset Date Comments Hospital Follow Up 06/26/2024 Encounter Details Date Type Department Care Team (Late st Contact Info) Description 06/26/2024 Telephone [facility] Gastroenterology at [address] [place] [address] [facility] Follow Up Social History Tobacco Use Types Packs/Day Years Used Date Smoking Tobacco: Every Day Cigarettes [facility] Utilities Answer Date Recorded In [...] re latives? Twice a week 04/30/2024 Attends Sabianist Services Not on file 04/30 Active Member [...] time in the past 12 m [facility], were you homeless or living in a fci (including now)? No 04/30/2024 Personal Safety Answer Date Recorded Have you ever been in or are you currently in a harmful physical or emotional relationship or is someone making you feel afraid or unsafe? 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 He is getting ready to have a bunch of blood work done for his yearly physical and is going to see if the labs with his physical will include whatDr. Moctezuma has ordered. If so, he will have his PCP fax the results. * Telephone Encounter - Lori Pruett. - 06/26/2024 8:20 AM CDT Patient was scheduled for a hospital follow up with Amy today, but she is not going to be in. Patient stated he honestly forgot about the appointment and is not having any issues at this time and has not had anymore bleeding. Patient is scheduled for his 1 year repeat colonoscopy in April. Pleaseadvise if pt needs a follow up (next one will be end of Oct/early Nov) or if he can just have colono scopy next April. documented in this encounter Plan of Treatment Upcoming Encounters Date Type Department Care Team (Late st Contact Info) Description 05/04/2025 8:00 AM CDT Hospital Encounter [address] [address] Celestino Moctezuma MD [address] [place] [address] DR [address] [place] [address] 05/04/2025 8:00 AM CDT - 05/04/2025 8:30 AM CDT Surgery [address] [address] Celestino Moctezuma MD [address] [place] [address] DR [address]ON [address] [place] [address] COLONOSCOPY Scheduled Procedures Name Priority Associated Diagnoses Date/Ti me COLONOSCOPY Personal history of colonic polyps Encounter for screening colonoscopy 05/04/2025 8:00 AM CDT documented as of this encounter Visit Diagnoses Not on filedocumented in this encounter Care Teams Gallery Or Museum Guide Relationship Specialty Start Date End Date Carlos Pacheco MD [address] [place] [id number] PCP - General Internal Medicine 04/26/24 documented as of this encounter
--- OUTSIDE RECORDS SUMMARY | 2024-10-04 12:44 | XMS_ITS | Encounter Summary ---
Author Organization [facility] Healthcare Address [address] [place] [address] Care Team Providers Care Booster Plant Operator Name Role Phone Carlos Pacheco MD Primary Care Provider [phone] Encounter Details Date Type Department Care Team (Late st Contact Info) Description 08/25/2024 Telephone [facility] Medical Group Gastroenterology at [address] [place] [address] Jeanne Lugo MA Social History Tobacco Use Types Packs/Day Years Used Date Smoking Tobacco: Every Day Cigarettes [facility] Utilities Answer Date Recorded In the past [...] re latives? Twice a week 04/30/2024 Attends Mosque Services Not on file 04/30 Active Member [...] any time in the past 12 m [facility], were you homeless or living in a correction (including now)? No 04/30/2024 Personal Safety Answer Date Recorded Have you ever been in or are you currently in a harmful physical or emotional relationship or is someone making you feel afraid or unsafe? 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 Not on file Not on fi le documented as of this encounter Miscellaneous Notes * Telephone Encounter - Jeanne Lugo MA - 08/26/2024 9:21 AM CST Patient is wanting to know if he could have his procedure in September, will call back to let him know [employer] * Telephone Encounter - Jeanne Lugo MA - 08/25/2024 9:18 AM CST Patient called stating that he is having some rectal bleeding after a bowel movement or after he strains, is taking proctofoam and it is not helping and would like to know what he can do, will call him back to let him know [employer] documented in this encounter Plan of Treatment Upcoming Encounters Date Type Department Care Team (Late st Contact Info) Description 05/04/2025 8:00 AM CDT Hospital Encounter [address] [address] Celestino Moctezuma MD [address] [place] [address] DR [address]ON [address] [place] [address] 05/04/2025 8:00 AM CDT - 05/04/2025 8:30 AM CDT Surgery [address] [address] Celestino Moctezuma MD [address] [place] [address] DR Y[address]ON [address] [place] [address] COLONOSCOPY Scheduled Procedures Name Priority Associated Diagnoses Date/Ti me COLONOSCOPY Personal history of colonic polyps Encounter for screening colonoscopy 05/04/2025 8:00 AM CDT documented as of this encounter Visit Diagnoses Not on filedocumented in this encounter Care Teams Booster Plant Operator Relationship Specialty Start Date End Date Carlos Pacheco MD [address] [place] [id number] PCP - General Internal Medicine 04/26/24 documented as of this encounter
--- OUTSIDE RECORDS SUMMARY | 2024-10-04 12:44 | XMS_ITS | Encounter Summary ---
Author Organization [facility] Healthcare Address [address] [place] [address] Care Team Providers Care Reinsurance Claims Analyst Name Role Phone Carlos Pacheco MD Primary Care Provider [phone] Reason for Visit * Auth/Cert Specialty Diagnoses / Procedures Referred By Deirdre her Referred To Contact Diagnoses Rectal bleeding Procedures na Referral ID Status Reason Start Date Expiration Date Visits Re quested Visits Authorized [id number] 1 1 Encounter Details Date Type Department Care Team (Late st Contact Info) Description 04/29/2024 11:32 AM CDT Anesthesia Event [facility] [address] [place] [address] Manuelito Mendoza MD [address] [place] [address] Anesthesia Record Procedure Summary Procedure Name Responsible Anesthesiologist Anesthesia Start Time Anesthesia Stop Time COLON CONTROL BLEEDING Manuelito Mendoza MD 04/29/24 1132 04/29/24 1200 Events Date Time Event Comment 04/29/2024 1125 1125 In Room 1125 An Start Data 1132 An Start 1132 Start Supplemental O2 1132 Patient Positioned Laterally 1134 Proc Start 1134 An Induction The patient was reevaluated immediately before moderate or deep sedation use and before anesthesia induction. 1134 Anesthesia Ready 1200 an stop data 1200 Proc Fin 1200 Handoff to RN I completed my handoff [...] disposition at the time of handoff: PACU 1200 An Stop 1205 Out of Room Meds Name Total lidocaine (cardiac) syringe 2 % 100 mg propofol 580 mg sodium chloride 0.9% infusion 500 mL * Agents Name O2 * Blood No blood administrations on file. Lines, Drains, and Airways Type Details Placement Removal Peripheral IV Placement Date: 04/08 ; Placement Time: 1237; Catheter Size: 18 G; Orientation: Anterior, Distal, Right, Upper; Location: Arm; Removal Date: 04/29/24; Removal Time: 2319; Removal Reason: Occluded 04/26/24 1238 by Evelyn Eduardo RN 04/29/240 by Tonio Simpson RN Peripheral IV Placement Date: 04/08 10/31; Placement Time: 1899; Catheter Size: 20 G; Orientation: Left, Posterior; Location: Hand; Site Prep: Chlorhexidine; Inserted by: HERRERA; Insertion Attempts: 1; Patient Tolerance: Tolerated well; Removal Date: 04/30/24; Removal Time: 011; Removal Reason: Infiltrated 04/27/241899 by Anna Hood RN 04/30/24 0110 by Tonio Simpson RN documented in this encounter Social History Tobacco Use Types Packs/Day Years Used Date Smoking Tobacco: Every Day Cigarettes [facility] Utilities Answer Date Recorded In the past 12 months has [employer], gas, oil, or water [employer] threatened to shut off services in your [...] any time in the past 12 m [facility], were you homeless or living in a prison (including now)? No 04/30/2024 Personal Safety Answer Date Recorded Have you ever been in or are you currently in a harmful physical or emotional relationship or is someone making you feel afraid or unsafe? Denies 04/26/2024 Sex and Gender Information Value Date Recorded Sex Assigned at Not on file Legal Sex Male 3:12 AM TECHNOLOGY INTERN Gender Identity Not on file Sexual Orientation Not on file documented as of this encounter OR Notes * Anesthesia Postprocedure Evaluation - Manuelito Mendoza MD - 04/29/2024 12:15 PM CDT Patient: Sedrick Law Procedure Summary Date: 04/29/24 Room / Location: [facility] ENDOSCOPY ROOM 1 / [facility] ENDOSCOPY Anesthesia Start: 1132 Anesthesia Stop: 1200 Procedures: COLON CONTROL BLEEDING ENDO ADD ON COLON REMOVAL SNARE ENDO ADD ON COLON BIOPSY Diagnosis: Rectal bleeding (Rectal bleeding [K62.5]) Providers: Celestino Moctezuma MD Responsible Provider: Manuelito Mendoza MD Anesthesia Type: general/TIVA ASA Status: 3 - Emergent Anesthesia Type: general/TIVA Last vitals BP 103/69 (BP Location: Right arm, Patient Position: Lying) Pulse 77 Temp 36.8 ??C (98.2 ??F) (Temporal) Resp 17 SpO2 98% Anesthesia Post Evaluation Patient location during evaluation: PACU Patient participation: complete - patient participated Level of consciousness: fully awake Pain management: adequate Airway patency: adequate Evidence of recall: no Cardiovascular status: acceptable Respiratory status: acceptable Hydration status: acceptable Pt is: normothermic Nausea/Vomiting status: none No notable events documented. * Anesthesia Preprocedure Evaluation - Manuelito Mendoza MD - 04/29/2024 10:59 AM CDT Images from the original note were not included. Anesthesia Evaluation Sedrick Law is a 49 y.o. male COLONOSCOPY Pre-Op Diagnosis Codes: * Rectal bleeding [K62.5] HISTORY Past Medical History Information obtained from: patient and chart. Information obtained during: In Person Neurological Neuro/Psych system: negative Cardiovascular + Hypertension + Hyperlipidemia Respiratory + COPD + Current smoker - Counseled to abstain from smoking the day of surgery. Patient refrained from smoking on day of surgery. Hepatic / Heme + History of anemia (acute blood loss (GI source)) Gastrointestinal GI system: negative Renal / Renal/ system: negative Musculoskeletal/Pain + Osteoarthritis Endocrine / Other Endocrine/Other system: negative Patient Active Problem List Diagnosis Date Noted Diverticulitis 04/27/2024 Rectal bleeding 04/26/2024 Past Medical History: Diagnosis Date Hypertension Past Surgical History: Procedure Laterality Date BRAIN SURGERY No Known Allergies Med List Status: Nurse Complete Set By: Priya Mancia RN at 04/26/2024 5:00 PM Taking? Last Dose Start Date End Date Provider amLODIPine (NORVASC) 5 mg tablet -- -- -- ProviderAnh MD atorvastatin (LIPITOR) 10 mg tablet -- -- -- Anh Greer MD fenofibrate (TRIGLIDE) 160 mg tablet -- -- -- Anh Greer MD metoprolol XL (TOPROL-XL) 100 mg 24 hr tablet -- -- -- Anh Greer MD pancrelipase (ZENPEP) 40,000-126,000- 168,000 unit per capsule -- -- -- Anh Greer MD zolpidem (AMBIEN) 10 mg tablet -- -- -- Anh Greer MD Current Facility-Administered Medications: acetaminophen (TYLENOL) tablet 650 mg, 650 mg, oral, Q4H PRN, 650 mg at 04/27/24904 amLODIPine (NORVASC) tablet 5 mg, 5 mg, oral, Nightly, 5 mg at 04/28/242149 [Held by Provider] atorvastatin (LIPITOR) tablet 10 mg, 10 mg, oral, Nightly, 10 mg at 04/27/242157 cefTRIAXone (ROCEPHIN) 2,000 mg/20 mL in sterile water (premix) 2,000 mg, 2,000 mg, intravenous, Q24H SANDRA, 2,000 mg at 04/28/24 1430 [Held by Provider] fenofibrate nanocrystallized (TRICOR) tablet 145 mg, 145 mg, oral, Daily, 145 mgat 04/27/24 0752 metoclopramide (REGLAN) 5 mg/mL injection 10 mg, 10 mg, intravenous, Q6H SANDRA, 10 mg at 04/29/24 1056 metoprolol tartrate (LOPRESSOR) immediate release tablet 25 mg, 25 mg, oral, BID, 25 mg at 843 [Held by Provider] metoprolol XL (TOPROL-XL) extended release tablet 100 mg, 100 mg, oral, Nightly metroNIDAZOLE (FLAGYL) 500 mg/100 mL in sodium chloride (premix) 500 mg, 500 mg, intravenous, Q12H SANDRA, Last Rate: 200 mL/hr at 04/28/24 2339, 500 mg at 04/28/24 2339 ondansetron ODT (ZOFRAN-ODT) disintegrating tablet 4 mg, 4 mg, oral, Q6H PRN OR ondansetron (ZOFRAN) injection 4 mg, 4 mg, intravenous, Q6H PRN, 4 mg at 04/29/[address] (PROTONIX) extended release tablet 40 mg, 40 mg, oral, BID, 40 mg at 04/29/24 0843 zolpidem (AMBIEN) tablet 5 mg, 5 mg, oral, Nightly, 5 mg at 04/28/24 3030 Social History Tobacco Use Smoking Status Every Day Current packs/day: 0.05 Types: Cigarettes Smokeless Tobacco Not on file Alcohol Use: Alcohol Misuse (04/26/2024) AUDIT-C Frequency of Alcohol Consumption: 4 or more times a week Average Number of Drinks: 5 or 6 Frequency of Binge Drinking: Daily or almost daily Substance and Sexual Activity Drug Use Not on file No family history on file. Vitals: 04/29/24 0915 04/29/24 0930 04/29/24 1000 BP: (!) 142/115 (!) 168/102 165/93 Pulse: (!) 149 82 71 Resp: 16 17 14 Temp: 36.2 ??C (97.2 ??F) SpO2: 99% 99% 96% PT: 04/26/2024: 10.8 sec INR: 04/26/2024: 1.00 APTT: No results found for requested labs within last 30 days. Hgb A1C: No results found for requested labs within last 30 days. CBC RBC: 04/29/2024: 2.16 M/cumm (L) RDW: No results found for requested labs within last 30 days. MCHC: 04/29/2024: 34.3 g/dL MCH: 04/29/2024: 31.5 pg MCV: 04/29/2024: 91.7 fL Hct: 04/29/2024: 19.8 % (L) Hgb: 04/29/2024: 6.8 g/dL (L) WBC: 04/29/2024: 10.3 K/cumm (H) MPV: 04/29/2024: 9.8 fL Platelets: 04/29/2024: 260 K/cumm RDW CV: 04/29/2024: 14.0 % RDW Sd: 04/29/2024: 47.2 fL BMP Glucose: 04/29/2024: 100 mg/dL Calcium: 04/29/2024: 7.6 mg/dL (L) Sodium: 04/29/2024: 138 mmol/L Potassium: 04/29/2024: 3.7 mmol/L CO2: 04/29/2024: 21 mmol/L (L) Chloride: 04/29/2024: 107 mmol/L BUN: 04/29/2024: 12 mg/dL Creatinine: 04/29/2024: 1.03 mg/dL DOS Physical Exam Medical history, medications, and allergies reviewed. Attestation: I endorse the findings of the anesthesia pre-evaluation assessment dated: 04/29/2024. Airway Exam: Mallampati: II Cervical ROM: FROM TM distance: normal Cardiovascular Exam: Rate: regular Rhythm: regular Pulmonary Exam: LCTA, bilat Dental Exam: Appears intact Current state: Patient's current state is cooperative and interactive. Anesthesia Plan ASA 3- emergent My patient is approved for the Anesthesia Controlled Medication protocol when under care of a LASER PRINTING OPERATOR Planned anesthesia: General/TIVA Induction: Induction: intravenous. Postoperative Plan: No plan for postoperative opioid use. No postoperative mechanical ventilation intended. Patient's planned disposition post procedure is ICU. Informed Consent: Discussed plan with attending and LASER PRINTING OPERATOR. Anesthesia plan and risks discussed with patient. Consent and Attending signature: I and/or my designee have discussed the anesthesia plan, benefits, possible alternatives, parental presence at time of induction (if indicated), and clinically relevant risks that may include dental injury, unintentional awareness, and/or other complications. The patient and/or parent/legal guardian understand, and agree to proceed. All questions answered. documented in this encounter Plan of Treatment Upcoming Encounters Date Type Department Care Team (Late st Contact Info) Description 05/04/2025 8:00 AM CDT Hospital Encounter [facility] [address] [place] [address] Celestino Moctezuma MD [address] [place] [phone] 05/04/2025 8:00 AM CDT - 05/04/2025 8:30 AM CDT Surgery [facility] [address] [place] [address] Celestino Moctezuma MD [address] [place] [address] [place] [address] COLONOSCOPY Scheduled Procedures Name Priority Associated Diagnoses [...] free injection intravenous, As needed, Starting on 04/29/24 at 1134, Anesthesia Intra-op Given 04/29/2024 11:34 AM CDT 100 mg propofoL (DIPRIVAN) 10 mg/mL IV intravenous, As needed, Starting on 04/29/24 at 1134, Anesthesia Intra-op Given 04/29/2024 11:58 AM CDT 40 mg Given 04/29/2024 11:55 AM CDT 50 mg Given 04/29/2024 11:53 AM CDT 40 mg sodium chloride 0.9% infusion 30 mL/hr, intravenous, Continuous, Starting on e 04/29/24 at 1145 Restarted 04/29/2024 11:34 AM CDT Rate/Dose Verify 04/29/2024 11:32 AM CDT 30 mL/ hr New Bag 04/29/2024 11:07 AM CDT 30 mL/hr 30 mL/hr documented in this encounter Care Teams Reinsurance Claims Analyst Relationship Specialty Start Date End Date Carlos Pacheco MD [address] [place] [id number] PCP - General Internal Medicine 04/26/24 documented as of this encounter
--- OUTSIDE RECORDS SUMMARY | 2024-10-04 12:44 | XMS_ITS | Encounter Summary ---
Author Organization [facility] Healthcare Address [address] [place] [address] Care Team Providers Care Hydroelectric Plant Mechanical Engineer Name Role Phone Carlos Pacheco MD Primary Care Provider [phone] Encounter Details Date Type Department Care Team (Late st Contact Info) Description 08/27/2024 Telephone [facility] Medical Group Gastroenterology at [address] [place] [address] Jeanne Lugo MA Social History Tobacco Use Types Packs/Day Years Used Date Smoking Tobacco: Every Day Cigarettes [facility] Utilities Answer Date Recorded In the past [...] re latives? 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 Not on file Not on fi le documented as of this encounter Miscellaneous Notes * Telephone Encounter - Jeanne Lugo MA - 08/27/2024 8:56 AM CST Pt is scheduled for a sigmoid per dr wayne on 09-19-24 at 12 pm, verbal instructions given and mailed to patient EXPELLER OPERATOR documented in this encounter Plan of Treatment Upcoming Encounters Date Type Department Care Team (Late st Contact Info) Description 05/04/2025 8:00 AM CDT Hospital Encounter [facility] [address] [place] [address] Celestino Wayne MD [address] [facility] [address] [place] [address] 05/04/2025 8:00 AM CDT - 05/04/2025 8:30 AM CDT Surgery [address] [address] Celestino Wayne MD [address] [facility] [address] [place] [address] COLONOSCOPY Scheduled Procedures Name Priority Associated Diagnoses [...] Orde red Date CASE REQUEST GI 1 08/27/2024 documented in this encounter Care Teams Hydroelectric Plant Mechanical Engineer Relationship Specialty Start Date End Date Carlos Pacheco MD [address] [place] [id number] PCP - General Internal Medicine 04/26/24 documented as of this encounter
--- OUTSIDE RECORDS SUMMARY | 2024-10-04 12:44 | XMS_ITS | Encounter Summary ---
Author Organization [facility] Healthcare Address [address] [place] [address] Care Team Providers Care Manager Validation Name Role Phone Carlos Pacheco MD Primary Care Provider [phone] Encounter Details Date Type Department Care Team (Late st Contact Info) Description 05/05/2024 Telephone [facility] Medical [facility] Gastroenterology at [address] [place] [address] Katty Branham Social History Tobacco Use Types Packs/Day Years Used Date Smoking Tobacco: Every Day Cigarettes [facility] Utilities Answer Date Recorded In the past 12 months has [employer], gas, oil, or water company threatened [...] re latives? Twice a week 04/30/2024 Attends [employer] Services Not on file 04/30 Active Member [...] time in the past 12 m [facility], were you homeless or living in a group home (including now)? No 04/30/2024 Personal Safety Answer Date Recorded Have you ever been in or are you currently in a harmful physical or emotional relationship or is someone making you feel afraid or unsafe? 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 Law was recently seen by you at [facility], and called the office regarding the pantoprazole he takes. Patient stated the medication has been causing headaches so severe that he is unable to sleep at night. Patient stated, It feels like my head is going to explode . Please advise. documented in this encounter Plan of Treatment Upcoming Encounters Date Type Department Care Team (Late st Contact Info) Description 05/04/2025 8:00 AM CDT Hospital Encounter [address] [address] Celestino Moctezuma MD [address] [facility] [address] [place] [address] [place] [address] 05/04/2025 8:00 AM CDT - 05/04/2025 8:30 AM CDT Surgery [address] [address] Celestino Moctezuma MD [address] [facility] [address] [place] [address] [place] [address] COLONOSCOPY Scheduled Procedures Name Priority Associated Diagnoses Date/Ti me COLONOSCOPY Personal history of colonic polyps Encounter for screening colonoscopy 05/04/2025 8:00 AM CDT documented as of this encounter Visit Diagnoses Not on filedocumented in this encounter Care Teams Manager Validation Relationship Specialty Start Date End Date Carlos Pacheco MD [address] [place] [address] PCP - General Internal Medicine 04/26/24 documented as of this encounter
--- OUTSIDE RECORDS SUMMARY | 2024-10-04 12:44 | XMS_ITS | Encounter Summary ---
Author Organization [facility] Healthcare Address [address] [place] [address] Care Team Providers Care Handkerchief Presser Name Role Phone Carlos Pacheco MD Primary Care Provider [phone] Reason for Visit * Auth/Cert (Routine) Specialty Diagnoses / Procedures Referred By Deirdre her Referred To Contact Diagnoses Rectal bleeding Rectal bleeding [K62.5] Procedures NH SIGMOIDOSCOPY FLX DX W/COLLJ SPEC BR/WA IF PFRMD SIGMOIDOSCOPY Referral ID Status Reason Start Date Expiration Date Visits Re quested Visits Authorized [id number] 1 1 Encounter Details Date Type Department Care Team (Late st Contact Info) Description 09/19/2024 12:00 PM PROFESSOR OF PATHOLOGY - 09/19/2024 12:30 PM PROFESSOR OF PATHOLOGY Surgery [address] [address] Celestino Moctezuma MD [address] [place] [address] SIGMOID REMOVAL SNARE Surgery Details Date/Time Status Location OR Service Patient Class Case Class Case Type Trauma Case? 09/19/2024 12:00 PM Posted [facility] ENDOSCOPY GI 01 Gastroenterology Outpatient Elective Panel 1 Procedure LRB Anes Op Region Wound Class Comments SIGMOID REMOVAL SNARE N/A Monitor Anesthesia Care INFRARED COAGULATION OF HEMORRHOIDS N/A General Anus Surgeon Surgeon Role Service Panel Celestino Moctezuma MD Primary Gastroenterology 1 documented in this encounter Social History Tobacco Use Types Packs/Day Years Used Date Smoking Tobacco: Every Day Cigarettes [facility] Utilities Answer Date Recorded In the past 12 months has [employer], gas, oil, or water company threatened [...] re latives? Twice a week 04/30/2024 Attends [employer] Services Not on file 04/30 Active Member [...] time in the past 12 m [facility], were you homeless or living in a skilled nursing (including now)? No 04/30/2024 Personal Safety Answer Date Recorded Have you ever been in or are you currently in a harmful physical or emotional relationship or is someone making you feel afraid or unsafe? 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 Not on file Not on fi le documented as of this encounter Last Filed Vital Signs Vital Sign Reading Time Taken Comments Blood Pressure - - Pulse 60 09/19/2024 10:45 AM PROFESSOR OF PATHOLOGY Temperature 36.8 ??C (98.2 ??F) 09/19/2024 10:[address] Respiratory Rate 16 09/19/2024 10:45 AM PROFESSOR OF PATHOLOGY Oxygen Saturation 98% 09/19/2024 10:45 AM PROFESSOR OF PATHOLOGY Inhaled Oxygen Concentration - - Weight 81.6 kg (180 lb) 09/19/2024 10:45 AM PROFESSOR OF PATHOLOGY Height 180.3 cm (5' 11 ) 09/19/2024 10:45 AM PROFESSOR OF PATHOLOGY Body Mass Index 25.1 09/19/2024 10:45 AM PROFESSOR OF PATHOLOGY documented in this encounter Medications at Time [...] rectum GI PLAN/RECOMMENDATIONS: Sigmoidoscopy Celestino Moctezuma MD ESSOR OF PATHOLOGY documented in this encounter Procedure Notes * Celestino Moctezuma MD - 09/19/2024 10:29 AM CSTAssociated Order(s): FLEXIBLE SIGMOIDOSCOPY [facility] Patient Name: Sedrick Law Procedure Date: 09/19/2024 10:29 AM Date of : 1975 Admit Type: Outpatient Age: 49 Gender: Male Attending MD: Celestino Moctezuma M.D. Room: [facility] ENDOSCOPY ROOM 1 Note Status: Finalized Patient [...] retrieved. Clip (MR conditional) was placed. Clip global head advertiser solutions: [employer]. - Internal hemorrhoids. Treated with thermal therapy. [...] informed consent was obtained. The Endoscope GIF-H190 [id number] was introduced through the anus and advanced [...] clip was successfully placed (MR conditional). Clip global head advertiser solutions: [employer]. There was no bleeding at the end of the procedure. Internal hemorrhoids were found during retroflexion. The hemorrhoids were medium-sized. Coagulation to prevent future bleeding of internal hemorrhoids using IRC (Infrared Coagulation) was successful. Electronically signed by Celestino Moctezuma M.D. Celestino Moctezuma M.D. 09/19/2024 2:12:13 PM Number of Addenda: 0 Note Initiated On: 09/19/2024 10:29 AM Procedure Code(s): --- Professional --- 27672, Destruction of internal hemorrhoid(s) by thermal energy (eg, infrared coagulation, cautery, radiofrequency) 17118, Sigmoidoscopy, flexible; with removal of tumor(s), polyp(s), or other lesion(s) by snare technique Diagnosis Code(s): --- Professional --- K64.8, Other hemorrhoids D12.5, Benign neoplasm of sigmoid colon D12.8, Benign neoplasm of rectum K62.5, Hemorrhage of anus and rectum K57.30, Diverticulosis of large intestine without perforation or abscess without bleeding CPT copyright 2020 [employer]. All rights reserved. The codes documented in this report are preliminary and upon dental service chief review may be revised to meet current compliance requirements. Recognized by the [employer] for promoting quality in endoscopy ESSOR OF PATHOLOGY documented in this encounter Miscellaneous Notes * Perioperative Nursing Note - Diana Holbrook RN - 09/19/2024 2:16 PM PROFESSOR OF PATHOLOGY 1415 at bedside to discuss results to pt and spouse. Pt to f/u in 1 yr for next colonoscopy. Pt was instructed to take fiber supplements. Pt to cont.diet and meds at home. ESSOR OF PATHOLOGY documented in this encounter Plan of Treatment Upcoming Encounters Date Type Department Care Team (Late st Contact Info) Description 05/04/2025 8:00 AM CDT Hospital Encounter [facility] [address] [place] [address] Celestino Moctezuma MD [address] [place] [address] [address] 05/04/2025 8:00 AM CDT - 05/04/2025 8:30 AM CDT Surgery [facility] [address] [place] [address] Celestino Moctezuma MD [address] [place] [address] [place] [address] COLONOSCOPY Scheduled Procedures Name Priority Associated Diagnoses Date/Ti me COLONOSCOPY Personal history of colonic polyps Encounter for screening colonoscopy 05/04/2025 8:00 AM CDT documented as of this encounter Procedures Procedure Name Priority Date/Time Associated Diagnosis Comments SURGICAL PATHOLOGY STAT 09/19/2024 2: 58 PM PROFESSOR OF PATHOLOGY Rectal bleeding INFRARED COAGULATION OF HEMORRHOIDS 09/19/2024 1:08 PM PROFESSOR OF PATHOLOGY Rectal bleeding SIGMOID REMOVAL SNARE 09/19/2024 1:08 PM PROFESSOR OF PATHOLOGY Rectal bleeding FLEXIBLE SIGMOIDOSCOPY 10:29 AM PROFESSOR OF PATHOLOGY documented in this encounter Results * Surgical pathology (09/19/2024 2:58 PM PROFESSOR OF PATHOLOGY) Tissue (Polyp(s), colon/colorectal, esophageal, gastric) 09/19/2024 1:43 PM PROFESSOR OF PATHOLOGY Tissue (Polyp(s), colon/colorectal, esophageal, gastric) 09/19/2024 1:43 PM PROFESSOR OF PATHOLOGY Narrative PATHOLOGY [facility] - 09/23/2024 12:42 PM PROFESSOR OF PATHOLOGY EPIC results best viewed via link to PDF [facility] Department of Pathology [address] [place] [address] Note to Patients: This report may contain [...] details. Final Report Patient Name: ??RUFINA, SEDRICK Nye Address: ??[address] [place] [address], ??[place], [place] ??[address] Gender: ??M : ??1975 (Age: 49) Service: ??Gastro Location: ??[facility] Hospital #: ??[id number] Patient Type: ??[facility] Accession # ?[id number] Taken: ??09/19/2024 Received: ??09/19/2024 Accessioned: ??09/19/2024 Reported: [...] x2 . ??It is 2 pieces of ugo tissue, 1 and 3 mm. ??All in B T.A. Yodit Cornejo, P.A./Angy Quiros M.D. REPORT IMAGES AND SCANNED DOCUMENTS, IF INCLUDED, ONLY VIEWABLE IN PDF VERSION OF REPORT The performance characteristics of some immunohistochemical stains, fluorescence in-situ hybridization tests and immunophenotyping by flow cytometry cited in this report (if any) were determined by the Surgical Pathology Department at [facility] as part of an ongoing fiberglass quality technician program and in compliance with federally mandated [...] characteristics determined by the Surgical Pathology Department [facility]. ??It has not been cleared or approved by the U. S. Food and Drug Administration. Note for decalcified specimens: This assay has not been validated on decalcified tissues. Results should be interpreted with caution given the possibility of false negativity on decalcified specimens Celestino Moctezuma MD LAB PATHOLOGY ORDERABLES F inal Result PATHOLOGY [facility] [address] [place] [id number] * Flexible Sigmoidoscopy (09/19/2024 10:29 AM PROFESSOR OF PATHOLOGY) Anatomical Region Laterality Modality Other Narrative Procedure Note Celestino Moctezuma MD - 09/19/2024 10:[address] [facility] Patient Name: Sedrick Law Procedure Date: 09/19/2024 10:29AM Date of : 1975 Admit Type: Outpatient Age: 49 Gender: Male Attending MD: Celestino Moctezuma M.D. Room: [facility] ENDOSCOPY ROOM 1 Note Status: Finalized Patient [...] retrieved. Clip (MR conditional) was placed. Clip global head advertiser solutions: [employer]. - Internal hemorrhoids. Treated with thermaltherapy. Recommendation: [...] and informed consentwas obtained. The Endoscope GIF-H190 [id number] was introduced through the anus and advanced [...] hemostaticclip was successfully placed (MR conditional). Clip global head advertiser solutions: [employer]. There was no bleeding at the end of the procedure. Internal hemorrhoids were found during retroflexion. The hemorrhoids were medium-sized. Coagulation to prevent future bleeding of internal hemorrhoids using IRC (Infrared Coagulation) was successful. Electronically signed by Celestino Moctezuma M.D. Celestino Moctezuma M.D. 09/19/2024 2:12:13 PM Number of Addenda: 0 Note Initiated On: 09/19/2024 10:29 AM Procedure Code(s): --- Professional --- 70513, Destruction of internal hemorrhoid(s) by thermal energy (eg, infrared coagulation, cautery, radiofrequency) [address], Sigmoidoscopy, flexible; with removal of tumor(s), polyp(s),or other lesion(s) by snare technique Diagnosis Code(s): --- Professional --- K64.8, Other hemorrhoids D12.5, Benign neoplasm of sigmoid colon D12.8, Benign neoplasm of rectum K62.5, Hemorrhage of anus and rectum K57.30, Diverticulosis of large intestine without perforation orabscess without bleeding CPT copyright 2020 [employer]. All rights reserved. The codes documented in this report are preliminary and upon dental service chief reviewmay be revised to meet current compliance requirements. Recognized by the [employer] for promoting quality in endoscopy us Celestino Moctezuma MD ENDOSCOPY PROCEDURES Final Result documented in this encounter Visit Diagnoses Diagnosis Personal history of colonic polyps Encounter for screening colonoscopy Rectal bleeding- Primary Hemorrhage of rectum and anus Rectal bleeding Hemorrhage of rectum and anus Personal history [...] VomitingIndications:Nausea and Vomiting Given 09/19/2024 1:47 PM PROFESSOR OF PATHOLOGY 4 mg sodium chloride 0.9% flush 0.5-20 [...] Recently Administered Medications Times are shown in PROFESSOR OF PATHOLOGY. Continuous Medication Order 09/17/2024 09/18/2024 09/19/2024 sodium [...] Vomiting 1347 (Given - Provid er: Liliya Graves RN) sodium chloride 0.9% flush 0.5-20 mL [...] 09/19/2024 documented in this encounter Care Teams Handkerchief Presser Relationship Specialty Start Date End Date Carlos Pacheco MD [address] [place] [address] PCP - General Internal Medicine 04/26/24 documented as of this encounter
--- OUTSIDE RECORDS SUMMARY | 2024-10-04 12:44 | XMS_ITS | Encounter Summary ---
Author Organization [facility] Healthcare Address [address] [place] [address] Care Team Providers Care I&C Technician Name Role Phone Carlos Pacheco MD Primary Care Provider [phone] Encounter Details Date Type Department Care Team (Late st Contact Info) Description 05/05/2024 Orders Only [facility] Medical Group Gastroenterology at [address] [place] [phone] Celestino Moctezuma MD [address] [place] [address] [address] [place] [address] Social History Tobacco Use Types Packs/Day Years Used Date Smoking Tobacco: Every Day Cigarettes [facility] Utilities Answer Date Recorded In [...] re latives? Twice a week 04/30/2024 Attends [employer] Services Not on file 04/30 Active Member [...] time in the past 12 m [facility], were you homeless or living in a fpc (including now)? No 04/30/2024 Personal Safety Answer Date Recorded Have you ever been in or are you currently in a harmful physical or emotional relationship or is someone making you feel afraid or unsafe? 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 Not on le documented as of this encounter Ordered Prescriptions Prescription Sig Dispense Quantity Refills Last Filled Start Date End Date famotidine (PEPCID) 40 mg tablet Take 1 tablet (40 mg total) by mouth daily 30 tablet 11 05/05/2024 05/05/2025 documented in this encounter Plan of Treatment Upcoming Encounters Date Type Department Care Team (Late st Contact Info) Description 05/04/2025 8:00 AM CDT Hospital Encounter [address] [address] Celestino Moctezuma MD [address] [facility] [address] [place] [address] [place] [address] 05/04/2025 8:00 AM CDT - 05/04/2025 8:30 AM CDT Surgery [address] [address] Celestino Moctezuma MD [address] [facility] [address] [place] [address] [place] [address] COLONOSCOPY Scheduled Procedures Name Priority Associated Diagnoses Date/Ti me COLONOSCOPY Personal history of colonic polyps Encounter for screening colonoscopy 05/04/2025 8:00 AM CDT documented as of this encounter Visit Diagnoses Not on filedocumented in this encounter Discontinued Medications Medication Sig Discontinue Reason Start Date End Da te pantoprazole DR (PROTONIX) 40 mg EC tabletIndications:GI Bleed Take 1 tablet (40 mg total) by mouth 2 (two) times a day Therapy completed 04/30/2024 05/05/2024 documented as of this encounter Care Teams I&C Technician Relationship Specialty Start Date End Date Carlos Pacheco MD [address] [place] [address] PCP - General Internal Medicine 04/26/24 documented as of this encounter
--- OUTSIDE RECORDS SUMMARY | 2024-10-04 12:44 | XMS_ITS | Encounter Summary ---
Author Organization [facility] Healthcare Address [address] [place] [address] Care Team Providers Care Glost Kiln Placer Name Role Phone Carlos Pacheco MD Primary Care Provider [phone] Encounter Details Date Type Department Care Team (Late st Contact Info) Description 08/26/2024 Orders Only [facility] Medical Group Gastroenterology at [address] [place] [phone] Celestino Moctezuma MD [address] [place] [address] [address] [place] [address] Social History Tobacco Use Types Packs/Day Years Used Date Smoking Tobacco: Every Day Cigarettes [facility] Utilities Answer Date Recorded In the [...] re latives? Twice a week 04/30/2024 Attends [employer] Services Not on file 04/30 Active Member [...] any time in the past 12 m [facility], were you homeless or living in a senior living (including now)? No 04/30/2024 Personal Safety Answer Date Recorded Have you ever been in or are you currently in a harmful physical or emotional relationship or is someone making you feel afraid or unsafe? 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 Not on le documented as of this encounter Ordered Prescriptions Prescription Sig Dispense Quantity Refills Last Filled Start Date End Date hydrocortisone (ANUSOL-HC) 25 mg suppository Insert 1 suppository (25 mg total) into the rectum daily Take prior to procedure as directed 20 suppository 4 08/26/20 25 documented in this encounter Plan of Treatment Upcoming Encounters Date Type Department Care Team (Late st Contact Info) Description 05/04/2025 8:00 AM CDT Hospital Encounter [address] [address] Celestino Moctezuma MD [address] [facility] [address] [place] [address] [place] [address] 05/04/2025 8:00 AM CDT - 05/04/2025 8:30 AM CDT Surgery [address] [address] Celestino Moctezuma MD [address] [facility] [address] [place] [address] [place] [address] COLONOSCOPY Scheduled Procedures Name Priority Associated Diagnoses Date/Ti me COLONOSCOPY Personal history of colonic polyps Encounter for screening colonoscopy 05/04/2025 8:00 AM CDT documented as of this encounter Visit Diagnoses Not on filedocumented in this encounter Care Teams Glost Kiln Placer Relationship Specialty Start Date End Date Carlos Pacheco MD [address] [place] [address] PCP - General Internal Medicine 04/26/24 documented as of this encounter
--- OUTSIDE RECORDS SUMMARY | 2024-10-04 12:44 | XMS_ITS | Encounter Summary ---
Author Organization [facility] Healthcare Address [address] [place] [address] Care Team Providers Care Material Liaison Name Role Phone Carlos Pacheco MD Primary Care Provider [phone] Encounter Details Date Type Department Care Team (Late st Contact Info) Description 08/04/2024 8:15 AM CDT Lab [facility] [address] [place] [phone] Social History Tobacco Use Types Packs/Day Years Used Date Smoking Tobacco: Every Day Cigarettes [facility] Utilities Answer Date Recorded In the past [...] re latives? Twice a week 04/30/2024 Attends Buddhism Services Not on file 04/30 Active Member [...] any time in the past 12 m [facility], were you homeless or living in a usp (including now)? No 04/30/2024 Personal Safety Answer Date Recorded Have you ever been in or are you currently in a harmful physical or emotional relationship or is someone making you feel afraid or unsafe? 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 Not on file Not on fi le documented as of this encounter Plan of Treatment Upcoming Encounters Date Type Department Care Team (Late st Contact Info) Description 05/04/2025 8:00 AM CDT Hospital Encounter [facility] [address] [place] [address] Celestino Moctezuma MD [address] [place] [address] [place] [address] 05/04/2025 8:00 AM CDT - 05/04/2025 8:30 AM CDT Surgery [facility] [address] [place] [address] Celestino Moctezuma MD [address] [place] [address] [place] [address] COLONOSCOPY Scheduled Procedures Name Priority Associated Diagnoses Date/Ti me COLONOSCOPY Personal history of colonic polyps Encounter for screening colonoscopy 05/04/2025 8:00 AM CDT documented as of this encounter Procedures Procedure Name Priority Date/Time Associated Diagnosis Comments EGFR Routine 08/04/2024 8:21 AM CDT PSA SCREEN Routine 08/04/2024 8:21 AM CDT VITAMIN D 25 HYDROXY Routine 08/04/2024 8:21 AM CDT TSH Routine 08/04/2024 8:21 AM CDT TOTAL TESTOSTERONE Routine 08/04/2024 8: 21 AM CDT HEMOGLOBIN A1C Routine 08/04/2024 8:21 AM CDT LIPID PANEL Routine 08/04/2024 8:21 AM CDT COMPREHENSIVE METABOLIC PANEL Routine 08/04/2024 8:21 AM CDT documented in this encounter Results * eGFR (08/04/2024 8:21 AM CDT) eGFR [...] of Race in Diagnosing Kidney Disease, JASN 202). The CKD-EPI equation should not be used for patients with unstable renal function and has not been validated in children and those over 70. Current interpretive data was last reviewed 2021. Testing performed by: [facility], [address] [place] [address]., [address] Blood 08/04/2024 8:21 AM CDT 08/04/2024 1:17 PM CDT us Kaylyn Gorman DIRECTOR OF ROOMS LAB BLOOD ORDERABLES Final Result SIMAVYO UIY (AYER) 1 [facility] Department [place] [address] * (ABNORMAL) Lipid panel (08/04/2024 8:21 AM [...] last revised on 2018. Testing performed by: [facility], [address] [place] [address]., [address] Triglycerides 104 <=149 mg/dL MINOR RAYMUNDO ([place]) [...] last revised on 2018. Testing performed by: [facility], [address] [place] [address]., [address] HDL 29(L) >=40 mg/dL MINOR PASTRANA) Comment: Interpretive Data Ages < or = [...] last revised on 2018. Testing performed by: [facility], [address] [place] [address]., [address] LDL, calculated 89 <=129 mg/dL MINOR RAYMUNDO [...] last revised on 2024. Testing performed by: [facility], [address] [place] [address]., [address] Non-HDL Cholesterol 109 mg/dL MINOR RAYMUNDO ([place]) [...] last revised on 2018. Testing performed by: [facility], [address] [place] [address]., [address] Chol/HDL ratio 5 SIMAROSSY Karis RAYMUNDO ([place]) Comment:Testing performed by : [facility], [address] [place] [address]., [address] Blood 08/04/2024 8:21 AM CDT 08/04/2024 8:21 AM CDT Kaylyn Gorman DIRECTOR OF ROOMS LAB BLOOD ORDERABLES Final Result MINOR RAYMUNDO (AYER) 1 [facility] [place] [address] * (ABNORMAL) Hemoglobin A1c (08/04/2024 8:21 AM CDT) Hgb A1C 5.9(H) 4.0 - 5.6 % Comment:Testing performed by : [facility], [address] [place] [address]., [address] Estimated Average Glucose 123 mg/dL MINOR RAYMUNDO ([place]) Comment: The ADA recommends reporting an estimated Average Glucose (eAG) with all Hemoglobin A1c results using the equation derived from a study of 507 normal and diabetic adults. ??Minority populations were underrepresented and children were not included. ?? (Diabetes Care 31:5618-8521, 2008). ??The eAG is not equivalent to a fasting glucose. Testing performed by: [facility], [address] [place] [address]., [address] Blood 08/04/2024 8:21 AM CDT 08/04/2024 8:23 AM CDT Kaylyn Gorman DIRECTOR OF ROOMS LAB BLOOD ORDERABLES Final Result MINOR RAYMUNDO ([place]) 1 [facility] [place] [address] * Total testosterone (08/04/2024 8:21 AM CDT) Testosterone 557 193 - 740 ng/dL Comment:Testing performed by : [facility], [address] [place] [address]., [address] Blood 08/04/2024 8:21 AM CDT 08/04/2024 8:21 AM CDT Kaylyn Gorman DIRECTOR OF ROOMS LAB BLOOD ORDERABLES Final Result Performing Organization Address City/[facility]/ZIP Co de Phone Number MINOR RAYMUNDO ([place]) 1 [facility] [employer] [place] [address] * Vitamin D 25 hydroxy (08/04/2024 8:21 AM CDT) Pathologist [facility] Vitamin D 25-OH 35 30 - 80 ng/mL Comment:Testing performed by : [facility], [address] [place] [address], [address] Blood 08/04/2024 8:21 AM CDT 08/04/2024 8:22 AM CDT Kaylyn Gorman DIRECTOR OF ROOMS LAB BLOOD ORDERABLES Final Result Performing Organization Address City/[facility] de Phone Number MINOR RAYMUNDO ([place]) 1 [place] [address] * Comprehensive metabolic panel (08/04/2024 8:21 AM CDT) Pathologist [facility] Sodium 140 135 - 145 mmol/L Comment:Testing performed by : [facility], [address] [place] [address]., [address] Potassium, pl 4.2 3.3 - 4.9 mmol/L [facility] ([place]) Comment:Testing performed by : [facility], [address] [place] [address]., [address] Chloride 104 97 - 110 mmol/L [facility] ([place]) Comment:Testing performed by : [facility], [address] [place] [address]., [address] CO2 24 22 - 32 mmol/L [facility] ([place]) Comment:Testing performed by : [facility], [address] [place] [address]., [address] Anion gap 12 2 - 15 mmol/L [facility] ([place]) Comment:Testing performed by : [address] [address] BUN 9 6 - 25 mg/dL [facility] ([place]) Comment:Testing performed by : [address] [address] Creatinine 1.03 0.80 - 1.30 mg/dL [facility] ([place]) Comment:Testing performed by : [address], [address] Glucose 94 70 - 199 mg/dL CERNER [...] was last revised 2022. Testing performed by: [facility], [address] [place] [address], [address] Calcium 9.6 8.5 - 10.3 mg/dL [facility] ([place]) Comment:Testing performed by : [address] [address] Bilirubin, total 0.2 0.1 - 1.2 mg/dL [facility] ([place]) Comment:Testing performed by : [address] [address] Protein, pl 6.9 6.5 - 8.5 g/dL [facility] ([place]) Comment:Testing performed by : [address], [address] Albumin 4.3 3.5 - 5.0 g/dL [facility] ([place]) Comment:Testing performed by : [address], [address] Alk phos 90 40 - 130 Units/L [facility] ([place]) Comment:Testing performed by : [address], [address] ALT 13 7 - 55 Units/L [facility] ([place]) Comment:Testing performed by : [facility], [address] [place] [address], [address] AST 30 10 - 50 Units/L [facility] ([place]) Comment:Testing performed by : [facility], [address] [place] [address], [address] Blood 08/04/2024 8:21 AM CDT 08/04/2024 8:21 AM CDT Kaylyn Gorman DIRECTOR OF ROOMS LAB BLOOD ORDERABLES Final Result Performing Organization Address City/[facility]/ZIP Co de Phone Number [facility] ([place]) 1 [facility] [employer] [place] [address] * TSH (08/04/2024 8:21 AM CDT) Thyroid Stimulating Hormone 1.23 0.30 - 4.20 mcIUnit/mL Comment:Testing performed by : [facility], [address] [place] [address], [address] Blood 08/04/2024 8:21 AM CDT 08/04/2024 8:21 AM CDT Kaylyn Gorman DIRECTOR OF ROOMS LAB BLOOD ORDERABLES Final Result Performing Organization Address [facility] Co de Phone Number MINOR RAYMUNDO ([place]) 1 [facility] [place] [address] * PSA screen (08/04/2024 8:21 AM CDT) [...] data last revised 22. Testing performed by: [facility], [address] [place] [address], [place]., [address] Blood 08/04/2024 8:21 AM CDT 08/04/2024 8:21 AM CDT Kaylyn Gorman DIRECTOR OF ROOMS LAB BLOOD ORDERABLES Final Result Performing Organization Address City/State/[facility] Co de Phone Number [facility] ([place]) 1 [facility] Department [place] [address] documented in this encounter Visit Diagnoses Not on filedocumented in this encounter Care Teams Material Liaison Relationship Specialty Start Date End Date Carlos Pacheco MD [address] [place] [address] PCP - General Internal Medicine 04/26/24 documented as of this encounter
--- OUTSIDE RECORDS SUMMARY | 2024-10-04 12:44 | XMS_ITS | Encounter Summary ---
Author Organization [facility] Healthcare Address [address] [place] [address] Care Team Providers Care District Ranger Name Role Phone Carlos Pacheco MD Primary Care Provider [phone] Encounter Details Date Type Department Care Team (Late st Contact Info) Description 08/04/2024 8:30 AM CDT Lab [facility] [address] [place] [phone] Gastrointestinal hemorrhage, unspecified gastrointestinal hemorrhage type Social History Tobacco Use Types Packs/Day Years Used Date Smoking Tobacco: Every Day Cigarettes [facility] Utilities Answer Date Recorded In the past [...] re latives? Twice a week 04/30/2024 Attends Church Services Not on file 04/30 Active Member [...] any time in the past 12 m [facility], were you homeless or living in a half-way (including now)? No 04/30/2024 Personal Safety Answer Date Recorded Have you ever been in or are you currently in a harmful physical or emotional relationship or is someone making you feel afraid or unsafe? 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 Not on file Not on fi le documented as of this encounter Plan of Treatment Upcoming Encounters Date Type Department Care Team (Late st Contact Info) Description 05/04/2025 8:00 AM CDT Hospital Encounter [facility] 1 [place] [address] Celestino Moctezuma MD [address] [place] [address] [place] [address] 05/04/2025 8:00 AM CDT - 05/04/2025 8:30 AM CDT Surgery [facility] 1 [place] [address] Celestino Moctezuma MD [address] [place] [address] [place] [address] COLONOSCOPY Scheduled Procedures Name Priority Associated Diagnoses Date/Ti me COLONOSCOPY Personal history of colonic polyps Encounter for screening colonoscopy 05/04/2025 8:00 AM CDT documented as of this encounter Procedures Procedure Name Priority Date/Time Associated Diagnosis Comments DIFFERENTIAL AUTO Routine 08/04/2024 8:2 0 AM [...] CDT Gastrointestinal hemorrhage, unspecified gastrointestinal hemorrhage type documented in this encounter Results * Differential, auto (08/04/2024 8:20 AM CDT) Neutrophil abs 4.0 1.5 - 6.5 K/cumm Comment:Testing performed by : [facility], [address] [place] [address]., [address] Imm gran abs 0.0 0.0 - 0.1 K/cumm [facility] ([place]) Comment:Testing performed by : [facility], [address] [place] [address]., [address] Lymphocyte abs 1.7 0.8 - 3.3 K/cumm [facility] ([place]) Comment:Testing performed by : [facility], [address] [place] [address]., [address] Monocyte abs 0.6 0.2 - 0.8 K/cumm [facility] ([place]) Comment:Testing performed by : [facility], [address] [place] [address]., [address] Eosinophil abs 0.1 0.0 - 0.5 K/cumm [facility] ([place]) Comment:Testing performed by : [facility], [address] [place] [address]., [address] Basophil abs 0.1 0.0 - 0.1 K/cumm [facility] ([place]) Comment:Testing performed by : [facility], [address] [place] [address]., [address] Neutrophil pct 61.3 % [facility] ([place]) Comment: Interpretive Data Percent cell count reference ranges are not reported, since discordance with absolute values may lead to misinterpretation of CBC data. Current Interpretive Data was last revised on 2018. Testing performed by: [facility], [address] [place] [address]., [address] Imm gran pct 0.3 % [facility] ([place]) Comment: Interpretive Data Percent cell count reference ranges are not reported, since discordance with absolute values may lead to misinterpretation of CBC data. Current Interpretive Data was last revised on 2018. Testing performed by: [address] [address] Lymphocyte pct 26.2 % [facility] ([place]) Comment: Interpretive Data Percent cell count reference ranges are not reported, since discordance with absolute values may lead to misinterpretation of CBC data. Current Interpretive Data was last revised on 2018. Testing performed by: [address] [address] Monocyte pct 9.7 % [facility] ([place]) Comment: Interpretive Data Percent cell count reference ranges are not reported, since discordance with absolute values may lead to misinterpretation of CBC data. Current Interpretive Data was last revised on 2018. Testing performed by: [address] [address] Eosinophil pct 1.7 % [facility] ([place]) Comment: Interpretive Data Percent cell count reference ranges are not reported, since discordance with absolute values may lead to misinterpretation of CBC data. Current Interpretive Data was last revised on 2018. Testing performed by: [facility], [address] [place] [address]., [address] Basophil pct 0.8 % MINOR RAYMUNDO ([place]) Comment: Interpretive Data Percent cell count reference ranges are not reported, since discordance with absolute values may lead to misinterpretation of CBC data. Current Interpretive Data was last revised on 2018. Testing performed by: [facility], [address] [place] [address]., [address] Blood 08/04/2024 8:20 AM CDT 08/04/2024 1:00 PM CDT us Celestino Moctezuma MD LAB BLOOD ORDERABLES Final Result Performing Organization Address City/[facility]/ZIP Co de Phone Number MINOR RAYMUNDO ([place]) 1 [facility] [place] [address] * Folate (08/04/2024 8:20 AM CDT) Folic acid 10.3 >=5.0 ng/mL Comment:Testing performed by : [facility], [address] [place] [address]., [id number] Blood 08/04/2024 8:20 AM CDT 08/04/2024 1:00 PM CDT us Celestino Moctezuma MD LAB BLOOD ORDERABLES Final Result MINOR RAYMUNDO ([place]) 1 [facility] [place] [address] * Vitamin B12 (08/04/2024 8:20 AM CDT) Vitamin B12 253 230 - 1,250 pg/mL Comment:Testing performed by : [facility], [address] [place] [address]., [address] Blood 08/04/2024 8:20 AM CDT 08/04/2024 1:00 PM CDT us Celestino Moctezuma MD LAB BLOOD ORDERABLES Final Result Performing Organization Address City/[facility]/ZIP Co de Phone Number MINOR RAYMUNDO ([place]) [address] [facility] [place] [address] * (ABNORMAL) Iron profile w/ IBC (08/04/2024 8:20 AM CDT) Iron 69 50 - 150 mcg/dl Comment:Testing performed by : [facility], [address] [place] [address]., [address] TIBC 396 250 - 400 mcg/dL [facility] ([place]) Comment:Testing performed by : [facility], [address] [place] [address], [address] Transferrin saturation 17(L) 20 - 50 % [facility] ([place]) Comment:Testing performed by : [address], [address] Blood 08/04/2024 8:20 AM CDT 08/04/2024 1:00 PM CDT Celestino Moctezuma MD LAB BLOOD ORDERABLES Final Result Performing Organization Address City/[facility] Co de Phone Number MINOR RAYMUNDO ([place]) 1 [facility] [employer] [place] [place] [address] * (ABNORMAL) CBC with auto differential (08/04/2024 8:20 AM CDT) WBC 6.5 3.8 - 9.9 K/cumm Comment:Testing performed by : [address] [address] Hgb 15.3 13.0 - 17.5 g/dL [facility] ([place]) Comment:Testing performed by : [address] [address] Hct 48.6 38.9 - 50.3 % [facility] ([place]) Comment:Testing performed by : [address], [address] Plt 419(H) 150 - 400 K/cumm [facility] ([place]) Comment:Testing performed by : [address] [place]., [address] MPV 10.0 9.1 - 12.3 fL [facility] ([place]) Comment:Testing performed by : [facility], [address] [place] [address], [address] RBC 5.05 4.30 - 5.80 M/cumm [facility] ([place]) Comment:Testing performed by : [facility], [address] [place] [address], [address] MCV 96.2 81.3 - 96.4 fL [facility] ([place]) Comment:Testing performed by : [address], [address] MCH 30.3 27.1 - 33.3 pg [facility] ([place]) Comment:Testing performed by : [address], [address] MCHC 31.5(L) 32.3 - 35.7 g/dL [facility] ([place]) Comment:Testing performed by : [address], [address] RDW CV 13.2 11.1 - 14.9 % [facility] ([place]) Comment:Testing performed by : [address], [address] RDW SD 46.7 35.7 - 48.1 fL [facility] ([place]) Comment:Testing performed by : [address], [address] NRBC abs 0.00 0.00 - 0.01 K/cumm [facility] ([place]) Comment:Testing performed by : [address], [address] Blood 08/04/2024 8:20 AM CDT 08/04/2024 1:00 PM CDT Celestino Moctezuma MD LAB BLOOD ORDERABLES Final Result [facility] ([place]) 1 [facility] Department [place] [address] documented in this encounter Visit Diagnoses Diagnosis Personal history of colonic polyps Encounter for screening colonoscopy Gastrointestinal hemorrhage, unspecified gastrointestinal hemorrhage type Personal history of colonic polyps Encounter for screening colonoscopy documented in this encounter Care Teams District Ranger Relationship Specialty Start Date End Date Carlos Pacheco MD [address] [place] [address] PCP - General Internal Medicine 04/26/24 documented as of this encounter
--- OUTSIDE RECORDS SUMMARY | 2024-10-04 12:45 | XMS_ITS | Encounter Summary ---
Author Organization [facility] Healthcare Address [address] [place] [address] Care Team Providers Care Investor Relations Coordinator Name Role Phone Unavailable Primary Care Provider Unavailabl e Encounter Details Date Type Department Care Team (Late st Contact Info) Description 08/25/2010 11:14 AM 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 - 08/25/2010 11:59 PM 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 Hospital Encounter [facility] Jordan Owen MD [address] [place], [place] [id number] Sprain of ankle; Overexertion from sudden strenuous movement; Place of occurrence, industrial places and premises; Civilian activity done for income or pay Social History Tobacco Use Types Packs/Day Years Used Date Smoking Tobacco: Never Assessed Sex and Gender Information Value Date Recorded Sex Assigned at Not on file Legal Sex Male 3:12 AM 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 Gender Identity Not on file Sexual Orientation Not on file documented as of this encounter Plan of Treatment Upcoming Encounters Date Type Department Care Team (Late st Contact Info) Description 05/04/2025 8:00 AM CDT Hospital Encounter [address] [address] Celestino Moctezuma MD 4 [facility] [address] [place] [address] 05/04/2025 8:00 AM CDT - 05/04/2025 8:30 AM CDT Surgery [address] [address] Celestino Moctezuma MD 4 [facility] [address] [place] [address] COLONOSCOPY Scheduled Procedures Name Priority Associated Diagnoses Date/Ti me COLONOSCOPY Personal history of colonic polyps Encounter for screening colonoscopy 05/04/2025 8:00 AM CDT documented as of this encounter Visit Diagnoses Diagnosis Sprain of ankle Unspecified site of ankle sprain and strain Overexertion from sudden strenuous movement Place of occurrence, industrial places and premises Civilian activity done for income or pay Personal history of colonic polyps Encounter for screening colonoscopy documented in this encounter
--- OUTSIDE RECORDS SUMMARY | 2024-10-04 12:45 | XMS_ITS | Encounter Summary ---
Author Organization [facility] Healthcare Address [address] [place] [address] Care Team Providers Care Reinforcing Steel Placer Name Role Phone Carlos Pacheco MD Primary Care Provider [phone] Reason for Visit * Auth/Cert Specialty Diagnoses / Procedures Referred By Deirdre her Referred To Contact Diagnoses Rectal bleeding Procedures na Referral ID Status Reason Start Date Expiration Date Visits Re quested Visits Authorized [id number] 1 1 Encounter Details Date Type Department Care Team (Late st Contact Info) Description 04/28/2024 1:07 PM CDT Anesthesia Event [address] [address] Luke Vivar MD [address] [place], [place] [id number] Anesthesia Record Procedure Summary Procedure Name Responsible Anesthesiologist Anesthesia Start Time Anesthesia Stop Time ESOPHAGOGASTRODUODENOSCOPY Collin Vivar MD 04/28/24 1307 04/28/24 1331 Events Date Time Event Comment 04/28/2024 1251 1307 In Room 1307 An Start 1307 An Start Data 1307 Start Supplemental O2 1307 Patient Positioned Laterally 1313 An Induction The patient was reevaluated immediately before moderate or deep sedation use and before anesthesia induction. 1313 Anesthesia Ready 1313 Proc Start 1329 an stop data 1330 Proc Fin 1331 Handoff to RN I completed my handoff [...] Patient disposition at the time of handoff: No value filed. 1331 An Stop 1332 Out of Room Meds Name Total lidocaine (cardiac) syringe 2 % 40 mg propofol 260 mg benzocaine (HURRICAINE ONE) mouth spray 20 % 1 spray metoprolol 5 mg sodium chloride 0.9% infusion 500 mL * Agents Name O2 * Blood No blood administrations on file. Lines, Drains, and Airways Type Details Placement Removal Peripheral IV Placement Date: 04/08 ; Placement Time: 123; Catheter Size: 18 G; Orientation: Anterior, Distal, Right, Upper; Location: Arm; Removal Date: 04/29/24; Removal Time: 2319; Removal Reason: Occluded 04/26/24 1238 by Evelyn Eduardo RN 04/29/24 2320 by Tonio Simpson RN Peripheral IV Placement Date: 04/08 10/31; Placement Time: 1899; Catheter Size: 20 G; Orientation: Left, Posterior; Location: Hand; Site Prep: Chlorhexidine; Inserted by: HERRERA; Insertion Attempts: 1; Patient Tolerance: Tolerated well; Removal Date: 04/30/24; Removal Time: 011; Removal Reason: Infiltrated 04/27/24 1900 by Anna Hood RN 04/30/24 0110 by Tonio Simpson RN documented in this encounter Social History Tobacco Use Types Packs/Day Years Used Date Smoking Tobacco: Every Day Cigarettes AUDIT-C Answer Date Recorded Q1: How often do you have a drink containing alcohol? 4 or more times a week 04/26/2024 Q2: How many drinks containi ng alcohol do you have on a typical day when you are drinking? 5 or 6 Q3: How often do you have si x or more drinks on one occasion? Daily or almost daily 04/26/2024 Personal Safety Answer Date Recorded Have you ever been in or are you currently in a harmful physical or emotional relationship or is someone making you feel afraid or unsafe? 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 Gender Identity Not on file Sexual Orientation Not on file documented as of this encounter OR Notes * Anesthesia Postprocedure Evaluation - Marlena Ott, FEEDER TENDER - 04/28/2024 1:31 PM CDT Patient: Sedrick Law Procedure Summary Date: 04/28/24 Room / Location: [facility] ROOM 1 / [facility] Anesthesia Start: 1307 Anesthesia Stop: 1331 Procedures: ESOPHAGOGASTRODUODENOSCOPY SIGMOIDOSCOPY Diagnosis: Rectal bleeding (Rectal bleeding [K62.5]) Providers: Celestino Moctezuma MD Responsible Provider: Luke Vivar MD Anesthesia Type: general TIVA ASA Status: 3 Anesthesia Type: general TIVA Last vitals BP (!) 164/108 Pulse 109 Temp 36.1 ??C (97 ??F) (Temporal) Resp 15 SpO2 99% Anesthesia Post Evaluation Patient location during evaluation: PACU Patient participation: complete - patient participated 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 * Anesthesia Preprocedure Evaluation - Luke Vivar MD - 04/28/2024 12:49 PM CDT Images from the original note were not included. Anesthesia Evaluation Sedrick Law is a 49 y.o. male ESOPHAGOGASTRODUODENOSCOPY SIGMOIDOSCOPY Pre-Op Diagnosis Codes: * Rectal bleeding [K62.5] HISTORY Past Medical History Information obtained from: patient and chart. Information obtained during: In Person Cardiovascular + Hypertension + Hyperlipidemia Respiratory + Current smoker - Counseled to abstain from smoking the day of surgery. Patient refrained from smoking on day of surgery. Hepatic / Heme + History of anemia (GIB s/p transfusion) Functional Capacity Functional capacity: 4-6 METs Review of Systems Pertinent negatives: SOB and chest pain Patient Active Problem List Diagnosis Date Noted Diverticulitis 04/27/2024 Rectal bleeding 04/26/2024 Past Medical History: Diagnosis Date Hypertension Past Surgical History: Procedure Laterality Date BRAIN SURGERY No Known Allergies Med List Status: Nurse Complete Set By: Priya Mancia RN at 04/26/2024 5:00 PM Taking? Last Dose Start Date End Date Provider amLODIPine (NORVASC) 5 mg tablet -- -- -- Anh Greer MD atorvastatin (LIPITOR) 10 mg tablet -- [...] -- Anh Greer MD Current Facility-Administered Medications: [Transfer Hold] acetaminophen (TYLENOL) tablet 650 mg, 650 mg, oral, Q4H PRN, 650 mg at 04/27/24 0905 [Transfer Hold] amLODIPine (NORVASC) tablet 5 mg, 5 mg, oral, Nightly, 5 mg at 04/27/242230 [Held by Provider] atorvastatin (LIPITOR) tablet 10 mg, 10 mg, oral, Nightly, 10 mg at 04/27/24 2158 [Transfer Hold] cefTRIAXone (ROCEPHIN) 2,000 mg/20 mL in sterile water (premix) 2,000 mg, 2,000 mg,intravenous, Q24H SANDRA, 2,000 mg at 04/27/24 1123 [Held by Provider] fenofibrate nanocrystallized (TRICOR) tablet 145 mg, 145 mg, oral, Daily, 145 mgat 04/27/24 0752 [Transfer Hold] metoclopramide (REGLAN) 5 mg/mL injection 10 mg, 10 mg, intravenous, Q6H SANDRA, 10 mgat 04/28/24 0920 [Held by Provider] metoprolol XL (TOPROL-XL) extended release tablet 100 mg, 100 mg, oral, Nightly [Transfer Hold] metroNIDAZOLE (FLAGYL) 500 mg/100 mL in sodium chloride (premix) 500 mg, 500 mg, intravenous, Q12H SANDRA, Last Rate: 200 mL/hr at 04/27/24 2333, 500 mg at 04/27/24 2333 [Transfer Hold] ondansetron ODT (ZOFRAN-ODT) disintegrating tablet 4 mg, 4 mg, oral, Q6H PRN OR[Transfer Hold] ondansetron (ZOFRAN) injection 4 mg, 4 mg, intravenous, Q6H PRN [Transfer Hold] pantoprazole (PROTONIX) 40 mg in sodium chloride 0.9% 10 mL IV Syringe, 40 mg, intravenous, BID sodium chloride 0.9% flush 0.5-20 mL, 0.5-20 mL, intra-catheter, Q8H SANDRA sodium chloride 0.9% flush 0.5-20 mL, 0.5-20 mL, intra-catheter, PRN sodium chloride 0.9% infusion, 100 mL/hr, intravenous, Continuous, Last Rate: 100 mL/hr at 920, 100 mL/hr at 04/28/24 0920 sodium chloride 0.9% infusion, 30 mL/hr, intravenous, Continuous, Last Rate: 30 mL/hr at 04/28/24 1111, 30 mL/hr at 04/28/24 1111 [Transfer Hold] zolpidem (AMBIEN) tablet 5 mg, 5 mg, oral, Nightly, 5 mg at 04/27/24 2158 Social History Tobacco Use Smoking Status Every [...] file No family history on file. Vitals: 04/28/24 0900 04/28/24 1000 04/28/24 1105 BP: (!) 153/101 144/90 (!) 164/108 Pulse: 96 96 109 Resp: 18 13 15 Temp: 36.1 ??C (97 ??F) SpO2: 100% 100% 99% PT: 04/26/2024: 10.8 sec INR: 04/26/2024: 1.00 APTT: No results found for requested labs within last 30 days. Hgb A1C: No results found for requested labs within last 30 days. CBC RBC: 04/28/2024: 2.68 M/cumm (L) RDW: No results found for requested labs within last 30 days. MCHC: 04/28/2024: 34.9 g/dL MCH: 04/28/2024: 32.5 pg MCV: 04/28/2024: 92.9 fL Hct: 04/28/2024: 24.3 % (L) Hgb: 04/28/2024: 8.6 g/dL (L) WBC: 04/28/2024: 7.8 K/cumm MPV: 04/28/2024: 9.6 fL Platelets: 04/28/2024: 334 K/cumm RDW CV: 04/28/2024: 13.3 % RDW Sd: 04/28/2024: 45.2 fL BMP Glucose: 04/28/2024: 104 mg/dL Calcium: 04/28/2024: 8.3 mg/dL (L) Sodium: 04/28/2024: 139 mmol/L Potassium: 04/28/2024: 3.8 mmol/L CO2: 04/28/2024: 22 mmol/L Chloride: 04/28/2024: 110 mmol/L BUN: 04/28/2024: 11 mg/dL Creatinine: 04/28/2024: 0.98 mg/dL DOS Physical Exam Medical history, medications, and allergies reviewed. Attestation: I endorse the findings of the anesthesia pre-evaluation assessment dated: 04/28/2024. Airway Exam: Mallampati: II Cervical ROM: FROM TM distance: >4 Cardiovascular Exam: Rate: regular Rhythm: regular Pulmonary Exam: LCTA, bilat Dental Exam: Appears intact Current state: Patient's current state is interactive and cooperative. Anesthesia Plan ASA 3 My patient is approved for the Anesthesia Controlled Medication protocol when under care of a FEEDER TENDER Planned anesthesia: General TIVA Induction: Induction: intravenous. Postoperative Plan: Patient's planned disposition post procedure is Outpatient. Informed Consent: Discussed plan with attending and FEEDER TENDER. Anesthesia plan and risks discussed with patient. [...] Description 05/04/2025 8:00 AM CDT Hospital Encounter [facility] [address] [place] [address] Celestino Moctezuma MD [address] [facility] [address] [address] [place] [address] 05/04/2025 8:00 AM CDT - 05/04/2025 8:30 AM CDT Surgery [facility] [address] [place] [address] Celestino Moctezuma MD 4 [facility] [address] [place] [address] [place] [id number] COLONOSCOPY Scheduled Procedures Name Priority Associated Diagnoses Date/Ti me COLONOSCOPY Personal history of colonic polyps Encounter for screening colonoscopy 05/04/2025 8:00 AM CDT documented as of this encounter Visit Diagnoses Not on filedocumented in this encounter Administered Medications Inactive Administered Medications - up to 3 most recent administrations Medication Order MAR Action Action Date Dose Rate Site benzocaine (HURRICAINE) 20 % mouth spray mouth/throat, As needed, Starting on Sun04/28/24 at 1311, Anesthesia Intra-op Given 04/28/2024 1:11 PM CDT 1 spray lidocaine (PF) (XYLOCAINE) 20 mg/mL (2 %) preservative free injection intravenous, As needed, Starting on Sun04/28/24 at 1313, Anesthesia Intra-op Given 04/28/2024 1:13 PM CDT 40 mg metoprolol (LOPRESSOR) injection intravenous, Administer over 1 Minutes, As needed, Starting on Sun04/28/24 at 1316, Anesthesia Intra-op Given 04/28/2024 1:25 PM CDT 2.5 mg Given 04/28/2024 1:16 PM CDT 2.5 mg propofoL (DIPRIVAN) 10 mg/mL IV intravenous, As needed, Starting on Sun04/28/24 at 1313, Anesthesia Intra-op Given 04/28/2024 1:26 PM CDT 20 mg Given 04/28/2024 1:22 PM CDT 20 mg Given 04/28/2024 1:19 PM CDT 20 mg sodium chloride 0.9% infusion 30 mL/hr, intravenous, Continuous, Starting on Sun04/28/24 at 1145, Pre-Procedure (GI) New Bag 04/28/2024 1:27 PM CDT Restarted 04/28/2024 1:07 PM CDT New Bag 04/28/2024 11:11 AM CDT 30 mL/hr 30 mL/hr documented in this encounter Care Teams Reinforcing Steel Placer Relationship Specialty Start Date End Date Carlos Pacheco MD [address] [place] [address] PCP - General Internal Medicine 04/26/24 documented as of this encounter
--- OUTSIDE RECORDS SUMMARY | 2024-10-04 12:45 | XMS_ITS | Encounter Summary ---
Author Organization [facility] Healthcare Address [address] [place] [address] Care Team Providers Care Tobacco Curer Name Role Phone Carlos Pacheco MD Primary Care Provider [phone] Reason for Visit * Reason Comments Black or Bloody Stool * Auth/Cert Specialty Diagnoses / Procedures Referred By Contac t Referred To Contact Diagnoses Rectal bleeding Procedures na Referral ID Status Reason Start Date Expiration Date Visits Re quested Visits Authorized [id number] 1 1 Encounter Details Date Type Department Care Team (Late st Contact Info) Description 04/29/2024 11:25 AM CDT - 04/29/2024 11:[address] [facility] [address] [place] [address] Celestino Moctezuma MD [address] [place] [address] COLON CONTROL BLEEDING Surgery Details Date/Time Status Location OR Service Patient Class Case Class Case Type Trauma Case? 04/29/2024 11:25 AM Posted [facility] ENDOSCOPY GI 01 Gastroenterology Inpatient Emergent Panel 1 Procedure LRB Anes Op Region Wound Class Comments COLON CONTROL BLEEDING N/A Monitor Anesthesia Care ENDO ADD ON COLON REMOVAL SNARE N/A Choice ENDO ADD ON COLON BIOPSY N/A Choice Surgeon Surgeon Role Service Panel Celestino Moctezuma MD Primary Gastroenterology 1 documented in this encounter Social History Tobacco Use Types Packs/Day Years Used Date Smoking Tobacco: Every Day Cigarettes Tobacco Cessation:Ready to Q uit: Not Asked; Counseling Given: Not Answered [facility] Utilities Answer Date Recorded In the past 12 months has [employer] electric, gas, oil, or water company threatened [...] any time in the past 12 m [facility], were you homeless or living in a longterm (including now)? No 04/30/2024 Personal Safety Answer Date Recorded Have you ever been in or are you currently in a harmful physical or emotional relationship or is someone making you feel afraid or unsafe? 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 on file Not on file Not on fi le documented as of this encounter Last Filed Vital Signs Vital Sign Reading Time Taken Comments Blood Pressure 152/98 04/29/2024 11:06 AM CDT Pulse 86 04/29/2024 11:06 AM CDT Temperature 36.8 ??C (98.3 ??F) 04/29/2024 11:06 AM C DT Respiratory Rate 15 04/29/2024 11:06 AM CDT Oxygen Saturation 100% 04/29/2024 11:06 AM CDT Inhaled Oxygen Concentration - - Weight [...] Care Physician at Discharge: Carlos Pacheco MD [phone] Admission Date: 04/26/2024 Discharge Date: 04/30/2024 Admission Location: [facility] Problems/Diagnoses: Principal Problem: Rectal bleeding Active Problems: [...] Care Everywhere. * Gastrointestinal Bleeding (AfterCare(R) Instructions(ER/ED)) (Albanian) documented in this encounter Medications at Time [...] to repeat blood counts Voice recognition software MModal Fluency Direct was used dictate and transcribe this document. Bilingual Account Manager variances may occur. Despite proofreading, typographical errors may occur. Celestino Moctezuma MD * Connie Raya, [facility] - 04/29/2024 10:17 PM CDT Pharmacy [...] BMI > 30 Thank you, Connie Raya [facility] * Collin Sutton MD - 04/29/2024 4:49 [...] requested 3 Units requested Ready Unit Number [id number] Product code [id number] Blood Expiration Date [id number] Product Blood Type (for scanning) 9500 Product [...] dictate and transcribe this document. Despite proofreading, certified coding specialist variances and/or typographical errors might have occurred. * Tonio Perez, [facility] - 04/29/2024 7:25 AM CDT Pharmacy [...] BMI > 30 Thank you, Tonio Perez [facility] * Jose Nance [facility] - 04/28/2024 4:03 PM CDT Pharmacy [...] BMI > 30 Thank you, Jose Nance RPh [facility] Pharmacy department * Meghan Wiggins MD - 04/27/2024 11:26 AM CDT [facility] Hospitalist Service Progress Note Patient Name: Angelique Law Patient : 1975 Age/Sex: 49 y.o. male Room/Bed: [id number] Admission Date/Time: 04/26/2024 12:32 PM Date: 04/27/2024 [...] No colonic perforation or obstruction. No organizedfluid collections. PERITONEUM: No ascites or free air. Lymphadenopathy. RETROPERITONEUM: No mass or adenopathy. REPRODUCTIVE: Prostate gland calcifications are present which is normal in size. VASCULATURE: No abdominal aortic aneurysm. The abdominal aorta and its branches are patent. MUSCULOSKELETA L: No acute fractures or aggressive osseous lesions. [...] Jayla Finley M.D. AT: AT Report ID: [id number] Reading Location: [id number] Microbiology: None ASSESSMENT AND PLAN: Principal Problem: [...] Meghan Coats MD Internal Medicine - Hospitalist [facility] - Adult Hospitalist Service 04/27/2024 11:36 AM documented in this encounter H&P Notes * Meghan Wiggins MD - 04/26/2024 5:21 PM CDT [facility] Adult Hospitalist Service History and Physical Patient Name: Angelique Law Patient : 1975 Age/Sex: 49 y.o. male Room/Bed: [place] [address]/[id number] Admission Date/Time: 04/26/2024 12:32 PM Date: 04/26/2024 Time: 5:21 PM Primary Care Physician: Carlos Pacheco MD PCP Office Location: [address] [place] [address] PCP Chief Complaint: Bloody bowel movements HPI: [...] and was stable at 12.2. Discussed with MERI Thomas, who feels diverticular bleed should resolve spontaneously [...] sagittal MPR images reviewed. All images stored onMobile Automation. Automated exposure control was used as a [...] No colonic perforation or obstruction. No organizedfluid collections. PERITONEUM: No ascites or free air. Lymphadenopathy. RETROPERITONEUM: No mass oradenopathy. REPRODUCTIVE: Prostate gland calcifications are present which [...] Jayla Finley M.D. AT: AT Report ID: [id number] Reading Location: [place] [address] ASSESSMENT AND PLAN: Bright red blood per [...] Meghan Wiggins MD Internal Medicine - Hospitalist [facility] - Adult Hospitalist Service CC: Carlos Pacheco MD documented in this encounter Procedure Notes * Celestino Moctezuma MD - 04/29/2024 11:02 AM CDTAssociated Order(s): COLONOSCOPY [facility] Patient Name: Angelique Law Procedure Date: 04/29/2024 11:02 AM Date of : 1975 Admit Type: Inpatient Age: 49 Gender: Male Attending MD: Celestino Moctezuma M.D. Room: [facility] ENDOSCOPY ROOM 1 Note Status: Finalized Patient [...] (APC). Clips (MR conditional) were placed. 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 - Diverticulosis in the entire examined colon. - One 12 mm polyp at the recto-sigmoid colon, removed with a hot snare. Resected and retrieved. Clips (MR conditional) were placed. Clip fitness studies teacher: [employer]. - Spasm and angulation at the rectal [...] under direct vision. The Pediatric Colonoscope [id number] was introduced through the anus and advanced [...] clips were successfully placed (MR conditional). Clip fitness studies teacher: [employer]. There was no bleeding at the end of the procedure. Multiple medium-mouthed diverticula were found in the entire colon. A 12 mm polyp was found in the recto-sigmoid colon. The polyp was pedunculated. The polyp was removed with a hot snare. Resection and retrieval were complete. To prevent bleeding after the polypectomy, three hemostatic clips were successfully placed (MR conditional). Clip fitness studies teacher: [employer]. There was no bleeding at the [...] 11:02 AM Procedure Code(s): --- Professional --- 46840, 59, Colonoscopy, flexible; with control of bleeding, any method 77901, Colonoscopy, flexible; with removal of tumor(s), polyp(s), or other lesion(s) by snare technique 17053, 59, Colonoscopy, flexible; with biopsy, single or multiple Diagnosis Code(s): --- Professional --- K64.8, Other hemorrhoids K55.21, Angiodysplasia of colon with hemorrhage D12.7, Benign neoplasm of rectosigmoid junction K63.89, Other specified diseases of intestine K92.1, Melena (includes Hematochezia) D62, Acute posthemorrhagic anemia K57.30, Diverticulosis of large intestine without perforation or abscess without bleeding CPT copyright 2020 [employer]. All rights reserved. The codes documented in this report are preliminary and upon features editor review may be revised to meet current compliance requirements. Recognized by the [employer] for promoting quality in endoscopy * Celestino Moctezuma MD - 04/28/2024 11:19 AM CDTAssociated Order(s): COLONOSCOPY [facility] Patient Name: Angelique Law Procedure Date: 04/28/2024 11:19 AM Date of : 1975 Admit Type: Inpatient Age: 49 Gender: Male Attending MD: Celestino Moctezuma M.D. Room: [facility] ENDOSCOPY ROOM 1 Note Status: Finalized Patient [...] document in the medical record. The Colonoscope [id number] was introduced through the anus and advanced [...] The hemorrhoids were medium-sized. Electronically signed by Celetsino Moctezuma M.D. Celestino Moctezuma M.D. 04/28/2024 1:51:43 PM Number of Addenda: 0 Note Initiated On: 04/28/2024 11:19 AM Procedure Code(s): --- Professional --- 93159, Colonoscopy, flexible; diagnostic, including collection of specimen(s) by brushing or washing, when performed (separate procedure) Diagnosis Code(s): --- Professional --- K64.8, Other hemorrhoids K92.2, Gastrointestinal hemorrhage, unspecified D12.5, Benign neoplasm of sigmoid colon K92.1, Melena (includes Hematochezia) K57.30, Diverticulosis of large intestine without perforation or abscess without bleeding CPT copyright 2020 [employer]. All rights reserved. The codes documented in this report are preliminary and upon features editor review may be revised to meet current compliance requirements. Recognized by the [employer] for promoting quality in endoscopy * Celestino Moctezuma MD - 04/28/2024 11:19 AM CDTAssociated Order(s): EGD [facility] Patient Name: Angelique Law Procedure Date: 04/28/2024 11:19 AM Date of : 1975 Admit Type: Inpatient Age: 49 Gender: Male Attending MD: Celestino Moctezuma M.D. Room: [facility] ENDOSCOPY ROOM 1 Note Status: Finalized Patient [...] passed under direct vision. The Wide Endoscope [id number] was introduced through the mouth, and advanced [...] 11:19 AM Procedure Code(s): --- Professional --- 32114, Esophagogastroduodenoscopy, flexible, transoral; diagnostic, including collection of specimen(s) by brushing or washing, when performed (separate procedure) Diagnosis Code(s): --- Professional --- K29.70, Gastritis, unspecified, without bleeding K92.1, Melena (includes Hematochezia) CPT copyright 2020 [employer]. All rights reserved. The codes documented in this report are preliminary and upon features editor review may be revised to meet current compliance requirements. Recognized by the [employer] for promoting quality [...] plan with the ICU team and other medical/sustainable design consultant staff, making frequent assessments and decisions [...] 650 mg 650 mg oral Q4H PRN Rosalie, Meghan, MD 650 mg at 04/27/24 0905 amLODIPine (NORVASC) tablet 5 mg 5 mg oral Nightly Michael Silva MD 5 mg at 04/27/24 2231 [Held by Provider] atorvastatin (LIPITOR) tablet 10 mg 10 mg oral Nightly Meghan Wiggins MD 10 mg at 04/27/24 2158 cefTRIAXone (ROCEPHIN) 2,000 mg/20 mL in sterile water (premix) 2,000 mg 2,000 mg intravenous Q24H [facility] Meghan Wiggins MD 2,000 mg at 04/28/24 1430 [Held by Provider] fenofibrate nanocrystallized (TRICOR) tablet 145 mg 145 mg oral Daily Meghan Wiggins MD 145 mg at 04/27/24 0752 metoclopramide (REGLAN) 5 mg/mL injection 10 mg 10 mg intravenous Q6H [facility] Celestino Moctezuma MD 10 mg at 04/28/24 [...] mL IV Syringe 40 mg intravenous BID Collni Sutton MD sodium chloride 0.9% infusion 100 mL/hr intravenous Continuous Celestino Moctezuma MD 100 mL/hr at04/28/24 0920 100 mL/hr at 04/28/24 0920 sodium chloride 0.9% infusion 30 mL/hr intravenous Continuous Celestino Moctezuma MD 30 mL/hr at 04/28/24 1111 New Bag at 04/28/24 1327 zolpidem (AMBIEN) tablet 5 mg 5 mg oral Nightly Meghan Wiggins MD 5 mg at 04/27/24 9015 No Known Allergies Social History Tobacco Use [...] requested 1 Units requested Ready Unit Number [id number] Product code [id number] Blood Expiration Date [id number] Product Blood Type (for scanning) 5100 Product [...] dictate and transcribe this document. Despite proofreading, certified coding specialist variances and/or typographical errors might have occurred. [...] 2,000 mg, 2,000 mg, intravenous, Q24H SANDRA, Meghan Wiggins MD, 2,000 mg at 04/27/24 1123 ??? fenofibrate nanocrystallized (TRICOR) tablet 145 mg, 145 mg, oral, Daily, Meghan Wiggins MD, 145 mg at 04/27/24 0752 ??? metoprolol XL (TOPROL-XL) extended release tablet 100 mg, 100 mg, oral, Nightly, Meghan Wiggins MD ??? metroNIDAZOLE (FLAGYL) 500 mg/100 mL in sodium chloride (premix) 500 mg, 500 mg, intravenous, Q12H SANDRA, Meghan Wiggins MD, Last Rate: 200 mL/hr [...] Patient's blood started and report given to Nely and Long. * Summer Earl RN - 04/27/2024 7:11 [...] bowel movements and side. Patient had a tail puller on the way to the hospital and [...] (premix) 2,000 mg, 2,000 mg, intravenous, Q24H Mitzi FLORES Heather N., PA, 2,000 mg at 04/26/24 1415 metroNIDAZOLE (FLAGYL) 500 mg/100 mL in sodium chloride (premix) 500 mg, 500 mg, intravenous, Q12H Mitzi FLORES Heather N., PA, Last Rate: 200 mL/hr at 04/26/24 [...] nursing note reviewed. Exam conducted with a grounds/maintenance specialist present (Summer PCT). Constitutional: General: He is [...] sagittal MPR images reviewed. All images stored onMobile Automation. Automated exposure control was used as a [...] AT: AT 1 :47 PM Report ID: [id number] Reading Location: [place] [address] ED COURSE/MEDICAL DECISION MAKING Differential diagnosis included but not limited to upper/lower GI bleed, diverticulitis, colitis, mass Patient is agreeable with plan for admission. I discussed all diagnostic test results and the need for admission with patient. All questions answered. Patient's medical records were reviewed. ED Course as of 04/26/241423 Time: 04/26 1302 Value: Hgb: 14.3 Comment: [...] Admit This examination was transcribed using the Xetawave voice recognition system without human welding foreman. In an effort to expedite patient care, this report has not been adjusted for typographical, grammatical, and syntax by a trained medical radiation dosimetrist. Jeannette Cartagena PA 04/26/24 1423 Cosigned by Ilia Hoffman MD at 04/27/2024 [...] Adequate for Discharge Flowsheets (Taken 04/30/2024 08) Able to verbalize concerns and demonstrates effective [...] vomiting Outcome: Adequate for Discharge Flowsheets (Taken 04/30/2024 08) Minimal or absence of nausea and vomiting: Assess gastrointestinal status Goal: Maintains or returns to baseline bowel function Outcome: Adequate for Discharge Flowsheets (Taken 04/30/2024 08) Maintains or returns to baseline bowel function: Assess bowel function, evaluate bowel sounds and signs of abdominal distention Goal: Maintains adequate nutritional intake Outcome: Adequate for Discharge Flowsheets (Taken 04/30/2024 08) Maintains adequate nutritional intake: Monitor I&O, weight and lab values Goal: Will show no signs and symptoms of gastrointestinal bleeding Outcome: Adequate for Discharge Flowsheets (Taken 04/30/2024799) Will show no signs and symptoms of gastrointestinal bleeding: Assess amount, characteristics and/orfrequency of stool Goals: Clinical Goals for the Shift: vss, remain hemodynamically stablke, monitor intake and output, monitor hemoglobin Spud Sorter Patient Centered Goal for Treatment: Return to [...] arranged?: No (04/30/24 113) [facility] Prescription Coverage: yes Pharmacy: [id number] [place] [id number] [facility] [address] [facility] [id number] Primary Care Provider: Carlos Pacheco MD Prior to Admission: Functional Status: Independent with ADLs Primary Caregiver: Self Support System: Spouse/Significant Other Home Care Services: No Outpatient Services: No Durable Medical Equipment: None Living Arrangements: Spouse/significant other Type of Residence: Private residence Steps in home?: No steps inside or outside Medication management: Independent (04/30/24 1139) SDOH: Transportation: In the past 12 months, has lack of transportation kept you from medical appointments or from getting medications?: No In the past 12 months, has lack of transportation kept you from meetings, work, or from getting things needed for daily living?: No (04/30/241238) Financial Resource: How hard is it for you to pay for the very basics like food, housing, medical care, and heating?: Not hard at all (04/30/241238) Housing: In the last 12 months, was there a time when you were not able to pay the mortgage or rent on time?: No In the past 12 months, how many times have you moved where you were living?: 0 At any time in the past 12 months, were you homeless or living in a longterm (including now)?: No (04/30/241239) Utilities: No, (04/30/241238) Social Connections: In a typical week, how [...] have money to get more.: Never true (04/30/241239) Alcohol Use: PHQ Screening Potential discharge needs [...] environment free from falls and or injuries. Senior Living Patient Centered Goal for Treatment: Return to [...] blood per MD, remain free from falls/injury. Spud Sorter Patient Centered Goal for Treatment: Return to previous state of health for discharge to home. Summary: EGD/Sigmoidoscopy performed today. Continues to have bloody stools. Hgb dropped to 7.0; transfusing 1 unit PRBC. VSS. No injuries. Problem: Gastrointestinal Goal: Maintains or returns to baseline bowel function 04/28/20241822 by Aubree Finnegan RN Outcome: Not Progressing Flowsheets (Taken 04/28/2024829) Maintains or returns to baseline bowel function: Assess bowel function, evaluate bowel sounds and signs of abdominal distention Monitor amount, characteristics and/or frequency of stool Note: Continues to have rectal bleeding 04/28/20241819 by Aubree Finnegan RN Outcome: Not Progressing Flowsheets (Taken 04/28/202430) Maintains or returns to baseline bowel function: [...] Finnegan RN Outcome: Progressing Flowsheets (Taken 04/28/202430) Able to verbalize concerns and demonstrates effective [...] environment free from falls and or injuries. Spud Sorter Patient Centered Goal for Treatment: Return to [...] Q4H PRN, 650 mg at 04/27/24 0905 [Held by Provider] amLODIPine (NORVASC) tablet 5 [...] Flowsheets (Taken 04/26/20241700 by Priya Mancia, RN) Able to verbalize concerns and demonstrates effective coping strategies: Provide emotional support,including active listening and acknowledgement of concerns of patient and caregivers Problem: General Patient Education Goal: Knowledge of disease process, condition or treatment will be improved Outcome: Ongoing Flowsheets (Taken 04/26/20241700 by Priya Mancia, EDMUNDO) Complications related to the disease process, condition [...] Ongoing Flowsheets (Taken 04/26/20241700 by Priya Mancia, EDMUNDO) Minimal or absence of nausea and vomiting: Assess gastrointestinal status Goal: Maintains or returns to baseline bowel function Outcome: Ongoing Flowsheets (Taken 04/27/2024 0621) Maintains or returns to baseline bowel function: [...] Description 05/04/2025 8:00 AM CDT Hospital Encounter [address] [address] Celestino Moctezuma MD [address] [place] [address] [address] [place] [address] 05/04/2025 8:00 AM CDT - 05/04/2025 8:30 AM CDT Surgery [address] [address] Celestino Moctezmua MD [address] [place] [address] [address] [place] [address] COLONOSCOPY Pending Results Name Type Priority Associated [...] Associated Diagnosis Comments HEMOGLOBIN AND HEMATOCRIT Timed 04/30/2024 12:33 PM CDT EGFR Routine 04/30/2024 2:47 AM CDT DIFFERENTIAL AUTO Routine 04/30/2024 2:4 7 AM CDT CBC WITH AUTO DIFFERENTIAL Routine 04/30/2024 2:47 AM CDT ABO/RH Timed 04/30/2024 2:47 AM CDT ANTIBODY SCREEN Timed 04/30/2024 2:47 AM CDT TYPE AND SCREEN Timed 04/30/2024 2:47 AM CDT PHOSPHORUS Routine 04/30/2024 2:47 AM CDT MAGNESIUM Routine 04/30/2024 2:47 AM CDT BASIC METABOLIC PANEL Routine 04/30/2024 2:47 AM CDT TRANSFUSE RED BLOOD CELLS Timed 04/29/2024 11:00 PM CDT PREPARE RBC Timed 04/29/2024 10:00 PM CDT HEMOGLOBIN AND HEMATOCRIT STAT 04/29/2024 9:34 PM CDT CALCIUM LEVEL Timed 04/29/2024 9:34 PM CDT HEMOGLOBIN AND HEMATOCRIT Timed 04/29/2024 4:45 PM CDT ENDO ADD ON COLON BIOPSY 04/29/2024 11:20 AM CDT Rectal bleeding ENDO ADD ON COLON REMOVAL SNARE 04/29/2024 11:20 AM CDT Rectal bleeding COLON CONTROL BLEEDING 04/29/2024 11:20 AM CDT Rectal bleeding SURGICAL PATHOLOGY STAT 04/29/2024 11 :09 AM CDT Rectal bleeding COLONOSCOPY 04/29/2024 11:02 AM CDT HEMOGLOBIN AND HEMATOCRIT Routine 04/29/2024 10:57 AM CDT TRANSFUSE RED BLOOD CELLS Timed 04/29/2024 9:15 AM CDT PREPARE RBC Timed 04/29/2024 8:52 AM CDT EGFR Routine 04/29/2024 4:57 AM CDT DIFFERENTIAL AUTO Routine 04/29/2024 4:5 7 AM CDT CBC WITH AUTO DIFFERENTIAL Routine 04/29/2024 4:57 AM CDT PHOSPHORUS Routine 04/29/2024 4:57 AM CDT MAGNESIUM Routine 04/29/2024 4:57 AM CDT BASIC METABOLIC PANEL Routine 04/29/2024 4:57 AM CDT HEMOGLOBIN AND HEMATOCRIT Timed 04/28/2024 11:58 PM CDT TRANSFUSE RED BLOOD CELLS Timed 04/28/2024 5:50 PM CDT HEMOGLOBIN AND HEMATOCRIT Timed 04/28/2024 4:14 PM CDT COLONOSCOPY 04/28/2024 11:19 AM CDT EGD 04/28/2024 11:19 AM CDT HEMOGLOBIN AND HEMATOCRIT Timed 04/28/2024 8:26 AM CDT PREPARE RBC Timed 04/28/2024 5:23 AM CDT EGFR Routine 04/28/2024 4:08 AM CDT DIFFERENTIAL AUTO Routine 04/28/2024 4:0 8 AM CDT CBC WITH AUTO DIFFERENTIAL Routine 04/28/2024 4:08 AM CDT PHOSPHORUS Routine 04/28/2024 4:08 AM CDT MAGNESIUM Routine 04/28/2024 4:08 AM CDT BASIC METABOLIC PANEL Routine 04/28/2024 4:08 AM CDT HEMOGLOBIN AND HEMATOCRIT Timed 04/27/2024 11:40 PM CDT INFECTION PREVENTION MRSA ONLY (STAPHYLOCOCCUS AUREUS) PCR Routine 04/27/2024 8:12 PM CDT ECG 12-LEAD STAT 04/27/2024 8:08 PM CDT CRITICAL CARE Routine 04/27/2024 8:04 PM CDT Rectal bleeding Diverticulitis POCT GLUCOSE DEVICE Routine 04/27/2024 7 :54 PM CDT TROPONIN T HIGH-SENSITIVITY STAT 04/27/2024 7:35 PM CDT TRANSFUSE RED BLOOD CELLS Timed 04/27/2024 7:35 PM CDT PREPARE RBC Timed 04/27/2024 7:23 PM CDT CTA ABDOMEN PELVIS W WO CONTRAST ED Urgent/IP Urgent 04/27/2024 6:13 PM CDT HEMOGLOBIN AND HEMATOCRIT STAT 04/27/2024 5:37 PM CDT HEMOGLOBIN AND HEMATOCRIT Timed 04/27/2024 3:58 PM CDT HEMOGLOBIN AND HEMATOCRIT Timed 04/27/2024 8:48 AM CDT HEMOGLOBIN AND HEMATOCRIT Timed 04/27/2024 4:05 AM CDT PHOSPHORUS Routine 04/27/2024 4:05 AM CDT MAGNESIUM Routine 04/27/2024 4:05 AM CDT HEMOGLOBIN AND HEMATOCRIT Timed 04/27/2024 12:04 AM CDT HEMOGLOBIN AND HEMATOCRIT Timed 04/26/2024 7:53 PM CDT HEMOGLOBIN AND HEMATOCRIT STAT 04/26/2024 6:01 PM CDT POCT GLUCOSE DEVICE Routine 04/26/2024 5 :51 PM CDT B ABO / RH CONFIRMATION TESTING STAT 04/26/2024 4:24 PM CDT HEMOGLOBIN AND HEMATOCRIT Timed 04/26/2024 4:[address] ABDOMEN PELVIS W CONTRAST ED 04/26/2024 1:38 PM CDT EGFR STAT 04/26/2024 12:40 PM CDT DIFFERENTIAL AUTO STAT 04/26/2024 12: 40 PM CDT CBC WITH AUTO DIFFERENTIAL STAT 04/26/2024 12:40 PM CDT ABO/RH STAT 04/26/2024 12:40 PM CDT PROTIME-INR STAT 04/26/2024 12:40 PM CDT CROSSMATCH STAT 04/26/2024 12:40 PM CDT ANTIBODY SCREEN STAT 04/26/2024 12:40 PM CDT TYPE AND SCREEN STAT 04/26/2024 12:40 PM CDT COMPREHENSIVE METABOLIC PANEL STAT 04/26/2024 12:40 PM CDT documented in this encounter Results * (ABNORMAL) Hemoglobin and hematocrit (04/30/2024 12:33 PM CDT) Hgb 7.5(L) 13.0 - 17.5 g/dL Hct 21.5(L) 38.9 - 50.3 % MINOR ZACKARY (SHIRLEY) Blood 04/30/2024 12:3 3 PM CDT 04/30/2024 12:36 PM CDT Collin Mancia MD LAB BLOOD ORDERABLES Final Result [facility] ([place]) 1 [facility] [place] [address] * eGFR (04/30/2024 2:47 AM CDT) eGFR [...] Moctezuma MD LAB BLOOD ORDERABLES Final Result [facility] ([place]) 1 [facility] [place] [address] * Differential, auto (04/30/2024 2:47 AM CDT) [...] on 2018. Basophil pct 0.4 % [facility] ([place]) Comment: Interpretive Data Percent cell count reference ranges are not reported, since discordance with absolute values may lead to misinterpretation of CBC data. Current Interpretive Data was last revised on 2018. Blood 04/30/2024 2:47 AM CDT 04/30/2024 2:51 AM CDT Celestino Moctezuma MD LAB BLOOD ORDERABLES Final Result [facility] ([place]) 1 [facility] [place] [address] * Antibody screen (04/30/2024 2:47 AM CDT) Izzy, indirect, Gel Interpretation Negative ABSC Blood 04/30/2024 2:47 AM CDT 04/30/2024 2:51 AM CDT Narrative [facility] ([place]) - 04/30/2024 3:28 AM CDT Has the patient had Daratumumab or Isatuximab in the past 6 months?->Unknown Celestino Moctezuma MD LAB BLOOD BANK TEST ORDERA BLES Final Result [facility] ([place]) 1 [facility] [place] [address] * ABO/Rh (04/30/2024 2:47 AM CDT) ABO/Rh O Positive Blood 04/30/2024 2:47 AM CDT 04/30/2024 2:51 AM CDT Narrative [facility] ([place]) - 04/30/2024 3:28 AM CDT Has the patient had Daratumumab or Isatuximab in the past 6 months?->Unknown Celestino Moctezuma MD LAB BLOOD BANK TEST ORDERA BLES Final Result [facility] ([place]) 1 [facility] [place] [address] * (ABNORMAL) CBC with auto differential (04/30/2024 2:47 AM CDT) [facility] WBC 8.1 3.8 - 9.9 K/cumm Hgb [...] 15.1(H) 11.1 - 14.9 % [facility] ([place]) RDW SD 48.9(H) 35.7 - 48.1 fL [facility] ([place]) NRBC abs 0.00 0.00 - 0.01 K/cumm [facility] ([place]) Blood 04/30/2024 2:47 AM CDT 04/30/2024 2:51 AM CDT Celestino Moctezuma MD LAB BLOOD ORDERABLES Final Result [facility] ([place]) 1 [facility] [place] [address] * Phosphorus (04/30/2024 2:47 AM CDT) [facility] Phosphorus, pl 2.3 2.3 - 4.5 mg/dL Blood 04/30/2024 2:47 AM CDT 04/30/2024 2:51 AM CDT Celestino Moctezuma MD LAB BLOOD ORDERABLES Final Result Performing Organization Address City/[facility]/ZIP Co de Phone Number [facility] ([place]) 1 [facility] [place] [address] * Magnesium (04/30/2024 2:47 AM CDT) [facility] Magnesium 2.0 1.4 - 2.5 mg/dL Blood 04/30/2024 2:47 AM CDT 04/30/2024 2:51 AM CDT Celestino Moctezuma MD LAB BLOOD ORDERABLES Final Result Performing Organization Address [facility] de Phone Number [facility] ([place]) 1 [place] [address] * (ABNORMAL) Basic metabolic panel (04/30/2024 2:47 AM CDT) [facility] Sodium 136 135 - 145 mmol/L Potassium, pl 3.4 3.3 - 4.9 mmol/L [facility] ([place]) Chloride 107 97 - 110 mmol/L [facility] ([place]) CO2 24 22 - 32 mmol/L [facility] ([place] Anion gap 6 2 - 15 mmol/L [facility] ([place]) BUN 9 6 - 25 mg/dL [facility] ([place]) Creatinine 1.04 0.80 - 1.30 mg/dL [facility] ([place]) Glucose 100 70 - 199 mg/dL [facility] ([place]) Comment: Interpretive Data Fasting glucose >/= [...] BLOOD ORDERABLES Final Result Performing Organization Address [facility]/ZIP Co de Phone Number [facility] ([place]) 1 [facility] [place] [address] * Transfuse RBC (04/30/2024 1:47 AM CDT) Blood Michael Silva MD BLOOD TRANSFUSION ORDERABL ES Final Result Performing Organization Address [facility] Co de Phone Number [facility] ([place]) 1 [facility] [place] [place] [address] * Transfuse RBC: 1 Units (04/30/2024 1:47 AM CDT) Blood Michael Silva MD BLOOD TRANSFUSION ORDERABL ES Final Result * Prepare RBC: 1 Units (04/29/2024 10:00 PM CDT) Units requested 1 Units requested Ready [facility] ([place]) Blood 04/29/2024 10:0 0 PM CDT 04/30/2024 7:41 AM CDT Narrative [facility] ([place]) - 04/30/2024 7:42 AM CDT Are special requirements needed? (All products are leukoreduced and CMV- safe)->No Michael Silva MD BLOOD BANK PRODUCT ORDERAB LES Final Result Performing Organization Address City/[facility]/ZIP Co de Phone Number [facility] ([place]) 1 [facility] [place] [address] * (ABNORMAL) Hemoglobin and hematocrit (04/29/2024 9:34 PM CDT) Hgb 6.9(L) 13.0 - 17.5 g/dL Hct 19.9(L) 38.9 - 50.3 % [facility] ([place]) Blood 04/29/2024 9:34 PM CDT 04/29/2024 9:36 PM CDT us Collin Mancia MD LAB BLOOD ORDERABLES Final Result Performing Organization Address [facility] Co de Phone Number [facility] ([place]) 1 [facility] [place] [address] * (ABNORMAL) Calcium level (04/29/2024 9:34 PM CDT) Calcium 7.9(L) 8.5 - 10.3 mg/dL Blood 04/29/2024 9:34 PM CDT 04/29/2024 9:36 PM CDT us Celestino Moctezuma MD LAB BLOOD ORDERABLES Final Result Performing Organization Address City/[facility]/ZIP Co de Phone Number [facility] ([place]) 1 [facility] [place] [address] * (ABNORMAL) Hemoglobin and hematocrit (04/29/2024 4:45 PM CDT) Hgb 7.0(L) 13.0 - 17.5 g/dL Hct 19.5(L) 38.9 - 50.3 % [facility] ([place]) Blood 04/29/2024 4:45 PM CDT 04/29/2024 4:49 PM CDT Celestino Moctezuma MD LAB BLOOD ORDERABLES Final Result [facility] ([place]) 1 [facility] [place] [address] * Surgical pathology (04/29/2024 11:09 AM CDT) Tissue (Polyp(s), colon/colorectal, esophageal, gastric) 04/29/2024 11:52 AM CDT Tissue (Colon, Biopsy) 04/29/2024 12:02 PM CDT Narrative PATHOLOGY [facility] ([place]) - 05/01/2024 2:30 PM CDT EPIC results best viewed via link to PDF [facility] Department of Pathology [address] [place] [id number] Note to Patients: This report may contain [...] Final Report Patient Name: ??ANGELIQUE LAWBerna Address: ??[address] [place] [address], ??[place], [place] [address] Gender: ??M : ??1975 (Age: 49) Service: ??Medical Location: ??[facility] ICU Hospital #: ??[id number] Patient Type: ??[facility] Accession # ?[id number] Taken: ??04/29/2024 Received: ??04/30/2024 Accessioned: ??04/30/2024 Reported: [...] determined by the Surgical Pathology Department at [facility] as part of an ongoing quality assurance intern program and in compliance with federally mandated [...] characteristics determined by the Surgical Pathology Department [facility]. ??It has not been cleared or approved by the U. S. Food and Drug Administration. Note for decalcified specimens: This assay has not been validated on decalcified tissues. Results should be interpreted with caution given the possibility of false negativity on decalcified specimens us Celestino Moctezuma MD LAB PATHOLOGY ORDERABLES F inal Result PATHOLOGY [facility] ([place]) 1 [place] [address] * Colonoscopy (04/29/2024 11:02 AM CDT) Anatomical Region Laterality Modality Other Narrative Procedure Note Celestino Moctezuma MD - 04/29/2024 11:02 AM CDT [facility] Patient Name: Angelique Law Procedure Date: 04/29/2024 11:02 AM Date of : 1975 Admit Type: Inpatient Age: 49 Gender: Male Attending MD: Celestino Moctezuma M.D. Room: [facility] ENDOSCOPY ROOM 1 Note Status: Finalized Patient [...] (APC). Clips (MR conditional) were placed. 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 - Diverticulosis in the entire examined colon. - One 12 mm polyp at the recto-sigmoid colon,removed with a hot snare. Resected and retrieved. Clips (MR conditional) were placed. Clip fitness studies teacher: [employer]. - Spasm and angulation at the [...] under direct vision. The Pediatric Colonoscope [id number] was introduced through the anus andadvanced to [...] clips were successfully placed (MR conditional). Clip fitness studies teacher: [employer]. There was no bleeding at the end of the procedure. Multiple medium-mouthed diverticula were found in the entire colon. A 12 mm polyp was found in the recto-sigmoid colon. The polyp was pedunculated. The polyp was removed with a hot snare. Resection and retrieval were complete. To prevent bleeding after the polypectomy, three hemostatic clips were successfully placed (MR conditional).Clip fitness studies teacher: [employer]. There was no bleeding at the end [...] 11:02 AM Procedure Code(s): --- Professional --- 70623, 59, Colonoscopy, flexible; with control of bleeding, anymethod 52073, Colonoscopy, flexible; with removal of tumor(s), polyp(s), or other lesion(s) by snare technique 71015, 59, Colonoscopy, flexible; with biopsy, single or multiple Diagnosis Code(s): --- Professional --- K64.8, Other hemorrhoids K55.21, Angiodysplasia of colon with hemorrhage D12.7, Benign neoplasm of rectosigmoid junction K63.89, Other specified diseases of intestine K92.1, Melena (includes Hematochezia) D62, Acute posthemorrhagic anemia K57.30, Diverticulosis of large intestine without perforation orabscess without bleeding CPT copyright 2020 [employer]. All rights reserved. The codes documented in this report are preliminary and upon features editor reviewmay be revised to meet current compliance requirements. Recognized by the [employer] for promoting quality [...] BLOOD ORDERABLES Final Result Performing Organization Address City/[facility]/ZIP Co de Phone Number [facility] ([place]) 1 [facility] [place] [address] * Transfuse RBC (04/29/2024 9:38 AM CDT) Blood Collin Mancia MD BLOOD TRANSFUSION ORDERABL ES Final Result [facility] ([place]) 1 [facility] [place] [address] * Transfuse RBC: 1 Units (04/29/2024 9:38 AM CDT) Blood Collin Mancia MD BLOOD TRANSFUSION ORDERABL ES Final Result * Prepare RBC: 3 Units (04/29/2024 8:52 AM CDT) Units requested 3 Units requested Ready [facility] ([place]) Unit Number [id number] Product code [id number] [facility] ([place]) Blood Expiration Date [id number] [facility] ([place]) Product Blood Type (for scanning) 9500 [facility] ([place]) Product Blood Type ONEG [facility] ([place]) Dispense Status DISPENSED [facility] ([place]) Unit Number [id number] Product code [id number] [facility] ([place]) Blood Expiration Date [id number] [facility] ([place]) Product Blood Type (for scanning) 5100 [facility] ([place]) Product Blood Type OPOS [facility] ([place]) Dispense Status DISPENSED [facility] ([place]) Blood 04/29/2024 8:52 AM CDT 04/29/2024 8:52 AM CDT us Celestino Moctezuma MD BLOOD BANK PRODUCT ORDERAB LES Final Result [facility] ([place]) 1 [facility] [place] [address] * eGFR (04/29/2024 4:57 AM CDT) eGFR 88 >=60 mL/min/1. 73 [...] BLOOD ORDERABLES Final Resu lt [facility] ([place]) 1 [facility] [place] [address] * (ABNORMAL) Differential, auto (04/29/2024 4:57 AM CDT) Neutrophil abs 7.5(H) 1.5 - 6.5 K/cumm Imm gran abs 0.1 0.0 - 0.1 K/cumm [facility] ([place]) Lymphocyte abs 2.0 0.8 - 3.3 K/cumm [facility] ([place]) Monocyte abs 0.7 0.2 - 0.8 K/cumm [facility] ([place]) Eosinophil abs 0.0 0.0 - 0.5 K/cumm [facility] ([place]) Basophil abs 0.0 0.0 - 0.1 K/cumm [facility] ([place]) Neutrophil pct 72.6 % [facility] ([place]) Comment: Interpretive Data Percent cell count reference ranges are not reported, since discordance with absolute values may lead to misinterpretation of CBC data. Current Interpretive Data was last revised on 2018. Imm gran pct 0.6 % [facility] ([place]) Comment: Interpretive Data [...] Final Resu lt [facility] ([place]) 1 [facility] [place], [place] [id number] * (ABNORMAL) CBC with auto differential (04/29/2024 4:57 AM CDT) WBC 10.3(H) 3.8 - 9.9 K/cumm Hgb 6.8(L) 13.0 - 17.5 g/dL [facility] ([place]) Hct 19.8(L) 38.9 - 50.3 % [facility] ([place]) Plt 260 150 - 400 K/cumm [facility] ([place]) MPV 9.8 9.1 - 12.3 fL [facility] ([place]) RBC 2.16(L) 4.30 - 5.80 M/cumm [facility] ([place]) MCV 91.7 81.3 - 96.4 fL [facility] ([place]) MCH 31.5 27.1 - 33.3 pg [facility] ([place]) MCHC 34.3 32.3 - 35.7 g/dL [facility] ([place]) RDW CV 14.0 11.1 - 14.9 % [facility] ([place]) RDW SD 47.2 35.7 - 48.1 fL [facility] ([place]) NRBC abs 0.00 0.00 - 0.01 K/cumm [facility] ([place]) Blood 04/29/2024 4:57 AM CDT 04/29/2024 5:11 AM CDT Celestino Moctezuma MD LAB BLOOD ORDERABLES Final Result [facility] ([place]) 1 [facility] [place] [address] * Phosphorus (04/29/2024 4:57 AM CDT) Phosphorus, pl 3.2 2.3 - 4.5 mg/dL Blood 04/29/2024 4:57 AM CDT 04/29/2024 5:11 AM CDT Celestino Moctezuma MD LAB BLOOD ORDERABLES Final Result Performing Organization Address City/[facility]/ZIP Co de Phone Number [facility] ([place]) 1 [facility] [place] [address] * Magnesium (04/29/2024 4:57 AM CDT) Magnesium 1.8 1.4 - 2.5 mg/dL Blood 04/29/2024 4:57 AM CDT 04/29/2024 5:11 AM CDT Celestino Moctezuma MD LAB BLOOD ORDERABLES Final Result [facility] ([place]) 1 [facility] [place] [address] * (ABNORMAL) Basic metabolic panel (04/29/2024 4:57 AM CDT) Sodium 138 135 - 145 mmol/L Potassium, pl 3.7 3.3 - 4.9 mmol/L [facility] ([place]) Chloride 107 97 - 110 mmol/L [facility] ([place]) CO2 21(L) 22 - 32 mmol/L [facility] ([place]) Anion gap 10 2 - 15 mmol/L [facility] ([place]) BUN 12 6 - 25 mg/dL [facility] ([place]) Creatinine 1.03 0.80 - 1.30 mg/dL [facility] ([place]) Glucose 100 70 - 199 mg/dL [facility] ([place]) Comment: Interpretive Data Fasting glucose >/= [...] 2022. Calcium 7.6(L) 8.5 - 10.3 mg/dL [facility] ([place]) Blood 04/29/2024 4:57 AM CDT 04/29/2024 5:11 AM CDT us Celestino Moctezuma MD LAB BLOOD ORDERABLES Final Result [facility] ([place]) 1 [facility] [place] [address] * (ABNORMAL) Hemoglobin and hematocrit (04/28/2024 11:58 PM CDT) Hgb 7.7(L) 13.0 - 17.5 g/dL Hct 22.1(L) 38.9 - 50.3 % [facility] ([place]) Blood 04/28/2024 11:5 8 PM CDT 04/29/2024 12:02 AM CDT Celestino Moctezuma MD LAB BLOOD ORDERABLES Final Result Performing Organization Address City/[facility]/ZIP Co de Phone Number [facility] ([place]) 1 [facility] [place] [address] * Transfuse RBC (04/28/2024 9:54 PM CDT) Blood Collin Mancai MD BLOOD TRANSFUSION ORDERABL ES Final Result Performing Organization Address [facility] Co de Phone Number [facility] ([place]) 1 [facility] [place] [address] * Transfuse RBC: 1 Units (04/28/2024 9:54 PM CDT) Blood Collin Mancia MD BLOOD TRANSFUSION ORDERABL ES Final Result * (ABNORMAL) Hemoglobin and hematocrit (04/28/2024 4:14 PM CDT) Hgb 7.0(L) 13.0 - 17.5 g/dL Hct 20.2(L) 38.9 - 50.3 % [facility] ([place]) Blood 04/28/2024 4:14 PM CDT 04/28/2024 4:20 PM CDT Celestino Moctezuma MD LAB BLOOD ORDERABLES Final Result Performing Organization Address [facility] Co de Phone Number [facility] ([place]) 1 [facility] [place] [address] * Colonoscopy (04/28/2024 11:19 AM CDT) Anatomical Region Laterality Modality Other Narrative Procedure Note Celestino Moctezuma MD - 04/28/2024 11:19 AM CDT [facility] Patient Name: Angelique Law Procedure Date: 04/28/2024 11:19 AM Date of : 1975 Admit Type: Inpatient Age: 49 Gender: Male Attending MD: Celestino Moctezuma M.D. Room: [facility] ENDOSCOPY ROOM 1 Note Status: Finalized Patient [...] document in the medical record. The Colonoscope [id number] was introduced through the anus and advanced [...] 11:19 AM Procedure Code(s): --- Professional --- 70047, Colonoscopy, flexible; diagnostic, including collection of specimen(s) by brushing or washing, when performed (separateprocedure) Diagnosis Code(s): --- Professional --- K64.8, Other hemorrhoids K92.2, Gastrointestinal hemorrhage, unspecified D12.5, Benign neoplasm of sigmoid colon K92.1, Melena (includes Hematochezia) K57.30, Diverticulosis of large intestine without perforation orabscess without bleeding CPT copyright 2020 [employer]. All rights reserved. The codes documented in this report are preliminary and upon features editor reviewmay be revised to meet current compliance requirements. Recognized by the [employer] for promoting quality in endoscopy Celestino Moctezuma MD ENDOSCOPY PROCEDURES Final Result * EGD (04/28/2024 11:19 AM CDT) Anatomical Region Laterality Modality Other Narrative Procedure Note Celestino Moctezuma MD - 04/28/2024 11:19 AM CDT [facility] Patient Name: Angelique Law Procedure Date: 04/28/2024 11:19 AM Date of : 1975 Admit Type: Inpatient Age: 49 Gender: Male Attending MD: Celestino Moctezuma M.D. Room: [facility] ENDOSCOPY ROOM 1 Note Status: Finalized Patient [...] passed under direct vision. The Wide Endoscope [id number] wasintroduced through the mouth, and advanced to [...] 11:19 AM Procedure Code(s): --- Professional --- 19295, Esophagogastroduodenoscopy, flexible, transoral; diagnostic, including collection of specimen(s) by brushing or washing, when performed (separate procedure) Diagnosis Code(s): --- Professional --- K29.70, Gastritis, unspecified, without bleeding K92.1, Melena (includes Hematochezia) CPT copyright 2020 [employer]. All rights reserved. The codes documented in this report are preliminary and upon features editor reviewmay be revised to meet current compliance requirements. Recognized by the [employer] for promoting quality in endoscopy us Celestino Moctezuma MD ENDOSCOPY PROCEDURES Final Result * (ABNORMAL) Hemoglobin and hematocrit (04/28/2024 8:26 AM CDT) Hgb 8.6(L) 13.0 - 17.5 g/dL Hct 24.3(L) 38.9 - 50.3 % [facility] ([place]) Blood 04/28/2024 8:26 AM CDT 04/28/2024 8:29 AM CDT us Meghan Wiggins MD LAB BLOOD ORDERABLES Final Resu lt [facility] ([place]) 1 [facility] [place] [address] * Prepare RBC: 1 Units (04/28/2024 5:23 AM CDT) Units requested 1 Units requested Ready [facility] ([place]) Unit Number [id number] Product code [id number] [facility] ([place]) Blood Expiration Date [id number] [facility] ([place]) Product Blood Type (for scanning) 5100 [facility] ([place]) Product Blood Type OPOS [facility] ([place]) Dispense Status DISPENSED [facility] ([place]) Blood 04/28/2024 5:23 AM CDT 04/28/2024 5:23 AM CDT us Michael Silva MD BLOOD BANK PRODUCT ORDERAB LES Final Result Performing Organization Address [facility] Co de Phone Number [facility] ([place]) 1 [facility] [place] [address] * eGFR (04/28/2024 4:08 AM CDT) eGFR [...] ORDERABLES Final Resu lt Performing Organization Address City/[facility] Co de Phone Number [facility] ([place]) 1 [facility] [place] [address] * Differential, auto (04/28/2024 4:08 AM CDT) Neutrophil abs 5.2 1.5 - 6.5 K/cumm Imm gran abs 0.1 0.0 - 0.1 K/cumm [facility] ([place]) Lymphocyte abs 1.8 0.8 - 3.3 K/cumm [facility] ([place]) Monocyte abs 0.6 0.2 - 0.8 K/cumm [facility] ([place]) Eosinophil abs 0.1 0.0 - 0.5 K/cumm [facility] ([place]) Basophil abs 0.0 0.0 - 0.1 K/cumm [facility] ([place]) Neutrophil pct 66.6 % [facility] ([place]) Comment: Interpretive Data Percent cell count reference ranges are not reported, since discordance with absolute values may lead to misinterpretation of CBC data. Current Interpretive Data was last revised on 2018. Imm gran pct 0.6 % [facility] ([place]) Comment: Interpretive Data Percent cell count reference ranges are not reported, since discordance with absolute values may lead to misinterpretation of CBC data. Current Interpretive Data was last revised on 2018. Lymphocyte pct 23.4 % [facility] ([place]) Comment: Interpretive Data Percent cell count reference ranges are not reported, since discordance with absolute values may lead to misinterpretation of CBC data. Current Interpretive Data was last revised on 2018. Monocyte pct 8.1 % [facility] ([place]) Comment: Interpretive Data [...] MD LAB BLOOD ORDERABLES Final Resu lt [facility] ([place]) 1 [facility] [place] [address] * (ABNORMAL) CBC with auto differential (04/28/2024 [...] ORDERABLES Final Result [facility] ([place]) 1 [facility] [place] [address] * Phosphorus (04/28/2024 4:08 AM CDT) Phosphorus, pl 2.6 2.3 - 4.5 mg/dL Blood 04/28/2024 4:08 AM CDT 04/28/2024 4:21 AM CDT Celestino Moctezuma MD LAB BLOOD ORDERABLES Final Result Performing Organization Address City/[facility]/ZIP Co de Phone Number [facility] ([place]) 1 [facility] [place] [address] * Magnesium (04/28/2024 4:08 AM CDT) Magnesium 1.9 1.4 - 2.5 mg/dL Blood 04/28/2024 4:08 AM CDT 04/28/2024 4:21 AM CDT Celestino Moctezuma MD LAB BLOOD ORDERABLES Final Result Performing Organization Address [facility] de Phone Number [facility] ([place]) 1 [place] [address] * (ABNORMAL) Basic metabolic panel (04/28/2024 4:08 AM CDT) Sodium 139 135 - 145 mmol/L Potassium, pl 3.8 3.3 - 4.9 mmol/L [facility] ([place]) Chloride 110 97 - 110 mmol/L [facility] ([place]) CO2 22 22 - 32 mmol/L [facility] ([place]) Anion gap 7 2 - 15 mmol/L [facility] BUN 11 6 - 25 mg/dL [facility] Creatinine 0.98 0.80 - 1.30 mg/dL [facility] ([place]) Glucose 104 70 - 199 mg/dL [facility] ([place]) [...] 8.3(L) 8.5 - 10.3 mg/dL [facility] ([place]) Blood 04/28/2024 4:08 AM CDT 04/28/2024 4:21 AM CDT us Celestino Moctezuma MD LAB BLOOD ORDERABLES Final Result Performing Organization Address City/[facility]/ZIP Co de Phone Number [facility] ([place]) 1 [facility] [place] [place] [address] * (ABNORMAL) Hemoglobin and hematocrit (04/27/2024 11:40 PM CDT) Hgb 9.5(L) 13.0 - 17.5 g/dL Hct 27.4(L) 38.9 - 50.3 % [facility] ([place]) Blood 04/27/2024 11:4 0 PM CDT 04/27/2024 11:47 PM CDT us Meghan Wiggins MD LAB BLOOD ORDERABLES Final Resu lt Performing Organization Address City/[facility]/ZIP Co de Phone Number [facility] ([place]) 1 [facility] [place] [address] * Transfuse RBC (04/27/2024 10:25 PM CDT) Blood Meghan Wiggins MD BLOOD TRANSFUSION ORDERABLES Fi nal Result Performing Organization Address City/[facility]/ZIP Co de Phone Number MINOR RAYMUNDO ([place]) 1 [facility] [place] [address] * Transfuse RBC: 1 Units (04/27/2024 10:25 PM CDT) Blood Meghan Wiggins MD BLOOD TRANSFUSION ORDERABLES Fi nal Result * Infection Prevention MRSA Only (Staphylococcus aureus) PCR Nasal (04/27/2024 8:12 PM CDT) PCR Scrn, Methicillin resistant Staphylococcus aureus (MRSA) Not Detected Not Detected Comment: Interpretive Data Testing performed using Nucleic Acid Amplification with the Epigami Xpert MRSA NxG Assay. This assay detects target DNA from mecA, mecC and the SCCmec insertion site of Staphylococcus aureus using Real-Time PCR and has been cleared by the FDA. Performance characteristics have been verified by the [facility]. Current Interpretive Data was last revised on 2023 Nasal 04/27/2024 8:12 PM CDT 04/27/2024 8:16 PM CDT Collin Mancia MD LAB MICROBIOLOGY - GENERAL ORDERABLES Final Result Performing Organization Address City/[facility]/ZIP Co de Phone Number MINOR [address] Department [place] [address] * ECG 12 lead (04/27/2024 8:08 PM CDT) 04/27/2024 8:08 PM CDT Narrative [facility] - 04/28/2024 8:57 AM CDT Vent Rate: 97 bpm RR Interval: 618 msec NC Interval: 118 msec QRS Duration: 89 msec QT Interval: 337 msec QTC Interval: 391 msec P-R-T [place]: 17 - -4 - -7 degrees IMPRESSION: SINUS RHYTHM WITH SHORT NC INTERVAL ST DEVIATION AND MODERATE T-WAVE ABNORMALITY, CONSIDER LATERAL ISCHEMIA ??[-0.1+ mV T-WAVE IN I/aVL/V5/V6] ABNORMAL ECG Electronically Signed By: Santy Han MD Michael Silva MD ECG ORDERABLES Final Resu lt [facility] [employer] [facility] * Critical Care (04/27/2024 8:04 PM [...] plan with the ICU team and other medical/sustainable design consultant staff, making frequent assessments and decisions [...] POCT ORDERABLES - DIANA CE Final Result MINOR RAYMUNDO ([place]) 1 [facility] [place] [address] * Troponin T high-sensitivity (04/27/2024 7:35 PM CDT) Trop T hs 16 <=22 ng/L Comment: Interpretive Data For further hscTnT resources including the diagnostic algorithm and an aid in interpretation, copy and paste this link: [email or web address] Current Interpretive Data last revised 2020. Blood 04/27/2024 7:35 PM CDT 04/27/2024 7:37 PM CDT us Michael Silva MD LAB BLOOD ORDERABLES Final Result Performing Organization Address [facility] Co de Phone Number MINOR RAYMUNDO ([place]) 1 [place] [address] * Prepare RBC: 1 Units (04/27/2024 7:23 PM CDT) Units requested 1 Units requested Ready [facility] ([place]) Unit Number [id number] Product code [id number] [facility] ([place]) Blood Expiration Date [id number] [facility] ([place]) Product Blood Type (for scanning) 5100 [facility] ([place]) Product Blood Type OPOS [facility] ([place]) Dispense Status DISPENSED [facility] ([place]) Blood 04/27/2024 7:23 PM CDT 04/27/2024 7:23 PM CDT us Meghan Wiggins MD BLOOD BANK PRODUCT ORDERABLES F inal Result Performing Organization Address [facility] Co de Phone Number MINOR RAYMUNDO ([place]) 1 [facility] [place] [address] * CTA Abdomen Pelvis (04/27/2024 6:13 PM [...] PM T: ??04/27/2024 7:26 PM Report ID: [id number] Reading Location: ??[id number] Procedure Note Angelique Macias MD - 04/27/2024 [...] 04/27/2024 7:26 PM - Electronically signed by Angelique Macias M.D., D.O. Angelique Macias M.D., D.O. MW: LORETTA Report ID: [id number] Reading Location: [id number] Kieran Westbrook MD IMG CT PROCEDURES Final Result * (ABNORMAL) Hemoglobin and hematocrit (04/27/2024 5:37 PM CDT) Hgb 8.9(L) 13.0 - 17.5 g/dL Hct 26.3(L) 38.9 - 50.3 % [facility] RAYMUNDO ([place]) Blood 04/27/2024 5:37 PM CDT 04/27/2024 5:40 PM CDT us Meghan Wiggins MD LAB BLOOD ORDERABLES Final Resu lt MINOR RAYMUNDO ([place]) 1 [facility] [place] [address] * (ABNORMAL) Hemoglobin and hematocrit (04/27/2024 3:58 PM CDT) Hgb 8.5(L) 13.0 - 17.5 g/dL Hct 25.2(L) 38.9 - 50.3 % [facility] RAYMUNDO ([place]) Blood 04/27/2024 3:58 PM CDT 04/27/2024 4:10 PM CDT Kieran Westbrook MD LAB BLOOD ORDERABLES Final Resul t MINOR RAYMUNDO ([place]) 1 [facility] [place] [address] * (ABNORMAL) Hemoglobin and hematocrit (04/27/2024 8:48 AM CDT) Hgb 10.3(L) 13.0 - 17.5 g/dL Hct 30.4(L) 38.9 - 50.3 % [facility] R[facility]UN[facility] ([place]) Blood 04/27/2024 8:48 AM CDT 04/27/2024 9:15 AM CDT Meghan Wiggins MD LAB BLOOD ORDERABLES Final Resu lt Performing Organization Address City/[facility]/ZIP Co de Phone Number MINOR RAYMUNDO ([place]) 1 [facility] [place] [address] * (ABNORMAL) Hemoglobin and hematocrit (04/27/2024 4:05 AM CDT) Hgb 10.2(L) 13.0 - 17.5 g/dL Hct 30.1(L) 38.9 - 50.3 % [facility] R[place]UNDO ([place]) Blood 04/27/2024 4:05 AM CDT 04/27/2024 4:47 AM CDT us Meghan Wiggins MD LAB BLOOD ORDERABLES Final Resu lt Performing Organization Address [facility] Co de Phone Number MINOR RAYMUNDO ([place]) 1 [facility] [place] [address] * Phosphorus (04/27/2024 4:05 AM CDT) Phosphorus, pl 3.0 2.3 - 4.5 mg/dL Blood 04/27/2024 4:05 AM CDT 04/27/2024 4:47 AM CDT Celestino Moctezuma MD LAB BLOOD ORDERABLES Final Result MINOR RAYMUNDO ([place]) 1 [facility] [place] [address] * Magnesium (04/27/2024 4:05 AM CDT) Magnesium 1.8 1.4 - 2.5 mg/dL Blood 04/27/2024 4:05 AM CDT 04/27/2024 4:47 AM CDT Celestino Moctezuma MD LAB BLOOD ORDERABLES Final Result Performing Organization Address City/[facility]/ZIP Co de Phone Number MINOR RAYMUNDO ([place]) 1 [facility] [place] [address] * (ABNORMAL) Hemoglobin and hematocrit (04/27/2024 12:04 AM CDT) Hgb 10.8(L) 13.0 - 17.5 g/dL Hct 31.8(L) 38.9 - 50.3 % MINOR ZACKARY ([place]) Blood 04/27/2024 12:0 4 AM CDT 04/27/2024 12:15 AM CDT us Meghan Wiggins MD LAB BLOOD ORDERABLES Final Resu lt Performing Organization Address [facility] Co de Phone Number MINOR RAYMUNDO ([place]) 1 [facility] [place] [address] * (ABNORMAL) Hemoglobin and hematocrit (04/26/2024 7:53 PM CDT) Hgb 11.6(L) 13.0 - 17.5 g/dL Hct 34.4(L) 38.9 - 50.3 % MINOR ZACKARY ([place]) Blood 04/26/2024 7:53 PM CDT 04/26/2024 7:54 PM CDT us Meghan Wiggins MD LAB BLOOD ORDERABLES Final Resu lt Performing Organization Address City[facility]/ZIP Co de Phone Number MINOR RAYMUNDO ([place]) 1 [facility] [place] [address] * (ABNORMAL) Hemoglobin and hematocrit (04/26/2024 6:01 PM CDT) Hgb 12.2(L) 13.0 - 17.5 g/dL Hct 36.2(L) 38.9 - 50.3 % MINOR ZACKARY ([place]) Blood 04/26/2024 6:01 PM CDT 04/26/2024 6:03 PM CDT Meghan Wiggins MD LAB BLOOD ORDERABLES Final Resu lt MINOR RAYMUNDO ([place]) 1 [facility] [place] [address] * POCT glucose (04/26/2024 5:51 PM CDT) Glucose, POC 136 70 - 199 mg/dL Blood 04/26/2024 5:51 PM CDT 04/26/2024 5:51 PM CDT Meghan Wiggins MD LAB POCT ORDERABLES - DEVICE Fi nal Result Performing Organization Address [facility] Co de Phone Number MINOR RAYMUNDO ([place]) 1 [facility] [place] [address] * (ABNORMAL) Hemoglobin and hematocrit (04/26/2024 4:24 PM CDT) Hgb 12.9(L) 13.0 - 17.5 g/dL Hct 37.9(L) 38.9 - 50.3 % [facility] RAYMUNDO ([place]) Blood 04/26/2024 4:24 PM CDT 04/26/2024 4:33 PM CDT Jeannette BUCIO LAB BLOOD ORDERABLES Nicole l Result Performing Organization Address City/[facility]/ZIP Co de Phone Number MINOR RAYMUNDO ([place]) 1 [facility] [place] [address] * ABO / Rh Confirmation Testing (04/26/2024 4:24 PM CDT) ABO/Rh Confirmation O Positive [facility] Blood 04/26/2024 4:24 PM CDT 04/26/2024 4:33 PM CDT Narrative SIMAKULWANT RAYMUNDO ([place]) - 04/26/2024 5:11 PM CDT Called Aliya in ED to ask for a Confirmatory Type to be collected us Ilia Hoffman MD LAB BLOOD ORDERABLES Final Res ult MINOR RAYMUNDO ([place]) 1 [facility] Department [place] [address] [facility] * CT Abdomen Pelvis W Contrast [...] PM T: ??04/26/2024 1:47 PM Report ID: [id number] Reading Location: ??[id number] Procedure Note Jayla Finley MD - 04/26/2024 [...] Jayla Finley M.D. AT: AT Report ID: [id number] Reading Location: [place] [address] PROCEDURES Final R esult * Crossmatch (04/26/2024 12:40 PM CDT) Crossmatch Compatible [facility] ([place]) Unit number for crossmatch [id number] [facility] ([place]) Crossmatch Compatible [facility] ([place]) Unit number for crossmatch [id number] [facility] ([place]) Crossmatch Compatible [facility] ([place]) Unit number for crossmatch [id number] [facility] ([place]) Crossmatch Compatible [facility] ([place]) Unit number for crossmatch [id number] [facility]OR [facility] ([place]) Crossmatch Compatible MINOR Hammonds ([place]) Unit number for crossmatch [id number] [facility] ([place]) Blood 04/26/2024 12:4 0 PM CDT 04/26/2024 12:44 PM CDT Meghan Wiggins MD LAB BLOOD BANK TEST ORDERABLES Edited Result - Final MINOR RAYMUNDO ([place]) 1 [facility] Department [place] [address] * eGFR (04/26/2024 12:40 PM CDT) eGFR [...] BLOOD ORDERABLES Final Resul t MINOR RAYMUNDO ([place]) 1 [facility] Department [place] [address] * (ABNORMAL) Differential, auto (04/26/2024 12:40 PM [...] on 2018. Basophil pct 0.4 % MINOR RAYMUNDO ([place]) Comment: Interpretive Data Percent cell count reference ranges are not reported, since discordance with absolute values may lead to misinterpretation of CBC data. Current Interpretive Data was last revised on 2018. Blood 04/26/2024 12:4 0 PM CDT 04/26/2024 12:44 PM CDT Willis Leslie MD LAB BLOOD ORDERABLES Final Resul t MINOR RAYMUNDO ([place]) [address] [place] [address] [place] [address] * Antibody screen (04/26/2024 12:40 PM CDT) Izzy, indirect, Gel Interpretation Negative ABSC Blood 04/26/2024 12:4 0 PM CDT 04/26/2024 12:44 PM CDT Narrative MINOR RAYMUNDO ([place]) - 04/26/2024 1:38 PM CDT Has the patient had Daratumumab or Isatuximab in the past 6 months?->Unknown Result [facility] Willis Leslie MD LAB BLOOD BANK TEST ORDERABLES F inal Result MINOR ZACKARY ([place]) [address] [place] [address] [place] [address] * ABO/Rh (04/26/2024 12:40 PM CDT) ABO/Rh O Positive Blood 04/26/2024 12:4 0 PM CDT 04/26/2024 12:44 PM CDT Narrative MINOR RAYMUNDO ([place]) - 04/26/2024 1:38 PM CDT Has the patient had Daratumumab or Isatuximab in the past 6 months?->Unknown Willis Leslie MD LAB BLOOD BANK TEST ORDERABLES F inal Result [facility]OR [facility] ([place]) 1 [facility] [place] [address] * Protime-INR (04/26/2024 12:40 PM CDT) PT 10.8 9.7 - 13.0 sec INR 1.00 0.90 - 1.20 [facility] ([place]) Comment: Interpretive data Oral anticoagulant therapeutic ranges: Venous thromboembolism prophylaxis or treatment: 2.0-3.0 CARDIOLOGY Standard range: 2.0-3.0 High-intensity range: 2.5-3.5 Refer to indication-specific guidelines for appropriate target ranges for prosthetic heart valve replacement. Current interpretive data was last revised on 2019. Blood 04/26/2024 12:4 0 PM CDT 04/26/2024 12:44 PM CDT Jeannette BUCIO LAB BLOOD ORDERABLES Nicole l Result [facility] ([place] 1 [facility] [place] [address] * (ABNORMAL) Comprehensive metabolic panel (04/26/2024 12:40 PM CDT) Sodium 137 135 - 145 mmol/L Potassium, pl 4.3 3.3 - 4.9 mmol/L [facility] ([place]) Chloride 103 97 - 110 mmol/L [facility] ([place]) CO2 25 22 - 32 mmol/L [facility] ([place]) Anion gap 10 2 - 15 mmol/L [facility] ([place]) BUN 7 6 - 25 mg/dL [facility] ([place]) Creatinine 1.20 0.80 - 1.30 mg/dL [facility] ([place]) Glucose 102 70 - 199 mg/dL [facility] ([place]) Comment: Interpretive Data Fasting glucose >/= [...] MD LAB BLOOD ORDERABLES Final Resul t [facility] ([place]) 1 [facility] [place] [address] * (ABNORMAL) CBC with auto differential (04/26/2024 12:40 PM CDT) WBC 9.4 3.8 - 9.9 K/cumm Hgb 14.3 13.0 - 17.5 g/dL [facility] ([place]) Hct 41.7 38.9 - 50.3 % [facility] ([place]) Plt 485(H) 150 - 400 K/cumm [facility] ([place]) MPV 9.3 9.1 - 12.3 fL [facility] ([place]) RBC 4.32 4.30 - 5.80 M/cumm [facility] ([place]) MCV 96.5(H) 81.3 - 96.4 fL [facility] ([place]) MCH 33.1 27.1 - 33.3 pg [facility] ([place]) MCHC 34.3 32.3 - 35.7 g/dL [facility] ([place]) RDW CV 13.0 11.1 - 14.9 % [facility] ([place]) RDW SD 46.8 35.7 - 48.1 fL [facility]OR RAYMUNDO ([place]) NRBC abs 0.00 0.00 - 0.01 K/cumm SIMAKULWANT RAYMUNDO ([place]) Blood 04/26/2024 12:4 0 PM CDT 04/26/2024 12:44 PM CDT us Willis Leslie MD LAB BLOOD ORDERABLES Final Resul t MINOR RAYMUNDO ([place]) 1 [facility] [place] [address] documented in this encounter Visit Diagnoses Diagnosis Rectal bleeding- Primary Hemorrhage of rectum and anus Rectal bleeding Hemorrhage of rectum and anus Diverticulitis Diverticulitis of colon (without mention of hemorrhage) Diverticulitis Diverticulitis of colon (without mention of hemorrhage) Rectal bleeding Hemorrhage of rectum and anus Personal history of colonic polyps Encounter for screening colonoscopy documented in this encounter Admitting Diagnoses Diagnosis Rectal bleeding Hemorrhage of rectum and anus Diverticulitis Diverticulitis of colon (without mention of hemorrhage) documented in this encounter Administered Medications Inactive Administered Medications - up to 3 most recent administrations Medication Order MAR Action Action Date Dose Rate Site amLODIPine (NORVASC) tablet 5 mg 5 mg, oral, Nightly, First dose on Sun04/26/24 at 2100 Given 04/29/2024 9:35 PM CDT 5 mg Given 04/28/2024 9:50 PM CDT 5 mg Given 04/27/2024 10:31 PM CDT 5 mg atorvastatin (LIPITOR) tablet 10 mg 10 mg, oral, Nightly, First dose (after last modification) on Sun04/29/24 at 2100 Given 04/29/2024 9:36 PM CDT 10 mg ciprofloxacin (CIPRO) tablet 500 mg 500 mg, oral, 2 times daily (for quinolones,etc), First dose on Sun04/29/24 at 1800, Indications: DiverticulitisIndications:Diverticulitis Given 04/30/2024 6:58 AM CDT 500 mg Given 04/29/2024 6:32 PM CDT 500 mg metoprolol XL (TOPROL-XL) extended release tablet 100 mg 100 mg, oral, Nightly, First dose on Sun04/26/24 at 2100, Tablets that are scored may be split, but do not crush, chew, dissolve, open or otherwise manipulate tablet/capsule. Given 04/29/2024 9:36 PM CDT 100 mg metroNIDAZOLE (FLAGYL) tablet 500 mg 500 mg, [...] 04/29/2024 9:29 AM CDT [address] (PROTONIX) extended release tablet 40 mg 40 mg, oral, 2 times daily, First dose on Sun04/28/24 at 2100, Do not crush, chew, cut, dissolve, open or otherwise manipulate tablet/capsule., Indications: GI BleedIndications:GI Bleed Given 04/30/2024 10:05 AM CDT 40 mg Given 04/29/2024 9:36 PM CDT 40 mg Given 04/29/2024 8:43 AM CDT 40 mg potassium, sodium phosphates (PHOS-NAK) 280-160-250 mg packet [...] Given 04/30/2024 10:05 AM CDT 1 packet zolpidem (AMBIEN) tablet 5 mg 5 mg, oral, Nightly, First dose on 04/26/24 at 2100, Indications: Sleep-Onset InsomniaIndications:Sleep-Onset Insomnia Given [...] Nightly, First dose on 04/26/24 at 2100 1109 (DEC Hold - Provider: Automatic Transfer Provider - Reason: Patient not available)1428 (DEC Unhold - Provider: Automatic Transfer Provider)2150 (Given - Provider: Nely Dotson RN) 1104 (DEC Hold - Provider: Automatic [...] on 04/29 Room temperature only, Indications: hypocalcemia 2227 (New Bag - Provider: Tonio Simpson RN) calcium gluconate 2 g/100 mL in sodium [...] Sun04/26/24 at 1407, Indications: Abdominal/Pelvic Infection 1109 ([facility] Hold - Provider: Automatic Transfer Provider - Reason: Patient not available)1200 (Dose Auto Held - Provider: Automatic Transfer Provider)1428 (MAR Unhold - Provider: Automatic Transfer Provider)1430 (Given - Provider: Aubree Finnegan RN) 1104 ([facility] Hold - Provider: Automatic Transfer Provider - Reason: Patient not available)1200 (Dose Auto Held - Provider: Automatic Transfer Provider)1258 ([facility] Unhold - Provider: Automatic Transfer Provider) ciprofloxacin [...] 0920 (Given - Provider: Aubree Finnegan RN)1109 ([facility] Hold - Provider: Automatic Transfer Provider - Reason: Patient not available)1428 ([facility] Unhold - Provider: Automatic Transfer Provider) metoclopramide (REGLAN) 5 mg/mL injection 10 mg (CANCELED) 10 mg, intravenous, Every 6 hours scheduled, First dose on Sun04/29/24 at 1200, For 2 doses 1056 (Given - Provider: Aubree Finnegan RN)1104 ([facility] Hold - Provider: Automatic Transfer Provider - Reason: Patient not available)1258 ([facility] Unhold - Provider: Automatic Transfer Provider) metoprolol tartrate (LOPRESSOR) immediate release tablet 25 mg (CANCELED) 25 mg, oral, 2 times daily, First dose on Sun04/28/24 at 1630 1616 (Given - Provider: Aubree Finnegan RN) 0843 (Given - Provider: Aubree Finnegan RN)1104 (DEC Hold - Provider: Automatic Transfer Provider - Reason: Patient not available)1258 ([facility] Unhold - Provider: Automatic Transfer Provider) metoprolol XL (TOPROL-XL) extended release tablet 100 mg 100 mg, oral, Nightly, First dose on 04/26/24 at 2100, Tablets that are scored may be split, but do not crush, chew, dissolve, open or otherwise manipulate tablet/capsule. 2100 (Dose Auto Held - Provider: Michael Silva MD) 1649 (Unheld by Provider - Provider: Collin Mancia MD)2136 (Given - Provider: Tonio Simpson, [place]) metroNIDAZOLE (FLAGYL) 500 mg/100 mL in sodium chloride (premix) 500 mg (CANCELED) 500 mg, intravenous, at 200 mL/hr, Administer over 30 Minutes, Every 12 hours scheduled, First dose (after last modification) on 04/26/24 at 1408, Room temperature only, Indications: Abdominal/Pelvic Infection 1109 ([facility] Hold - Provider: Automatic Transfer Provider - Reason: Patient not available)1200 (Dose Auto Held - Provider: Automatic Transfer Provider)1428 ([facility] Unhold - Provider: Automatic Transfer Provider)1430 (Stopped - Provider: Aubree Finnegan RN)2339 (New Bag - Provider: Nely Dotson RN) 1104 ([facility] Hold - Provider: Automatic Transfer Provider - Reason: Patient not available)1200 (Dose Auto Held - Provider: Automatic Transfer Provider)1258 ([facility] Unhold - Provider: Automatic Transfer Provider) metroNIDAZOLE (FLAGYL) tablet 500 mg 500 mg, oral, 3 times daily, First dose on Sun04/29/24 at 1600, For 7 days, Indications: Abdominal/Pelvic Infection 1552 (Given - Provider: Aubree Finnegan RN)2136 (Given - Provider: Tonio Simpson RN) 1005 (Given - Provider: Anibal Barksdale RN)1420 (Given - Provider: Anibal Barksdale RN) pantoprazole (PROTONIX) 40 mg in sodium chloride 0.9% 10 mL IV Syringe (CANCELED) 40 mg, intravenous, at 300 mL/hr, Administer over 2 Minutes, 2 times daily, First dose on Sun04/28/24 at 1130, For IV administration, reconstitute 40 mg vial with 10 mL sodium chloride 0.9% for injection for a final concentration of 4 mg/mL, Indications: GI Bleed 1109 ([facility] Hold - Provider: Automatic Transfer Provider - Reason: Patient not available)1428 ([facility] Unhold - Provider: Automatic Transfer Provider)1500 (Given - Provider: Aubree Finnegan, EDMUNDO) pantoprazole DR (PROTONIX) extended release tablet 40 mg 40 mg, oral, 2 times daily, First dose on Sun04/28/24 at 2100, Do not crush, chew, cut, dissolve, open or otherwise manipulate tablet/capsule., Indications: GI Bleed 2150 (Given - Provider: Nely Dotson RN) 0843 (Given - Provider: Aubree Finnegan RN)1104 ([facility] Hold - Provider: Automatic Transfer Provider - Reason: Patient not available)1258 ([facility] Unhold - Provider: Automatic Transfer Provider)2136 (Given - Provider: Tonio Simpson RN) 1005 (Given - Provider: Anibal Barksdale, [place]) [...] dissolution of the powder., Indications: Bowel Evacuation 0830 (Given - Provider: Aubree Finnegan, [place]) potassium, [...] (6.9 mEq). 1005 (Given - Provider: Anibal aBrksdale RN)1029 (Not Given - Provider: Anibal Barksdale [...] line (usually 50-100 mL) after transfusion complete. 2225 (New Bag - Provider: Tonio Simpson RN) zolpidem (AMBIEN) tablet 5 mg 5 mg, oral, Nightly, First dose on Sun04/26/24 at 2100, Indications: Sleep-Onset Insomnia 1109 (MAR Hold - Provider: Automatic Transfer Provider - Reason: Patient not available)1428 (MAR Unhold - Provider: Automatic Transfer Provider)2150 (Given - Provider: Nely Dotson EDMUNDO) 1104 (DEC Hold - Provider: Automatic Transfer Provider - Reason: Patient not available)1258 (DEC Unhold - Provider: Automatic Transfer Provider)2200 (Given - Provider: Tonio Simpson, [place]) Continuous Medication Order 04/28/2024 04/29/2024 04/30/2024 sodium chloride 0.9% infusion (CANCELED) 100 mL/hr, intravenous, Continuous, Starting on Sun04/28/24 at 1000 0920 (New Bag - Provider: Aubree Finnegan, EDMUNDO)1500 (Stopped - Provider: Aubree Finnegan RN) sodium [...] (CANCELED) 30 mL/hr, intravenous, Continuous, Starting on Tu04/29/24 at 1145 1107 (New Bag - Provider: Mariela Oliver, EDMUNDO)1132 (Rate/Dose Verify - Provider: Manuelito Mendoza MD)1133 [...] Count Last Ordered Date First Ordered Date potassium, sodium phosphates (PHOS-NAK) 280-160-250 mg packet 1 packet 1 04/30/2024 atorvastatin (LIPITOR) tablet 10 mg 2 04/2904/26/2024 calcium gluconate 1 g/50 mL in sodium chloride (premix) solution 1 g 1 04/29/2024 calcium gluconate 2 g/100 mL in sodium chloride (premix) solution 2 g 1 04/29/2024 ciprofloxacin (CIPRO) tablet 500 mg 1 04/29 fenofibrate nanocrystallized (TRICOR) tablet 145 mg 2 04/29/2024 04/26/2024 metoclopramide (REGLAN) 5 mg /mL injection 10 mg 2 04/29/2024 04/28/2024 metroNIDAZOLE (FLAGYL) tablet 500 mg 1 04/08 ondansetron (ZOFRAN) injection 4 mg 2 04/2904/26/2024 polyethylene glycol (GoLYTEL Y) solution 2,000 mL 1 04/29/2024 sodium chloride 0.9% infusion 4 04/29/2024 04/26/2024 sodium chloride 0.9% IVPB 0-250 mL 4 202304/27/2024 erythromycin (ERYTHROCIN) 25 0 mg in sodium chloride 0.9% 100 mL IVPB 1 04/28/2024 metoprolol tartrate (LOPRESS OR) immediate release tablet 25 mg 1 04/28/2024 pantoprazole (PROTONIX) 40 m g in sodium chloride 0.9% 10 mL IV Syringe 2 04/28/[address] (PROTONIX) e xtended release tablet 40 mg 1 04/28/2024 polyethylene glycol (MIRALAX) packet 68 g 1 04/28/2024 sodium chloride 0.9% flush 0.5-20 mL 2 04/08 ioversoL (OPTIRAY 350) syringe 100 mL 1 acetaminophen (TYLENOL) tablet 650 mg amLODIPine (NORVASC) tablet 5 mg 1 04/26/20 cefTRIAXone (ROCEPHIN) 2,000 mg/20 mL in sterile water (premix) 2,000 mg 04/26/2024 ciprofloxacin (CIPRO) 400 mg /200 mL in dextrose 5% (premix) 400 mg 1 04/26/2024 ioversoL (OPTIRAY 350) syringe 75 mL 1 04/08 metoprolol XL (TOPROL-XL) ex tended release tablet 100 mg 1 04/26/2024 metroNIDAZOLE (FLAGYL) 500 m g/100 mL in sodium chloride (premix) 500 mg 2 04/26/2024 ondansetron ODT (ZOFRAN-ODT) disintegrating tablet 4 mg 04/26/2024 oxyCODONE (ROXICODONE) tablet 5 mg 1 2023 pancrelipase (CREON) 6,000 u nits of lipase per capsule 6,000 units of lipase 1 04/26/2024 zolpidem (AMBIEN) tablet 5 mg 1 04/26/2024 EKG Orders Without Results Count [...] 04/28/2024 documented in this encounter Care Teams Tobacco Curer Relationship Specialty Start Date End Date Carlos Pacheco MD [address] [place] [id number] PCP - General Internal Medicine 04/26/24 documented as of this encounter
--- OUTSIDE RECORDS SUMMARY | 2024-10-04 12:45 | XMS_ITS | Encounter Summary ---
Author Organization [facility] Healthcare Address [address] [place] [address] Care Team Providers Care Lab Manager Name Role Phone Unavailable Primary Care Provider Unavailabl e Encounter Details Date Type Department Care Team (Late st Contact Info) Description 12/09/2013 10:55 AM CONCRETE BOOM PUMP OPERATOR - 12/11/2013 12:07 PM CONCRETE BOOM PUMP OPERATOR Hospital Encounter [facility] Hany Rivas MD [address] [place] [address] [address] Septicemia (HCC); Diverticulitis of colon; Sepsis (HCC); Nausea with vomiting; Abdominal pain; Dehydration; Essential hypertension; Insomnia; Osteoarthrosis; Tobacco use disorder; Alcohol abuse Social History Tobacco Use Types Packs/Day Years Used Date Smoking Tobacco: Never Assessed Sex and Gender Information Value Date Recorded Sex Assigned at Not on file Legal Sex Male 3:12 AM CONCRETE BOOM PUMP OPERATOR Gender Identity Not on file Sexual Orientation Not on file documented as of this encounter Last Filed Vital Signs Vital Sign Reading Time Taken Comments Blood Pressure 109/71 12/11/2013 9:51 AM CONCRETE BOOM PUMP OPERATOR Pulse 76 12/11/2013 9:51 AM CONCRETE BOOM PUMP OPERATOR Temperature - - Respiratory Rate - - Oxygen Saturation - - Inhaled Oxygen Concentration - - Weight 83.2 kg (183 lb 6.8 oz) 12/10/2013 9:57 A M CONCRETE BOOM PUMP OPERATOR Height 177.8 cm (5' 10 ) 12/10/2013 9:57 AM CONCRETE BOOM PUMP OPERATOR Body Mass Index 26.32 12/10/2013 9:57 AM CONCRETE BOOM PUMP OPERATOR documented in this encounter Discharge Summaries * ProviderAnh MD - 12/11/2013 12:00 AM CST DISCHARGE SUMMARY - [facility] Patient: ANGELIQUE LAW. Account: [id number] Room No: 3630-01 : 1975 Patient Type: Attend.: Hany Peraza M.D. Admit Date: 12/09/2013 Dict.: Antonette Tang M.D. Disch. Date: 12/11/2013 DISCHARGE DIAGNOSES 1. Sepsis, resolved. 2. Acute diverticulitis. 3. Intractable nausea, abdominal pain and vomiting, resolved. 4. History of hypertension, uncontrolled. DISCHARGE MEDICATION Please review the medication reconciliation. Please note the patient will be discharged on seven days of ciprofloxacin 500 mg oral q 12 hours and Flagyl 500 mg oral every 8 hours. HOSPITAL COURSE This is a 38-year-old male with a past medical history of hypertension who came to the hospital with severe lower abdominal pain, nausea and vomiting who was found to have an acute diverticulitis. At the time of admission on the CT scan, he was treated with conservative management with IV fluids, pain medications and antibiotics and his symptoms improved significantly with the previous management. The patient was also started on IV fluids running at 125 cc per hour. His blood cultures remained negative at the time of discharge. His urinalysis was unremarkable. The patient did not have any fever in the last 24 hours. His white count initially was up to 19,000, however, it improved the next day to 13,000. No CBC was done after that. His BMP yesterday was within normal limits with normal BUN and creatinine. He was able to tolerate full liquid diet in the last 24 hours without any problems and we will advance him to a soft diet before the discharge. Discharge instructions: No activity limitations. The patient to follow with the primary care physician, Dr. Webber, in one to two weeks. The patient needs a colonoscopy to be done after the acute infection resolved. Would refer that to the primary care physician to arrange for. The patient was advanced to go with the high fiber diet at the time of discharge and also low sodium diet considering his hypertension. Dr. Webber. Total time spent on discharge: 35 minutes. Kathryn Plasencia TD: 12/12/2013 06:16 Authenticated by Antonette Tang MD On 12/12/2013 03:14:06 PM documented in this encounter H&P Notes * ProviderAnh MD - 12/09/2013 12:00 AM CST HISTORY AND PHYSICAL Patient: ANGELIQUE LAW Account: [id number] Room No: 3630-01 : 1975 Patient Type: IP Attend.: Hany Peraza M.D. Admit Date: 12/09/2013 Dict.: Hany Peraza M.D. Disch. Date: DATE: 12/10/2013 CHIEF COMPLAINT: This is a very pleasant 38-year-old male who came to the hospital because of severe lower abdominal pain, nausea, vomiting going on for four days. HISTORY OF PRESENT ILLNESS: Patient does not have a history of diverticulitis, this is the first episode of abdominal pain. He was at his usual state of health and started developing crampy pain in his lower abdomen, left lower quadrant and suprapubic area. He did not pay attention, but it was getting worse. He was unable to eat much so he had decreased p.o. intake for about four days now and he developed nausea and emesis almost once a day so he did not eat any solid food, just liquids. Because of the pain getting worse, he presented to the hospital emergency room. In the emergency room he had white cell elevation, tachycardia, severe pain so he is admitted for treatment. REVIEW OF SYSTEMS: He was having some chills for a couple of days. Denies any weight loss, weight gain or night sweats. He did not take his temperature. Respiratory: Denies any shortness of breath, cough, sputum production. Cardiovascular: Denies chest pain, palpitations. GI: Positive for nausea, vomiting once a day for four days. Severe abdominal pain, rating the pain level 10 out of 10, sharp, constant, localized left lower quadrant going across lower abdomen with associated nausea and vomiting. Denies any dysuria and no radiation. Denies any endocrine changes, but musculoskeletal has chronic joint pains because of his profession and physical work. Denies any skin changes. Neurological: Denies any focal weakness or paresthesias. PAST MEDICAL HISTORY: 1. Hypertension. 2. Insomnia. 3. Osteoarthritic pain. PAST SURGICAL HISTORY: No surgeries in the past. SOCIAL HISTORY: He is and lives with his , has two children. He smokes a pack a day for 20 plus years. He drinks alcohol on a daily basis, 6 to 12 pack of beer, for about 18 years. 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 Denies any recreational drug use. FAMILY HISTORY: Positive for diabetes and hypertension. ALLERGIES: None. HOME MEDICATIONS: 1. Ambien 5 mg at bedtime. 2. Xanax 0.5 mg every 8 hours for anxiety. 3. Amlodipine 5 mg daily. 4. Fenofibrate one tablet at bedtime. 5. Metoprolol 25 mg b.i.d. 6. Tylenol one tablet every 6 hours p.r.n. for pain. PHYSICAL EXAMINATION: Vital signs: Blood pressure 117/73. Pulse 82. Respirations 20. Temperature 36.4. Oxygen saturation 98% on room air. HEENT: No icterus, pallor or petechiae. Mucus membranes are dry. Neck: Supple. No jugular venous distention or lymphadenopathy. Chest: S1, S2, regular. No murmurs or gallops. Lungs are clear to auscultation bilaterally. Abdomen: Soft, tender left lower quadrant to the left mid lower quadrant. No rebound tenderness. No organomegaly. Bowel sounds are hyper. Extremities: No edema. Pulses are present. Neuro examination: Nonfocal. ASSESSMENT AND PLAN: 1. SIRS versus sepsis. He presented with white cell elevation at 19,000 with tachycardia, heart rate of 115, but he did not have temperature, This is secondary to diverticulitis. We will follow the clinical course. 2. Abdominal pain, nausea, vomiting. This is improved since admission. We will keep him on clear liquid diet and advance as tolerated. Keep him on IV fluids, normal saline at 125 ml an hour. 3. Acute diverticulitis. CT of the abdomen shows microperforation and acute diverticulitis of sigmoid colon, xiang sigmoid gas collection indicating contained perforation but no abscess seen. We will continue IV antibiotics and switch to p.o. whenever the symptoms are better. 4. Dehydration. This is clinical dehydration. Patient does not have elevation of BUN and creatinine, but mucus membranes are very dry. He is thirsty and he did not have much p.o. intake for the last four days. We will continue IV fluids for now. Patient is admitted inpatient. ADMISSION DIAGNOSES: 1. SIRS versus sepsis. 2. Nausea, vomiting, abdominal pain. 3. Acute diverticulitis with microperforation. 4. Dehydration. Anticipated length of stay to exceed two midnights. Hany Peraza M.D. MARTA/corrine TD: 12/10/2013 10:07 Authenticated and Edited by Hany Peraza MD On 12/10/13 1:26:24 PM documented in this encounter Plan of Treatment Upcoming Encounters Date Type Department Care Team (Late st Contact Info) Description 05/04/2025 8:00 AM CDT Hospital Encounter [address] [address] Celestino Moctezuma MD [address] [place] [address] DR YOON [address] [place] [id number] 05/04/2025 8:00 AM CDT - 05/04/2025 8:30 AM CDT Surgery [address] [address] Celestino Moctezuma MD [address] [place] [address] DR YOON [address] [place] [id number] COLONOSCOPY Scheduled Procedures Name Priority Associated Diagnoses Date/Ti me COLONOSCOPY Personal history of colonic polyps Encounter for screening colonoscopy 05/04/2025 8:00 AM CDT documented as of this encounter Procedures Procedure Name Priority Date/Time Associated Diagnosis Comments DISCHARGE LABORATORY CUMULATIVE REPORT Routine 12/11/2013 12:00 AM CONCRETE BOOM PUMP OPERATOR SERUM COMPREHENSIVE METABOLIC PANEL Routine 12/10/2013 8:10 AM CONCRETE BOOM PUMP OPERATOR BLOOD WBC CELL MORPHOLOGIC EXAM, AUTO Routine 12/10/2013 8:10 AM CONCRETE BOOM PUMP OPERATOR BLOOD CELL COUNT (CBC) Routine 4 8:10 AM CONCRETE BOOM PUMP OPERATOR CT ABDOMEN PELVIS W CONTRAST Routine 12/09/2013 1:57 PM CONCRETE BOOM PUMP OPERATOR SERUM LIPASE Routine 12/09/2013 11:29 AM CONCRETE BOOM PUMP OPERATOR SERUM COMPREHENSIVE METABOLIC PANEL Routine 12/09/2013 11:29 AM CONCRETE BOOM PUMP OPERATOR SERUM AMYLASE Routine 12/09/2013 11:29 AM CONCRETE BOOM PUMP OPERATOR BLOOD WBC CELL MORPHOLOGIC EXAM, AUTO Routine 12/09/2013 11:29 AM CONCRETE BOOM PUMP OPERATOR BLOOD CELL COUNT (CBC) Routine 4 11:29 AM CONCRETE BOOM PUMP OPERATOR URINE MICROSCOPY Routine 12/09/2013 11:2 5 AM CONCRETE BOOM PUMP OPERATOR URINALYSIS Routine 12/09/2013 11:25 AM CONCRETE BOOM PUMP OPERATOR documented in this encounter Results * Discharge Laboratory Cumulative Report (12/11/2013 12:00 AM CONCRETE BOOM PUMP OPERATOR) 12/11/2013 Narrative HISTORICAL RESULTS - 12/12/2013 12:35 AM CONCRETE BOOM PUMP OPERATOR Patient No: [id number] ? [facility] Patient Name: ANGELIQUE LAW ?[facility] Healthcare Age: 38 YRS ?: 1975 ?Sex:M ?[address] )[phone] ?? Adm Dt: 12/09/2013 ?[place] ??[address] Created: 12/12/2013 ??0035 ?? Pt. Type: I ? Discharge Dt: 12/11/2013 ? Pathologists: Jacey Martínez MD Admit Attend Dr: HANY PERAZA MD ? BLOOD CELL COUNTS ?Collection Date: ?12/10/13 ? 12/09/13 ?Collection Time: ?0810 ? 1129 ? Ref Range: ?? Units: [4.00-10.50] /CMM ? WBC X 10^3 ? 13.33 H ?19.79 H [4.60-6.20] ??/CMM ? RBC X 10^6 ?4.27 L ? 4.74 [14.0-18.0] ??G/DL ? HGB ? 14.0 ? 15.5 [40.0-54.0] ??% ?HCT ? 41.0 ? 45.3 [77.0-97.0] ??FL ? MCV ? 96.0 ? 95.6 [23.0-34.0] ??PG ? MCH ? 32.8 ? 32.7 [32.0-36.0] ??% ?MCHC ?34.1 ? 34.2 [11.5-14.5] ??% ?RDW ? 12.9 ? 13.2 [150-451] ?? /CMM ? PLT X 10^3 ? 441 ?458 H ?BLOOD CELL DIFFERENTIAL ?Collection Date: ?12/10/13 ? 12/09/13 ?Collection Time: ?0810 ? 1129 ? Ref Range: ?? Units: [54.0-69.0] ??% ?NEUTROPHILS ? 74.4 H ? 82.7 H [25.0-33.0] ??% ?LYMPHOCYTES ? 11.6 L ?7.2 L [1.0-13.0] ??% ?MONOCYTES ? 10.5 ?8.8 [0.0-10.0] ??% ?EOSINOPHILS ?3.0 ?0.7 [0.0-1.0] ?? % ?BASOPHILS ?0.3 ?0.2 ? /CMM ? A LYMPHOCYTE ? 1.5 ?1.4 [0.0-1.0] ?? % ?IMM GRAN % ? 0.2 ?0.4 [0.00-0.02] ??/CMM ? A IMM GRAN ?0.03 H ? 0.07 H [1.1-1.9] ?? /CMM ? A MONOCYTE ? 1.4 ?1.8 [1.4-6.5] ?? /CMM ? A NEUTROPHIL ? 9.9 H ? 16.4 H [0.0-0.7] ?? /CMM ? A EOSINOPHIL ? 0.4 ?0.1 [0.0-0.2] ?? /CMM ? A BASOPHIL ? 0.0 ?0.0 Footnotes and Symbols: L = Low, H = High ?? CONTINUED ?Page: ?? 1 Patient No: [id number] ? [facility] Patient Name: ANGELIQUE LAW ?[facility] Age: 38 YRS ?: 1975 ?Sex:M ?[address] )[phone] ?? Adm Dt: 12/09/2013 ?[place] ??[address] Created: 12/12/2013 ??0035 ?? Pt. Type: I ? Discharge Dt: 12/11/2013 ? Pathologists: Jacey Martínez MD Admit Attend Dr: HANY PERAZA MD ? GENERAL CHEMISTRY ?Collection Date: ?12/10/13 ? 12/09/13 ?Collection Time: ?0810 ? 1129 ? Ref Range: ?? Units: [134-143] ?? MMOL/L ? SODIUM ? 137 ?139 [3.4-5.0] ?? MMOL/L ? POTASSIUM ?4.1 ?4.5 [99.0-108.0] MMOL/L ? CHLORIDE ? 105.0 ?101.0 [23.0-32.0] ??MMOL/L ? TOTAL CO2 ? 26.7 ? 25.9 ?? [7-14] ?MMOL/L ? ANION GAP ?9 ? 17 H ??[70-199] ?? MG/DL ?GLUCOSE ? 95 f ?120 f [6.4-8.0] ?? G/DL ? TOTAL PROTEIN ?6.7 ?8.0 [3.3-4.5] ?? G/DL ? ALBUMIN ?2.9 L ?3.7 [1.1-1.8] ?A/G RATIO ?0.8 L ?0.9 L [8.6-9.8] ?? MG/DL ?CALCIUM ?8.8 ?9.8 [0.0-1.1] ?? MG/DL ?BILI TOTAL ? 0.3 ?0.7 ??[44-125] ?? U/L ?ALK PHOS ?84 ?107 ??[10-45] ?U/L ?AST(SGOT) ? 12 f ? 14 f ??[15-70] ?U/L ?ALT(SGPT) ? 23 f ? 23 f [6.0-23.0] ??MG/DL ?BUN ? 10.0 ?9.0 ??[10-20] ? B/C RATIO ?9 L ?8 L Footnotes and Symbols: L = Low, H = High, f = Footnote GLUCOSE (09/09/13 -- Current) Note:The glucose is assumed non fasting Fastin-99 mg/dl Random: 70-199 mg/dl Either a fasting glucose > 126 mg/dL or a random glucose > 200 mg/dL plus symptoms is diagnostic of diabetes when confirmed on another day. Fasting values > 100 mg/dl but < 125 mg/dL are diagnostic of impaired fasting glucose. New reference ranges implemented 08/18/2013. AST(SGOT) (03/19/13 -- Current) AST ??- NOTE REFERENCE RANGE CHANGE ALT(SGPT) (04/29/13 -- Current) ?? CONTINUED ?Page: ?? 2 Patient No: [id number] ? [facility] Patient Name: ANGELIQUE LAW ?[facility] Age: 38 YRS ?: 1975 ?Sex:M ?[address] )[phone] ?? Adm Dt: 12/09/2013 ?[place] ??[id number] Created: 12/12/2013 ??0035 ?? Pt. Type: I ? Discharge Dt: 12/11/2013 ? Pathologists: Jacey Martínez MD Admit Attend Dr: HANY PERAZA MD ? GENERAL CHEMISTRY ?Collection Date: ?12/10/13 ? 12/09/13 ?Collection Time: ?0810 ? 1129 ? Ref Range: ?? Units: [0.60-1.30] ??MG/DL ?CREATININE ?1.07 f ? 1.19 f ?12/10/13 0810 eGFR: >70 ml/min/1.73sq.m if non -Burmese. eGFR: >70 ml/min/1.73sq.m if -Burmese. AVE GFR for 30-39 yr. age group: 107 ml/min/1.73sq.m Calculated using MDRD Equation FOOTNOTE ADDED ON ?? 12/10/13 ?? AT 0859 BY 999 ?12/09/13 1129 eGFR: >70 ml/min/1.73sq.m if non -Burmese. eGFR: >70 ml/min/1.73sq.m if -Burmese. AVE GFR for 30-39 yr. age group: 107 ml/min/1.73sq.m Calculated using MDRD Equation FOOTNOTE ADDED ON ?? 12/09/13 ?? AT 1215 BY 999 ??[25-115] ?? U/L ?AMYLASE ?30 f ??[70-400] ?? U/L ?LIPASE ? 91 Footnotes and Symbols: f = Footnote AMYLASE (08/24/10 -- Current) PLEASE SEE NEW REFERENCE RANGE ?? CONTINUED ?Page: ?? 3 Patient No: [id number] ? [facility] Patient Name: ANGELIQUE LAW ?[facility] Age: 38 YRS ?: 1975 ?Sex:M ?[address] )[id number] ?? Adm Dt: 12/09/2013 ?[place], [place] ??[address] Created: 12/12/2013 ??0035 ?? Pt. Type: I ? Discharge Dt: 12/11/2013 ? Pathologists: Jacey Martínez MD Admit Attend Dr: HANY PERAZA MD ?URINALYSIS ?Collection Date: ?12/09/13 ?Collection Time: ?1125 ? Ref Range: ?? Units: ?U COLOR ? DRKYEL ??[CLEAR] ? U APPEARANCE ? CLEAR [1.000-1.030] ? U SPEC GRAVITY ? 1.015 [NEGATIVE] ?U LEUKO ESTRASE ? NEGATIVE [NEGATIVE] ?U NITRITE ? NEGATIVE ?? [6.0] ?U PH ? 6.0 [NEGATIVE] ?U PROTEIN ? NEGATIVE [NEGATIVE] ?U GLUCOSE ? NEGATIVE [NEGATIVE] ?U KETONES ?TRACE [0.2- 1.0] ?UROBILINOGEN ? 2.0 [NEGATIVE] ?U BILIRUBIN ?SMALL * [NEGATIVE] ?U BLOOD ? MODERATE * ?? [0-2] ?U WBC ?0-2 ?? [0-2] ?U RBC ?25-50 * ?? [0-2] ?U EPI CELLS ?0-2 [NEGATIVE] ?U BACTERIA ?NEGATIVE ?U YEASTS ?NEGATIVE ?? [0-4] ?U HYALINE CASTS ?0-2 [NEGATIVE] ?U CRYSTALS ?NEGATIVE ?U OTHER ?* [NEGATIVE] ?U PATH CASTS ?NEGATIVE Footnotes and Symbols: * = Abnormal ?? END OF CHART ? Page: ?? 4 us Historical Provider LAB BLOOD ORDERABLES Nicole l Result Performing Organization Address [facility] Co de Phone Number HISTORICAL RESULTS * (ABNORMAL) Blood cell count (CBC) (12/10/2013 8:10 AM CONCRETE BOOM PUMP OPERATOR) WBC 13.3(H) 4.0 - 10.5 K/cumm HISTORICAL RESULTS RBC 4.27(L) 4.60 - 6.20 M/cumm HISTORICAL RESULTS Hgb 14.0 14.0 - 18.0 g/dl HISTORICAL RESULTS Hct 41.0 40.0 - 54.0 % HISTORICAL RESULTS MCV 96.0 77.0 - 97.0 fl HISTORICAL RESULTS MCH 32.8 23.0 - 34.0 pg HISTORICAL RESULTS MCHC 34.1 32.0 - 36.0 g/dl HISTORICAL RESULTS Rdw 12.9 11.5 - 14.5 % HISTORICAL RESULTS Platelets 441 150 - 451 K/cumm HISTORICAL RESULTS MPV 9.1 7.4 - 10.4 fl HISTORICAL RESULTS Blood specimen (specimen) 12/10/2013 8:10 AM CONCRETE BOOM PUMP OPERATOR Shelly Alberto MD LAB BLOOD ORDERABLE S Final Result Performing Organization Address [facility] de Phone Number HISTORICAL RESULTS * (ABNORMAL) Blood WBC cell morphologic exam, auto (12/10/2013 8:10 AM CONCRETE BOOM PUMP OPERATOR) Lymphocytes 11.6(L) 25.0 - 33.0 % HISTORICAL RESULTS Monos 10.5 1.0 - 13.0 % HISTORICAL RESULTS Neutrophils 74.4(H) 54.0 - 69.0 % HISTORICAL RESULTS Eosinophils 3.0 0.0 - 10.0 % HISTORICAL RESULTS Basophils 0.3 0.0 - 1.0 % HISTORICAL RESULTS Immature granulocytes 0.2 0.0 - 1.0 % HISTORICAL RESULTS Lymphocytes, abs 1.5 1.2 - 3.4 K/cumm HISTORICAL RESULTS Monocytes, absolute 1.4 1.1 - 1.9 K/cumm HISTORICAL RESULTS Neutrophils, abs 9.9(H) 1.4 - 6.5 K/cumm HISTORICAL RESULTS Eosinophils, abs 0.4 0.0 - 0.7 cells/cum m HISTORICAL RESULTS Basophils, abs 0.0 0.0 - 0.2 K/cumm HISTORICAL RESULTS Immature granulocyte, abs 0.0(H) 0.0 - 0.0 K/cumm HISTORICAL RESULTS Blood specimen (specimen) 12/10/2013 8:10 AM CONCRETE BOOM PUMP OPERATOR us Shelly Alberto MD LAB BLOOD ORDERABLE S Final Result HISTORICAL RESULTS * (ABNORMAL) Serum comprehensive metabolic panel (12/10/2013 8:10 AM CONCRETE BOOM PUMP OPERATOR) BUN 10.0 6.0 - 23.0 mg/dl HISTORICAL RESULTS Sodium 137 134 - 143 mmol/L HISTORICAL RESULTS Potassium, sr 4.1 3.4 - 5.0 mmol/L HISTORICAL RESULTS Chloride 105 99 - 108 mmol/L HISTORICAL RESULTS CO2 27 23 - 32 mmol/L HISTORICAL RESULTS Glucose 95 70 - 199 mg/dl HISTORICAL RESULTS Comment: Note:The glucose is assumed non fasting Fastin-99 mg/dl Random: 70-199 mg/dl Either a fasting glucose > 126 mg/dL or a random glucose > 200 mg/dL plus symptoms is diagnostic of diabetes when confirmed on another day. Fasting values > 100 mg/dl but < 125 mg/dL are diagnostic of impaired fasting glucose. New reference ranges implemented 08/18/2013. Creatinine 1.07 0.60 - 1.30 mg/dl HISTORICAL RESULTS Comment: eGFR: >70 ml/min/1.73sq.m if non -Burmese. eGFR: >70 ml/min/1.73sq.m if -Burmese. AVE GFR for 30-39 yr. age group: 107 ml/min/1.73sq.m Calculated using MDRD Equation BUN/creat ratio 9(L) 10 - 20 HIST ORICAL RESULTS A. gap 9 7 - 14 mmol/L HISTORICAL RESULTS Protein, sr 6.7 6.4 - 8.0 g/dl HISTORICAL RESULTS Alb 2.9(L) 3.3 - 4.5 g/dl HISTORICAL RESULTS Alb/glob ratio 0.8(L) 1.1 - 1.8 HISTO RICAL RESULTS Calcium 8.8 8.6 - 9.8 mg/dl HISTORICAL RESULTS Bilirubin 0.3 0.0 - 1.1 mg/dl HISTORICAL RESULTS Alk phos 84 44 - 125 Units/L HISTORICAL RESULTS AST 12 10 - 45 Units/L HISTORICAL RESULTS Comment:AST - NOTE REFERENCE RANGE CHANGE ALT 23 15 - 70 Units/L HISTORICAL RESULTS Serum 12/10/2013 8:10 AM CONCRETE BOOM PUMP OPERATOR us Shelly Alberto MD LAB BLOOD ORDERABLE S Final Result HISTORICAL RESULTS * CT Abdomen Pelvis W Contrast (12/09/2013 1:57 PM CONCRETE BOOM PUMP OPERATOR) Anatomical Region Laterality Modality Body N/A Computed Tomogra phy 12/09/2013 1:57 PM CONCRETE BOOM PUMP OPERATOR Narrative 12/09/2013 3:14 PM CONCRETE BOOM PUMP OPERATOR CT Abd/Pel W ?[id number] ??Acc#: ??[id number] DATE OF EXAM: ??Dec ??2013 CLINICAL HISTORY: Abdominal pain. RESULT: Helically acquired axial images were obtained from the dome of the diaphragm to the pubic symphysis following the administration of oral and intravenous contrast. The liver, spleen, pancreas, adrenals and kidneys are normal. ??The small and large bowel demonstrate normal caliber. ??Appendix is normal. ??There is significant inflammatory change of the sigmoid colon with an extraluminal gas collection consistent with acute sigmoid diverticulitis with a contained perforation. ??There is no evidence of free abdominal fluid or air. ??The lung bases are clear. IMPRESSION: 1. ??FINDINGS CONSISTENT WITH ACUTE DIVERTICULITIS OF THE SIGMOID COLON. A PARASIGMOID GAS COLLECTION INDICATES CONTAINED PERFORATION. ??NO OBVIOUS ABSCESS. 2. ??NO EVIDENCE OF FREE PERFORATION OR BOWEL OBSTRUCTION. 3. OTHERWISE NORMAL CT OF THE ABDOMEN AND PELVIS. RESULTS WERE CALLED TO DR. ALBERTO AT 1403 HOURS. Interpreting Physician: ??DR FAREED LENTZ M.D. ??Read on: ??Mar ??4 2013 2:06P Transcribed by: ??missael ??On: Dec ??4 2014 ??2:52P Approved Electronically by: ??MARY CARMEN Peralta, DR GUERRIER ??on: ??Mar ??4 2013 3:14P Ordering DR: ??REMY Attending DR: SWEETIE WEBBER Procedure Note Provider, Anh, - 02/08/2017 CT Abd/Pel W [id number] Acc#: [id number] DATE OF EXAM: Dec 09 2013 CLINICAL HISTORY: Abdominal pain. RESULT: Helically acquired axial images were obtained from the dome of thediaphragm to the pubic symphysis following the administration of oral andintravenous contrast. The liver, spleen, pancreas, adrenals and kidneysare normal. The small and large bowel demonstrate normal caliber.Appendix is normal. There is significant inflammatory change of thesigmoid colon with an extraluminal gas collection consistent with acutesigmoid diverticulitis with a contained perforation. There is no evidenceof free abdominal fluid or air. The lung bases are clear. IMPRESSION: 1. FINDINGS CONSISTENT WITH ACUTE DIVERTICULITIS OF THE SIGMOID COLON. APARASIGMOID GAS COLLECTION INDICATES CONTAINED PERFORATION. NO OBVIOUSABSCESS. 2. NO EVIDENCE OF FREE PERFORATION OR BOWEL OBSTRUCTION. 3. OTHERWISE NORMAL CT OF THE ABDOMEN AND PELVIS. RESULTS WERE CALLED TODR. ALBERTO AT 1403 HOURS. Interpreting Physician: DR FAREED LENTZ M.D. Read on: Dec 09 20132:06P Transcribed by: [email or web address] On: Dec 09 2013 2:52P Approved Electronically by: DR FAREED LENTZ M.D. on: Dec 09 19358:14P Ordering DR: REMY Attending DR: SWEETIE WEBBER us Historical Provider IMG CT PROCEDURES Final R esult * Serum lipase (12/09/2013 11:29 AM CONCRETE BOOM PUMP OPERATOR) Lip 91 70 - 400 Units/L HISTORICAL RESULTS Serum 12/09/2013 11:2 9 AM CONCRETE BOOM PUMP OPERATOR Shelly Alberto MD LAB BLOOD ORDERABLE S Final Result Performing Organization Address [facility] de Phone Number HISTORICAL RESULTS * (ABNORMAL) Blood cell count (CBC) (12/09/2013 11:29 AM CONCRETE BOOM PUMP OPERATOR) [facility] WBC 19.8(H) 4.0 - 10.5 K/cumm HISTORICAL RESULTS RBC 4.74 4.60 - 6.20 M/cumm HISTORICAL RESULTS Hgb 15.5 14.0 - 18.0 g/dl HISTORICAL RESULTS Hct 45.3 40.0 - 54.0 % HISTORICAL RESULTS MCV 95.6 77.0 - 97.0 fl HISTORICAL RESULTS MCH 32.7 23.0 - 34.0 pg HISTORICAL RESULTS MCHC 34.2 32.0 - 36.0 g/dl HISTORICAL RESULTS Rdw 13.2 11.5 - 14.5 % HISTORICAL RESULTS Platelets 458(H) 150 - 451 K/cumm HISTORICAL RESULTS MPV 9.2 7.4 - 10.4 fl HISTORICAL RESULTS Blood specimen (specimen) 12/09/2013 11:29 AM CONCRETE BOOM PUMP OPERATOR Shelly Alberto MD LAB BLOOD ORDERABLE S Final Result Performing Organization Address [facility] de Phone Number HISTORICAL RESULTS * Serum amylase (12/09/2013 11:29 AM CONCRETE BOOM PUMP OPERATOR) Pathologist [facility] Connie, sr 30 25 - 115 IUnits/L HISTORICAL RESULTS Comment:PLEASE SEE NEW REFER ENCE RANGE Serum 12/09/2013 11:2 9 AM CONCRETE BOOM PUMP OPERATOR Shelly Alberto MD LAB BLOOD ORDERABLE S Final Result Performing Organization Address [facility] de Phone Number HISTORICAL RESULTS * (ABNORMAL) Blood WBC cell morphologic exam, auto (12/09/2013 11:29 AM CONCRETE BOOM PUMP OPERATOR) [facility] Lymphocytes 7.2(L) 25.0 - 33.0 % HISTORICAL RESULTS Eosinophils 0.7 0.0 - 10.0 % HISTORICAL RESULTS Monos 8.8 1.0 - 13.0 % HISTORICAL RESULTS Basophils 0.2 0.0 - 1.0 % HISTORICAL RESULTS Neutrophils 82.7(H) 54.0 - 69.0 % HISTORICAL RESULTS Immature granulocytes 0.4 0.0 - 1.0 % HISTORICAL RESULTS Lymphocytes, abs 1.4 1.2 - 3.4 K/cumm HISTORICAL RESULTS Monocytes, absolute 1.8 1.1 - 1.9 K/cumm HISTORICAL RESULTS Neutrophils, abs 16.4(H) 1.4 - 6.5 K/cumm HISTORICAL RESULTS Eosinophils, abs 0.1 0.0 - 0.7 cells/cum m HISTORICAL RESULTS Basophils, abs 0.0 0.0 - 0.2 K/cumm HISTORICAL RESULTS Immature granulocyte, abs 0.1(H) 0.0 - 0.0 K/cumm HISTORICAL RESULTS Blood specimen (specimen) 12/09/2013 11:29 AM CONCRETE BOOM PUMP OPERATOR Shelly Alberto MD LAB BLOOD ORDERABLE S Final Result HISTORICAL RESULTS * (ABNORMAL) Serum comprehensive metabolic panel (12/09/2013 11:29 AM CONCRETE BOOM PUMP OPERATOR) Pathologist [facility] Calcium 9.8 8.6 - 9.8 mg/dl HISTORICAL RESULTS BUN 9.0 6.0 - 23.0 mg/dl HISTORICAL RESULTS Bilirubin 0.7 0.0 - 1.1 mg/dl HISTORICAL RESULTS Sodium 139 134 - 143 mmol/L HISTORICAL RESULTS Alk phos 107 44 - 125 Units/L HISTORICAL RESULTS Potassium, sr 4.5 3.4 - 5.0 mmol/L HISTORICAL RESULTS AST 14 10 - 45 Units/L HISTORICAL RESULTS Comment:AST - NOTE REFERENCE RANGE CHANGE Chloride 101 99 - 108 mmol/L HISTORICAL RESULTS ALT 23 15 - 70 Units/L HISTORICAL RESULTS CO2 26 23 - 32 mmol/L HISTORICAL RESULTS Glucose 120 70 - 199 mg/dl HISTORICAL RESULTS Comment: Note:The glucose is assumed non fasting Fastin-99 mg/dl Random: 70-199 mg/dl Either a fasting glucose > 126 mg/dL or a random glucose > 200 mg/dL plus symptoms is diagnostic of diabetes when confirmed on another day. Fasting values > 100 mg/dl but < 125 mg/dL are diagnostic of impaired fasting glucose. New reference ranges implemented 08/18/2013. Creatinine 1.19 0.60 - 1.30 mg/dl HISTORICAL RESULTS Comment: eGFR: >70 ml/min/1.73sq.m if non -Burmese. eGFR: >70 ml/min/1.73sq.m if -Burmese. AVE GFR for 30-39 yr. age group: 107 ml/min/1.73sq.m Calculated using MDRD Equation BUN/creat ratio 8(L) 10 - 20 HIST ORICAL RESULTS A. gap 17(H) 7 - 14 mmol/L HISTORICAL RESULTS Protein, sr 8.0 6.4 - 8.0 g/dl HISTORICAL RESULTS Alb 3.7 3.3 - 4.5 g/dl HISTORICAL RESULTS Alb/glob ratio 0.9(L) 1.1 - 1.8 HISTO RICAL RESULTS Serum 12/09/2013 11:2 9 AM CONCRETE BOOM PUMP OPERATOR Shelly Alberto MD LAB BLOOD ORDERABLE S Final Result Performing Organization Address [facility] de Phone Number HISTORICAL RESULTS * (ABNORMAL) Urinalysis (12/09/2013 11:25 AM CONCRETE BOOM PUMP OPERATOR) Color, ur DRKYEL HISTORICAL RESULTS Clarity, ur CLEAR CLEAR HISTORIC AL RESULTS Specific gravity, ur 1.015 1.000 - 1.030 gu HISTORICAL RESULTS Leukocyte esterase, ur Negative NEGATIVE HISTORICAL RESULTS Nitrites, ur Negative NEGATIVE HISTORI PARUL RESULTS pH, ur 6.0 6.0 HISTORICAL RESULTS Protein, ur Negative NEGATIVE HISTORIC AL RESULTS Glucose, ur Negative NEGATIVE HISTORIC AL RESULTS Ketones, ur Trace NEGATIVE HISTORIC AL RESULTS Urobilinogen, quant, ur 2.0 0.2 - 1.0 mg/dl HISTORICAL RESULTS Bilirubin, ur SMALL(A) NEGATIVE HISTOR ICAL RESULTS U Blood MODERATE(A) NEGATIVE HISTORIC AL RESULTS Urine 12/09/2013 11:2 5 AM CONCRETE BOOM PUMP OPERATOR Shelly Alberto MD LAB BLOOD ORDERABLE S Final Result Performing Organization Address [facility] de Phone Number HISTORICAL RESULTS * (ABNORMAL) Urine microscopy (12/09/2013 11:25 AM CONCRETE BOOM PUMP OPERATOR) WBC, ur 0 - 2 0 - 2 /hpf HISTORICA L RESULTS RBC, ur 25 - 50(A) 0 - 2 /hpf HISTORIC AL RESULTS Epithelial cells, ur 0 - 2 0 - 2 /hpf HISTORICAL RESULTS Bacteria, ur Negative NEGATIVE /hpf HISTORICAL RESULTS Hyaline casts 0 - 2 0 - 4 /lpf HISTO RICAL RESULTS Crystals, ur Negative NEGATIVE HISTORI PARUL RESULTS Yeast, ur Negative NEGATIVE HISTORICAL RESULTS Additional result, ur HISTORICAL RESULTS Comment:MUCOUS 3+ Pathological casts, ur Negative NEGATIVE HISTORICAL RESULTS Urine 12/09/2013 11:2 5 AM CONCRETE BOOM PUMP OPERATOR us Shelly Alberto MD LAB BLOOD ORDERABLE S Final Result HISTORICAL RESULTS documented in this encounter Visit Diagnoses Diagnosis Septicemia (HCC) Diverticulitis of colon Diverticulitis of colon (without mention of hemorrhage) Sepsis (HCC) Nausea with vomiting Abdominal pain Abdominal pain, unspecified site Dehydration Essential hypertension Unspecified essential hypertension Insomnia Insomnia, unspecified Osteoarthrosis Osteoarthrosis, unspecified whether generalized or localized, unspecified site Tobacco use disorder Alcohol abuse Nondependent alcohol abuse, unspecified drinking behavior Personal history of colonic polyps Encounter for screening colonoscopy documented in this encounter
--- OUTSIDE RECORDS SUMMARY | 2024-10-04 12:45 | XMS_ITS | Encounter Summary ---
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 Operator Multiple Name Role Phone Unavailable Primary Care Provider Unavailabl e Encounter Details Date Type Department Care Team (Late st Contact Info) Description 12/18/2014 10:51 AM CDT - 12/18/2014 3:57 PM CDT Hospital Encounter [facility] Tram Solis MD [address] [place] [address] Diverticulitis of colon; Tobacco use disorder Social History Tobacco Use Types Packs/Day Years Used Date Smoking Tobacco: Never Assessed Sex and Gender Information Value Date Recorded Sex Assigned at Not on file 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 Gender Identity Not on file Sexual Orientation Not on file documented as of this encounter Plan of Treatment Upcoming Encounters Date Type Department Care Team (Late st Contact Info) Description 05/04/2025 8:00 AM CDT Hospital Encounter [address] [address] Celestino Moctezuma MD [address] [facility] [address] [place] [address] [place] [id number] 05/04/2025 8:00 AM CDT - 05/04/2025 8:30 AM CDT Surgery [address] [address] Celestino Moctezuma MD [address] [facility] [address] [place] [address] [place] [id number] COLONOSCOPY Scheduled Procedures Name Priority Associated Diagnoses Date/Ti me COLONOSCOPY Personal history of colonic polyps Encounter for screening colonoscopy 05/04/2025 8:00 AM CDT documented as of this encounter Procedures Procedure Name Priority Date/Time Associated Diagnosis Comments DISCHARGE CUMULATIVE SUMMARY ADDENDUM Routine 12/21/2014 12:38 AM CDT URINE MICROSCOPY Routine 12/18/2014 12:4 0 PM CDT URINALYSIS Routine 12/18/2014 12:40 PM CDT SERUM COMPREHENSIVE METABOLIC PANEL Routine 12/18/2014 11:20 AM CDT SERUM AMYLASE Routine 12/18/2014 11:20 AM CDT BLOOD WBC CELL MORPHOLOGIC EXAM, AUTO Routine 12/18/2014 11:20 AM CDT BLOOD CELL COUNT (CBC) Routine 5 11:20 AM CDT SERUM LIPASE Routine 12/18/2014 6:20 AM CDT MICROBIOLOGY SUMMARY Routine 12/18/2014 12:00 AM CDT DISCHARGE LABORATORY CUMULATIVE REPORT Routine 12/18/2014 12:00 AM CDT documented in this encounter Results * Discharge Cumulative Summary Addendum (12/21/2014 12:38 AM CDT) 12/21/2014 12:3 8 AM CDT Narrative HISTORICAL RESULTS - 12/21/2014 12:38 AM CDT Patient No: [id number] ? [facility] Patient Name: SEDRICK LAW ?[facility] Healthcare Age: 39 YRS ?: 1975 ?Sex:M ?[address] )[phone] ?? Adm Dt: 12/18/2014 ?[place], [place] ??[address] Created: 12/21/2014 ??0038 ?? Pt. Type: E ? Discharge Dt: 12/18/2014 ? Pathologists: Jacey Martínez MD Admit Attend Dr: TRAM BEATTY MD ? MICRO - URINE URINE CULTURE ? Collected: 12/18/14 1240 ? Received: 12/18/14 1315 Source: CLEAN CATCH URINE ? Started: 12/18/14 1321 ?CV ? PRELIMINARY REPORT ?12/19/14 0918 ? NO GROWTH ? FINAL REPORT ?12/20/14 0633 ? NO GROWTH ?? END OF CHART ? Page: ?? 1 us Historical Provider MD LAB MICROBIOLOGY - GENERA L ORDERABLES Final Result HISTORICAL RESULTS * (ABNORMAL) Urinalysis (12/18/2014 12:40 PM CDT) Color, ur DRKYEL HISTORICAL RESULTS Clarity, ur CLEAR CLEAR HISTORIC AL RESULTS Specific gravity, ur 1.029 1.003 - 1.030 gu HISTORICAL RESULTS Leukocyte esterase, ur Trace(A) NEGATIVE HISTORICAL RESULTS Nitrites, ur Negative NEGATIVE HISTORI PARUL RESULTS pH, ur 6.0 6.0 HISTORICAL RESULTS Protein, ur Trace NEGATIVE HISTORIC AL RESULTS Glucose, ur Negative NEGATIVE HISTORIC AL RESULTS Ketones, ur Trace NEGATIVE HISTORIC AL RESULTS Urobilinogen, quant, ur 0.2 0.2 - 1.0 mg/dl HISTORICAL RESULTS Bilirubin, ur SMALL(A) NEGATIVE HISTOR ICAL RESULTS U Blood Negative NEGATIVE HISTORICAL RESULTS Urine 12/18/2014 12:4 0 PM CDT Tram Beatty MD LAB BLOOD ORDERABLES Final Result Performing Organization Address [facility] de Phone Number HISTORICAL RESULTS * (ABNORMAL) Urine microscopy (12/18/2014 12:40 PM CDT) WBC, ur 0 - 2 0 - 2 /hpf HISTORICA L RESULTS RBC, ur 2 - 5(A) 0 - 2 /hpf HISTORICA L RESULTS Epithelial cells, ur 0 - 2 0 - 2 /hpf HISTORICAL RESULTS Bacteria, ur Negative NEGATIVE /hpf HISTORICAL RESULTS Hyaline casts 10 - 30(A) 0 - 4 /lpf HIST ORICAL RESULTS Crystals, ur Negative NEGATIVE HISTORI PARUL RESULTS Yeast, ur Negative NEGATIVE HISTORICAL RESULTS Additional result, ur HISTORICAL RESULTS Comment:MUCOUS 3+ Pathological casts, ur Negative NEGATIVE HISTORICAL RESULTS Urine 12/18/2014 12:4 0 PM CDT Tram Beatty MD LAB BLOOD ORDERABLES Final Result Performing Organization Address [facility] de Phone Number HISTORICAL RESULTS * (ABNORMAL) Blood cell count (CBC) (12/18/2014 11:20 AM CDT) WBC 18.9(H) 4.0 - 10.5 K/cumm HISTORICAL RESULTS RBC 4.95 4.60 - 6.20 M/cumm HISTORICAL RESULTS Hgb 16.8 14.0 - 18.0 g/dl HISTORICAL RESULTS Hct 47.7 40.0 - 54.0 % HISTORICAL RESULTS MCV 96.4 77.0 - 97.0 fl HISTORICAL RESULTS MCH 33.9 23.0 - 34.0 pg HISTORICAL RESULTS MCHC 35.2 32.0 - 36.0 g/dl HISTORICAL RESULTS Rdw 13.1 11.5 - 14.5 % HISTORICAL RESULTS Platelets 398 150 - 400 K/cumm HISTORICAL RESULTS MPV 9.5 7.4 - 10.4 fl HISTORICAL RESULTS Blood specimen (specimen) 12/18/2014 11:20 AM CDT Tram Beatty MD LAB BLOOD ORDERABLES Final Result HISTORICAL RESULTS * Serum amylase (12/18/2014 11:20 AM CDT) Connie, sr 56 30 - 100 IUnits/L HISTORICAL RESULTS Serum 12/18/2014 11:2 0 AM CDT Tram Beatty MD LAB BLOOD ORDERABLES Final Result Performing Organization Address [facility] de Phone Number HISTORICAL RESULTS * (ABNORMAL) Blood WBC cell morphologic exam, auto (12/18/2014 11:20 AM CDT) Lymphocytes 2.2(L) 25.0 - 33.0 % HISTORICAL RESULTS Monos 4.6 0.0 - 13.0 % HISTORICAL RESULTS Neutrophils 92.7(H) 54.0 - 69.0 % HISTORICAL RESULTS Eosinophils 0.1 0.0 - 10.0 % HISTORICAL RESULTS Basophils 0.1 0.0 - 1.0 % HISTORICAL RESULTS Immature granulocytes 0.3 0.0 - 1.0 % HISTORICAL RESULTS Lymphocytes, abs 0.4(L) 1.2 - 3.4 K/cumm HISTORICAL RESULTS Monocytes, absolute 0.9(L) 1.1 - 1.9 K/cumm HISTORICAL RESULTS Neutrophils, abs 17.5(H) 1.4 - 6.5 K/cumm HISTORICAL RESULTS Eosinophils, abs 0.0 0.0 - 0.7 cells/cum m HISTORICAL RESULTS Basophils, abs 0.0 0.0 - 0.2 K/cumm HISTORICAL RESULTS Immature granulocyte, abs 0.1(H) 0.0 - 0.0 K/cumm HISTORICAL RESULTS Blood specimen (specimen) 12/18/2014 11:20 AM CDT Tram Beatty MD LAB BLOOD ORDERABLES Final Result HISTORICAL RESULTS * (ABNORMAL) Serum comprehensive metabolic panel (12/18/2014 11:20 AM CDT) BUN 14.1 8.0 - 25.0 mg/dl HISTORICAL RESULTS Sodium 138 135 - 145 mmol/L HISTORICAL RESULTS Potassium, sr 4.2 3.5 - 5.1 mmol/L HISTORICAL RESULTS Chloride 99 97 - 110 mmol/L HISTORICAL RESULTS CO2 23 22 - 32 mmol/L HISTORICAL RESULTS Glucose 119 70 - 199 mg/dl HISTORICAL RESULTS Comment: Note:The glucose is assumed non fasting Fastin-99 mg/dl Random: 70-199 mg/dl Either a fasting glucose > 126 mg/dL or a random glucose > 200 mg/dL plus symptoms is diagnostic of diabetes when confirmed on another day. Fasting values > 100 mg/dl but < 125 mg/dL are diagnostic of impaired fasting glucose. Creatinine 0.82 0.70 - 1.30 mg/dl HISTORICAL RESULTS Comment: eGFR: >70 ml/min/1.73sq.m if non -Bermudian. eGFR: >70 ml/min/1.73sq.m if -Bermudian. AVE GFR for 40-49 yr. age group: ??99 ml/min/1.73sq.m Calculated using MDRD Equation BUN/creat ratio 17 10 - 20 HIST ORICAL RESULTS A. gap 20(H) 8 - 16 mmol/L HISTORICAL RESULTS Protein, sr 7.9 6.2 - 8.2 g/dl HISTORICAL RESULTS Alb 4.8 3.6 - 5.0 g/dl HISTORICAL RESULTS Alb/glob ratio 1.5 1.1 - 1.8 HISTO RICAL RESULTS Calcium 9.8 8.6 - 10.2 mg/dl HISTORICAL RESULTS Bilirubin 0.8 0.1 - 1.2 mg/dl HISTORICAL RESULTS Alk phos 141(H) 40 - 130 Units/L HISTORICAL RESULTS AST 33 10 - 45 Units/L HISTORICAL RESULTS ALT 57(H) 5 - 50 Units/L HISTORICAL RESULTS Serum 12/18/2014 11:2 0 AM CDT Tram Beatty MD LAB BLOOD ORDERABLES Final Result HISTORICAL RESULTS * Serum lipase (12/18/2014 6:20 AM CDT) Lip 28 10 - 70 Units/L HISTORICAL RESULTS Serum 12/18/2014 6:20 AM CDT Narrative HISTORICAL RESULTS - 12/18/2014 7:09 AM CDT NOTE CHANGE IN REFERENCE RANGE ON 11-17-14. Tram Beatty MD LAB BLOOD ORDERABLES Final Result HISTORICAL RESULTS * Microbiology Summary (12/18/2014 12:00 AM CDT) 12/18/2014 Narrative HISTORICAL RESULTS - 12/21/2014 12:48 AM CDT ? [facility] ?CLINICAL LABORATORIES ? MICROBIOLOGY REPORT PATIENT NAME: ??RUFINA, SEDRICK Slater ?MED RECORD#: ??[id number] BIRTHDATE: ??1975 ?? AGE: ??39 YRS SEX: M ?PATIENT#: ? [id number] ADMITTING DR: ??TRAM BEATTY MD ? ATTENDING DR: ??TRAM BEATTY MD ? ACCESSION#: ?? [id number] CREATED: ??12/21/14 ?? 0038 ? ADMIT DATE: ?? 12/18/14 ? MICRO - URINE URINE CULTURE ? Collected: 12/18/14 1240 ? Received: 12/18/14 1315 Source: CLEAN CATCH URINE ? Started: 12/18/14 1321 ?CV ?12/19/14 0918 ? NO GROWTH ?12/20/14 0633 ? NO GROWTH ?? END OF CHART us Historical Provider MD LAB MICROBIOLOGY - GENERA L ORDERABLES Final Result HISTORICAL RESULTS * Discharge Laboratory Cumulative Report (12/18/2014 12:00 AM CDT) 12/18/2014 Narrative HISTORICAL RESULTS - 12/19/2014 3:04 AM CDT Patient No: [id number] ? [facility] Patient Name: SEDRICK LAW ?[facility] Age: 39 YRS ?: 1975 ?Sex:M ?[address] )[phone] ?? Adm Dt: 12/18/2014 ?[place], [place] ??[address] Created: 12/19/2014 ??0304 ?? Pt. Type: E ? Discharge Dt: 12/18/2014 ? Pathologists: Jacey Martínez MD Admit Attend Dr: TRAM BEATTY MD ? BLOOD CELL COUNTS ?Collection Date: ?12/18/14 ?Collection Time: ?1120 ? Ref Range: ?? Units: [4.00-10.50] /CMM ? WBC X 10^3 ? 18.92 H [4.60-6.20] ??/CMM ? RBC X 10^6 ?4.95 [14.0-18.0] ??G/DL ? HGB ? 16.8 [40.0-54.0] ??% ?HCT ? 47.7 [77.0-97.0] ??FL ? MCV ? 96.4 [23.0-34.0] ??PG ? MCH ? 33.9 [32.0-36.0] ??% ?MCHC ?35.2 [11.5-14.5] ??% ?RDW ? 13.1 [150-400] ?? /CMM ? PLT X 10^3 ? 398 ?BLOOD CELL DIFFERENTIAL ?Collection Date: ?12/18/15 ?Collection Time: ?1120 ? Ref Range: ?? Units: [54.0-69.0] ??% ?NEUTROPHILS ? 92.7 H [25.0-33.0] ??% ?LYMPHOCYTES ?2.2 L [0.0-13.0] ??% ?MONOCYTES ?4.6 [0.0-10.0] ??% ?EOSINOPHILS ?0.1 [0.0-1.0] ?? % ?BASOPHILS ?0.1 ? /CMM ? A LYMPHOCYTE ? 0.4 L [0.0-1.0] ?? % ?IMM GRAN % ? 0.3 [0.00-0.02] ??/CMM ? A IMM GRAN ?0.06 H [1.1-1.9] ?? /CMM ? A MONOCYTE ? 0.9 L [1.4-6.5] ?? /CMM ? A NEUTROPHIL ?17.5 H [0.0-0.7] ?? /CMM ? A EOSINOPHIL ? 0.0 [0.0-0.2] ?? /CMM ? A BASOPHIL ? 0.0 Footnotes and Symbols: L = Low, H = High ?? CONTINUED ?Page: ?? 1 Patient No: [id number] ? [facility] Patient Name: SEDRICK LAW ?[facility] Age: 39 YRS ?: 1975 ?Sex:M ?[address] )[phone] ?? Adm Dt: 12/18/2014 ?[place] ??[id number] Created: 12/19/2014 ??0304 ?? Pt. Type: E ? Discharge Dt: 12/18/2014 ? Pathologists: Jacey Martínez MD Admit Attend : TRAM BEATTY MD ? GENERAL CHEMISTRY ?Collection Date: ?12/18/14 ?Collection Time: ?1120 ? Ref Range: ?? Units: [135-145] ?? MMOL/L ? SODIUM ? 138 [3.5-5.1] ?? MMOL/L ? POTASSIUM ?4.2 [97.0-110.0] MMOL/L ? CHLORIDE ?99.0 [22.0-32.0] ??MMOL/L ? TOTAL CO2 ? 23.2 ?? [8-16] ?MMOL/L ? ANION GAP ? 20 H ??[70-199] ?? MG/DL ?GLUCOSE ?119 f [6.2-8.2] ?? G/DL ? TOTAL PROTEIN ?7.9 [3.6-5.0] ?? G/DL ? ALBUMIN ?4.8 [1.1-1.8] ?A/G RATIO ?1.5 [8.6-10.2] ??MG/DL ?CALCIUM ?9.8 [0.1-1.2] ?? MG/DL ?BILI TOTAL ? 0.8 ??[40-130] ?? U/L ?ALK PHOS ? 141 H ??[10-45] ?U/L ?AST(SGOT) ? 33 f ?? [5-50] ?U/L ?ALT(SGPT) ? 57 Hf [8.0-25.0] ??MG/DL ?BUN ? 14.1 ??[10-20] ? B/C RATIO ? 17 Footnotes and Symbols: H = High, f = Footnote GLUCOSE (11/18/14 -- Current) Note:The glucose is assumed non fasting Fastin-99 mg/dl Random: 70-199 mg/dl Either a fasting glucose > 126 mg/dL or a random glucose > 200 mg/dL plus symptoms is diagnostic of diabetes when confirmed on another day. Fasting values > 100 mg/dl but < 125 mg/dL are diagnostic of impaired fasting glucose. AST(SGOT) (02/19/14 -- Current) ALT(SGPT) (04/29/13 -- Current) ?? CONTINUED ?Page: ?? 2 Patient No: [id number] ? [facility] Patient Name: SEDRICK LAW ?[facility] Age: 39 YRS ?: 1975 ?Sex:M ?[address] )[phone] ?? Adm Dt: 12/18/2014 ?[place] ??[id number] Created: 12/19/2014 ??0304 ?? Pt. Type: E ? Discharge Dt: 12/18/2014 ? Pathologists: Jacey Martínez MD Admit Attend Dr: TRAM BEATTY MD ? GENERAL CHEMISTRY ?Collection Date: ?12/18/14 ?Collection Time: ?1120 ? Ref Range: ?? Units: [0.70-1.30] ??MG/DL ?CREATININE ?0.82 f ?12/18/14 1120 eGFR: >70 ml/min/1.73sq.m if non -Bermudian. eGFR: >70 ml/min/1.73sq.m if -Bermudian. AVE GFR for 40-49 yr. age group: ??99 ml/min/1.73sq.m Calculated using MDRD Equation FOOTNOTE ADDED ON ?? 12/18/14 ?? AT 1209 BY 999 ??[30-100] ?? U/L ?AMYLASE ? 56 f ??[10-70] ?U/L ?LIPASE ?28 f ?URINALYSIS ?Collection Date: ?12/18/15 ?Collection Time: ?1240 ? Ref Range: ?? Units: ?U COLOR ? DRKYEL ??[CLEAR] ? U APPEARANCE ? CLEAR [1.003-1.030] ? U SPEC GRAVITY ? 1.029 [NEGATIVE] ?U LEUKO ESTRASE ?TRACE * [NEGATIVE] ?U NITRITE ? NEGATIVE ?? [6.0] ?U PH ? 6.0 [NEGATIVE] ?U PROTEIN ?TRACE [NEGATIVE] ?U GLUCOSE ? NEGATIVE [NEGATIVE] ?U KETONES ?TRACE Footnotes and Symbols: * = Abnormal, f = Footnote AMYLASE (02/19/14 -- Current) LIPASE (11/23/14 -- Current) NOTE CHANGE IN REFERENCE RANGE ON 11-17-14. ?? CONTINUED ?Page: ?? 3 Patient No: [id number] ? [facility] Patient Name: SEDRICK LAW ?[facility] Age: 39 YRS ?: 1975 ?Sex:M ?[address] )[phone] ?? Adm Dt: 12/18/2014 ?[place] ??[id number] Created: 12/19/2014 ??0304 ?? Pt. Type: E ? Discharge Dt: 12/18/2014 ? Pathologists: Jacey Martínez MD Admit Attend Dr: TRAM BEATTY MD ?URINALYSIS ?Collection Date: ?12/18/14 ?Collection Time: ?1240 ? Ref Range: ?? Units: [0.2- 1.0] ?UROBILINOGEN ? 0.2 [NEGATIVE] ?U BILIRUBIN ?SMALL * [NEGATIVE] ?U BLOOD ? NEGATIVE ?? [0-2] ?U WBC ?0-2 ?? [0-2] ?U RBC ?2-5 * ?? [0-2] ?U EPI CELLS ?0-2 [NEGATIVE] ?U BACTERIA ?NEGATIVE ?U YEASTS ?NEGATIVE ?? [0-4] ?U HYALINE CASTS ?10-30 * [NEGATIVE] ?U CRYSTALS ?NEGATIVE ?U OTHER ?* [NEGATIVE] ?U PATH CASTS ?NEGATIVE Footnotes and Symbols: * = Abnormal ?? END OF CHART ? Page: ?? 4 us Historical Provider LAB BLOOD ORDERABLES Nicole slater Result HISTORICAL RESULTS documented in this encounter Visit Diagnoses Diagnosis Diverticulitis of colon Diverticulitis of colon (without mention of hemorrhage) Tobacco use disorder Personal history of colonic polyps Encounter for screening colonoscopy documented in this encounter
--- OUTSIDE RECORDS SUMMARY | 2024-10-04 12:45 | XMS_ITS | Encounter Summary ---
Author Organization [facility] Healthcare Address [address] [place] [address] Care Team Providers Care Valet Runner Name Role Phone Carlos Pacheco MD Primary Care Provider [phone] Reason for Visit * Reason Comments Black or Bloody Stool * Auth/Cert Specialty Diagnoses / Procedures Referred By Contac t Referred To Contact Diagnoses Rectal bleeding Procedures na Referral ID Status Reason Start Date Expiration Date Visits Re quested Visits Authorized [id number] 1 1 Encounter Details Date Type Department Care Team (Late st Contact Info) Description 04/28/2024 3:34 PM CDT - 04/28/2024 4:09 PM CDT Surgery [facility] 1 [place] [address] Celestino Moctezuma MD [address] [place] [address] ESOPHAGOGASTRODUODENOSCOPY Surgery Details Date/Time Status Location OR Service Patient Class Case Class Case Type Trauma Case? 04/28/2024 3:34 PM Posted [facility] ENDOSCOPY GI 01 Gastroenterology Inpatient Urgent - 3 hours Panel 1 Procedure LRB Anes Op Region Wound Class Comments ESOPHAGOGASTRODUODENOSCOPY N/A Monitor Anesthesia Care COLONOSCOPY N/A Monitor Anesthesia Care Surgeon Surgeon Role Service Panel Celestino Moctezuma MD Primary Gastroenterology 1 documented in this encounter Social History Tobacco Use Types Packs/Day Years Used Date Smoking Tobacco: Every Day Cigarettes Tobacco Cessation:Ready to Q uit: Not Asked; Counseling Given: Not Answered AUDIT-C Answer Date Recorded Q1: How often [...] on file 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 Gender Identity Not on file Sexual Orientation Not on file 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 Problems/Diagnoses: Principal Problem: Rectal bleeding Active [...] Care Everywhere. * Gastrointestinal Bleeding (AfterCare(R) Instructions(ER/ED)) (Somali) documented in this encounter Medications at Time [...] was used dictate and transcribe this document. Vest Backer variances may occur. Despite proofreading, typographical errors may occur. Celestino Moctezuma MD * Connie Raya, [facility] - 04/29/2024 10:17 PM CDT Pharmacy [...] BMI > 30 Thank you, Connie Raya [facility] * Collin Sutton MD - [...] requested 3 Units requested Ready Unit Number [id number] Product code [id number] Blood Expiration Date [id number] Product Blood Type (for scanning) 9500 Product [...] dictate and transcribe this document. Despite proofreading, larriman helper variances and/or typographical errors might have occurred. * Tonio Perez, [facility] - 04/29/2024 7:25 AM CDT Pharmacy [...] BMI > 30 Thank you, Tonio Perez [facility] * Jose Nance [facility] - 04/28/2024 4:03 PM CDT Pharmacy [...] BMI > 30 Thank you, Jose Nance [facility] * Meghan Wiggins MD - 04/27/2024 11:26 AM CDT [facility] Hospitalist Service Progress Note Patient Name: Angelique Law Patient : 1975 Age/Sex: 49 y.o. male Room/Bed: [id number] Admission Date/Time: 04/26/2024 12:32 PM Date: 04/27/2024 [...] signed by Jayla Finley M.D. AT: AT T: 41:47 PM Report ID: [id number] Reading Location: [id number] Microbiology: None ASSESSMENT AND PLAN: Principal Problem: [...] Meghan Coats MD Internal Medicine - Hospitalist [facility] - Adult Hospitalist Service 04/27/2024 11:36 AM documented in this encounter H&P Notes * Meghan Wiggins MD - 04/26/2024 5:21 PM CDT [facility] Adult Hospitalist Service History and Physical Patient Name: Angelique Law Patient : 1975 Age/Sex: 49 y.o. male Room/Bed: [place] [address]/[id number] Admission Date/Time: 04/26/2024 12:32 PM Date: 04/26/2024 Time: 5:21 PM Primary Care Physician: Carlos Pacheco MD PCP Office Location: [address] [place] [address] PCP Chief Complaint: Bloody bowel movements HPI: [...] sagittal MPR images reviewed. All images stored on[employer]. Automated exposure control was used as a [...] AT: AT 1 :47 PM Report ID: [id number] Reading Location: [place] [address] ASSESSMENT AND PLAN: Bright red blood per [...] Meghan Wiggins MD Internal Medicine - Hospitalist [facility] - Adult Hospitalist Service CC: Carlos Pacheco MD documented in this encounter Procedure Notes * Celestino Moctezuma MD - 04/29/2024 11:02 AM CDTAssociated Order(s): COLONOSCOPY [facility] Patient Name: Angelique Law Procedure Date: 04/29/2024 11:02 AM Date of : 1975 Admit Type: Inpatient Age: 49 Gender: Male Attending MD: Celestino Moctezuma M.D. Room: [facility] ENDOSCOPY ROOM 1 Note Status: Finalized Patient [...] (APC). Clips (MR conditional) were placed. Clip corporate claims examiner: [employer]. - Diverticulosis in the entire examined colon. - One 12 mm polyp at the recto-sigmoid colon, removed with a hot snare. Resected and retrieved. Clips (MR conditional) were placed. Clip corporate claims examiner: [employer]. - Spasm and angulation at the [...] under direct vision. The Pediatric Colonoscope PCF-H190L [id number] was introduced through the anus and advanced [...] clips were successfully placed (MR conditional). Clip corporate claims examiner: [employer]. There was no bleeding at the end of the procedure. Multiple medium-mouthed diverticula were found in the entire colon. A 12 mm polyp was found in the recto-sigmoid colon. The polyp was pedunculated. The polyp was removed with a hot snare. Resection and retrieval were complete. To prevent bleeding after the polypectomy, three hemostatic clips were successfully placed (MR conditional). Clip corporate claims examiner: [employer]. There was no bleeding at the end [...] 11:02 AM Procedure Code(s): --- Professional --- 55321, 59, Colonoscopy, flexible; with control of bleeding, any method 98177, Colonoscopy, flexible; with removal of tumor(s), polyp(s), or other lesion(s) by snare technique 09082, 59, Colonoscopy, flexible; with biopsy, single or multiple Diagnosis Code(s): --- Professional --- K64.8, Other hemorrhoids K55.21, Angiodysplasia of colon with hemorrhage D12.7, Benign neoplasm of rectosigmoid junction K63.89, Other specified diseases of intestine K92.1, Melena (includes Hematochezia) D62, Acute posthemorrhagic anemia K57.30, Diverticulosis of large intestine without perforation or abscess without bleeding CPT copyright 2020 [employer]. All rights reserved. The codes documented in this report are preliminary and upon hospital coder review may be revised to meet current compliance requirements. Recognized by the [employer] for promoting quality in endoscopy * Celestino Moctezuma MD - 04/28/2024 11:19 AM CDTAssociated Order(s): COLONOSCOPY [facility] Patient Name: Angelique Law Procedure Date: 04/28/2024 11:19 AM Date of : 1975 Admit Type: Inpatient Age: 49 Gender: Male Attending MD: Celestino Moctezuma M.D. Room: [facility] ENDOSCOPY ROOM 1 Note Status: Finalized Patient [...] document in the medical record. The Colonoscope [id number] was introduced through the anus and advanced [...] 11:19 AM Procedure Code(s): --- Professional --- 54122, Colonoscopy, flexible; diagnostic, including collection of specimen(s) by brushing or washing, when performed (separate procedure) Diagnosis Code(s): --- Professional --- K64.8, Other hemorrhoids K92.2, Gastrointestinal hemorrhage, unspecified D12.5, Benign neoplasm of sigmoid colon K92.1, Melena (includes Hematochezia) K57.30, Diverticulosis of large intestine without perforation or abscess without bleeding CPT copyright 2020 [employer]. All rights reserved. The codes documented in this report are preliminary and upon hospital coder review may be revised to meet current compliance requirements. Recognized by the [employer] for promoting quality in endoscopy * Celestino Moctezuma MD - 04/28/2024 11:19 AM CDTAssociated Order(s): EGD [facility] Patient Name: Angelique Law Procedure Date: 04/28/2024 11:19 AM Date of : 1975 Admit Type: Inpatient Age: 49 Gender: Male Attending MD: Celestino Moctezuma M.D. Room: [facility] ENDOSCOPY ROOM 1 Note Status: Finalized Patient [...] passed under direct vision. The Wide Endoscope [id number] was introduced through the mouth, and advanced [...] 11:19 AM Procedure Code(s): --- Professional --- 94012, Esophagogastroduodenoscopy, flexible, transoral; diagnostic, including collection of specimen(s) by brushing or washing, when performed (separate procedure) Diagnosis Code(s): --- Professional --- K29.70, Gastritis, unspecified, without bleeding K92.1, Melena (includes Hematochezia) CPT copyright 2020 [employer]. All rights reserved. The codes documented in this report are preliminary and upon hospital coder review may be revised to meet current compliance requirements. Recognized by the [employer] for promoting quality [...] plan with the ICU team and other medical/communication consultant staff, making frequent assessments and decisions [...] (premix) 2,000 mg 2,000 mg intravenous Q24H [facility] Meghan Wiggins MD 2,000 mg at 04/28/24 1430 [Held by Provider] fenofibrate nanocrystallized (TRICOR) tablet 145 mg 145 mg oral Daily Meghan Wiggins MD 145 mg at 04/27/24 0752 metoclopramide (REGLAN) 5 mg/mL injection 10 mg 10 mg intravenous Q6H [facility] Celestino Moctezuma MD 10 mg at 04/28/24 [...] Meghan Wiggins MD 5 mg at 04/27/24 8444 No Known Allergies Social History Tobacco Use [...] requested 1 Units requested Ready Unit Number [id number] Product code [id number] Blood Expiration Date [id number] Product Blood Type (for scanning) 5100 Product [...] dictate and transcribe this document. Despite proofreading, larriman helper variances and/or typographical errors might have occurred. [...] 650 mg, 650 mg, oral, Q4H PRN, Megahn Wiggins MD, 650 mg at 04/27/24 0905 ??? amLODIPine (NORVASC) tablet 5 mg, 5 mg, oral, Nightly, Meghan Wiggins MD ??? atorvastatin (LIPITOR) tablet 10 mg, 10 mg, oral, Nightly, Meghan Wiggins MD, 10 mg at 04/26/24 204 ??? cefTRIAXone (ROCEPHIN) 2,000 mg/20 mL in [...] bowel movements and side. Patient had a tube puller on the way to the hospital [...] nursing note reviewed. Exam conducted with a mechanical meter tester present (Summer PCT). Constitutional: General: He is [...] sagittal MPR images reviewed. All images stored on[employer]. Automated exposure control was used as a [...] AT: AT 1 :47 PM Report ID: [id number] Reading Location: [place] [address] ED COURSE/MEDICAL DECISION MAKING Differential diagnosis included [...] Admit This examination was transcribed using the [employer] voice recognition system without human tuber machine cutter. In an effort to expedite patient care, this report has not been adjusted for typographical, grammatical, and syntax by a trained medical physics researcher. Jeannette Cartagena PA 04/26/24 1424 Cosigned by Ilia Hoffman MD at 04/27/2024 [...] bleeding Outcome: Adequate for Discharge Flowsheets (Taken 04/30/2024 08) Will show no signs and symptoms of gastrointestinal bleeding: Assess amount, characteristics and/orfrequency of stool Goals: Clinical Goals for the Shift: vss, remain hemodynamically stablke, monitor intake and output, monitor hemoglobin Nursing Home Patient Centered Goal for Treatment: Return to [...] the patient need discharge transport arranged?: No (04/30/241138) Health [facility] Prescription Coverage: yes Pharmacy: [id number] - [place], [place] - [address] [facility] [address] [facility] [id number] Primary Care Provider: Carlos Pacheco MD Prior [...] were you homeless or living in a retirement (including now)?: No (04/30/24 124) Utilities: No, (04/30/24 123) Social Connections: In [...] tomorrow. * Perioperative Nursing Note - Diana Holbroko RN - 04/29/2024 1:00 PM CDT 1249 [...] environment free from falls and or injuries. Nursing Home Patient Centered Goal for Treatment: Return to [...] blood per MD, remain free from falls/injury. 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 Summary: EGD/Sigmoidoscopy performed today. Continues to have bloody stools. Hgb dropped to 7.0; transfusing 1 unit PRBC. VSS. No injuries. Problem: Gastrointestinal Goal: Maintains or returns to baseline bowel function 04/28/2024 1823 by Aubree Finnegan RN Outcome: Not Progressing Flowsheets (Taken 04/28/2024 0830) Maintains or returns to baseline bowel function: Assess bowel function, evaluate bowel sounds and signs of abdominal distention Monitor amount, characteristics and/or frequency of stool Note: Continues to have rectal bleeding 04/28/2024 1820 by Sivan, Aubree R., RN Outcome: Not Progressing Flowsheets (Taken 04/28/2024829) [...] Aubree Finnegan RN Outcome: Progressing Flowsheets (Taken 04/28/2024 0830) Able to verbalize concerns and demonstrates effective [...] Finnegan RN Outcome: Progressing Flowsheets (Taken 04/28/202430) Free from injury or harm: Discuss fall [...] environment free from falls and or injuries. Nursing Home Patient Centered Goal for Treatment: Return to [...] Intake/Output Summary (Last 24 hours) at 04/27/2024 193 Last data filed at 04/27/2024 1305 Gross [...] baseline bowel function Outcome: Ongoing Flowsheets (Taken 04/27/2024620) Maintains or returns to baseline bowel function: [...] Description 05/04/2025 8:00 AM CDT Hospital Encounter [address] [address] Celestino Moctezuma MD [address] [place] [address] DR [address] [place] [address] 05/04/2025 8:00 AM CDT - 05/04/2025 8:30 AM CDT Surgery [address] [address] Celestino Moctezuma MD [address] [place] [address] DR [address] [place] [address] COLONOSCOPY Pending Results Name Type Priority Associated [...] AND HEMATOCRIT Timed 2023 4:45 PM CDT SURGICAL PATHOLOGY STAT 04/29/2024 11:09 AM CDT [...] 21.5(L) 38.9 - 50.3 % [facility]) Blood 04/30/2024 12:3 3 PM CDT 04/30/2024 12:36 PM CDT us Collin Mancia MD LAB BLOOD ORDERABLES Final Result [facility] ([place]) 1 [facility] Department [place] [address] * eGFR (04/30/2024 2:47 AM CDT) eGFR [...] LAB BLOOD ORDERABLES Final Result [facility] ([place] 1 [facility] [place] [address] * Differential, auto (04/30/2024 2:47 AM CDT) [...] 2018. Basophil pct 0.4 % [facility] Comment: Interpretive Data Percent cell count reference ranges are not reported, since discordance with absolute values may lead to misinterpretation of CBC data. Current Interpretive Data was last revised on 2018. Blood 04/30/2024 2:47 AM CDT 04/30/2024 2:51 AM CDT Celestino Moctezuma MD LAB BLOOD ORDERABLES Final Result [facility] ([place] 1 [facility] [place] [address] * Antibody screen (04/30/2024 2:47 AM CDT) Izzy, indirect, Gel Interpretation Negative ABSC Blood 04/30/2024 2:47 AM CDT 04/30/2024 2:51 AM CDT Narrative [facility] - 04/30/2024 3:28 AM CDT Has the patient had Daratumumab or Isatuximab in the past 6 months?->Unknown Celestino Moctezuma MD LAB BLOOD BANK TEST ORDERA BLES Final Result [facility] ([place]) 1 [facility] [place] [address] * ABO/Rh (04/30/2024 2:47 AM CDT) ABO/Rh O Positive Blood 04/30/2024 2:47 AM CDT 04/30/2024 2:51 AM CDT Narrative [facility] - 04/30/2024 3:28 AM CDT Has the patient had Daratumumab or Isatuximab in the past 6 months?->Unknown Celestino Moctezuma MD LAB BLOOD BANK TEST ORDERA BLES Final Result [facility] ([place] 1 [facility] Department [place] [address] * (ABNORMAL) CBC with auto differential (04/30/2024 [...] Result [facility] 1 [facility] [place] [address] * Phosphorus (04/30/2024 2:47 AM CDT) Phosphorus, pl 2.3 2.3 - 4.5 mg/dL Blood 04/30/2024 2:47 AM CDT 04/30/2024 2:51 AM CDT Celestino Moctezuma MD LAB BLOOD ORDERABLES Final Result Performing Organization Address City/[facility]/ZIP Co de Phone Number [facility] ([place]) 1 [facility] [place] [address] * Magnesium (04/30/2024 2:47 AM CDT) Pathologist [facility] Magnesium 2.0 1.4 - 2.5 mg/dL Blood 04/30/2024 2:47 AM CDT 04/30/2024 2:51 AM CDT Celestino Moctezuma MD LAB BLOOD ORDERABLES Final Result Performing Organization Address [facility] de Phone Number [facility] ([place]) 1 [facility] [place] [address] * (ABNORMAL) Basic metabolic panel (04/30/2024 2:47 AM CDT) Pathologist [facility] Sodium 136 135 - 145 mmol/L Potassium, pl 3.4 3.3 - 4.9 mmol/L [facility] ([place]) Chloride 107 97 - 110 mmol/L [facility] ([place]) CO2 24 22 - 32 mmol/L [facility] ([place]) Anion gap 6 2 - 15 mmol/L [facility] ([place]) BUN 9 6 - 25 mg/dL [facility] ([place]) Creatinine 1.04 0.80 - 1.30 [...] Result [facility] ([place] 1 [facility] [place] [address] * Transfuse RBC (04/30/2024 1:47 AM CDT) Blood Michael Silva MD BLOOD TRANSFUSION ORDERABL ES Final Result Performing Organization Address City/[facility]/ZIP Co de Phone Number [facility] ([place] 1 [facility] [place] [address] * Transfuse RBC: 1 Units (04/30/2024 1:47 AM CDT) Blood Result [facility] Michael Silva MD BLOOD TRANSFUSION ORDERABL ES [...] BANK PRODUCT ORDERAB LES Final Result [facility] ([place]) 1 [facility] [place] [address] * (ABNORMAL) Hemoglobin and hematocrit (04/29/2024 9:34 PM CDT) Hgb 6.9(L) 13.0 - 17.5 g/dL Hct 19.9(L) 38.9 - 50.3 % [facility] Blood 04/29/2024 9:34 PM CDT 04/29/2024 9:36 PM CDT us Collin Mancia MD LAB BLOOD ORDERABLES Final Result Performing Organization Address [facility] Co de Phone Number [facility] ([place] 1 [facility] [place] [address] * (ABNORMAL) Calcium level (04/29/2024 9:34 PM CDT) Calcium 7.9(L) 8.5 - 10.3 mg/dL Blood 04/29/2024 9:34 PM CDT 04/29/2024 9:36 PM CDT us Celestino Moctezuma MD LAB BLOOD ORDERABLES Final Result Performing Organization Address [facility] Co de Phone Number [facility] ([place] 1 [facility] [place] [address] * (ABNORMAL) Hemoglobin and hematocrit (04/29/2024 4:45 PM CDT) Hgb 7.0(L) 13.0 - 17.5 g/dL Hct 19.5(L) 38.9 - 50.3 % [facility]) Blood 04/29/2024 4:45 PM CDT 04/29/2024 4:49 PM CDT Celestino Moctezuma MD LAB BLOOD ORDERABLES Final Result [facility] ([place]) 1 [facility] [place] [address] * Surgical pathology (04/29/2024 11:09 AM CDT) Tissue (Polyp(s), colon/colorectal, esophageal, gastric) 04/29/2024 11:52 AM CDT Tissue (Colon, Biopsy) 04/29/2024 12:02 PM CDT Narrative PATHOLOGY [facility] ([place]) - 05/01/2024 2:30 PM CDT EPIC results best viewed via link to PDF [facility] Department of Pathology [address] [place] [address] Note to Patients: This report may contain [...] explain the details. Final Report Patient Name: ??RUFINA ANGELIQUE Nye Address: ??[address] [place] [address], ??[place], [place] ??[facility] Gender: ??M : ??1975 (Age: 49) Service: ??Medical Location: ??[facility] Hospital #: ??[id number] Patient Type: ??[facility] Accession # ?[id number] Taken: ??04/29/2024 Received: ??04/30/2024 Accessioned: ??04/30/2024 Reported: [...] fecal matter. All in [facility]. [facility]. Dian Cornejo. P.Nasra./Dawna Almazan M.D. REPORT IMAGES AND SCANNED DOCUMENTS, IF INCLUDED, ONLY VIEWABLE IN PDF VERSION OF REPORT The performance characteristics of some immunohistochemical stains, fluorescence in-situ hybridization tests and immunophenotyping by flow cytometry cited in this report (if any) were determined by the Surgical Pathology Department at [facility] as part of an ongoing quality assurance group leader program and in compliance with federally mandated [...] determined by the Surgical Pathology Department [facility]. ??It has not been cleared or approved by the U. S. Food and Drug Administration. Note for decalcified specimens: This assay has not been validated on decalcified tissues. Results should be interpreted with caution given the possibility of false negativity on decalcified specimens Celestino Moctezuma MD LAB PATHOLOGY ORDERABLES F inal Result PATHOLOGY [facility]) 1 [place], [place] [id number] * Colonoscopy (04/29/2024 11:02 AM CDT) Anatomical Region Laterality Modality Other Narrative Procedure Note Celestino Moctezuma MD - 04/29/2024 11:02 AM CDT [facility] Patient Name: Angelique Law Procedure Date: 04/29/2024 11:02 AM Date of : 1975 Admit Type: Inpatient Age: 49 Gender: Male Attending MD: Celestino Moctezuma M.D. Room: [facility] ENDOSCOPY ROOM 1 Note Status: Finalized Patient [...] (APC). Clips (MR conditional) were placed. Clip corporate claims examiner: [employer]. - Diverticulosis in the entire examined colon. - One 12 mm polyp at the recto-sigmoid colon,removed with a hot snare. Resected and retrieved. Clips (MR conditional) were placed. Clip corporate claims examiner: [employer]. - Spasm and angulation at the [...] under direct vision. The Pediatric Colonoscope PCF-H190L [id number] was introduced through the anus andadvanced to [...] clips were successfully placed (MR conditional). Clip corporate claims examiner: [employer]. There was no bleeding at the end of the procedure. Multiple medium-mouthed diverticula were found in the entire colon. A 12 mm polyp was found in the recto-sigmoid colon. The polyp was pedunculated. The polyp was removed with a hot snare. Resection and retrieval were complete. To prevent bleeding after the polypectomy, three hemostatic clips were successfully placed (MR conditional).Clip corporate claims examiner: [employer]. There was no bleeding at the end [...] 11:02 AM Procedure Code(s): --- Professional --- 85140, 59, Colonoscopy, flexible; with control of bleeding, anymethod 63322, Colonoscopy, flexible; with removal of tumor(s), polyp(s), or other lesion(s) by snare technique [address], 59, Colonoscopy, flexible; with biopsy, single or multiple Diagnosis Code(s): --- Professional --- K64.8, Other hemorrhoids K55.21, Angiodysplasia of colon with hemorrhage D12.7, Benign neoplasm of rectosigmoid junction K63.89, Other specified diseases of intestine K92.1, Melena (includes Hematochezia) D62, Acute posthemorrhagic anemia K57.30, Diverticulosis of large intestine without perforation orabscess without bleeding CPT copyright 2020 [employer]. All rights reserved. The codes documented in this report are preliminary and upon hospital coder reviewmay be revised to meet current compliance requirements. Recognized by the [employer] for promoting quality [...] Result [facility] ([place]) 1 [facility] [place] [address] * Transfuse RBC (04/29/2024 9:38 AM CDT) Blood Collin Mancia MD BLOOD TRANSFUSION ORDERABL ES Final Result Performing Organization Address City/[facility]/ZIP Co de Phone Number [facility] ([place]) 1 [facility] [place] [address] * Transfuse RBC: 1 Units (04/29/2024 9:38 AM CDT) Blood Collin Mancia MD BLOOD TRANSFUSION ORDERABL ES Final Result * Prepare RBC: 3 Units (04/29/2024 8:52 AM CDT) Units requested 3 Units requested Ready [facility] ([place]) Unit Number [id number] Product code [id number] [facility] ([place]) Blood Expiration Date [id number] [facility] ([place]) Product Blood Type (for scanning) 9500 [facility] ([place]) Product Blood Type ONEG [facility] ([place]) Dispense Status DISPENSED [facility] ([place]) Unit Number [id number] Product code [id number] [facility] ([place]) Blood Expiration Date [id number] [facility] ([place]) Product Blood Type (for scanning) 5100 [facility] ([place]) Product Blood Type OPOS [facility] ([place]) Dispense Status DISPENSED [facility] ([place]) Blood 04/29/2024 8:52 AM CDT 04/29/2024 8:52 AM CDT us Celestino Moctezuma MD BLOOD BANK PRODUCT ORDERAB LES Final Result [facility] ([place]) 1 [facility] Department [place] [address] * eGFR (04/29/2024 4:57 AM CDT) eGFR [...] MD LAB BLOOD ORDERABLES Final Resu lt [facility] ([place]) 1 [facility] [place] [address] * (ABNORMAL) Differential, auto (04/29/2024 4:57 AM [...] Final Resu lt [facility] ([place]) 1 [facility] Department of Laboratories [place], [place] [id number] * (ABNORMAL) CBC with auto differential (04/29/2024 [...] MCHC 34.3 32.3 - 35.7 g/dL [facility] ([place]) RDW CV 14.0 11.1 - 14.9 % [facility] ([place]) RDW SD 47.2 35.7 - 48.1 fL [facility] ([place]) NRBC abs 0.00 0.00 - 0.01 K/cumm [facility] ([place]) Blood 04/29/2024 4:57 AM CDT 04/29/2024 5:11 AM CDT Celestino Moctezuma MD LAB BLOOD ORDERABLES Final Result [facility] ([place]) 1 [facility] [place] [address] * Phosphorus (04/29/2024 4:57 AM CDT) Pathologist [facility] Phosphorus, pl 3.2 2.3 - 4.5 mg/dL Blood 04/29/2024 4:57 AM CDT 04/29/2024 5:11 AM CDT Celestino Moctezuma MD LAB BLOOD ORDERABLES Final Result Performing Organization Address City/[facility]/ZIP Co de Phone Number [facility] ([place]) 1 [facility] [place] [address] * Magnesium (04/29/2024 4:57 AM CDT) Pathologist [facility] Magnesium 1.8 1.4 - 2.5 mg/dL Blood 04/29/2024 4:57 AM CDT 04/29/2024 5:11 AM CDT Celestino Moctezuma MD LAB BLOOD ORDERABLES Final Result Performing Organization Address City/[facility]/ZIP Co de Phone Number [facility] ([place]) 1 [facility] [place] [address] * (ABNORMAL) Basic metabolic panel (04/29/2024 4:57 AM CDT) Sodium 138 135 - 145 mmol/L Potassium, pl 3.7 3.3 - 4.9 mmol/L [facility] ([place]) Chloride 107 97 - 110 mmol/L [facility] ([place]) CO2 21(L) 22 - 32 mmol/L [facility] ([place]) Anion gap 10 2 - 15 mmol/L [facility] ([place]) BUN 12 6 - 25 mg/dL [facility] ([place]) Creatinine 1.03 0.80 - 1.30 mg/dL [facility] ([place]) Glucose 100 70 - 199 mg/dL [facility] ([place]) Comment: Interpretive Data Fasting [...] 2022. Calcium 7.6(L) 8.5 - 10.3 mg/dL [facility] ([place]) Blood 04/29/2024 4:57 AM CDT 04/29/2024 5:11 AM CDT Celestino Moctezuma MD LAB BLOOD ORDERABLES Final Result [facility] ([place]) 1 [facility] Department [place] [address] * (ABNORMAL) Hemoglobin and hematocrit (04/28/2024 11:58 PM CDT) Hgb 7.7(L) 13.0 - 17.5 g/dL Hct 22.1(L) 38.9 - 50.3 % [facility] ([place]) Blood 04/28/2024 11:5 8 PM CDT 04/29/2024 12:02 AM CDT Celestino Moctezuma MD LAB BLOOD ORDERABLES Final Result Performing Organization Address City/[facility]/ZIP Co de Phone Number [facility] ([place]) 1 [facility] [place] [address] * Transfuse RBC (04/28/2024 9:54 PM CDT) Blood Collin Mancia MD BLOOD TRANSFUSION ORDERABL ES Final Result Performing Organization Address [facility] Co de Phone Number [facility] ([place]) 1 [place] [address] * Transfuse RBC: 1 Units (04/28/2024 9:54 PM CDT) Blood Collin Mancia MD BLOOD TRANSFUSION ORDERABL ES Final Result * (ABNORMAL) Hemoglobin and hematocrit (04/28/2024 4:14 PM CDT) Hgb 7.0(L) 13.0 - 17.5 g/dL Hct 20.2(L) 38.9 - 50.3 % [facility] ([place]) Blood 04/28/2024 4:14 PM CDT 04/28/2024 4:20 PM CDT Celestino Moctezuma MD LAB BLOOD ORDERABLES Final Result Performing Organization Address [facility]/ZIP Co de Phone Number [facility] ([place]) 1 [facility] [place] [address] * Colonoscopy (04/28/2024 11:19 AM CDT) Anatomical Region Laterality Modality Other Narrative Procedure Note Celestino Moctezuma MD - 04/28/2024 11:19 AM CDT [facility] Patient Name: Angelique Law Procedure Date: 04/28/2024 11:19 AM Date of : 1975 Admit Type: Inpatient Age: 49 Gender: Male Attending MD: Celestino Moctezuma M.D. Room: [facility] ENDOSCOPY ROOM 1 Note Status: Finalized Patient [...] document in the medical record. The Colonoscope [id number] was introduced through the anus and advanced [...] 11:19 AM Procedure Code(s): --- Professional --- 35683, Colonoscopy, flexible; diagnostic, including collection of specimen(s) by brushing or washing, when performed (separateprocedure) Diagnosis Code(s): --- Professional --- K64.8, Other hemorrhoids K92.2, Gastrointestinal hemorrhage, unspecified D12.5, Benign neoplasm of sigmoid colon K92.1, Melena (includes Hematochezia) K57.30, Diverticulosis of large intestine without perforation orabscess without bleeding CPT copyright 2020 [employer]. All rights reserved. The codes documented in this report are preliminary and upon hospital coder reviewmay be revised to meet current compliance requirements. Recognized by the [employer] for promoting quality in endoscopy us Celestino Moctezuma MD ENDOSCOPY PROCEDURES Final Result * EGD (04/28/2024 11:19 AM CDT) Anatomical Region Laterality Modality Other Narrative Procedure Note Celestino Moctezuma MD - 04/28/2024 11:19 AM CDT [facility] Patient Name: Angelique Law Procedure Date: 04/28/2024 11:19 AM Date of : 1975 Admit Type: Inpatient Age: 49 Gender: Male Attending MD: Celestino Moctezuma M.D. Room: [facility] ENDOSCOPY ROOM 1 Note Status: Finalized Patient [...] passed under direct vision. The Wide Endoscope [id number] wasintroduced through the mouth, and advanced to [...] 11:19 AM Procedure Code(s): --- Professional --- 34529, Esophagogastroduodenoscopy, flexible, transoral; diagnostic, including collection of specimen(s) by brushing or washing, when performed (separate procedure) Diagnosis Code(s): --- Professional --- K29.70, Gastritis, unspecified, without bleeding K92.1, Melena (includes Hematochezia) CPT copyright 2020 [employer]. All rights reserved. The codes documented in this report are preliminary and upon hospital coder reviewmay be revised to meet current compliance requirements. Recognized by the [employer] for promoting quality in endoscopy us Celestino Moctezuma MD ENDOSCOPY PROCEDURES Final Result * (ABNORMAL) Hemoglobin and hematocrit (04/28/2024 8:26 AM CDT) Hgb 8.6(L) 13.0 - 17.5 g/dL Hct 24.3(L) 38.9 - 50.3 % [facility] ([place]) Blood 04/28/2024 8:26 AM CDT 04/28/2024 8:29 AM CDT Meghan Wiggins MD LAB BLOOD ORDERABLES Final Resu lt [facility] ([place]) 1 [facility] Department [place] [address] * Prepare RBC: 1 Units (04/28/2024 5:23 AM CDT) Units requested 1 Units requested Ready [facility] ([place]) Unit Number [id number] Product code [id number] [facility] ([place]) Blood Expiration Date [id number] [facility] ([place]) Product Blood Type (for scanning) 5100 [facility] ([place]) Product Blood Type OPOS [facility] ([place]) Dispense Status DISPENSED [facility] ([place]) Blood 04/28/2024 5:23 AM CDT 04/28/2024 5:23 AM CDT us Michael Silva MD BLOOD BANK PRODUCT ORDERAB LES Final Result Performing Organization Address City/[facility]/ZIP Co de Phone Number [facility] ([place]) 1 [facility] [place] [address] * eGFR (04/28/2024 4:08 AM CDT) eGFR [...] ORDERABLES Final Resu lt Performing Organization Address City/[facility]/ZIP Co de Phone Number [facility] ([place]) 1 [facility] [employer] [place] [address] * Differential, auto (04/28/2024 4:08 AM CDT) [...] Final Resu lt [facility] ([place]) 1 [facility] Department [place] [address] * (ABNORMAL) CBC with auto differential (04/28/2024 [...] ORDERABLES Final Result [facility] ([place]) 1 [facility] [place] [address] * Phosphorus (04/28/2024 4:08 AM CDT) Pathologist [facility] Phosphorus, pl 2.6 2.3 - 4.5 mg/dL Blood 04/28/2024 4:08 AM CDT 04/28/2024 4:21 AM CDT Celestino Moctezuma MD LAB BLOOD ORDERABLES Final Result Performing Organization Address City/[facility]/ZIP Co de Phone Number MINOR [facility] ([place]) 1 [facility] [place] [address] * Magnesium (04/28/2024 4:08 AM CDT) [facility] Magnesium 1.9 1.4 - 2.5 mg/dL Blood 04/28/2024 4:08 AM CDT 04/28/2024 4:21 AM CDT Celestino Moctezuma MD LAB BLOOD ORDERABLES Final Result Performing Organization Address [facility] de Phone Number [facility] ([place]) 1 [facility] [place] [address] * (ABNORMAL) Basic metabolic panel (04/28/2024 4:08 AM CDT) [facility] Sodium 139 135 - 145 mmol/L Potassium, pl 3.8 3.3 - 4.9 mmol/L [facility] ([place]) Chloride 110 97 - 110 mmol/L [facility] ([place] CO2 22 22 - 32 mmol/L [facility] ([place]) Anion gap 7 2 - 15 mmol/L [facility] ([place]) BUN 11 6 - 25 mg/dL [facility] ([place]) Creatinine 0.98 0.80 - 1.30 [...] Calcium 8.3(L) 8.5 - 10.3 mg/dL [facility] ([place]) Blood 04/28/2024 4:08 AM CDT 04/28/2024 4:21 AM CDT us Celestino Moctezuma MD LAB BLOOD ORDERABLES Final Result [facility] ([place]) 1 [facility] [employer] [place] [address] * (ABNORMAL) Hemoglobin and hematocrit (04/27/2024 11:40 PM CDT) Hgb 9.5(L) 13.0 - 17.5 g/dL Hct 27.4(L) 38.9 - 50.3 % [facility] ([place]) Blood 04/27/2024 11:4 0 PM CDT 04/27/2024 11:47 PM CDT us Meghan Wiggins MD LAB BLOOD ORDERABLES Final Resu lt Performing Organization Address City/[facility]/ZIP Co de Phone Number [facility] ([place]) 1 [facility] [employer] [place] [address] * Transfuse RBC (04/27/2024 10:25 PM CDT) Blood us Meghan Wiggins MD BLOOD TRANSFUSION ORDERABLES Fi nal Result [facility] ([place]) 1 [facility] [place] [address] * Transfuse RBC: 1 Units (04/27/2024 10:25 PM CDT) Blood Meghan Wiggins MD BLOOD TRANSFUSION ORDERABLES Fi nal Result * Infection Prevention MRSA Only (Staphylococcus aureus) PCR Nasal (04/27/2024 8:12 PM CDT) PCR Scrn, Methicillin resistant Staphylococcus aureus (MRSA) Not Detected Not Detected Comment: Interpretive Data Testing performed using Nucleic Acid Amplification with the [employer] Xpert MRSA NxG Assay. This assay detects target DNA from mecA, mecC and the SCCmec insertion site of Staphylococcus aureus using Real-Time PCR and has been cleared by the FDA. Performance characteristics have been verified by the [facility]. Current Interpretive Data was last revised on 2023 Nasal 04/27/2024 8:12 PM CDT 04/27/2024 8:16 PM CDT Collin Mancia MD LAB MICROBIOLOGY - GENERAL ORDERABLES Final Result Performing Organization Address City/[facility]/ZIP Co de Phone Number [facility] RAYMUNDO ([facility] 1 [facility] Department [place] [address] * ECG 12 lead (04/27/2024 8:08 PM CDT) 04/27/2024 8:08 PM CDT Narrative [facility] - 04/28/2024 8:57 AM CDT Vent Rate: 97 bpm RR Interval: 618 msec OR Interval: 118 msec QRS Duration: 89 msec QT Interval: 337 msec QTC Interval: 391 msec P-R-T [place]: 17 - -4 - -7 degrees IMPRESSION: SINUS RHYTHM WITH SHORT OR INTERVAL ST DEVIATION AND MODERATE T-WAVE ABNORMALITY, CONSIDER LATERAL ISCHEMIA ??[-0.1+ mV T-WAVE IN I/aVL/V5/V6] ABNORMAL ECG Electronically Signed By: Santy Han MD Michael Silva MD ECG ORDERABLES Final Resu lt [facility] [employer] [facility] * Critical Care (04/27/2024 8:04 PM CDT) [...] plan with the ICU team and other medical/communication consultant staff, making frequent assessments and decisions [...] ORDERABLES - DIANA CE Final Result [facility] ([place]) 1 [facility] Department [place] [address] * Troponin T high-sensitivity (04/27/2024 7:35 PM CDT) Trop T hs 16 <=22 ng/L Comment: Interpretive Data For further hscTnT resources including the diagnostic algorithm and an aid in interpretation, copy and paste this link: [email or web address] Current Interpretive Data last revised 2020. Blood 04/27/2024 7:35 PM CDT 04/27/2024 7:37 PM CDT us Michael Silva MD LAB BLOOD ORDERABLES Final Result Performing Organization Address [facility] Co de Phone Number [facility] ([place]) 1 [place] [address] * Prepare RBC: 1 Units (04/27/2024 7:23 PM CDT) Units requested 1 Units requested Ready [facility] ([place]) Unit Number [id number] Product code [id number] [facility] ([place]) Blood Expiration Date [id number] [facility] ([place]) Product Blood Type (for scanning) 5100 [facility] ([place]) Product Blood Type OPOS [facility] ([place]) Dispense Status DISPENSED [facility] ([place]) Blood 04/27/2024 7:23 PM CDT 04/27/2024 7:23 PM CDT us Meghan Wiggins MD BLOOD BANK PRODUCT ORDERABLES F inal Result [facility] ([place]) 1 [facility] [place] [address] * CTA Abdomen Pelvis (04/27/2024 6:13 PM [...] PM T: ??04/27/2024 7:26 PM Report ID: [id number] Reading Location: ??[id number] Procedure Note Angelique Macias MD - 04/27/2024 [...] Macias M.D., D.O. MW: LORETTA Report ID: [id number] Reading Location: [id number] us Kieran Westbrook MD IMG CT PROCEDURES Final Result * (ABNORMAL) Hemoglobin and hematocrit (04/27/2024 5:37 PM CDT) Hgb 8.9(L) 13.0 - 17.5 g/dL Hct 26.3(L) 38.9 - 50.3 % [facility] ([place]) Blood 04/27/2024 5:37 PM CDT 04/27/2024 5:40 PM CDT us Meghan Wiggins MD LAB BLOOD ORDERABLES Final Resu lt [facility] ([place]) 1 [facility] [employer] [place] [address] * (ABNORMAL) Hemoglobin and hematocrit (04/27/2024 3:58 PM CDT) Hgb 8.5(L) 13.0 - 17.5 g/dL Hct 25.2(L) 38.9 - 50.3 % [facility] ([place]) Blood 04/27/2024 3:58 PM CDT 04/27/2024 4:10 PM CDT us Kieran Westbrook MD LAB BLOOD ORDERABLES Final Resul t [facility] ([place]) 1 [facility] [employer] [place] [address] * (ABNORMAL) Hemoglobin and hematocrit (04/27/2024 8:48 AM CDT) Hgb 10.3(L) 13.0 - 17.5 g/dL Hct 30.4(L) 38.9 - 50.3 % [facility] ([place]) Blood 04/27/2024 8:48 AM CDT 04/27/2024 9:15 AM CDT Megahn Wiggins MD LAB BLOOD ORDERABLES Final Resu lt Performing Organization Address City/[facility]/ZIP Co de Phone Number [facility] ([place]) 1 [facility] [place] [address] * (ABNORMAL) Hemoglobin and hematocrit (04/27/2024 4:05 AM CDT) Hgb 10.2(L) 13.0 - 17.5 g/dL Hct 30.1(L) 38.9 - 50.3 % [facility] ([place]) Blood 04/27/2024 4:05 AM CDT 04/27/2024 4:47 AM CDT Meghan Wiggins MD LAB BLOOD ORDERABLES Final Resu lt Performing Organization Address [facility] Co de Phone Number [facility] ([place]) 1 [facility] [place] [address] * Phosphorus (04/27/2024 4:05 AM CDT) Phosphorus, pl 3.0 2.3 - 4.5 mg/dL Blood 04/27/2024 4:05 AM CDT 04/27/2024 4:47 AM CDT Celestino Moctezuma MD LAB BLOOD ORDERABLES Final Result Performing Organization Address City/[facility] Co de Phone Number [facility] ([place]) 1 [facility] [place] [address] * Magnesium (04/27/2024 4:05 AM CDT) Magnesium 1.8 1.4 - 2.5 mg/dL Blood 04/27/2024 4:05 AM CDT 04/27/2024 4:47 AM CDT Celestino Moctezuma MD LAB BLOOD ORDERABLES Final Result Performing Organization Address City/[facility] Co de Phone Number [facility] ([place]) 1 [facility] [place] [address] * (ABNORMAL) Hemoglobin and hematocrit (04/27/2024 12:04 AM CDT) Hgb 10.8(L) 13.0 - 17.5 g/dL Hct 31.8(L) 38.9 - 50.3 % [facility] ([place]) Blood 04/27/2024 12:0 4 AM CDT 04/27/2024 12:15 AM CDT Meghan Wiggins MD LAB BLOOD ORDERABLES Final Resu lt Performing Organization Address [facility] Co de Phone Number MINOR PASTRANA) 1 [facility] [place] [address] * (ABNORMAL) Hemoglobin and hematocrit (04/26/2024 7:53 PM CDT) Hgb 11.6(L) 13.0 - 17.5 g/dL Hct 34.4(L) 38.9 - 50.3 % [facility] ([place]) Blood 04/26/2024 7:53 PM CDT 04/26/2024 7:54 PM CDT Meghan Wiggins MD LAB BLOOD ORDERABLES Final Resu lt Performing Organization Address City/[facility]/ZIP Co de Phone Number [facility] ([place]) 1 [facility] [place] [address] * (ABNORMAL) Hemoglobin and hematocrit (04/26/2024 6:01 PM CDT) Hgb 12.2(L) 13.0 - 17.5 g/dL Hct 36.2(L) 38.9 - 50.3 % [facility] ([place]) Blood 04/26/2024 6:0 1 PM CDT 04/26/2024 6:03 PM CDT us Meghan Wiggins MD LAB BLOOD ORDERABLES Final Resu lt [facility] ([place]) 1 [facility] [place] [address] * POCT glucose (04/26/2024 5:51 PM CDT) Glucose, POC 136 70 - 199 mg/dL Blood 04/26/2024 5:51 PM CDT 04/26/2024 5:51 PM CDT Meghan Wiggins MD LAB POCT ORDERABLES - DEVICE Fi nal Result Performing Organization Address City/[facility] Co de Phone Number [facility] ([place]) 1 [facility] [place] [address] * (ABNORMAL) Hemoglobin and hematocrit (04/26/2024 4:24 PM CDT) Hgb 12.9(L) 13.0 - 17.5 g/dL Hct 37.9(L) 38.9 - 50.3 % [facility] ([place]) Blood 04/26/2024 4:24 PM CDT 04/26/2024 4:33 PM CDT Jeannette BUCIO LAB BLOOD ORDERABLES Nicole l Result Performing Organization Address City/[facility]/ZIP Co de Phone Number [facility] ([place]) 1 [facility] [place] [address] * ABO / Rh Confirmation Testing (04/26/2024 4:24 PM CDT) ABO/Rh Confirmation O Positive [facility] Blood 04/26/2024 4:24 PM CDT 04/26/2024 4:33 PM CDT Narrative [facility] ([place]) - 04/26/2024 5:11 PM CDT Called Aliya in ED to ask for a Confirmatory Type to be collected us Ilia Hoffman MD LAB BLOOD ORDERABLES Final Res ult [facility] ([place]) 1 [facility] Department [place] [address] [facility] * CT Abdomen Pelvis W Contrast [...] PM T: ??04/26/2024 1:47 PM Report ID: [id number] Reading Location: ??[id number] Procedure Note Jayla Finley MD - 04/26/2024 [...] Jayla Finley M.D. AT: AT Report ID: [id number] Reading Location: [place] [address] PROCEDURES Final R esult * Crossmatch (04/26/2024 12:40 PM CDT) Crossmatch Compatible [facility] ([place]) Unit number for crossmatch [id number] [facility] ([place]) Crossmatch Compatible [facility] ([place]) Unit number for crossmatch [id number] [facility] ([place]) Crossmatch Compatible [facility] ([place]) Unit number for crossmatch [id number] [facility] ([place]) Crossmatch Compatible [facility] ([place]) Unit number for crossmatch [id number] [facility] ([place]) Crossmatch Compatible [facility] ([place]) Unit number for crossmatch [id number] [facility] ([place]) Blood 04/26/2024 12:4 0 PM CDT 04/26/2024 12:44 PM CDT Meghan Wiggins MD LAB BLOOD BANK TEST ORDERABLES Edited Result - Final [facility] ([place]) 1 [facility] Department [place] [address] * eGFR (04/26/2024 12:40 PM CDT) eGFR [...] BLOOD ORDERABLES Final Resul t [facility] ([place]) 1 [facility] [place] [address] * (ABNORMAL) Differential, auto (04/26/2024 12:40 PM [...] 2018. Basophil pct 0.4 % [facility] ([place]) Comment: Interpretive Data Percent cell count reference ranges are not reported, since discordance with absolute values may lead to misinterpretation of CBC data. Current Interpretive Data was last revised on 2018. Blood 04/26/2024 12:4 0 PM CDT 04/26/2024 12:44 PM CDT Willis Leslie MD LAB BLOOD ORDERABLES Final Resul t [facility] ([place]) [address] [place] [address] [employer] [place] [address] * Antibody screen (04/26/2024 12:40 PM CDT) Izzy, indirect, Gel Interpretation Negative ABSC Blood 04/26/2024 12:4 0 PM CDT 04/26/2024 12:44 PM CDT Narrative [facility] ([place]) - 04/26/2024 1:38 PM CDT Has the patient had Daratumumab or Isatuximab in the past 6 months?->Unknown Result [facility] Willis Leslie MD LAB BLOOD BANK TEST ORDERABLES F inal Result [facility] ([place]) [address] [place] [address] [place] [address] * ABO/Rh (04/26/2024 12:40 PM CDT) ABO/Rh O Positive Blood 04/26/2024 12:4 0 PM CDT 04/26/2024 12:44 PM CDT Narrative [facility] ([place]) - 04/26/2024 1:38 PM CDT Has the patient had Daratumumab or Isatuximab in the past 6 months?->Unknown Willis Leslie MD LAB BLOOD BANK TEST ORDERABLES F inal Result Performing Organization Address City/[facility]/ZIP Co de Phone Number [facility]OR [facility] ([place]) 1 [facility] of [place] [address] * Protime-INR (04/26/2024 12:40 PM CDT) PT 10.8 9.7 - 13.0 sec INR 1.00 0.90 - 1.20 [facility] ([place]) Comment: Interpretive data Oral [...] ORDERABLES Nicole l Result Performing Organization Address City/[facility] Co de Phone Number [facility] [address] [facility] [place] [address] * (ABNORMAL) Comprehensive metabolic panel (04/26/2024 12:40 PM CDT) Sodium 137 135 - 145 mmol/L Potassium, pl 4.3 3.3 - 4.9 mmol/L [facility] ([place]) Chloride 103 97 - 110 mmol/L [facility] ([place]) CO2 25 22 - 32 mmol/L [facility] ([place]) Anion gap 10 2 - 15 mmol/L [facility] ([place]) BUN 7 6 - 25 mg/dL [facility] ([place]) Creatinine 1.20 0.80 - 1.30 mg/dL [facility] ([place]) Glucose 102 70 - 199 mg/dL [facility] ([place]) Comment: Interpretive Data Fasting [...] LAB BLOOD ORDERABLES Final Resul t [facility] ([place]) 1 [facility] [place] [address] * (ABNORMAL) CBC with auto differential (04/26/2024 [...] ([place]) MCH 33.1 27.1 - 33.3 pg [facility] ([place]) MCHC 34.3 32.3 - 35.7 g/dL [facility] ([place]) RDW CV 13.0 11.1 - 14.9 % [facility] ([place]) RDW SD 46.8 35.7 - 48.1 fL [facility] ([place]) NRBC abs 0.00 0.00 - 0.01 K/cumm [facility] ([place]) Blood 04/26/2024 12:4 0 PM CDT 04/26/2024 12:44 PM CDT us Willis Leslie MD LAB BLOOD ORDERABLES Final Resul t [facility] ([place]) 1 [facility] Department [place] [address] documented in this encounter Visit Diagnoses Diagnosis [...] available)1258 (DEC Unhold - Provider: Automatic Transfer Provider)2134 (Given - Provider: Tonio Simpson RN) 1224 [...] hypocalcemia 0843 (New Bag - Provider: Aubree Finnegan, EDMUNDO) cefTRIAXone (ROCEPHIN) 2,000 mg/20 mL in sterile [...] (Given - Provider: Aubree Finnegan RN) 1104 (MAR Hold - Provider: Automatic Transfer Provider - Reason: Patient not available)1200 (Dose Auto Held - Provider: Automatic Transfer Provider)1258 (DEC Unhold - Provider: Automatic Transfer Provider) ciprofloxacin [...] 0900 1308 (Held by Provider - Provider: Celetsino Moctezuma MD - Reason: Hold for Procedure) 0900 (Dose Auto Held)1357 (Unheld by Provider - Provider: Collin Mancia MD) metoclopramide (REGLAN) 5 mg/mL injection 10 mg (CANCELED) 10 mg, intravenous, Every 6 hours scheduled, First dose on Sun04/28/24 at 1000, For 2 doses 0920 (Given - Provider: Aubree Finnegan RN)1109 (DEC Hold - Provider: Automatic Transfer Provider - Reason: Patient not available)1428 ([facility] Unhold - Provider: Automatic Transfer Provider) metoclopramide (REGLAN) 5 mg/mL injection 10 mg (CANCELED) 10 mg, intravenous, Every 6 hours scheduled, First dose on Sun04/29/24 at 1200, For 2 doses 1056 (Given - Provider: Aubree Finnegan RN)1104 (DEC Hold - Provider: Automatic Transfer Provider - Reason: Patient not available)1258 ([facility] Unhold - Provider: Automatic Transfer Provider) metoprolol tartrate (LOPRESSOR) immediate release tablet 25 mg (CANCELED) 25 mg, oral, 2 times daily, First dose on Sun04/28/24 at 1630 1616 (Given - Provider: Aubree Finnegan RN) 0843 (Given - Provider: Aubree Finnegan RN)1104 (DEC Hold - Provider: Automatic Transfer Provider - Reason: Patient not available)1258 ([facility] Unhold - Provider: Automatic Transfer Provider) metoprolol [...] Room temperature only, Indications: Abdominal/Pelvic Infection 1109 ([facility] Hold - Provider: Automatic Transfer Provider - Reason: Patient not available)1200 (Dose Auto Held - Provider: Automatic Transfer Provider)1428 ([facility] Unhold - Provider: Automatic Transfer Provider)1430 (Stopped - Provider: Aubree Finnegan RN)2339 (New Bag - Provider: Nely Dotson RN) 1104 ([facility] Hold - Provider: Automatic Transfer Provider - Reason: Patient not available)1200 (Dose Auto Held - Provider: Automatic Transfer Provider)1258 ([facility] Unhold - Provider: Automatic Transfer Provider) metroNIDAZOLE (FLAGYL) tablet 500 mg 500 mg, oral, 3 times daily, First dose on Sun04/29/24 at 1600, For 7 days, Indications: Abdominal/Pelvic Infection 1552 (Given - Provider: Aubree Finnegan RN)2136 (Given - Provider: Tonio Simpson, EDMUNDO) 1005 (Given - Provider: Anibal Barksdale RN)1420 [...] of 4 mg/mL, Indications: GI Bleed 1109 (DEC Hold - Provider: Automatic Transfer Provider - Reason: Patient not available)1428 (DEC Unhold - Provider: Automatic Transfer Provider)1500 (Given [...] available)1258 (DEC Unhold - Provider: Automatic Transfer Provider)2136 (Given - Provider: Tonio Simpson RN) 1005 (Given - Provider: Anibal Barksdale RN) polyethylene glycol (GoLYTELY) solution 2,000 mL (COMPLETED) [...] available)1428 (MAR Unhold - Provider: Automatic Transfer Provider)215 (Given - Provider: Nely Dotson RN) 1104 (DEC Hold - Provider: Automatic Transfer Provider - Reason: Patient not available)1258 (MAR Unhold - Provider: Automatic Transfer Provider)2200 (Given [...] mL in sterile water (premix) 2,000 mg 1 04/26/2024 ciprofloxacin (CIPRO) 400 mg /200 mL in dextrose 5% (premix) 400 mg 1 04/26/2024 ioversoL (OPTIRAY 350) syringe 75 mL 1 04/08 metoprolol XL (TOPROL-XL) ex tended release tablet 100 mg 04/26/2024 metroNIDAZOLE (FLAGYL) 500 m g/100 mL [...] 04/28/2024 documented in this encounter Care Teams Valet Runner Relationship Specialty Start Date End Date Carlos Pacheco MD [address] [place] [id number] PCP - General Internal Medicine 04/26/24 documented as of this encounter
== END 2024-09-27 09:33 | disposition home or self-care (01) ==
DX: J43.9 Emphysema, unspecified (principal); Z77.090 Contact with and (suspected) exposure to asbestos
CPT/HCPCS: 71250